=== PATIENT | female | born 1975 | race Caucasian/White ===

== ENCOUNTER → 2016-12-06 | Outpatient (CLI) | payer MEDICARE, MEDICAID ==
[2016-11-21 13:30] VITALS: BP 146/87
[~2016-12-06] MED LIST: ACID1TAB14 PO; AMLO10TA2 PO; AMLO5TAB2 PO; ASPI-482 PO; AZIT250T PO; BACL10TA PO; BACL20TA PO; BISA-42 PO; CYAN10002 IJ; CYAN10005 PO; DICL1PAT4 TD; DIPH25TA49 PO; DULO20CA PO; FENT1PAT17 TD; FLUD0.1T PO; FLUT1DIS3 IH; HYDR-2666 PO; HYDR-2672 PO; HYDR10TA PO; HYDR10TA14 PO; HYDR4TAB13 PO; LEVO500T38 PO; LINA145C PO; LUBI8CAP3 PO; METH-37 PO; METO5TAB55 PO; MULT-460 PO; NYST1000 PO; ONDA4TAB12 PO; OXYC10TA PO; OXYC15TA PO; OXYC5TAB98 PO; OXYM10TA28 PO; POLY17PO5 PO; POTA20TA4 PO; POTA99TA10 PO; PRED-220 PO; PROAIR HFA8.5 GM IH; SIME40DR7 PO; SIME80TA PO; SPIR1TAB PO; SPIR1TAB3 PO; SPIR25TA3 PO; TIZA4CAP PO; TRAZ100T12 PO; TRAZ50TA15 PO; VANC125C2 PO; [UNRECOGNIZED DRUG - CODE] PO; hydrocortisone
--- NOTE | 2016-12-07 06:21 | PAIN ---
DATE OF SERVICE: 12/06/2016 DIAGNOSES: 1. Lumbar radiculopathy with lumbar degenerative disk disease, lumbar spinal stenosis. 2. Epigastric abdominal pain. HISTORY OF PRESENT ILLNESS: The patient is a 41-year-old female who returns for followup status post medication management with Duragesic patches and hydromorphone. The patient has been in the hospital recently with pneumonia, was discharged a few weeks ago, but is doing better. She reports her pain in her low back, bilateral lower extremities has been fairly stable on regimen of her medications hydromorphone and Duragesic patches, ____ the doses a bit from time to time and discussed changing that again today from 8 mg of hydromorphone to 4 mg and she would like to do this as she just reports she is feeling better, we will change her Duragesic patches from 75 to 100 mcg as she seems to do well with this and without side effects. The patient reports otherwise she is doing fairly well, about 70-75% improvement with medications, but without significant side effects. The patient reports again still complains of pain in low back, bilateral lower extremities, some in the left wrist as well, rates it as 7 on a scale of 10 in the low back and legs. We discussed doing additional interventional techniques; however, the patient is adamantly against this at this time and reports that she is doing fairly well with the medications without significant side effects once again. The patient's K-TRACS reporting has been appropriate to date as has her urinalysis to date. PHYSICAL EXAMINATION: VITAL SIGNS: The patient's blood pressure 148/101, pulse 77, respirations 18, temperature is 98.9 degrees Fahrenheit. Height is 5 feet 1 inch, weight is 184 pounds. GENERAL: The patient is awake, alert, oriented, appropriate, very pleasant demeanor. The patient accompanied by her daughter. HEENT: Head shows normocephalic, atraumatic. Extraocular movements are intact, symmetrical. Oral cavity, mucous membranes moist and pink. Dentition is intact. NECK: Shows anterior throat supple without palpable lymphadenopathy noted. Swallow reflex is symmetrical. CHEST: Shows normal on inspection. Breath sounds clear to auscultation bilaterally. HEART: Shows S1 and S2 clear. No murmurs auscultated. ABDOMEN: Soft, obese, nontender, nondistended. The patient has multiple well-healed surgical scars noted with palpation and moderately tender in the upper right and left quadrants, but not in the lower hypogastric region and no masses were palpated. BACK: The patient's back shows spine grossly in midline. Lumbar paraspinous musculature shows some moderate tenderness to palpation, normal diffusely in the middle and low distribution without asymmetry. Muscle girth is normal on palpation. No radiation is demonstrated. EXTREMITIES: Lower extremities showed deep tendon reflexes 1+ in the patellar and tendo calcaneus tendons. Motor exam is strong with a 4/5, but is symmetrical with dorsiflexion, extension, quadriceps and hamstring flexion. Options were discussed with the patient. The patient's old chart was reviewed as her current medication regimen updated. Current review of systems updated today as well. We will refill the patient's hydromorphone at 4 mg dose, also ____ patches at 100 mcg dose q. 72 hours. The patient was given instruction as well as side effects to be aware with the medications and will continue increasing exercise as tolerated, encourage stretching and strengthening exercises with low back, also to consider possible interventional techniques in the future. The patient understands and agrees and will follow up in approximately 90 days or sooner if necessary, was given 3-month prescription with each medication. DWAINE MCGINNIS MD DR: BECKY/merlin JOB#: [id number] / [id number]
== END | disposition home or self-care (01) ==
LOC: PNCL 12:41
PROVIDERS: ATTEND Anesthesiology
DX: M51.16 Intervertebral disc disorders with radiculopathy, lumbar region (principal); M48.06 Spinal stenosis, lumbar region; R10.13 Epigastric pain
CPT/HCPCS: G0463

== ENCOUNTER 2017-01-12 11:58 | Emergency (ER) | payer MEDICARE, MEDICAID ==
[~2017-01-12] VITALS: Ht 157.5 cm; Wt 77.1 kg
[2017-01-12 12:28] VITALS: BP 125/79
--- NOTE | 2017-01-12 13:23 | PHYS DOC ---
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 Patient states she was seen by her primary care physician on Monday of this week for same complaints was given IM injection of antibiotics but no further prescription. There was no chest x-ray done in the office on Monday per the patient. Patient states her symptoms persist, no better no worse, so presents to the emergency department today for reevaluation. Patient states that her physician on Monday was concerned that her right lower lobe pneumonia and was returning. Patient denies a productive cough. No fevers, possible chills. Patient has past medical history of asthma and COPD. Patient smokes half pack cigarettes a day. Review of Systems Review of Systems Constitutional: Denies fever possible chills Eyes: Denies change in visual acuity, redness, or eye pain HENT: Denies nasal congestion or sore throat, several oral ulcers on left side Respiratory: Positive cough or shortness of breath Cardiovascular: No chest pain or palpitations GI: Denies abdominal pain, nausea, vomiting, bloody stools or diarrhea : Denies dysuria or hematuria Musculoskeletal: Denies new back pain or joint pain Endocrine: Denies polyuria or polydipsia Current Medications Current Medications Current Medications Medications (Trade) Dose Ordered Sig/Judith Start Time Stop Time Status Last Admin Dose Admin Albuterol/ Ipratropium (Duoneb) 3 ml 1X ONCE 01/12/17 13:30 01/12/17 13:31 DC 01/12/17 13:56 3 ML Allergies Allergies Allergies Coded Allergies Type Severity Reaction Last Updated Verified Sulfa (Sulfonamide Antibiotics) Allergy Intermediate 12/29/15 Yes citric acid Allergy Intermediate HAS TOLERATED BARIUM 12/29/15 Yes shellfish derived Allergy Intermediate Patient does fine with iodine contrast 12/29/15 Yes Physical Exam Physical Exam Constitutional: Well developed, well nourished, no acute distress, non-toxic appearance. HENT: Normocephalic, atraumatic, oropharynx moist, no oral exudates, positive oral sores left side of mouth, nose normal. Eyes: PERRLA, EOMI, conjunctiva normal, no discharge. Neck: Normal range of motion, no tenderness, supple, no stridor. Cardiovascular:Heart rate regular rhythm, no murmur Lungs & Thorax: Bilateral breath sounds clear to auscultation . Slight expiratory wheeze Abdomen: Bowel sounds normal, soft, no tenderness, no masses, no pulsatile masses. Skin: Warm, dry, no erythema, no rash. Back: No tenderness, no CVA tenderness. Neurologic: Alert and oriented X 3. Current Patient Data Vital Signs Vital Signs Date Time Temp Pulse Resp B/P Pulse Ox O2 Delivery O2 Flow Rate FiO2 01/12/17 13:58 97 Room Air 01/12/17 12:28 99 82 20 125/79 99.0 EKG EKG [] Radiology/Procedures Radiology/Procedures [] Course & Med Decision Making Course & Med Decision Making Pertinent Labs and Imaging studies reviewed. (See chart for details) Reevaluation of the chest x-ray breathing treatment. Patient feeling significantly better. Chest x-ray showing no acute abnormalities. Patient request short course of steroids to assist her respiratory symptoms. Dragon Disclaimer Dragon Disclaimer This electronic medical record was generated, in whole or in part, using a voice recognition dictation system. Departure Departure Impression: Primary Impression: Asthma Disposition: HOME, SELF-CARE Condition: IMPROVED Referrals: JERRY BRIGHT MD (PCP) Scripts Methylprednisolone (Medrol)4 Mg Tab.ds.pk1 Pkg PO UD #1 PKG Prov:NOE CONNELLY MD 01/12/17 Problem Qualifiers Primary Impression: Asthma Asthma severity: mild intermittent Asthma complication type: with acute exacerbation Qualified Code: J45.21 - Mild intermittent asthma with (acute) exacerbation NOE CONNELLY MD Jan 12, 2017 13:23
[2017-01-12] MEDS ORDERED: IPRATRPIUM/ALBUTEROL 0.5/2.5MG 3 ML NEBU. NEB ONE (13:30)
--- NOTE | 2017-01-12 13:48 | RAD ---
Chest, 2 views, 01/12/2017: History: Cough, shortness of breath Comparison is made to a study from 07/11/2016. A right Port-A-Cath extends into the superior vena cava. The heart size and pulmonary vascularity are normal. No pulmonary infiltrates are seen. There is no evidence of pleural fluid. There is mild spurring in the spine. IMPRESSION: No acute cardiopulmonary abnormality is detected.
[2017-01-12] MEDS ORDERED: METH4TAB2 PO (14:45)
== END 2017-01-12 15:06 | disposition home or self-care (01) ==
LOC: ER 11:58
DX: J45.21 Mild intermittent asthma with (acute) exacerbation (principal); J44.9 Chronic obstructive pulmonary disease, unspecified; F17.210 Nicotine dependence, cigarettes, uncomplicated; I10 Essential (primary) hypertension; K31.84 Gastroparesis; Z91.02 Food additives allergy status; Z91.013 Allergy to seafood; Z88.2 Allergy status to sulfonamides
CPT/HCPCS: 71020; 94250; 94640; 94760; 99284; J7620

== ENCOUNTER → 2017-02-28 | Outpatient (CLI) | payer MEDICARE, MEDICAID ==
[2017-01-27 15:00] VITALS: BP 101/53
[~2017-02-28] MED LIST changes: -DICL1PAT4 TD; +FLECTOR1 EACH TD; +HYDR-3074 PO; -HYDR10TA14 PO; +HYDR25TA9 PO; +HYOS0.124 PO; +MELA3TAB PO; +METH4TAB2 PO; -NYST1000 PO; +NYST100054 PO; +POLY17PO29 PO; -POLY17PO5 PO
--- NOTE | 2017-02-28 14:38 | PAIN ---
DATE OF SERVICE: 02/28/2017 PROGRESS NOTE FOR PAIN CLINIC DIAGNOSES: 1. Abdominal pain, epigastric. 2. Lumbar radiculopathy with lumbar degenerative disk disease, lumbar spinal stenosis. HISTORY OF PRESENT ILLNESS: The patient is a 41-year-old female, who returns for followup status post medication management with both hydromorphone and Duragesic patches. The patient reports she is doing very well with this first, very stable regimen. Still some pain in low back and left lower extremity and rated at 7-8 on a scale of 10 at its worst, is a 3-4 on scale of 10 and currently. The patient reports still no new motor or sensory deficits, no new bowel or bladder incontinence, but much better with lying down ____ worse with standing and walking. It does not awaken her from sleep at night. She stopped doing fairly well with that. Again, the medications that decrease the pain by about 70%-80% without any side effects except for some occasional constipation. We discussed this in further detail and we will try some samples of Movantik today for the patient ____ may help with the constipation what she has. The patient reports she is staying hydrated, no new motor or sensory changes or other complaints. PHYSICAL EXAMINATION: VITAL SIGNS: Today, the patient's blood pressure is 119/74, pulse 63, respirations are 18, temperature 98.6 degrees Fahrenheit, height is 5 feet 1 inch. Weight 184 pounds. GENERAL: The patient is awake, alert, oriented, appropriate, very pleasant demeanor. HEENT: Shows normocephalic, atraumatic. Extraocular movements are intact and symmetrical. Oral cavity shows mucous membranes moist and pink. Dentition is intact. NECK: Shows anterior throat supple without palpable lymphadenopathy noted. Swallow reflex is symmetrical. CHEST: Shows normal on inspection. Breath sounds are clear to auscultation bilaterally. HEART: Shows S1 and S2 clear. ABDOMEN: Soft, nontender, nondistended. No palpable organomegaly is noted. The well-healed surgical scar is noted again from previous hernia repairs with some moderate epigastric tenderness only with palpation in this region, but no rebound or guarding. BACK: The patient's back shows spine grossly midline. Normal appearing thoracic kyphosis, lumbar lordotic curvature is mildly flattened. The patient's lumbar paraspinous musculature shows some moderate tenderness with palpation, but only diffusely in the upper, middle and lower distribution bilaterally without radiation. No tenderness over the sacrum and sacroiliac regions. The patient's lower extremities showed deep tendon reflexes 1+ in the patellar and tendo calcaneus tendons are equal. Motor exam is strong with dorsiflexion, extension, quadriceps and hamstring flexion rated at 4/5 and equal and symmetrical. Peripheral pulses are 1+ posterior tibial and dorsalis pedis pulses. No peripheral edema is noted bilaterally. Options were discussed with the patient and the patient's old chart was reviewed as her current medication regimen updated. Current review of systems updated today as well. We will refill the patient's Duragesic patches as well as hydromorphone instructions and side effects to be aware of. Also, try Movantik for constipation is just as well. We can call in a prescription for the patient was given instruction as well as side effects to be aware of all the medications and will follow up in approximately 2 months as scheduled or sooner if necessary. DWAINE MCGINNIS MD DR: BECKY/merlin JOB#: [id number] / [id number]
== END | disposition home or self-care (01) ==
LOC: PNCL 13:04
PROVIDERS: ATTEND Anesthesiology
DX: M51.16 Intervertebral disc disorders with radiculopathy, lumbar region (principal); R10.13 Epigastric pain; M48.06 Spinal stenosis, lumbar region
CPT/HCPCS: G0463

== ENCOUNTER 2017-03-20 15:58 | Emergency (ER) | payer MEDICARE, MEDICAID ==
[~2017-03-20] VITALS: Ht 157.5 cm; Wt 76.2 kg
[~2017-03-20 15:58] MED LIST changes: -HYDR-2666 PO; -HYDR-2672 PO; +HYDR-2758 PO; +HYDR-2766 PO; -HYDR4TAB13 PO; +HYDR4TAB45 PO; -LEVO500T38 PO; +LEVO500T59 PO; -LUBI8CAP3 PO; +LUBI8CAP4 PO; -MELA3TAB PO; +MELA3TAB2 PO; +SIME40DR3 PO; -SIME40DR7 PO
[2017-03-20 16:14] VITALS: BP 159/74
[2017-03-20] MEDS ORDERED: HYDROcodone/APAP 5/325MG 1 TAB TABLET PO ONE (16:45)
--- NOTE | 2017-03-20 16:47 | RAD ---
Indication pain. AP oblique and lateral views of the left foot were obtained. There is a traumatic, oblique, nondisplaced fracture through the midshaft of the fifth metatarsal.. No additional bony abnormality is seen. IMPRESSION: Fractured fifth metatarsal
--- NOTE | 2017-03-20 16:50 | PHYS DOC ---
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 PCP Dr. Zepeda. Review of Systems Review of Systems Constitutional: Denies fever or chills [] Eyes: Denies change in visual acuity, redness, or eye pain [] Musculoskeletal: Left lateral foot pain Integument: Denies rash or skin lesions [] Neurologic: Denies headache, focal weakness or sensory changes [] Endocrine: Denies polyuria or polydipsia [] Current Medications Current Medications Current Medications Medications (Trade) Dose Ordered Sig/Judith Start Time Stop Time Status Last Admin Dose Admin Acetaminophen/ Hydrocodone Bitart (Lortab 5/325) 2 tab 1X ONCE 03/20/17 16:45 03/20/17 16:48 DC 03/20/17 16:45 2 TAB Allergies Allergies Allergies Coded Allergies Type Severity Reaction Last Updated Verified Sulfa (Sulfonamide Antibiotics) Allergy Intermediate 03/20/17 Yes citric acid Allergy Intermediate HAS TOLERATED BARIUM 03/20/17 Yes shellfish derived Allergy Intermediate Patient does fine with iodine contrast 03/20/17 Yes Physical Exam Physical Exam Constitutional: Well developed, well nourished, no acute distress, non-toxic appearance. [] HENT: Normocephalic, atraumatic, bilateral external ears normal, oropharynx moist, no oral exudates, nose normal. [] Skin: Warm, dry, no erythema, no rash. [] Back: No tenderness, no CVA tenderness. [] Extremities: Left foot with mild amount of soft tissue swelling this patient on top of the foot. There is ecchymosis noted on the lateral aspect of the foot with tenderness on palpation the base of the fifth and along the metatarsal of the left foot, limited range of motion to the left foot due to pain. Patient able to wiggle her toes. +2 left pedal pulse. Cap refill less than 2 seconds to left foot and toes. Neurologic: Alert and oriented X 3, normal motor function, normal sensory function, no focal deficits noted. [] Psychologic: Affect normal, judgement normal, mood normal. [] Current Patient Data Vital Signs Vital Signs Date Time Temp Pulse Resp B/P (MAP) Pulse Ox O2 Delivery O2 Flow Rate FiO2 03/20/17 16:45 20 03/20/17 16:14 98.3 58 98 Room Air 98.3 EKG EKG [] Radiology/Procedures Radiology/Procedures []PROCEDURE: FOOT LEFT 3V Indication pain. AP oblique and lateral views of the left foot were obtained. There is a traumatic, oblique, nondisplaced fracture through the midshaft of the fifth metatarsal.. No additional bony abnormality is seen. IMPRESSION: Fractured fifth metatarsal DICTATED and SIGNED BY: EDUARDO MENDOZA MD DATE: 03/20/17 1643 CC: JERRY ZEPEDA MD; JORGE LUIS TAYLOR APRN; NON,STAFF ~ Course & Med Decision Making Course & Med Decision Making Pertinent Labs and Imaging studies reviewed. (See chart for details) This is a 41-year-old female patient who presents today with pain on the left lateral foot after her foot got caught in a door stop and twisted. Left foot x- rays interpreted by radiologist were noted for fractured fifth metatarsal. Patient was placed in a left posterior leg splint by the formulation technician, neurovascular exam done by me post splint application is normal, cap refill less than 2 seconds. Ice elevation encouraged. Follow-up with orthopedic doctor tomorrow. Discharged with hydrocodone for pain. Dragon Disclaimer Dragon Disclaimer This electronic medical record was generated, in whole or in part, using a voice recognition dictation system. Departure Departure Impression: Primary Impression: Fracture of fifth metatarsal bone of left foot Disposition: 01 HOME, SELF-CARE Condition: STABLE Referrals: JERRY ZEPEDA MD (PCP) SATINDER URENA MD Call and follow-up tomorrow Patient Instructions: Metatarsal Fracture with [facility] Additional Instructions: You were seen for left fifth metatarsal fracture. Please call the provided orthopedic doctor tomorrow and follow-up as soon as possible. Ice and elevate the extremity. Do not put weight on the affected foot. Scripts Hydrocodone/Apap 5-325 (NORCO 5-325 TABLET) 1 Each Tablet 1-2 TAB PO Q4-6HRS, #25 TAB Prov: JORGE LUIS TAYLOR APRN 03/20/17 Problem Qualifiers Primary Impression: Fracture of fifth metatarsal bone of left foot Encounter type: initial encounter Fracture type: closed Fracture alignment : nondisplaced Qualified Codes: S92.355A - Nondisplaced fracture of fifth metatarsal bone, left foot, initial encounter for closed fracture JORGE LUIS TAYLOR APRN Mar 20, 2017 16:50
[2017-03-20] MEDS ORDERED: HYDR-971 PO (17:22)
== END 2017-03-20 17:39 | disposition home or self-care (01) ==
LOC: ER 15:58
DX: S92.352A Displaced fracture of fifth metatarsal bone, left foot, initial encounter for closed fracture (principal); J44.9 Chronic obstructive pulmonary disease, unspecified; I10 Essential (primary) hypertension; E27.1 Primary adrenocortical insufficiency; K31.84 Gastroparesis; M48.00 Spinal stenosis, site unspecified; Z90.49 Acquired absence of other specified parts of digestive tract; Z90.710 Acquired absence of both cervix and uterus; Z90.89 Acquired absence of other organs; Z98.84 Bariatric surgery status; Z86.14 Personal history of Methicillin resistant Staphylococcus aureus infection; Z88.2 Allergy status to sulfonamides; Z91.013 Allergy to seafood; Z88.8 Allergy status to other drugs, medicaments and biological substances; X58.XXXA Exposure to other specified factors, initial encounter; Y93.89 Activity, other specified; Y92.89 Other specified places as the place of occurrence of the external cause; Y99.8 Other external cause status
CPT/HCPCS: 29515; 73630; 99284-25

== ENCOUNTER 2017-04-14 05:41 | Observation (INO) | payer MEDICARE, MEDICAID ==
[~2017-04-14] VITALS: Ht 157.5 cm; Wt 75.4 kg
[~2017-04-14 05:41] MED LIST changes: +HYDR-971 PO
--- NOTE | 2017-04-14 06:03 | PHYS DOC ---
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 I spoke with her on the telephone who was at work currently states that last night around 4 PM dose that she was having troubles communicating and could not repeat questions back to her and then was acting like she was taken the dog for a walk and try to grab it the leash even though wasn't there. He also states she was having some jerking movements when she tried to walk which is the same symptoms she had back in August when she was diagnosed with a stroke at [facility] and spent a month admin [facility] rehabilitation facility. She denies dizziness lightheadedness chest pain troubles breathing headache currently. Patient states that she has had a stroke before and has had decreased sensation left arm and left-sided facial droop from that. Review of Systems Review of Systems Constitutional: Denies fever or chills [] Eyes: Denies change in visual acuity, redness, or eye pain [] HENT: Denies nasal congestion or sore throat [] Respiratory: Denies cough or shortness of breath [] Cardiovascular: No additional information not addressed in HPI [] GI: Denies abdominal pain, nausea, vomiting, bloody stools or diarrhea [] : Denies dysuria or hematuria [] Musculoskeletal: Denies back pain or joint pain [] Integument: Denies rash or skin lesions [] Neurologic: Denies headache, focal weakness or sensory changes [] Endocrine: Denies polyuria or polydipsia [] Allergies Allergies Allergies Coded Allergies Type Severity Reaction Last Updated Verified Sulfa (Sulfonamide Antibiotics) Allergy Intermediate 03/20/17 Yes citric acid Allergy Intermediate HAS TOLERATED BARIUM 03/20/17 Yes shellfish derived Allergy Intermediate Patient does fine with iodine contrast 03/20/17 Yes Physical Exam Physical Exam Constitutional: Well developed, well nourished, no acute distress, non-toxic appearance. [] HENT: Normocephalic, atraumatic, bilateral external ears normal, oropharynx moist, no oral exudates, nose normal. [] Eyes: PERRLA, EOMI, conjunctiva normal, no discharge. [] Neck: Normal range of motion, no tenderness, supple, no stridor. [] Cardiovascular:Heart rate regular rhythm, no murmur [] Lungs & Thorax: Bilateral breath sounds clear to auscultation [] Abdomen: Bowel sounds normal, soft, no tenderness, no masses, no pulsatile masses. [] Skin: Warm, dry, no erythema, no rash. [] Back: No tenderness, no CVA tenderness. [] Extremities: No tenderness, no cyanosis, no clubbing, ROM intact, no edema. [] Neurologic: Alert and oriented X 3, sensation of the left arm, slight drift of left leg, left sided facial droop. Psychologic: Affect normal, judgement normal, mood normal. [] Current Patient Data Vital Signs Vital Signs Date Time Temp Pulse Resp B/P (MAP) Pulse Ox O2 Delivery O2 Flow Rate FiO2 04/14/17 07:04 89 171/95 (120) 96 Room Air 04/14/17 05:50 98.3 20 98.3 Lab Values Laboratory Tests Test 04/14/17 06:00 04/14/17 06:50 White Blood Count 10.9 x10^3/uL (4.0-11.0) Red Blood Count 4.20 x10^6/uL (3.50-5.40) Hemoglobin 11.8 g/dL (12.0-15.5) L Hematocrit 36.4 % (36.0-47.0) Mean Corpuscular Volume 87 fL (79-100) Mean Corpuscular Hemoglobin 28 pg (25-35) Mean Corpuscular Hemoglobin Concent 33 g/dL (31-37) Red Cell Distribution Width 18.5 % (11.5-14.5) H Platelet Count 164 x10^3/uL (140-400) Neutrophils (%) (Auto) 71 % (31-73) Lymphocytes (%) (Auto) 23 % (24-48) L Monocytes (%) (Auto) 5 % (0-9) Eosinophils (%) (Auto) 1 % (0-3) Basophils (%) (Auto) 1 % (0-3) Neutrophils # (Auto) 7.8 x10^3uL (1.8-7.7) H Lymphocytes # (Auto) 2.5 x10^3/uL (1.0-4.8) Monocytes # (Auto) 0.5 x10^3/uL (0.0-1.1) Eosinophils # (Auto) 0.1 x10^3/uL (0.0-0.7) Basophils # (Auto) 0.1 x10^3/uL (0.0-0.2) Prothrombin Time 12.2 SEC (11.7-14.0) Prothrombin Time INR 1.0 (0.8-1.1) PTT 37 SEC (24-38) Sodium Level 147 mmol/L (136-145) H Potassium Level 2.5 mmol/L (3.5-5.1) *L Chloride Level 106 mmol/L (98-107) Carbon Dioxide Level 34 mmol/L (21-32) H Anion Gap 7 (6-14) Blood Urea Nitrogen 7 mg/dL (7-20) Creatinine 0.7 mg/dL (0.6-1.0) Estimated GFR (Cockcroft-Gault) 91.8 Glucose Level 83 mg/dL (70-99) Calcium Level 8.2 mg/dL (8.5-10.1) L Magnesium Level 2.2 mg/dL (1.8-2.4) Total Bilirubin 0.3 mg/dL (0.2-1.0) Direct Bilirubin 0.1 mg/dL (0.0-0.2) Aspartate Amino Transferase (AST) 17 U/L (15-37) Alanine Aminotransferase (ALT) 21 U/L (14-59) Alkaline Phosphatase 83 U/L (46-116) Ammonia 12 mcmol/L (11-34) Creatine Kinase 53 U/L (26-192) Creatine Kinase MB (Mass) 0.5 ng/mL (0.0-3.6) Creatine Kinase MB Relative Index % (0-4) Troponin I Quantitative < 0.017 ng/mL (0.000-0.055) LY-Dkn-I-Type Natriuretic Peptide 680 pg/mL (0-124) H Total Protein 5.3 g/dL (6.4-8.2) L Albumin 2.8 g/dL (3.4-5.0) L Urine Collection Type Void Urine Color Yellow Urine Clarity Clear Urine pH 6.5 Urine Specific [place] 1.015 Urine Protein Negative mg/dL (NEG-TRACE) Urine Glucose (UA) Negative mg/dL (NEG) Urine Ketones (Stick) Negative mg/dL (NEG) Urine Blood Negative (NEG) Urine Nitrite Negative (NEG) Urine Bilirubin Negative (NEG) Urine Urobilinogen Dipstick 0.2 mg/dL (0.2 mg/dL) Urine Leukocyte Esterase Negative (NEG) Urine RBC Occ /HPF (0-2) Urine WBC 1-4 /HPF (0-4) Urine Squamous Epithelial Cells Many /LPF Urine Bacteria Many /HPF (0-FEW) Urine Mucus Marked /LPF Urine Opiates Screen Pos (NEG) Urine Methadone Screen Neg (NEG) Urine Barbiturates Neg (NEG) Urine Phencyclidine Screen Neg (NEG) Urine Amphetamine/Methamphetamine Neg (NEG) Urine Benzodiazepines Screen Neg (NEG) Urine Cocaine Screen Neg (NEG) Urine Cannabinoids Screen Neg (NEG) Urine Ethyl Alcohol Neg (NEG) Laboratory Tests 04/14/17 06:00 Laboratory Tests 04/14/17 06:00 EKG EKG EKG shows sinus rhythm with rate of [address] elevations appreciated , left axis deviation noted, QTC 461 ms, as interpreted by me. Radiology/Procedures Radiology/Procedures [facility] [address] [place] [address] IMAGING REPORT Signed PATIENT: DARIUS REED ACCOUNT: [id number] : 01/20/1956 LOCATION: ER AGE: 61 SEX: F EXAM STATUS: REG ER ORD. PHYSICIAN: ALEX TAI MD REASON: fall PROCEDURE: WRIST 3V RIGHT Three-view study of the right wrist History: Patient fell this a.m. around 0500 hours. Pain and deformity of the right wrist. Findings: There is a comminuted impacted transverse fracture of the distal right radial metaphysis and epiphysis. There is intra-articular extension through the medial aspect of the articular surface of the radius. There is medial displacement of a fracture fragment. There is posterior displacement of the main fracture fragment of 5 mm. There is anterior angulation of the apex of the fracture. Radial carpal articulation is maintained. In the lateral view, there is another small fracture seen posteriorly which represents a posterior displaced fracture of the ulnar styloid process. There is positive ulnar variance of 9 mm. No osteolytic process is seen. IMPRESSION: Posttraumatic fractures of the distal right radius and ulna. DICTATED and SIGNED BY: ANDREW EVANGELISTA MD DATE: 04/14/17 07 CC: ALEX TAI MD; MINERVA BELL MD ~ [facility] [address] [place] [address] IMAGING REPORT Signed PATIENT: AMANDA MENDIETA ACCOUNT: [id number] : 1975 LOCATION: ER AGE: 42 SEX: F EXAM STATUS: REG ER ORD. PHYSICIAN: ALEX TAI MD REASON: AMS PROCEDURE: CT HEAD WO CONTRAST Clinical indications: Altered mental status. Technique: Noncontrast axial cross sectional scanning of the head was performed. PQRS Compliance Statement: One or more of the following individualized dose reduction techniques were utilized for this examination: 1. Automated exposure control 2. Adjustment of the mA and/or kV according to patient size 3. Use of iterative reconstruction technique Comparison: January 26, 2017. Findings: No acute intracranial hemorrhage or midline shift or mass-effect or hydrocephalus or extra-axial fluid collection is seen. No focal hypodense area or sulci effacement is seen to indicate an acute infarct or edema radiographically. No skull fracture or pneumocephalus is seen. No opacification of the mastoid sinuses or the middle ear cavities is seen. There is a nodule of the right maxillary sinus with mucosal thickening. This may represent a mucous retention cyst. The maxillary sinuses are not completely seen in this study however. Impression: No acute intracranial abnormality is seen. Mucous retention cyst and mucosal thickening of the right maxillary sinus. DICTATED and SIGNED BY: ANDREW EVANGELISTA MD DATE: 04/14/17716 CC: ALEX TAI MD; JERRY ZEPEDA MD ~ Impressions: Hypokalemia Altered mental status [place]'s disease Chronic pain Course & Med Decision Making Course & Med Decision Making Pertinent Labs and Imaging studies reviewed. (See chart for details) She presents outside of the window for TPA as her symptoms started last night around [address] head did not show acute abnormality's. Her potassium is 2.5. She was started on an 10 MEq potassium chloride orally for the next [address] Foster regarding admission for her mild mental sluggishness at this time. I do not appreciate any new neurological findings based on the patient's history. She was able to ambulate with her cane however it was limited secondary to her left foot fracture and left foot drop. I suspect this is likely narcotic induced however she has had a stroke partially 6 months ago and needed time in rehabilitation. Patient's in stable condition this time interim orders have been written. Dragon Disclaimer Dragon Disclaimer This electronic medical record was generated, in whole or in part, using a voice recognition dictation system. Departure Departure Impression: Primary Impression: Hypokalemia Disposition: ADMITTED INPATIENT Admitting Physician: Jessie Zepeda Condition: STABLE Referrals: JERRY ZEPEDA MD (PCP) ALEX TAI MD Apr 14, 2017 06:03
[2017-04-14 06:40] LABS: BASO # 0.1 x10^3/uL (0.0-0.2); BASO % 1 % (0-3); EOS % 1 % (0-3); HEMATOCRIT 36.4 % (36.0-47.0); HEMOGLOBIN 11.8 g/dL (12.0-15.5); LYMPH # 2.5 x10^3/uL (1.0-4.8); LYMPH % 23 % (24-48); MEAN CORPUSCULAR HEMOGLOBIN 28 pg (25-35); MEAN CORPUSCULAR HGB CONC 33 g/dL (31-37); MEAN CORPUSCULAR VOLUME 87 fL (79-100); MONO % 5 % (0-9); NEUT % 71 % (31-73); PLATELET COUNT 164 x10^3/uL (140-400); RED CELL DISTRIBUTION WIDTH 18.5 % (11.5-14.5); WHITE BLOOD COUNT 10.9 x10^3/uL (4.0-11.0)
[2017-04-14 06:51] LABS: PROTHROMBIN TIME PATIENT 12.2 SEC (11.7-14.0)
[2017-04-14 07:01] LABS: ALBUMIN 2.8 g/dL (3.4-5.0); CALCIUM 8.2 mg/dL (8.5-10.1); CREATININE 0.7 mg/dL (0.6-1.0); DIRECT BILIRUBIN 0.1 mg/dL (0.0-0.2); GFR 91.8; MAGNESIUM 2.2 mg/dL (1.8-2.4); TOTAL BILIRUBIN 0.3 mg/dL (0.2-1.0); TOTAL PROTEIN 5.3 g/dL (6.4-8.2)
[2017-04-14 07:03] LABS: POTASSIUM 2.5 mmol/L (3.5-5.1)
[2017-04-14 07:04] LABS: BILIRUBIN,URINE NEGATIVE (NEG); GLUCOSE,URINE NEGATIVE (NEG); NITRITE,URINE NEGATIVE (NEG); PH,URINE 6.5; PROTEIN,URINE NEGATIVE (NEG-TRACE); UROBILINOGEN,URINE 0.2 mg/dL (0.2 mg/dL)
[2017-04-14 07:08] LABS: CKMB MASS 0.5 ng/mL (0.0-3.6); CREATINE KINASE 53 U/L (26-192)
--- NOTE | 2017-04-14 07:08 | RAD ---
Portable AP upright view CXR: Clinical indications: Altered mental status. Comparison: January 12, 2017. Findings: No acute lung infiltrate or pleural effusion or pulmonary edema or lung mass or pneumothorax is seen. The heart size, pulmonary vasculature, mediastinum and both itzel are unremarkable. Right IJ Port-A-Cath is unchanged in position. Impression: No acute radiographic abnormality is seen.
[2017-04-14 07:11] LABS: BARBITURATES NEG (NEG); BENZODIAZEPINES NEG (NEG); CANNABINOIDS NEG (NEG); COCAINE NEG (NEG); METHADONE NEG (NEG); OPIATES POS (NEG); PHENCYCLIDINE NEG (NEG)
[2017-04-14 07:17] LABS: BACTERIA,URINE MANY /HPF (0-FEW); RBC,URINE OCC /HPF (0-2); SQUAMOUS EPITHELIAL CELL,UR MANY /LPF
--- NOTE | 2017-04-14 07:23 | RAD ---
Clinical indications: Altered mental status. Technique: Noncontrast axial cross sectional scanning of the head was performed. PQRS Compliance Statement: One or more of the following individualized dose reduction techniques were utilized for this examination: 1. Automated exposure control 2. Adjustment of the mA and/or kV according to patient size 3. Use of iterative reconstruction technique Comparison: January 26, 2017. Findings: No acute intracranial hemorrhage or midline shift or mass-effect or hydrocephalus or extra-axial fluid collection is seen. No focal hypodense area or sulci effacement is seen to indicate an acute infarct or edema radiographically. No skull fracture or pneumocephalus is seen. No opacification of the mastoid sinuses or the middle ear cavities is seen. There is a nodule of the right maxillary sinus with mucosal thickening. This may represent a mucous retention cyst. The maxillary sinuses are not completely seen in this study however. Impression: No acute intracranial abnormality is seen. Mucous retention cyst and mucosal thickening of the right maxillary sinus.
[2017-04-14] MEDS ORDERED: ONDANSETRON PF 4 MG/2 ML VIAL. IV PRN (07:45)
[2017-04-14] MEDS: POTASSIUM CHLORIDE 10MEQ 100 ML IV SCH ×4 (08:05→17:35)
[2017-04-14 08:15] VITALS: BP 157/93
--- NOTE | 2017-04-14 08:43 | ACF ---
Admission Forms Criteria HYPONATREMIA; HYPERNATREMIA; HYPOKALEMIA; HYPERKALEMIA; HYPOCALCEMIA; HYPERCALCEMIA Clinical Indications for Inpatient Care (Place 'X' for any and all applicable criteria): Ongoing inpatient care may be indicated for ANY ONE of the following [G](1)(2)(3 )(5): [ ]I. Hyponatremia with ANY ONE of the following: [ ]a) Sodium less than 130 mEq/L (mmol/L) (new) (6)(22) [ ]b) Sodium less than 135 mEq/L (mmol/L) with ANY ONE of the following: [ ]i) Severe medical etiology requiring inpatient management (eg, heart failure, hypovolemia) [ ]ii) Altered mental status [ ]iii) Seizures [ ]II. Hypernatremia with ANY ONE of the following: [ ]a) Sodium greater than 155 mEq/L (mmol/L) [ ]b) Sodium greater than 150 mEq/L (mmol/L) with ANY ONE of the following: [ ] i) Altered mental status [ ]ii) Seizures [ ]iii) Severe medical etiology (eg, hypovolemia, diabetes insipidus) [ ]iv) Severe weakness [ ]v) Severe medical etiology (eg, hemolysis, infection, drug overdose) [X]III. Hypokalemia with ANY ONE of the following: [ ]a) Potassium less than 2.5 mEq/L (mmol/L) despite outpatient and emergency treatment [X]b) Potassium less than 3.0 mEq/L (mmol/L) with ANY ONE of the following: [ ]i) Weakness [ ]ii) Cardiac abnormality (eg, arrhythmia, conduction disturbance) [ ]iii) Cardiac ischemia [ ]iv) Ileus [ ]v) Ongoing medical cause requiring inpatient management. ( e.g., acute renal wasting, SIADH) [X]vi) Other severe symptoms [ ] IV. Hyperkalemia with ANY ONE of the following: [ ]a) Potassium greater than 6.5 mEq/L (mmol/L) [ ]b) Potassium greater than 5 mEq/L (mmol/L) with ANY ONE of the following: [ ]i) Severe ECG findings [H] [ ]ii) Acute worsening of renal failure (creatinine greater than 2.5 mg/dL (221 micromoles/L) or significant elevation for age and size) [ ] V. Hypocalcemia with ANY ONE of the following: [ ]a) Calcium less than 7 mg/dL (1.75 mmol/L) despite outpatient and emergency treatment(19) [ ]b) Calcium less than 8 mg/dL (2 mmol/L) with significant symptoms or findings; examples include: [ ]i) Cardiac abnormality (eg, arrhythmia or conduction disturbance) [ ]ii) Altered mental status [ ]iii) Seizures [ ]iv) Breathing difficulty [ ]v) Muscle spasms [ ]. Hypercalcemia with ANY ONE of the following: [ ]a) Calcium greater than 14 mg/dL (3.5 mmol/L) [ ]b) Calcium greater than 12 mg/dL (3 mmol/L) with ANY ONE of the following: [ ]i) Significant dehydration or hypovolemia as indicated by ANY ONE of the following(2): [ ]1. Clinically significant dehydration as indicated by ANY ONE of the following: [ ]A. Acute loss of weight from baseline (5% of body weight in adults, 9% in pediatric patients) [ ]B. Hemodynamic instability [ ]C. Acute renal failure [ ]D. Serum sodium greater than 150 mEq/L (mmol/L) [ ]2) Dehydration that is persistent indicated by ALL of the following: [ ]A. Oral rehydration therapy not tolerated or insufficient to adequately correct dehydration [ ]B. Appropriate intravenous treatment (eg, fluids ) does not readily correct dehydration ie, after 12 to 24 hours of treatment) [ ]ii) Significant symptoms or findings; examples include: [ ]1) Altered mental status [ ]2) Cardiac abnormality (eg, arrhythmia, conduction disturbance) [ ]3) Cardiac abnormality (eg, arrhythmia, conduction disturbance) The original [employer] content created by [employer] has been revised. The portions of the content which have been revised are identified through the use of italic text or in bold, and [facility] has neither reviewed nor approved the modified material. All other unmodified content is copyright [facility] [employer] Please see references footnoted in the original [facility] [employer] edition 2016 Admission Criteria Met?: Yes EVARISTO JARQUIN Apr 14, 2017 08:43
[2017-04-14] MEDS ORDERED: ASPI81TA50 PO (08:45)
[2017-04-14] MEDS ORDERED: BUDE10.22 IH (08:45)
[2017-04-14] MEDS ORDERED: HYOS0.1264 PO (08:45)
[2017-04-14 09:00] VITALS: BP 157/93
[2017-04-14] MEDS ORDERED: HYDR10TA PO (09:16)
[2017-04-14] MEDS ORDERED: FLUD0.1T PO (09:16)
[2017-04-14] MEDS ORDERED: HYDR-3074 PO (09:16)
[2017-04-14] MEDS ORDERED: HYDR25TA9 PO (09:16)
[2017-04-14] MEDS ORDERED: POLYETHYLENE GLYCOL 3350 17 GM PACKET. PO PRN (09:30)
[2017-04-14] MEDS ORDERED: ONDANSETRON ODT 4 MG TAB.RAPDIS. PO PRN (09:30)
--- NOTE | 2017-04-14 09:41 | PDOC1 ---
History and Physical Date of Admission Date of Admission DATE: 04/14/17 TIME: 09:27 Identification/Chief Complaint Chief Complaint Altered mental status. Problems: History of Present Illness History of Present Illness Patient was brought to the ER by her with the above complaint. He reports she had seemed somewhat sleepy to him yesterday evening. This persisted and this morning she continued to seem sleepy and somewhat confused. He brought her to the ER where initial evaluation showed no acute findings on CT head but a potassium of 2.5, and she was admitted for further treatment. Past Medical History Cardiovascular: HTN Pulmonary: COPD CENTRAL NERVOUS SYSTEM: CVA (2016), Periperal neuropathy, TIA, Other GI: Constipation Psych: Anxiety, Depression Musculoskeletal: Osteoarthritis, Other (recent fracture of left 5th metatarsal) Rheumatologic: Fibromyalgia Infectious disease: Other Endocrine: Other (Addisons disease) Past Surgical History Past Surgical History: Cholecystectomy, , Hernia Repair, Hysterectomy , Other Family History Family History: Diabetes, Heart Disease, Hypertension Social History Smoke: <1 pack per day ALCOHOL: rare Drugs: None Current Problem List Problem List Problems Medical Problems: (1) Hypokalemia Status: Acute Problems: Current Medications Current Medications Current Medications Potassium Chloride 100 ml @ 100 mls/hr Q1H IV Last administered on 04/14/17t 08:05; Start 04/14/17 at 08:00; Stop 04/14/17 at 11:59 Ondansetron HCl (Zofran) 4 mg PRN Q8HRS PRN IV NAUSEA/VOMITING; Start 04/14/17 at 07:45; Stop 04/15/17 at 07:44 Aspirin (Ecotrin) 81 mg BID PO ; Start 04/14/17 at 21:00; Status UNV Baclofen (Lioresal) 20 mg TID PO ; Start 04/14/17 at 14:00; Status UNV Bisacodyl (Dulcolax Tab) 25 mg BID PO ; Start 04/14/17 at 21:00; Status UNV Duloxetine HCl (Cymbalta) 20 mg BID PO ; Start 04/14/17 at 21:00; Status UNV Fentanyl (Duragesic 50mcg/ Hr Patch) 1 patch Q3DAYS TD ; Start 04/17/17 at 09:00 ; Status UNV Fludrocortisone Acetate (Florinef) 0.3 mg Q12HR PO ; Start 04/14/17 at 21:00; Status UNV Acetaminophen/ Hydrocodone Bitart (Lortab 5/325) 1 tab PRN Q6HRS PRN PO PAIN; Start 04/14/17 at 09:30; Status UNV Hydrocortisone (Cortef) 20 mg DAILY PO ; Start 04/15/17 at 09:00; Status UNV Hydrocortisone (Cortef) 10 mg AFTRNOON PO ; Start 04/14/17 at 13:00; Status UNV Lubiprostone (Amitiza) 8 mcg BIDWMEALS PO ; Start 04/14/17 at 17:00; Status UNV Metoclopramide HCl (Reglan) 5 mg QIDACHS PO ; Start 04/14/17 at 11:30; Status UNV Ondansetron HCl (Zofran Odt) 4 mg PRN QID PRN PO NAUSEA/VOMITING (1ST CHOICE); Start 04/14/17 at 09:30; Status UNV Polyethylene Glycol (miraLAX PACKET) 17 gm PRN DAILY PRN PO CONSTIPATION; Start 04/14/17 at 09:30; Status UNV Potassium Chloride (Klor-Con) 20 meq BID94 PO ; Start 04/14/17 at 16:00; Status UNV Simethicone (Gas-X) 80 mg PRN AFTMEALHC PRN PO GAS / BLOATING; Start 04/14/17 at 09:30; Status UNV Spironolactone (Aldactone) 25 mg BID PO ; Start 04/14/17 at 21:00; Status UNV Trazodone HCl (Desyrel) 100 mg HS PO ; Start 04/14/17 at 21:00; Status UNV Non-Formulary Medication 2 puff BID IH ; Start 04/14/17 at 21:00; Status UNV Non-Formulary Medication 1 patch BID TD ; Start 04/14/17 at 21:00; Status UNV Active Scripts Active [place] 5-325 Tablet (Acetaminophen/Hydrocodone Bitart) 1 Each Tablet 1-2 Tab PO Q4-6HRS Medrol (Methylprednisolone) 4 Mg Tab.ds.pk 1 Pkg PO UD Hydrocodone-Apap 5-325 (Hydrocodone Bit/Acetaminophen) 1 Each Tablet 1 Tab PO PRN Q6HRS PRN Be careful as this medication may cause you to be drowsy or tired. Do not drive on this medication. Flector (Diclofenac Epolamine) 1 Each Patch.td12 1 Patch TD BID Gas-X (Simethicone) 80 Mg Tab.chew 80 Mg PO PRN AFTMEALHC PRN Amitiza (Lubiprostone) 8 Mcg Capsule 8 Mcg PO BIDWMEALS Miralax (Polyethylene Glycol 3350) 17 Gm Powd.pack 17 Gm PO PRN DAILY PRN Reglan (Metoclopramide Hcl) 5 Mg Tablet 5 Mg PO QIDACHS Ondansetron Odt (Ondansetron) 4 Mg Tab.rapdis 4 Mg PO PRN QID PRN Reported Fludrocortisone Acetate 0.1 Mg Tablet 0.3 Mg PO Q12HR Hydrocortisone 10 Mg Tablet 20 Mg PO DAILY Cortef (Hydrocortisone) 10 Mg Tablet 10 Mg PO AFTRNOON Symbicort 80-4.5 Mcg Inhaler (Budesonide/Formoterol Fumarate) 10.2 Gm Hfa.aer.ad 2 Puff IH BID Levsin (Hyoscyamine Sulfate) 0.125 Mg Tablet 0.125 Mg PO Aspir-Low (Aspirin) 81 Mg Tablet. 81 Mg PO BID Melatonin 3 Mg Tablet 1 Tab PO QHS Spironolactone 25 Mg Tablet 1 Tab PO BID Dulcolax (Bisacodyl) 5 Mg Tablet. 5 Tab PO BID Baclofen 10 Mg Tablet 20 Mg PO TID Trazodone Hcl 100 Mg Tablet 100 Mg PO HS Last dose taken: Next dose due: Cyanocobalamin Injection (Cyanocobalamin (Vitamin B-12)) 1,000 Mcg/1 Ml Vial 1, 000 Mcg IJ Q2WKS Last dose given: 11/01/15 Next dose due: take as directed Multiple Vitamin (Multivitamin With Minerals) 1 Each Tablet 1 Each PO BID Last dose given: Next dose due: Klor-Con M20 (Potassium Chloride) 20 Meq Tab.er.prt 20 Meq PO BID94 Last dose given: Next dose due: FENTANYL 50mcg/hr (Fentanyl) 1 Each Patch.td72 100 Mcg TD Last dose given: Next dose due: take as directed Cymbalta (Duloxetine Hcl) 20 Mg Capsule. 20 Mg PO BID Last dose given: Next dose due: Allergies Allergies: Coded Allergies: Sulfa (Sulfonamide Antibiotics) (Verified Allergy, Intermediate, 03/20/17) citric acid (Verified Allergy, Intermediate, HAS TOLERATED BARIUM, 03/20/17) shellfish derived (Verified Allergy, Intermediate, Patient does fine with iodine contrast, 03/20/17) ROS General: YES: Other (denies fevers) PSYCHOLOGICAL ROS: YES: Other (mood OK with her usual meds) ENDOCRINE: YES: Other (sees Endocrine for her Addisons disease, meds unchanged per patient report) Respiratory: No: Cough, Shortness of breath Cardiovascular: No Chest Pain Gastrointestinal: Yes Other (chronic constipation. Takes Dulcolax almost daily , not taking Miralax very often) Genitourinary: YES Other (denies dysuria) Musculoskeletal: Yes Other (recent pain in left foot following fracture several weeks ago, seeing Orthopedics for this) Physical Exam General: Alert, Oriented X3, No acute distress (appears very mildly sleepy, answers questions appropriately but a little slowly) HEENT: PERRLA, EOMI Lungs: Clear to auscultation Heart: S1S2, no murmurs Abdomen: Normal bowel sounds, Soft, No tenderness Extremities: No edema, Other (post-op shoe on left foot) Neuro: Normal speech, Other (no facial droop) Vitals Vitals Vital Signs Date Time Temp Pulse Resp B/P (MAP) Pulse Ox O2 Delivery O2 Flow Rate FiO2 04/14/17 07:42 93 172/86 (114) 96 Room Air 04/14/17 05:50 98.3 20 98.3 Labs Labs Laboratory Tests Test 04/14/17 06:00 04/14/17 06:50 White Blood Count 10.9 x10^3/uL (4.0-11.0) Red Blood Count 4.20 x10^6/uL (3.50-5.40) Hemoglobin 11.8 g/dL (12.0-15.5) Hematocrit 36.4 % (36.0-47.0) Mean Corpuscular Volume 87 fL (79-100) Mean Corpuscular Hemoglobin 28 pg (25-35) Mean Corpuscular Hemoglobin Concent 33 g/dL (31-37) Red Cell Distribution Width 18.5 % (11.5-14.5) Platelet Count 164 x10^3/uL (140-400) Neutrophils (%) (Auto) 71 % (31-73) Lymphocytes (%) (Auto) 23 % (24-48) Monocytes (%) (Auto) 5 % (0-9) Eosinophils (%) (Auto) 1 % (0-3) Basophils (%) (Auto) 1 % (0-3) Neutrophils # (Auto) 7.8 x10^3uL (1.8-7.7) Lymphocytes # (Auto) 2.5 x10^3/uL (1.0-4.8) Monocytes # (Auto) 0.5 x10^3/uL (0.0-1.1) Eosinophils # (Auto) 0.1 x10^3/uL (0.0-0.7) Basophils # (Auto) 0.1 x10^3/uL (0.0-0.2) Prothrombin Time 12.2 SEC (11.7-14.0) Prothromb Time International Ratio 1.0 (0.8-1.1) Activated Partial Thromboplast Time 37 SEC (24-38) Sodium Level 147 mmol/L (136-145) Potassium Level 2.5 mmol/L (3.5-5.1) Chloride Level 106 mmol/L (98-107) Carbon Dioxide Level 34 mmol/L (21-32) Anion Gap 7 (6-14) Blood Urea Nitrogen 7 mg/dL (7-20) Creatinine 0.7 mg/dL (0.6-1.0) Estimated GFR (Cockcroft-Gault) 91.8 Glucose Level 83 mg/dL (70-99) Calcium Level 8.2 mg/dL (8.5-10.1) Magnesium Level 2.2 mg/dL (1.8-2.4) Total Bilirubin 0.3 mg/dL (0.2-1.0) Direct Bilirubin 0.1 mg/dL (0.0-0.2) Aspartate Amino Transf (AST/SGOT) 17 U/L (15-37) Alanine Aminotransferase (ALT/SGPT) 21 U/L (14-59) Alkaline Phosphatase 83 U/L (46-116) Ammonia 12 mcmol/L (11-34) Creatine Kinase 53 U/L (26-192) Creatine Kinase MB (Mass) 0.5 ng/mL (0.0-3.6) Creatine Kinase MB Relative Index % (0-4) Troponin I Quantitative < 0.017 ng/mL (0.000-0.055) BR-Vrw-M-Type Natriuretic Peptide 680 pg/mL (0-124) Total Protein 5.3 g/dL (6.4-8.2) Albumin 2.8 g/dL (3.4-5.0) Urine Collection Type Void Urine Color Yellow Urine Clarity Clear Urine pH 6.5 Urine Specific [place] 1.015 Urine Protein Negative mg/dL (NEG-TRACE) Urine Glucose (UA) Negative mg/dL (NEG) Urine Ketones (Stick) Negative mg/dL (NEG) Urine Blood Negative (NEG) Urine Nitrite Negative (NEG) Urine Bilirubin Negative (NEG) Urine Urobilinogen Dipstick 0.2 mg/dL (0.2 mg/dL) Urine Leukocyte Esterase Negative (NEG) Urine RBC Occ /HPF (0-2) Urine WBC 1-4 /HPF (0-4) Urine Squamous Epithelial Cells Many /LPF Urine Bacteria Many /HPF (0-FEW) Urine Mucus Marked /LPF Urine Opiates Screen Pos (NEG) Urine Methadone Screen Neg (NEG) Urine Barbiturates Neg (NEG) Urine Phencyclidine Screen Neg (NEG) Urine Amphetamine/Methamphetamine Neg (NEG) Urine Benzodiazepines Screen Neg (NEG) Urine Cocaine Screen Neg (NEG) Urine Cannabinoids Screen Neg (NEG) Urine Ethyl Alcohol Neg (NEG) Laboratory Tests Test 04/14/17 06:00 04/14/17 06:50 White Blood Count 10.9 x10^3/uL (4.0-11.0) Red Blood Count 4.20 x10^6/uL (3.50-5.40) Hemoglobin 11.8 g/dL (12.0-15.5) Hematocrit 36.4 % (36.0-47.0) Mean Corpuscular Volume 87 fL (79-100) Mean Corpuscular Hemoglobin 28 pg (25-35) Mean Corpuscular Hemoglobin Concent 33 g/dL (31-37) Red Cell Distribution Width 18.5 % (11.5-14.5) Platelet Count 164 x10^3/uL (140-400) Neutrophils (%) (Auto) 71 % (31-73) Lymphocytes (%) (Auto) 23 % (24-48) Monocytes (%) (Auto) 5 % (0-9) Eosinophils (%) (Auto) 1 % (0-3) Basophils (%) (Auto) 1 % (0-3) Neutrophils # (Auto) 7.8 x10^3uL (1.8-7.7) Lymphocytes # (Auto) 2.5 x10^3/uL (1.0-4.8) Monocytes # (Auto) 0.5 x10^3/uL (0.0-1.1) Eosinophils # (Auto) 0.1 x10^3/uL (0.0-0.7) Basophils # (Auto) 0.1 x10^3/uL (0.0-0.2) Prothrombin Time 12.2 SEC (11.7-14.0) Prothromb Time International Ratio 1.0 (0.8-1.1) Activated Partial Thromboplast Time 37 SEC (24-38) Sodium Level 147 mmol/L (136-145) Potassium Level 2.5 mmol/L (3.5-5.1) Chloride Level 106 mmol/L (98-107) Carbon Dioxide Level 34 mmol/L (21-32) Anion Gap 7 (6-14) Blood Urea Nitrogen 7 mg/dL (7-20) Creatinine 0.7 mg/dL (0.6-1.0) Estimated GFR (Cockcroft-Gault) 91.8 Glucose Level 83 mg/dL (70-99) Calcium Level 8.2 mg/dL (8.5-10.1) Magnesium Level 2.2 mg/dL (1.8-2.4) Total Bilirubin 0.3 mg/dL (0.2-1.0) Direct Bilirubin 0.1 mg/dL (0.0-0.2) Aspartate Amino Transf (AST/SGOT) 17 U/L (15-37) Alanine Aminotransferase (ALT/SGPT) 21 U/L (14-59) Alkaline Phosphatase 83 U/L (46-116) Ammonia 12 mcmol/L (11-34) Creatine Kinase 53 U/L (26-192) Creatine Kinase MB (Mass) 0.5 ng/mL (0.0-3.6) Creatine Kinase MB Relative Index % (0-4) Troponin I Quantitative < 0.017 ng/mL (0.000-0.055) LX-Olj-C-Type Natriuretic Peptide 680 pg/mL (0-124) Total Protein 5.3 g/dL (6.4-8.2) Albumin 2.8 g/dL (3.4-5.0) Urine Collection Type Void Urine Color Yellow Urine Clarity Clear Urine pH 6.5 Urine Specific [place] 1.015 Urine Protein Negative mg/dL (NEG-TRACE) Urine Glucose (UA) Negative mg/dL (NEG) Urine Ketones (Stick) Negative mg/dL (NEG) Urine Blood Negative (NEG) Urine Nitrite Negative (NEG) Urine Bilirubin Negative (NEG) Urine Urobilinogen Dipstick 0.2 mg/dL (0.2 mg/dL) Urine Leukocyte Esterase Negative (NEG) Urine RBC Occ /HPF (0-2) Urine WBC 1-4 /HPF (0-4) Urine Squamous Epithelial Cells Many /LPF Urine Bacteria Many /HPF (0-FEW) Urine Mucus Marked /LPF Urine Opiates Screen Pos (NEG) Urine Methadone Screen Neg (NEG) Urine Barbiturates Neg (NEG) Urine Phencyclidine Screen Neg (NEG) Urine Amphetamine/Methamphetamine Neg (NEG) Urine Benzodiazepines Screen Neg (NEG) Urine Cocaine Screen Neg (NEG) Urine Cannabinoids Screen Neg (NEG) Urine Ethyl Alcohol Neg (NEG) VTE Prophylaxis Ordered VTE Prophylaxis Devices: No VTE Pharmacological Prophylaxi: Yes Assessment/Plan Assessment/Plan 1. Altered mental status - this seems to have improved since her presentation to the ER and she appears close to her baseline presently. Will continue to observe. No evidence of acute illness causing her symptoms at this time. 2. hypokalemia - patient reports she had not been taking her usual po K+ recently due to problems obtaining it. Will replace po and recheck lab in AM. 3. chronic pain - appears stable, continue Duragesic patch and prn [place]. Patient does have a history of oversedation from pain meds at home. 4. [place]'s disease - stable, continue her home meds. 5. depression with anxiety - well controlled, continue home meds. 6. COPD - continue inhaler, patient not interested in smoking cessation, declines nicotine patch at this time. 7. chronic constipation - advised Miralax daily and Dulcolax prn. PARDEEP GONSALES MD Apr 14, 2017 09:41
[2017-04-14] MEDS ORDERED: fentaNYL 50MCG/HR PATCH 1 PATCH PATCH.TD72 TD SCH (10:00)
[2017-04-14 11:00] VITALS: BP 143/80
[2017-04-14] MEDS: HYDROCORTISONE 10 MG TABLET PO SCH ×2 (11:21→13:33)
[2017-04-14] MEDS: ASPIRIN ENTERIC COATED 81 MG TABLET.DR. PO SCH ×2 (11:22→21:43)
[2017-04-14] MEDS: METOCLOPRAMIDE 5 MG TABLET. PO SCH ×3 (11:22→21:42)
[2017-04-14] MEDS: BISACODYL 5 MG TABLET.DR. PO SCH ×2 (11:22→21:42)
[2017-04-14] MEDS: HYDROcodone/APAP 5/325MG 1 TAB TABLET PO PRN ×2 (11:22→23:17)
[2017-04-14] MEDS: FLUDROCORTISONE 0.1 MG TABLET PO SCH ×2 (11:22→21:42)
[2017-04-14] MEDS: DULoxetine HCL 20 MG CAPSULE.DR PO SCH ×2 (11:23→21:42)
[2017-04-14] MEDS: POTASSIUM CHLORIDE 20 MEQ TABLET.ER. PO SCH ×2 (11:23→16:14)
[2017-04-14] MEDS: SPIRONOLACTONE 25 MG TABLET PO SCH ×2 (11:26→21:43)
--- NOTE | 2017-04-14 12:43 | EKG ---
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
[2017-04-14] MEDS: DICLOFENAC SODIUM 1% TOPICAL GEL 100GM TUBE. TP SCH ×4 (13:00→21:43)
[2017-04-14] MEDS: BACLOFEN 10 MG TABLET. PO SCH ×2 (13:33→21:43)
[2017-04-14 15:00] VITALS: BP 137/76
[2017-04-14] MEDS ORDERED: POTASSIUM CHLORIDE 20 MEQ TABLET.ER. PO SCH (16:00)
[2017-04-14] MEDS: LUBIPROSTONE 8 MCG CAPSULE PO SCH (16:14)
[2017-04-14 19:00] VITALS: BP 137/73
[2017-04-14] MEDS: ALBUTEROL SULFATE 2.5 MG/3 ML NEBU. NEB SCH (19:23)
[2017-04-14] MEDS: BUDESONIDE 0.5 MG/2 ML NEBU. NEB SCH (19:23)
[2017-04-14] MEDS: traZODone 100 MG TABLET. PO SCH (21:43)
[2017-04-14 23:00] VITALS: BP 134/86
[2017-04-15] MEDS: HYDROcodone/APAP 5/325MG 1 TAB TABLET PO PRN ×4 (04:34→21:36)
[2017-04-15] MEDS: SIMETHICONE 80 MG TAB.CHEW PO PRN ×2 (04:36→21:39)
[2017-04-15 07:00] VITALS: BP 134/67
[2017-04-15] MEDS: BUDESONIDE 0.5 MG/2 ML NEBU. NEB SCH ×2 (07:42→17:07)
[2017-04-15] MEDS: ALBUTEROL SULFATE 2.5 MG/3 ML NEBU. NEB SCH ×2 (07:42→17:06)
[2017-04-15] MEDS: FLUDROCORTISONE 0.1 MG TABLET PO SCH ×2 (08:23→21:35)
[2017-04-15] MEDS: ASPIRIN ENTERIC COATED 81 MG TABLET.DR. PO SCH ×2 (08:24→21:35)
[2017-04-15] MEDS: DULoxetine HCL 20 MG CAPSULE.DR PO SCH ×2 (08:25→21:39)
[2017-04-15] MEDS: HYDROCORTISONE 10 MG TABLET PO SCH ×2 (08:25→12:54)
[2017-04-15] MEDS: BACLOFEN 10 MG TABLET. PO SCH ×3 (08:25→21:35)
[2017-04-15] MEDS: LUBIPROSTONE 8 MCG CAPSULE PO SCH ×2 (08:25→16:11)
[2017-04-15] MEDS: BISACODYL 5 MG TABLET.DR. PO SCH ×2 (08:25→21:35)
[2017-04-15] MEDS: POTASSIUM CHLORIDE 20 MEQ TABLET.ER. PO SCH ×3 (08:26→16:12)
[2017-04-15] MEDS: METOCLOPRAMIDE 5 MG TABLET. PO SCH ×4 (08:26→21:35)
[2017-04-15] MEDS: SPIRONOLACTONE 25 MG TABLET PO SCH ×2 (08:26→21:35)
[2017-04-15] MEDS: DICLOFENAC SODIUM 1% TOPICAL GEL 100GM TUBE. TP SCH ×4 (08:28→21:00)
[2017-04-15 10:20] LABS: BASO % 0 % (0-3); EOS % 0 % (0-3); HEMATOCRIT 33.6 % (36.0-47.0); HEMOGLOBIN 11.2 g/dL (12.0-15.5); LYMPH # 1.7 x10^3/uL (1.0-4.8); LYMPH % 19 % (24-48); MEAN CORPUSCULAR HEMOGLOBIN 29 pg (25-35); MEAN CORPUSCULAR HGB CONC 33 g/dL (31-37); MEAN CORPUSCULAR VOLUME 86 fL (79-100); MONO % 7 % (0-9); NEUT % 74 % (31-73); PLATELET COUNT 149 x10^3/uL (140-400); RED CELL DISTRIBUTION WIDTH 18.7 % (11.5-14.5); WHITE BLOOD COUNT 9.2 x10^3/uL (4.0-11.0)
[2017-04-15 10:33] LABS: CREATININE 0.6 mg/dL (0.6-1.0); GFR 109.6
[2017-04-15 10:40] LABS: POTASSIUM 2.4 mmol/L (3.5-5.1)
[2017-04-15 11:00] VITALS: BP 141/76
--- NOTE | 2017-04-15 11:07 | PDOC ---
SUBJECTIVE Subjective Pt states that she still feels weak. Pt's spironolactone was discontinued a couple of weeks ago, which is around the time that these symptoms started. Sometimes feels fluttering in her chest. OBJECTIVE Vital Signs Vital Signs Date Time Temp Pulse Resp B/P (MAP) Pulse Ox O2 Delivery O2 Flow Rate FiO2 04/15/17 10:46 97 Room Air 04/15/17 07:42 97 Room Air 04/15/17 07:00 97.7 91 16 134/67 (89) 98 Room Air 97.7 04/15/17 05:35 20 Room Air 04/15/17 04:34 20 Room Air 04/14/17 23:17 20 Room Air 04/14/17 23:00 98.2 81 18 134/86 (102) 94 Room Air 98.2 04/14/17 21:40 Room Air 04/14/17 19:26 95 Room Air 04/14/17 19:25 95 Room Air 04/14/17 19:00 100.0 102 17 137/73 (94) 92 Room Air 100.0 04/14/17 17:35 Room Air 04/14/17 15:00 98.1 98 18 137/76 (96) 95 Room Air 98.1 04/14/17 12:22 98 04/14/17 12:04 98 Room Air 04/14/17 11:23 Room Air 04/14/17 11:22 Room Air I & O Intake and Output 04/15/17 06:59 Intake Total 720 ml Balance 720 ml Intake Oral 720 ml # Voids 4 PHYSICAL EXAM Physical Exam General: Alert, Oriented X3, No acute distress HEENT: PERRLA, EOMI Lungs: Clear to auscultation, regular breathing rate and effort Heart: S1S2, no murmurs/rubs/gallops Abdomen: Normal bowel sounds, Soft, No tenderness Extremities: No edema, Other (post-op shoe on left foot) Neuro: Normal speech, CN2-12 GI ASSESSMENT/PLAN Assessment/Plan Pt is a 42yo CF admitted for weakness and severe hypokalemia 1. Altered mental status - this seems to have improved since her presentation to the ER and she appears close to her baseline presently. Will continue to observe. No evidence of acute illness causing her symptoms at this time. 2. hypokalemia - patient reports she had not been taking her usual po K+ recently due to problems obtaining it. Pt was given IV and po K-Cl yesterday, and K decreased today. Mg level WNL yesterday, will recheck today. Pt on spironolactone which should be assisting in bring K levels back up. 3. chronic pain - appears stable, continue Duragesic patch and prn [place]. Patient does have a history of oversedation from pain meds at home. 4. [place]'s disease - stable, continue her home meds. 5. depression with anxiety - well controlled, continue home meds. 6. COPD - continue inhaler, patient not interested in smoking cessation, declines nicotine patch at this time. 7. chronic constipation - advised Miralax daily and Dulcolax prn. 8. PEM- moderate Problems: COMMENT Lab Laboratory Tests Test 04/15/17 10:00 White Blood Count 9.2 x10^3/uL (4.0-11.0) Red Blood Count 3.90 x10^6/uL (3.50-5.40) Hemoglobin 11.2 g/dL (12.0-15.5) Hematocrit 33.6 % (36.0-47.0) Mean Corpuscular Volume 86 fL (79-100) Mean Corpuscular Hemoglobin 29 pg (25-35) Mean Corpuscular Hemoglobin Concent 33 g/dL (31-37) Red Cell Distribution Width 18.7 % (11.5-14.5) Platelet Count 149 x10^3/uL (140-400) Neutrophils (%) (Auto) 74 % (31-73) Lymphocytes (%) (Auto) 19 % (24-48) Monocytes (%) (Auto) 7 % (0-9) Eosinophils (%) (Auto) 0 % (0-3) Basophils (%) (Auto) 0 % (0-3) Neutrophils # (Auto) 6.8 x10^3uL (1.8-7.7) Lymphocytes # (Auto) 1.7 x10^3/uL (1.0-4.8) Monocytes # (Auto) 0.6 x10^3/uL (0.0-1.1) Eosinophils # (Auto) 0.0 x10^3/uL (0.0-0.7) Basophils # (Auto) 0.0 x10^3/uL (0.0-0.2) Sodium Level 146 mmol/L (136-145) Potassium Level 2.4 mmol/L (3.5-5.1) Chloride Level 107 mmol/L (98-107) Carbon Dioxide Level 31 mmol/L (21-32) Anion Gap 8 (6-14) Blood Urea Nitrogen 7 mg/dL (7-20) Creatinine 0.6 mg/dL (0.6-1.0) Estimated GFR (Cockcroft-Gault) 109.6 Glucose Level 84 mg/dL (70-99) Calcium Level 8.0 mg/dL (8.5-10.1) RADHA JOHNSON MD Apr 15, 2017 11:07
[2017-04-15] MEDS: POTASSIUM CHLORIDE 20MEQ 50 ML IV SCH ×4 (11:53→14:00)
[2017-04-15 14:58] VITALS: BP 147/84
[2017-04-15 18:04] LABS: CALCIUM 8.4 mg/dL (8.5-10.1); CREATININE 0.7 mg/dL (0.6-1.0); GFR 91.8
[2017-04-15 19:59] VITALS: BP 138/82
[2017-04-15] MEDS: traZODone 100 MG TABLET. PO SCH (21:35)
[2017-04-15 23:59] VITALS: BP 136/88
[2017-04-16 07:00] VITALS: BP 164/117
[2017-04-16] MEDS: HYDROcodone/APAP 5/325MG 1 TAB TABLET PO PRN (07:18)
[2017-04-16] MEDS: ALBUTEROL SULFATE 2.5 MG/3 ML NEBU. NEB SCH (07:34)
[2017-04-16] MEDS: BUDESONIDE 0.5 MG/2 ML NEBU. NEB SCH (07:34)
--- NOTE | 2017-04-16 09:23 | PDOC3 ---
Discharge Summary* Date of Admission: Apr 14, 2017 Date of Discharge: Apr 16, 2017 Admitting Diagnosis Problems Medical Problems: (1) Hypokalemia Status: Acute Problems: Final Diagnosis Altered mental status, severe hypokalemia, Chronic pain, Harris's disease, Depression and anxiety, COPD, Chronic constipation, PEM-moderate, Urinary retention with hernandez catheter placement CONSULTS Urology- pt not wanting to wait to meet urologist prior to discharge Procedures CXR- WNL CT Head- mucous retention cyst and mucosal thickening of right maxillary sinus Bladder scan- 700-900 cc's of retained urine Brief Hospital Course *Pt had urinary retention starting yesterday. Pt was straight cath'd with hopes that she would be able to start urinating on her own. Was able to pee once, still with 700cc of urine this morning. Pt says that this has happened one time before where she had to straight cath herself for a period of time. She is wanting to leave the hospital now and not wait for urology consult as it is her granddaughter's 3rd birthday. DISCHARGE PHYSICAL EXAM General: Alert, Oriented X3, No acute distress HEENT: PERRLA, EOMI Lungs: Clear to auscultation, regular breathing rate and effort Heart: S1S2, no murmurs/rubs/gallops Abdomen: Normal bowel sounds, Soft, No tenderness Extremities: No edema, Other (post-op shoe on left foot) Neuro: Normal speech, CN2-12 GI Pt is a 42yo CF admitted for weakness and severe hypokalemia 1. Altered mental status - this seems to have improved since her presentation to the ER and she appears close to her baseline presently. No evidence of acute illness causing her symptoms at this time. 2. hypokalemia - patient reports she had not been taking her usual po K+ recently due to problems obtaining it. Mg levels were normal throughout hospitalization, but it took multiple IV and po doses of K to get back to WNL. Pt also on Spironolactone. 3. chronic pain - appears stable, continue Duragesic patch and prn [place]. Patient does have a history of oversedation from pain meds at home. 4. 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 5. depression with anxiety - well controlled, continue home meds. 6. COPD - continue inhaler, patient not interested in smoking cessation, declines nicotine patch at this time. 7. chronic constipation - advised Miralax daily and Dulcolax prn. 8. PEM- moderate 9. Urinary retention- initially just straight cath'd, but pt continues to have problems with retention. Hernandez catheter placed, will need f/u with urology outpatient Disposition/Orders: D/C to Home CONDITION AT DISCHARGE: Improved, Stable Diet: Regular Scheduled Aspirin (Aspir-Low), 81 MG PO BID, (Reported) Baclofen (Baclofen), 20 MG PO TID, (Reported) Bisacodyl (Dulcolax), 5 TAB PO BID, (Reported) Budesonide/Formoterol Fumarate (Symbicort 80-4.5 Mcg Inhaler), 2 PUFF IH BID, ( Reported) Cyanocobalamin (Vitamin B-12) (Cyanocobalamin Injection), 1,000 MCG IJ Q2WKS, ( Reported) Diclofenac Epolamine (Flector), 1 PATCH TD BID Duloxetine Hcl (Cymbalta), 20 MG PO BID, (Reported) Fludrocortisone Acetate (Fludrocortisone Acetate), 0.3 MG PO Q12HR, (Reported) Hydrocodone/Apap 5-325 ([place] 5-325 Tablet), 1-2 TAB PO Q4-6HRS Hydrocortisone (Cortef), 10 MG PO AFTRNOON, (Reported) Hydrocortisone (Hydrocortisone), 20 MG PO DAILY, (Reported) Lubiprostone (Amitiza), 8 MCG PO BIDWMEALS Melatonin (Melatonin), 1 TAB PO QHS, (Reported) Methylprednisolone (Medrol), 1 PKG PO UD Metoclopramide Hcl (Reglan), 5 MG PO QIDACHS Multivitamin With Minerals (Multiple Vitamin), 1 EACH PO BID, (Reported) Potassium Chloride (Klor-Con M20), 20 MEQ PO BID94, (Reported) Spironolactone (Spironolactone), 1 TAB PO BID, (Reported) Trazodone Hcl (Trazodone Hcl), 100 MG PO HS, (Reported) Scheduled PRN Hydrocodone Bit/Acetaminophen (Hydrocodone-Apap 5-325 ), 1 TAB PO PRN Q6HRS PRN for PAIN Ondansetron (Ondansetron Odt), 4 MG PO PRN QID PRN for NAUSEA/VOMITING (1ST CHOICE) Polyethylene Glycol 3350 (Miralax), 17 GM PO PRN DAILY PRN for CONSTIPATION Simethicone (Gas-X), 80 MG PO PRN AFTMEALHC PRN for GAS / BLOATING Miscellaneous Medications Fentanyl (FENTANYL 50mcg/hr), 100 MCG TD, (Reported) Hyoscyamine Sulfate (Levsin), 0.125 MG PO, (Reported) Discontinued Medications Aspirin (Aspir 81), 1 TAB PO DAILY, (Reported) Hydrochlorothiazide (Hydrochlorothiazide Tablet ), 1 TAB PO DAILY Hydromorphone Hcl (Dilaudid), 4 MG PO PRN Q4HRS PRN for PAIN Hyoscyamine Sulfate (Hyoscyamine Sulfate), 0.125 MG PO PRN PRN for PAIN, ( Reported) Methocarbamol (Robaxin), 1 TAB PO TID, (Reported) PCP Follow up with Dr. Zepeda in the next 3-5 days Time Spent Total time spent with patient [] minutes for coordination of care, counseling, and education. RADHA JOHNSON MD Apr 16, 2017 09:23
[2017-04-16] MEDS: BISACODYL 5 MG TABLET.DR. PO SCH (10:12)
[2017-04-16] MEDS: BACLOFEN 10 MG TABLET. PO SCH (10:12)
[2017-04-16] MEDS: FLUDROCORTISONE 0.1 MG TABLET PO SCH (10:12)
[2017-04-16] MEDS: LUBIPROSTONE 8 MCG CAPSULE PO SCH (10:12)
[2017-04-16] MEDS: ASPIRIN ENTERIC COATED 81 MG TABLET.DR. PO SCH (10:13)
[2017-04-16] MEDS: POTASSIUM CHLORIDE 20 MEQ TABLET.ER. PO SCH (10:13)
[2017-04-16] MEDS: SPIRONOLACTONE 25 MG TABLET PO SCH (10:13)
[2017-04-16] MEDS: HYDROCORTISONE 10 MG TABLET PO SCH (10:13)
[2017-04-16] MEDS: METOCLOPRAMIDE 5 MG TABLET. PO SCH ×2 (10:13→11:29)
[2017-04-16] MEDS: DULoxetine HCL 20 MG CAPSULE.DR PO SCH (10:13)
[2017-04-16] MEDS: DICLOFENAC SODIUM 1% TOPICAL GEL 100GM TUBE. TP SCH (10:14)
[2017-04-16 11:00] VITALS: BP 130/85
[2017-04-16] MEDS ORDERED: HEPARIN PF 500 UNIT/5 ML DISP.SYRIN. IV ONE (11:15)
== END 2017-04-16 12:58 | disposition home or self-care (01) ==
LOC: ER 05:41 → 5 NORTH 07:15
PROVIDERS: ADMIT Family Medicine; ATTEND Family Medicine
DX: R41.82 Altered mental status, unspecified (principal); E87.6 Hypokalemia; G89.29 Other chronic pain; E27.1 Primary adrenocortical insufficiency; F41.8 Other specified anxiety disorders; J44.9 Chronic obstructive pulmonary disease, unspecified; K59.09 Other constipation; M19.90 Unspecified osteoarthritis, unspecified site; I10 Essential (primary) hypertension; F17.210 Nicotine dependence, cigarettes, uncomplicated; Z86.73 Personal history of transient ischemic attack (TIA), and cerebral infarction without residual deficits
CPT/HCPCS: 36415; 70450; 71010; 80048; 80076; 81001; 82140; 82553; 83735; 83880; 84484; 85027; 85610; 85730; 87086; 87186; 87641; 93005; 94250; 94640; 94760; 96365; 96366; 99285; G0378; G0481; J3480; J8597; 96375; G0379

== ENCOUNTER → 2017-04-25 | Outpatient (CLI) | payer MEDICARE ==
[2017-04-16 11:00] VITALS: BP 130/85
[~2017-04-25] MED LIST changes: +ASPI81TA50 PO; +BUDE10.22 IH; +HYOS0.1264 PO
--- NOTE | 2017-04-26 07:21 | RAD ---
Right lower extremity venous ultrasound, 04/25/2017 : History: Right leg pain and swelling Duplex evaluation including grayscale, color flow and spectral Doppler analysis was performed. The femoral and popliteal veins show no filling defects to suggest DVT. The visualized deep veins in the right calf are unremarkable. IMPRESSION: There is no sonographic evidence of deep vein thrombosis in the right lower extremity
== END | disposition home or self-care (01) ==
LOC: US 14:14
PROVIDERS: ATTEND Orthopaedic Surgery
DX: M79.671 Pain in right foot (principal); M79.89 Other specified soft tissue disorders
CPT/HCPCS: 93971

== ENCOUNTER → 2017-05-01 | Outpatient (CLI) | payer MEDICAID, MEDICARE ==
[2017-04-30 11:00] VITALS: BP 135/74
[~2017-05-01] MED LIST changes: +CIPR500T PO; +POTA20TA82 PO
== END | disposition home or self-care (01) ==
LOC: PNCL 13:05
PROVIDERS: ATTEND Anesthesiology
DX: K44.9 Diaphragmatic hernia without obstruction or gangrene (principal); R31.9 Hematuria, unspecified
CPT/HCPCS: G0463

== ENCOUNTER → 2017-05-03 | Outpatient (CLI) | payer MEDICARE ==
[2017-04-30 11:00] VITALS: BP 135/74
--- NOTE | 2017-05-03 12:58 | RAD ---
INDICATION: Hematuria COMPARISON: 07/01/2016 TECHNIQUE: Axial CT images were obtained through the abdomen and pelvis without intravenous contrast. Coronal reformations were processed. FINDINGS: Central venous catheter with tip at right atrium. Small hiatal hernia. Calcific atherosclerosis. No intrahepatic bile duct dilation. Postcholecystectomy changes. No definite peripancreatic edema. Spleen unremarkable. No hydronephrosis bilaterally. There are numerous calcifications in the bilateral hemipelvis but given the lack of more proximal hydronephrosis suspect that these are from phleboliths. Catheter within the decompressed bladder. There is some distention of portions of the colon with air and stool. The appendix measures up to 7 mm but no definite adjacent inflammation at this time. There are some portions of the sigmoid colon with a mildly prominent wall. Degenerative changes spine. IMPRESSION: 1. No hydronephrosis bilaterally. There are numerous calcifications in the bilateral pelvis but given the lack of more proximal hydronephrosis suspect that these are secondary to phleboliths. 2. There is some air-filled distention of regions of the colon. There is some relative lack of distention of a couple of regions within the sigmoid colon with prominence of the wall. Could be secondary to a contraction within the area but if the patient is not had a recent colonoscopy may be helpful to obtain a follow-up CT or colonoscopy to ensure that this region does not persist to exclude a stricture or mass within the region. 3. Small hiatal hernia. 4. The appendix is mildly dilated at approximately 7 mm but there is no definite adjacent inflammation at this time. PQRS Compliance Statement: One or more of the following individualized dose reduction techniques were utilized for this examination: 1. Automated exposure control 2. Adjustment of the mA and/or kV according to patient size 3. Use of iterative reconstruction technique
== END | disposition home or self-care (01) ==
LOC: CT 11:47
PROVIDERS: ATTEND Family Medicine
DX: K44.9 Diaphragmatic hernia without obstruction or gangrene (principal); N20.0 Calculus of kidney; R31.0 Gross hematuria; Z87.442 Personal history of urinary calculi
CPT/HCPCS: 74176

== ENCOUNTER 2017-06-23 09:29 | Inpatient (IN) | payer MEDICARE ==
[~2017-06-23] VITALS: Ht 157.5 cm; Wt 81.4 kg
[~2017-06-23 09:29] MED LIST changes: +CHOL2000 PO; +GUAI-108 PO; +HYDR4TAB PO; -HYOS0.124 PO; +HYOS0.1279 PO; +NITR50CA PO; +SPIR25TA PO; +TOPI25TA52 PO
[2017-06-23 11:21] VITALS: BP 144/54
[2017-06-23] MEDS: ENOXAPARIN 40 MG/0.4 ML SYRINGE. SQ SCH (13:00)
[2017-06-23] MEDS: hydroCHLOROthiazide 25 MG TABLET PO SCH (13:00)
[2017-06-23] MEDS: HYDROCORTISONE 10 MG TABLET PO SCH (14:00)
--- NOTE | 2017-06-23 14:12 | HP ---
ADMIT DATE: 06/23/2017 DIAGNOSIS: Mental status change with urinary tract infection. HISTORY OF PRESENT ILLNESS: This is a 42-year-old white female who was supposed to go see her urologist today to have her Salmeron removed that is placed for urinary retention and to discuss suprapubic catheter. She was found at home this morning by her who found her to be aphasic and thought she was having a stroke. He called EMS. They arrived and found her to be sitting on the floor with her with an ataxic gait and aphasic. She was transported to [facility] ER where she was seen and evaluated. There was no evidence of an acute stroke, but they did find her mental status to be abnormal and it appeared that she had a urinary tract infection. She received IV dose of vancomycin and Rocephin and is transferred here. Upon arrival here, she would awaken with just a sternal rub. She is now sleeping soundly and snoring. Attempts to awaken her just to get her to stop snoring. She seemed to be in her normal state of mind and chronic illness last evening prior to bed. PAST MEDICAL HISTORY: Significant for prior CVA for which she was hospitalized at [facility] approximately 9 months ago. She has been having some "spells where she will tend to lose consciousness or have a change in her mental status. She was hospitalized at this facility a few weeks ago with a neurologic consult. No neurologic etiology was found for her "spells." She was to have an event recorder placed due to a run of SVT. She was to follow up with Dr. Watt concerning that. She has history of asthma, COPD, and nocturnal hypoxia. She has been instructed to use oxygen at night. She has chronic GI issues including severe gastroparesis that led to gastrectomy. She is able to eat on her own. She has not been having aspiration type symptoms. She has had some electrolyte abnormalities and was recently in the office, but potassium was noted to be normal. She has had prior kidney stones, spinal stenosis of her back resulting in bilateral foot drop. She had some worsening of that after her stroke. She tends to require a walker or cane to get around. She has fibromyalgia. She has adrenal insufficiency, anxiety, depression, tobacco use, history of anemia. PAST SURGICAL HISTORY: Include lumbar laminectomy, hysterectomy due to abnormal uterine bleeding, ventral hernia repair, pilonidal cyst excision x 3, ventral hernia repair x 4, G-tube placement and then removal, cholecystectomy, cystectomy, tonsillectomy, adenoidectomy. ALLERGIES: SULFA, CITRIC ACID AND SHELLFISH. HOME MEDICATIONS: Include aspirin 81 mg b.i.d., baclofen 20 mg t.i.d., Dulcolax 5 mg b.i.d., vitamin D 2000 units daily, Cymbalta 20 mg b.i.d., fentanyl 100 mcg patch every 72 hours, fludrocortisone 0.1 mg q.12h., Mucinex DM b.i.d. p.r.n., hydrochlorothiazide 25 mg daily, hydrocortisone 10 mg b.i.d., hydromorphone 1-1/2 tabs 4 mg q.6 hours, melatonin 5 mg at bedtime, metoclopramide 5 mg before meals and at bedtime, multivitamin b.i.d., potassium chloride 20 mEq b.i.d., trazodone 100 mg at bedtime. FAMILY HISTORY: Diabetes, hypertension. SOCIAL HISTORY: She is . Her found her. She has long history of smoking. REVIEW OF SYSTEMS: She is in her normal chronic illness state until this morning. Has not found no evidence that she overdosed on any medication. She wants to see her urologist today to have her Salmeron changed and to discuss suprapubic catheter placement. PHYSICAL EXAMINATION: VITAL SIGNS: Stable. She is currently responsive only to vigorous stimuli. She is breathing spontaneously and in no distress. HEART: Regular rate and rhythm. LUNGS: Clear to auscultation. ABDOMEN: Soft, nondistended. EXTREMITIES: Without edema, unable to test her strength and reflexes. LABORATORY DATA: Lab studies at [facility] show white count 11.9, hemoglobin 12.8, hematocrit of 39, platelets of 162, estimated GFR of 35, glucose 86, potassium of 3.5. Normal liver enzymes, unremarkable cardiac enzymes. Albumin was low at 3.2. Urine was deana and cloudy with large amount of blood, positive nitrites, small amount of bilirubin, large leukocyte esterase, but moderate squamous epithelial cells. Opiate screen was positive as expected. The rest of her drug screen was negative. Chest x-ray showed no acute cardiopulmonary abnormality. CT imaging showed no acute intracranial hemorrhage of her brain. ASSESSMENT: 1. Acute encephalopathy. 2. Probable urinary tract infection with history of urinary retention and chronic indwelling urinary catheter. 3. Multiple chronic medical problems, too lengthy to list here. PLAN: We will withhold her narcotics and sedative type medications for now. Continue IV hydration, potassium replacement. She may need Narcan if her mental status does not clear. She will be placed on the commercial loan processor. her level of consciousness will improve shortly. Her recent hospitalization here revealed no neurologic reason for her episodes. There is no evidence of an acute stroke. We will monitor closely. Previously when she received Narcan, she went through some pretty serious narcotic withdrawal symptoms, so we will try to withhold that for now. Her urinary tract infection, which is presumed has been treated with 1 gram of Rocephin and vancomycin. We will await culture and continue therapy pending results. W Lakia BRIGHT MD DR: LAURIE/merlin JOB#: [id number] / [id number]
--- NOTE | 2017-06-23 14:14 | EKG ---
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
[2017-06-23 14:33] LABS: MAGNESIUM 1.9 mg/dL (1.8-2.4); PHOSPHORUS 4.6 mg/dL (2.6-4.7)
[2017-06-23 15:00] VITALS: BP 98/50
--- NOTE | 2017-06-23 15:49 | RAD ---
Chest radiograph 06/23/2017 2:54 PM Indication: Altered mental status Comparison: Chest radiograph 06/06/2017 Technique: Single portable upright frontal view of the chest is provided. Findings: Low lung volumes. Cardiomediastinal silhouette is within normal limits. No pleural effusions, pulmonary vascular congestion or pneumothorax. Opacity at the left lung base may represent infiltrate. Osseous structures are normal. Impression: Left lower lobe airspace disease may represent infiltrate in the appropriate clinical setting. Recommend follow-up in 3-4 weeks to ensure resolution.
[2017-06-23] MEDS: POTASSIUM CHLORIDE 20 MEQ TABLET.ER. PO SCH (17:00)
[2017-06-23 19:04] VITALS: BP 112/63
[2017-06-23 20:21] LABS: BILIRUBIN,URINE NEGATIVE (NEG); GLUCOSE,URINE NEGATIVE (NEG); NITRITE,URINE POSITIVE (NEG); PROTEIN,URINE NEGATIVE (NEG-TRACE); UROBILINOGEN,URINE 0.2 mg/dL (0.2 mg/dL)
[2017-06-23 20:34] LABS: BACTERIA,URINE MANY /HPF (0-FEW); SQUAMOUS EPITHELIAL CELL,UR FEW /LPF; YEAST,URINE PRESENT /HPF
[2017-06-23] MEDS: BISACODYL 5 MG TABLET.DR. PO SCH (22:53)
[2017-06-23] MEDS: ASPIRIN ENTERIC COATED 81 MG TABLET.DR. PO SCH (22:54)
[2017-06-23] MEDS: traZODone 100 MG TABLET. PO SCH (22:54)
[2017-06-23] MEDS: DULoxetine HCL 30 MG CAPSULE.DR PO SCH (22:54)
[2017-06-23] MEDS: FLUDROCORTISONE 0.1 MG TABLET PO SCH (22:54)
[2017-06-23 23:00] VITALS: BP 109/69
[2017-06-24 03:00] VITALS: BP 119/76
--- NOTE | 2017-06-24 04:42 | ACF ---
Admission Forms Criteria MENTAL STATUS CHANGE Clinical Indications for Inpatient Care (Place 'X' for any and all applicable criteria): Ongoing inpatient care may be needed for 1 or more of the following(1)(2)(3)(5)( 6): [X]I. Suspected serious etiology (eg, medical disorder, CAN SORTER event) of altered mental status [ ]II. Danger to self or others not manageable at lower level of care [ ]III. Grave disability (eg, inability to perform self care necessary at lower level of care) [ ]IV. Agitation or inappropriate behavior interfering with care for primary condition (eg, attempting to discontinue lines or drains prematurely, unable to cooperate with respiratory care) [ ]V. Delirium [A] [D][E] as described by 1 or more of the following(26): [ ]a) Delirium due to alcohol or sedative [F] withdrawal [ ]b) Delirium of uncertain etiology that has not responded to appropriate empiric treatment [ ]c) Delirium that prevents performance of a life-sustaining function (eg, feeding or hydrating oneself) [ ]. General contraindications and/or Inappropriate clinical situations for Observational Care in patients with Mental Status Change, when ANY ONE of the following is required: [ ]a) Prediction of prolongation of LOS based on ANY ONE of the following may be considered as a contraindication for observational care 2, 3, 4, 5, 6, 7, 8, 9, 10, 11 [ ]i) Age > 65 yrs. [ ]ii) Patient arriving by ambulance [ ]iii) Patient with high acuity [ ]iv) Patient requiring vital sign monitoring [ ]v) Patient on IV medication [ ]b) Systolic blood pressures greater than or equal to 180mmHg 3, 12 [ ]c) Patient with altered mental status including delirium and other alteration of consciousness, (3) [ ]d) Patient whose discharge disposition will be to a [facility] home or rehabilitation home should not be managed in Emergency Department Observation Unit. CMS rule requires 3 days hospital stay before such placement.3,13 [ ]e) Patient with failure to thrive due to broad array of etiologies 3,16,17 [ ]f) Inability to ambulate 3,14 Extended stay beyond goal length of stay for the primary condition may be needed until ALL of the following are present(3)(5): [ ]a) Underlying medical etiology of mental status change is absent, or has been established and adequately treated [ ]b) Danger to self or others is absent or manageable at lower level of care. [ ]c) Behavior crisis management, including physical or chemical restraints, is not required or available at lower level of car [ ]d) Substance or alcohol withdrawal is absent or manageable at lower level of care. [ ]e) Behavioral symptoms (eg, agitation, somnolence, inappropriate behavior) are absent, or are manageable at lower level of care. The original [facility] content created by [facility] has been revised. The portions of the content which have been revised are identified through the use of italic text or in bold, and [facility] has neither reviewed nor approved the modified material. All other unmodified content is copyright [facility]. Please see references footnoted in the original [facility] edition 2016 Admission Criteria Met?: Yes NIDHI PHELPS Jun 24, 2017 04:42
[2017-06-24 06:38] LABS: BASO # 0.1 x10^3/uL (0.0-0.2); BASO % 1 % (0-3); EOS % 1 % (0-3); HEMATOCRIT 30.5 % (36.0-47.0); HEMOGLOBIN 10.1 g/dL (12.0-15.5); LYMPH % 21 % (24-48); MEAN CORPUSCULAR HEMOGLOBIN 30 pg (25-35); MEAN CORPUSCULAR HGB CONC 33 g/dL (31-37); MEAN CORPUSCULAR VOLUME 90 fL (79-100); MONO % 6 % (0-9); NEUT % 71 % (31-73); PLATELET COUNT 136 x10^3/uL (140-400); RED CELL DISTRIBUTION WIDTH 16.1 % (11.5-14.5); WHITE BLOOD COUNT 9.3 x10^3/uL (4.0-11.0)
[2017-06-24 06:49] LABS: CREATININE 1.1 mg/dL (0.6-1.0); GFR 54.5; POTASSIUM 3.7 mmol/L (3.5-5.1)
[2017-06-24 07:18] VITALS: BP 130/73
[2017-06-24] MEDS: CHOLECALCIFEROL (VITAMIN D3) 1,000 UNIT TABLET PO SCH (08:23)
[2017-06-24] MEDS: DULoxetine HCL 30 MG CAPSULE.DR PO SCH ×2 (08:23→20:37)
[2017-06-24] MEDS: hydroCHLOROthiazide 25 MG TABLET PO SCH (08:24)
[2017-06-24] MEDS: FLUDROCORTISONE 0.1 MG TABLET PO SCH ×2 (08:24→20:43)
[2017-06-24] MEDS: MULTIVITAMIN with MINERAL TABLET. PO SCH (08:24)
[2017-06-24] MEDS: POTASSIUM CHLORIDE 20 MEQ TABLET.ER. PO SCH ×3 (08:25→20:37)
[2017-06-24] MEDS: BISACODYL 5 MG TABLET.DR. PO SCH ×2 (08:25→20:36)
[2017-06-24] MEDS: HYDROCORTISONE 10 MG TABLET PO SCH ×2 (08:25→13:48)
[2017-06-24] MEDS: ASPIRIN ENTERIC COATED 81 MG TABLET.DR. PO SCH ×2 (08:25→20:35)
[2017-06-24 10:51] VITALS: BP 146/77
[2017-06-24] MEDS: ENOXAPARIN 40 MG/0.4 ML SYRINGE. SQ SCH (13:47)
--- NOTE | 2017-06-24 14:27 | PDOC ---
PROGRESS NOTES Subjective She is now awake and alert and passed he swallow study. She was not suicidal and did not overdose. She remembers nearly fainting with vasovagal symptoms as she bent over to put her daughter Kassy with Down's Syndrome to bed but she does not recall waking up during the night. She does have some vague recollection of her trying to wake her up yesterday morning but the rest of the day is forgotten until last evening. She has had a wet cough and has been having heartburn again. She was not taking her topiramate titration correctly though. She is requesting her pain meds be resumed for her back and LE pain Objective Tmax: 99.7 BP: 144/77 General: awake and alert NAD, complaining of pain in back and LE Heart: sinus tach, no murmur, port rigth upper chest wall Lungs: CTA anteriorly with basilar crackles Abd: soft and non tender Ext: weakness without edema WBC: 9.3 Hgb: 10.1 K+: 3.7 Creat: 1.1 Vital Signs Vital Signs Date Time Temp Pulse Resp B/P (MAP) Pulse Ox O2 Delivery O2 Flow Rate FiO2 06/24/17 10:51 98.8 100 19 146/77 (100) 95 Nasal Cannula 2.0 98.8 I & O Intake and Output 06/25/17 07:00 Intake Total 0 ml Balance 0 ml Intake Oral 0 ml Assessment and Plan 1. acute toxic encephalopathy - now resolved 2. probable UTI/sepsis - urine cx from [facility] ER yesterday no growth, blood cx 2 of 6 positive for gram positive cocci in clusters, she received Rocephin and Vanc in ER at [facility] yesterday so will continue for now. Her Salmeron was changed yesterday 3. lung infiltrate - possible pneumonia, likely aspiration but she has had a "wet cough". 4. SVT - start metoprolol, stop HCTZ. She was to get an event recorder but that needs to be placed on hold for a couple of weeks 5. urinary retention - she was to discuss alternatives to Salmeron with Dr. Benjamin yesterday but had to cancel appt 6. lumbar spinal stenosis - with chronic back pain, neurogenic bladder, foot drop 7. adrenal insufficiency - on replacement 8. severe gastroparesis - s/p gastrectomy Problems: Jett BRIGHT MD Jun 24, 2017 14:27
[2017-06-24] MEDS ORDERED: fentaNYL 50MCG/HR PATCH 1 PATCH PATCH.TD72 TD SCH (14:30)
[2017-06-24] MEDS ORDERED: VANCOMYCIN 2 GM in IV NORMAL SALINE 500ML BAG 500 ML IV ONE (14:30)
[2017-06-24 14:59] VITALS: BP 153/91
[2017-06-24] MEDS ORDERED: fentaNYL 100MCG/HR PATCH 1 PATCH PATCH TD SCH (15:00)
[2017-06-24] MEDS: BACLOFEN 10 MG TABLET. PO SCH ×2 (15:12→20:36)
[2017-06-24] MEDS: PANTOPRAZOLE 40 MG TABLET.DR. PO SCH (15:14)
[2017-06-24] MEDS: ALBUTEROL SULFATE 2.5 MG/3 ML NEBU. NEB SCH ×2 (15:57→19:57)
[2017-06-24] MEDS: VANCOMYCIN PER PHARMACY MC PRN (16:09)
[2017-06-24] MEDS: HYDROmorphone 4 MG TABLET PO SCH (17:07)
[2017-06-24] MEDS: METOCLOPRAMIDE 5 MG TABLET. PO SCH ×2 (17:07→20:37)
[2017-06-24] MEDS ORDERED: HYDROmorphone 4 MG TABLET PO SCH (18:00)
[2017-06-24 19:39] VITALS: BP 126/76
[2017-06-24] MEDS: TOPIRAMATE 25 MG TABLET. PO SCH (20:36)
[2017-06-24] MEDS: SPIRONOLACTONE 25 MG TABLET PO SCH (20:37)
[2017-06-24] MEDS: traZODone 100 MG TABLET. PO SCH (20:37)
[2017-06-24] MEDS: guaiFENesin DM 600/30MG 1 TAB TAB.ER.12H PO SCH (20:37)
[2017-06-24] MEDS: METOPROLOL TART IMMED RELEASE 25 MG TABLET. PO SCH (20:38)
[2017-06-24] MEDS ORDERED: guaiFENesin DM 600/30MG 1 TAB TAB.ER.12H PO SCH (21:00)
[2017-06-24 23:08] VITALS: BP 103/60
[2017-06-25] MEDS: HYDROmorphone 4 MG TABLET PO SCH ×3 (00:04→12:38)
[2017-06-25 03:02] VITALS: BP 132/74
[2017-06-25] MEDS ORDERED: VANCOMYCIN 1.25 GM in IV NORMAL SALINE 250ML 250 ML IV SCH (05:00)
[2017-06-25] MEDS: METOCLOPRAMIDE 5 MG TABLET. PO SCH ×2 (05:56→12:37)
[2017-06-25] MEDS: PANTOPRAZOLE 40 MG TABLET.DR. PO SCH (05:56)
[2017-06-25 06:25] LABS: ALBUMIN 2.5 g/dL (3.4-5.0); ALBUMIN/GLOBULIN RATIO 0.9 (1.0-1.7); CALCIUM 8.3 mg/dL (8.5-10.1); CREATININE 1.1 mg/dL (0.6-1.0); GFR 54.5; POTASSIUM 3.3 mmol/L (3.5-5.1); TOTAL BILIRUBIN 0.4 mg/dL (0.2-1.0); TOTAL PROTEIN 5.3 g/dL (6.4-8.2)
[2017-06-25 06:31] LABS: BASO % 1 % (0-3); EOS % 1 % (0-3); HEMATOCRIT 30.7 % (36.0-47.0); HEMOGLOBIN 10.1 g/dL (12.0-15.5); LYMPH # 2.2 x10^3/uL (1.0-4.8); LYMPH % 24 % (24-48); MEAN CORPUSCULAR HEMOGLOBIN 30 pg (25-35); MEAN CORPUSCULAR HGB CONC 33 g/dL (31-37); MEAN CORPUSCULAR VOLUME 90 fL (79-100); MONO % 7 % (0-9); NEUT % 68 % (31-73); PLATELET COUNT 148 x10^3/uL (140-400); RED BLOOD COUNT 3.41 x10^6/uL (3.50-5.40); RED CELL DISTRIBUTION WIDTH 16.2 % (11.5-14.5); WHITE BLOOD COUNT 9.2 x10^3/uL (4.0-11.0)
[2017-06-25 06:54] VITALS: BP 128/77
[2017-06-25] MEDS: ALBUTEROL SULFATE 2.5 MG/3 ML NEBU. NEB SCH ×2 (07:15→11:06)
[2017-06-25] MEDS: FLUDROCORTISONE 0.1 MG TABLET PO SCH (09:00)
--- NOTE | 2017-06-25 09:04 | RAD ---
CT of the chest without contrast, 06/24/2017: History: Productive cough Noncontrast scans were obtained as requested. A right Port-A-Cath extends into the superior aspect of the right atrium. The heart is within normal limits in size. The thoracic aorta is unremarkable. Several small mediastinal lymph nodes are seen without evidence of pathologic enlargement. There is a tiny amount of right-sided pleural fluid with mild streaky atelectasis in the posterior gutter. There is a trace amount of pleural fluid in the posterior gutter on the left with minimal adjacent atelectasis. The lungs are otherwise clear. No pulmonary mass is seen. There are mild scattered degenerative changes in the spine. IMPRESSION: Minimal pleural fluid and atelectasis in the posterior lung bases, right greater than left. PQRS Compliance Statement: One or more of the following individualized dose reduction techniques were utilized for this examination: 1. Automated exposure control 2. Adjustment of the mA and/or kV according to patient size 3. Use of iterative reconstruction technique
[2017-06-25] MEDS: MULTIVITAMIN with MINERAL TABLET. PO SCH (09:09)
[2017-06-25] MEDS: ASPIRIN ENTERIC COATED 81 MG TABLET.DR. PO SCH (09:09)
[2017-06-25] MEDS: BISACODYL 5 MG TABLET.DR. PO SCH (09:09)
[2017-06-25] MEDS: METOPROLOL TART IMMED RELEASE 25 MG TABLET. PO SCH (09:10)
[2017-06-25] MEDS: TOPIRAMATE 25 MG TABLET. PO SCH (09:10)
[2017-06-25] MEDS: POTASSIUM CHLORIDE 20 MEQ TABLET.ER. PO SCH ×2 (09:10→14:56)
[2017-06-25] MEDS: CHOLECALCIFEROL (VITAMIN D3) 1,000 UNIT TABLET PO SCH (09:10)
[2017-06-25] MEDS: guaiFENesin DM 600/30MG 1 TAB TAB.ER.12H PO SCH (09:11)
[2017-06-25] MEDS: HYDROCORTISONE 10 MG TABLET PO SCH ×2 (09:11→14:56)
[2017-06-25] MEDS: BACLOFEN 10 MG TABLET. PO SCH ×2 (09:11→14:57)
[2017-06-25] MEDS: SPIRONOLACTONE 25 MG TABLET PO SCH (09:11)
[2017-06-25] MEDS: DULoxetine HCL 30 MG CAPSULE.DR PO SCH (09:11)
[2017-06-25 10:50] VITALS: BP 98/59
[2017-06-25] MEDS: VANCOMYCIN PER PHARMACY MC PRN (11:44)
[2017-06-25] MEDS: ENOXAPARIN 40 MG/0.4 ML SYRINGE. SQ SCH (12:38)
[2017-06-25] MEDS ORDERED: SPIR25TA PO (13:46)
[2017-06-25] MEDS ORDERED: TOPI25TA52 PO (13:46)
[2017-06-25] MEDS ORDERED: METO25TA4 PO (13:46)
[2017-06-25] MEDS ORDERED: CIPR250T30 PO (13:46)
[2017-06-25] MEDS ORDERED: POTA20TA4 PO (13:46)
[2017-06-25] MEDS ORDERED: PANT40TA5 PO (13:46)
--- NOTE | 2017-06-25 13:58 | PDOC ---
Provider Note Provider Note discharge dictated # [id number] Jett BRIGHT MD Jun 25, 2017 13:58
[2017-06-25] MEDS ORDERED: HEPARIN PF 500 UNIT/5 ML DISP.SYRIN. IV ONE (15:00)
[2017-06-25 15:02] VITALS: BP 127/70
--- NOTE | 2017-06-25 15:09 | DS ---
DATE OF DISCHARGE: 06/25/2017 DATE OF ADMISSION: 06/23/2017 DATE OF DISCHARGE: 06/25/2017 ADMISSION DIAGNOSIS: Encephalopathy. DISCHARGE DIAGNOSIS: Encephalopathy. HISTORY AND HOSPITAL COURSE: This is a 42-year-old white female who got a little lightheaded and dizzy and had some vasovagal type near syncope when putting her daughter Jovana, who has Down syndrome, to bed. She felt fine by the time she went to bed and went to sleep. Her had trouble waking her up the next morning and thought she was having a stroke. Ambulance was summoned and me she was taken to [facility] ER. Imaging of her brain there did not reveal any acute process. Her urinalysis appeared abnormal and she was alert somewhat then. She was transferred here for direct admission for presumed sepsis, but her urine culture from [facility] has not grown anything. She had 1 of 3 blood cultures there that grew Coag-negative staph which is a contaminant. Blood cultures here have been negative. She was initially started on Rocephin and vancomycin there and that was continued here, but is being discontinued. Once she got here, she was sleeping soundly and very difficult to arouse. Sternal rub got very minimal reaction from her. She was placed on IV fluids. She was kept n.p.o. and as the course of the afternoon went by, her encephalopathy cleared. By evening, she was awake and alert, passed swallowing study and was able to eat. Her home meds were resumed once she was swallowing. Cultures have remained negative here. There was question of an infiltrate on her lung on her x-ray. CT imaging was done that did not show the infiltrate. It just showed some atelectasis and a little bit of pleural fluid. She has chronic protein malnutrition. She has had a gastrectomy due to gastroparesis. Her diet is poor, typically will drink 3 Pepsi's a day. Her dentition is poor and she needs a teeth extracted. She is recovering from the left fifth metatarsal fractures, still has some tenderness. She has urinary retention related to spinal stenosis, has difficulty ambulating and now uses a cane typically. She has had orthotics in the past, but does not wear them currently. She sees Dr. Benjamin, was supposed to see him on Monday, discus alternatives to chronic indwelling Salmeron. She sees Dr. Murphy, Ortho and was to see her last week regarding her foot fracture. She also had a recent bout of SVT, was started on metoprolol her last admission, which was continued here. She had a short run of in SVT prior to it being restarted. That was asymptomatic. She is to have an event recorder placed, but due to the concern about infection that will be delayed for a couple of weeks and she will follow up with Dr. Watt in a couple of weeks regarding that. DISCHARGE MEDICATIONS: She will be discharged on Cipro 250 mg b.i.d. x 6 more doses, metoprolol 25 mg b.i.d. here, but I believe she has the XL 50 at home, which she will use in its place. Pantoprazole 40 mg 1 daily is resumed as she had some gastritis symptoms, potassium 20 mEq t.i.d., spironolactone 30 mg b.i.d., and the Topamax was increased to 50 mg b.i.d. as she was on an increasing taper from Dr. Castillo, who worked her up during her last hospitalization and found a negative EEG and presumed she was having atypical type of migraine. Her aspirin will be continued 81 mg b.i.d. as she has had a previous stroke within the last year, continue bisacodyl 5 mg b.i.d. for opioid-induced constipation, vitamin D3 2000 units daily for vitamin D deficiency, duloxetine 60 mg b.i.d. for depression and fibromyalgia, fentanyl 100 mcg every 72 hours, which was given to her by Dr. Campos in the pain clinic as is her hydromorphone 4 mg 1-1/2 tabs q. 6 hours, which I have encouraged her to not take routinely as it likely had some cause for her encephalopathy this visit. She will continue fludrocortisone 0.1 mg, which she takes 0.3 mg every 12 hours, Mucinex DM 600-30 mg tablet b.i.d. p.r.n. cough, Cortef 10 mg, which is half a tablet b.i.d., metoclopramide 5 mg before meals and at bedtime, multivitamin daily, trazodone 100 mg at bedtime. I have stopped her melatonin, hydrochlorothiazide and baclofen. DIET: As tolerated, encouraged her to give up drinking Pepsi. She typically drinks 3 20 ounce bottles daily. I have made her aware that it is not good for teeth nor good for nutrition. FOLLOWUP: She will follow up with Dr. Benjamin within the next two weeks regarding her chronic indwelling Salmeron catheter. She will follow up with Dr. Murphy within the next two weeks regarding her left foot. She was given a new fracture shoe to wear while ambulating. She will follow up with Dr. Watt in the next 2 weeks regarding an event recorder placement. I will see her in followup within a week, next week in the office. W Lakia BRIGHT MD DR: LAURIE/merlin JOB#: [id number] / [id number]
== END 2017-06-25 15:25 | disposition home or self-care (01) | DRG 91 ==
LOC: 6 SOUTH 10:30
PROVIDERS: ADMIT Family Medicine; ATTEND Family Medicine
DX: G92 Toxic encephalopathy (principal); J69.0 Pneumonitis due to inhalation of food and vomit; E46 Unspecified protein-calorie malnutrition; K31.84 Gastroparesis; E27.40 Unspecified adrenocortical insufficiency; I47.1 Supraventricular tachycardia; J98.11 Atelectasis; N39.0 Urinary tract infection, site not specified; K29.70 Gastritis, unspecified, without bleeding; N31.9 Neuromuscular dysfunction of bladder, unspecified; G89.29 Other chronic pain; S92.352A Displaced fracture of fifth metatarsal bone, left foot, initial encounter for closed fracture; E55.9 Vitamin D deficiency, unspecified; R26.2 Difficulty in walking, not elsewhere classified; F32.9 Major depressive disorder, single episode, unspecified; K59.00 Constipation, unspecified; T40.2X5A Adverse effect of other opioids, initial encounter; J44.9 Chronic obstructive pulmonary disease, unspecified; M21.379 Foot drop, unspecified foot; M48.06 Spinal stenosis, lumbar region; M79.7 Fibromyalgia; Z90.3 Acquired absence of stomach [part of]; Z82.49 Family history of ischemic heart disease and other diseases of the circulatory system; Z83.3 Family history of diabetes mellitus; Z86.73 Personal history of transient ischemic attack (TIA), and cerebral infarction without residual deficits; Z87.891 Personal history of nicotine dependence; Z87.442 Personal history of urinary calculi; Q90.9 Down syndrome, unspecified; Z68.32 Body mass index [BMI] 32.0-32.9, adult; Y92.89 Other specified places as the place of occurrence of the external cause
CPT/HCPCS: 36415; 71010; 71250; 80048; 80053; 81001; 83735; 84100; 85025; 87040; 87086; 93005; 94250; 94640; 94760; J0696; J1650; J3370; J7040; J7050; J7613; J8597; J7030

== ENCOUNTER 2017-07-02 11:19 | Inpatient (IN) | payer MEDICARE ==
[~2017-07-02] VITALS: Ht 157.5 cm; Wt 84.8 kg
[~2017-07-02 11:19] MED LIST changes: +CIPR250T30 PO; +METO25TA4 PO; +PANT40TA5 PO
[2017-07-02] MEDS ORDERED: NALOXONE 0.4 MG/ML VIAL. ONE (11:30)
[2017-07-02] MEDS ORDERED: NALOXONE 0.4 MG/ML VIAL. IV ONE ×2 (11:45)
[2017-07-02 11:49] LABS: BILIRUBIN,URINE NEGATIVE (NEG); GLUCOSE,URINE NEGATIVE (NEG); NITRITE,URINE POSITIVE (NEG); PH,URINE 5.5; PROTEIN,URINE NEGATIVE (NEG-TRACE); UROBILINOGEN,URINE 0.2 mg/dL (0.2 mg/dL)
[2017-07-02 11:55] LABS: BARBITURATES NEG (NEG); BENZODIAZEPINES NEG (NEG); CANNABINOIDS NEG (NEG); COCAINE NEG (NEG); METHADONE NEG (NEG); OPIATES POS (NEG); PHENCYCLIDINE NEG (NEG)
--- NOTE | 2017-07-02 11:57 | RAD ---
Chest radiograph 07/02/2017 1:38 PM Indication: Altered mental status Comparison: Chest 06/29/2017 Technique: Single portable upright frontal view of the chest is provided. Findings: Right chest wall infusion port catheter is identified with the distal tip terminating in the region of the right atrium. Cardiomediastinal silhouette is within normal limits. No pleural effusions, pulmonary vascular congestion or pneumothorax. The lungs are clear. Osseous structures are normal. Impression: No acute cardiopulmonary process.
[2017-07-02 11:58] LABS: CALCIUM 8.8 mg/dL (8.5-10.1); CREATININE 1.4 mg/dL (0.6-1.0); GFR 41.2; POTASSIUM 3.7 mmol/L (3.5-5.1)
[2017-07-02 12:04] LABS: ALBUMIN 2.9 g/dL (3.4-5.0); ALBUMIN/GLOBULIN RATIO 0.9 (1.0-1.7); BASO % 1 % (0-3); EOS % 1 % (0-3); HEMATOCRIT 33.3 % (36.0-47.0); HEMOGLOBIN 10.9 g/dL (12.0-15.5); LYMPH # 2.1 x10^3/uL (1.0-4.8); LYMPH % 30 % (24-48); MEAN CORPUSCULAR HEMOGLOBIN 30 pg (25-35); MEAN CORPUSCULAR HGB CONC 33 g/dL (31-37); MEAN CORPUSCULAR VOLUME 92 fL (79-100); MONO % 8 % (0-9); NEUT % 60 % (31-73); PLATELET COUNT 165 x10^3/uL (140-400); RED BLOOD COUNT 3.64 x10^6/uL (3.50-5.40); TOTAL BILIRUBIN 0.3 mg/dL (0.2-1.0); TOTAL PROTEIN 6.1 g/dL (6.4-8.2); WHITE BLOOD COUNT 6.9 x10^3/uL (4.0-11.0)
[2017-07-02 12:22] LABS: BACTERIA,URINE 0 /HPF (0-FEW); RBC,URINE 0 /HPF (0-2); SQUAMOUS EPITHELIAL CELL,UR FEW /LPF; YEAST,URINE PRESENT /HPF
--- NOTE | 2017-07-02 13:13 | EKG ---
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
--- NOTE | 2017-07-02 14:23 | RAD ---
CT head without contrast 07/02/2017 Indication: Altered mental status Comparison: The T head 06/29/2017 Technique: Multiple axial noncontrast CT images of the head were obtained from the skull base through the vertex. Findings: The ventricles, sulci and basal cisterns are within normal limits. Bills-white matter differentiation is normal. There is no acute intracranial hemorrhage. There is no mass, mass effect or midline shift. Posterior fossa is within normal limits. Sellar and suprasellar cistern appear normal. Increased attenuation in the region of the optic nerves may represent optic nerve drusen. Paranasal sinuses are well aerated. Mastoid air cells are well aerated. Scalp and calvaria are normal. Impression: There is no acute intracranial hemorrhage. PQRS Compliance Statement: One or more of the following individualized dose reduction techniques were utilized for this examination: 1. Automated exposure control 2. Adjustment of the mA and/or kV according to patient size 3. Use of iterative reconstruction technique
[2017-07-02] MEDS ORDERED: VANCOMYCIN 2 GM in IV NORMAL SALINE 500ML BAG 500 ML IV ONE (16:00)
[2017-07-02] MEDS: ACYCLOVIR SODIUM 500 MG in IV DEXTROSE 5% 100 ML IV SCH ×2 (16:34→23:11)
[2017-07-02] MEDS ORDERED: PIP/TAZO PER PHARMACY MC PRN (16:45)
[2017-07-02] MEDS ORDERED: VANCOMYCIN 1.25 GM in IV NORMAL SALINE 250ML 250 ML IV SCH (17:00)
[2017-07-02] MEDS ORDERED: PIPERACILLIN/TAZOBACTAM 4.5 GM in IV NORMAL SALINE 100ML 100 ML IV ONE (17:00)
[2017-07-02] MEDS ORDERED: HYDROCORTISONE SOD SUCC/PF 100 MG/2 ML VIAL. IV ONE (17:30)
[2017-07-02] MEDS: IV NORMAL SALINE 1000ML BAG 1,000 ML IV SCH ×2 (17:32→19:34)
--- NOTE | 2017-07-02 17:32 | ED.ADGEN ---
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 Per patient's , patient last took medications at 10 PM last night , and sleeping since that time, he was noted that she was difficult to arouse, and brought patient's the emergency department for additional evaluation. Patient was discharged off on Monday after admission for altered mental status, and urinary tract infection, with urosepsis. Discharged home on Monday with a prescription for Levaquin. Patient size and states she is compliant with medications that time. Denies any fevers or chills, nausea or vomiting, any other complaints. Patient received 0.4 mg of Narcan up around to the emergency department, with some improvement in mentation. Patient will shake head yes and no to some questions, and follows some commands. Patient is not responding verbally. Patient without any respiratory depression, blood pressures are 1 teens over 80s. Heart rate is in the 80s. Oxygen saturation is 98% on 2 L nasal cannula. Respiratory rate is in the mid teens to low 20s. Review of Systems Review of Systems Constitutional: Denies fever or chills. [] Eyes: Denies change in visual acuity. [] HENT: Denies nasal congestion or sore throat. [] Respiratory: Denies cough or shortness of breath. [] Cardiovascular: Denies chest pain or edema. [] GI: Denies abdominal pain, nausea, vomiting, bloody stools or diarrhea. [] : Denies dysuria. [] Musculoskeletal: Denies back pain or joint pain. [] Integument: Denies rash. [] Neurologic: Denies headache, focal weakness or sensory changes. [] Endocrine: Denies polyuria or polydipsia. [] Lymphatic: Denies swollen glands. [] Psychiatric: Denies depression or anxiety. [] Patient not responding verbally to questions, will shake head yes or no to some questions. Current Medications Current Medications Current Medications Medications (Trade) Dose Ordered Sig/Judith Start Time Stop Time Status Last Admin Dose Admin Acyclovir Sodium 500 mg/Dextrose 110 ml @ 110 mls/hr Q8HRS 07/02/17 16:30 07/02/17 16:34 110 MLS/HR Ceftriaxone Sodium 2 gm/ Sodium Chloride 100 ml @ 200 mls/hr 1X ONCE 07/02/17 16:15 07/02/17 16:44 DC 07/02/17 16:34 200 MLS/HR Naloxone HCl (Narcan) 0.4 mg 1X ONCE 07/02/17 11:45 07/02/17 11:46 DC Vancomycin HCl 2 gm/Sodium Chloride 500 ml @ 250 mls/hr 1X ONCE 07/02/17 16:00 07/02/17 17:59 Allergies Allergies Allergies Coded Allergies Type Severity Reaction Last Updated Verified Sulfa (Sulfonamide Antibiotics) Allergy Intermediate 03/20/17 Yes citric acid Allergy Intermediate HAS TOLERATED BARIUM 03/20/17 Yes shellfish derived Allergy Intermediate Patient does fine with iodine contrast 03/20/17 Yes Physical Exam Physical Exam Constitutional: Well developed, well nourished, no acute distress, non-toxic appearance. [] HENT: Normocephalic, atraumatic, bilateral external ears normal, oropharynx moist, no oral exudates, nose normal. [] Eyes: PERRLA, EOMI, conjunctiva normal, no discharge. [] Neck: Normal range of motion, no tenderness, supple, no stridor. [] Cardiovascular:Heart rate regular rhythm, no murmur , S1, S2, rubs or gallops. Patient with port in place.] Lungs & Thorax: Patient with mildly diminished breath of the bases bilaterally, no wheezing, rhonchi or rales identified. Right-sided port in place, site is clean dry and intact.[] Abdomen: Bowel sounds normal, soft, no rebound, rigidity, no guarding, no tenderness, no masses, no pulsatile masses. [] Salmeron catheter in place. Dark yellow urine noted draining from catheter. Skin: Warm, dry, no erythema, no rash. [] Back: No tenderness, no CVA tenderness. [] Extremities: No tenderness, no cyanosis, no clubbing, ROM intact, patient with 1 + pitting bilaterally, patient with Farzad wrap in place of her left foot. Neurologic: Patient is drowsy, will denies to both verbal and tactile stimuli, is moving all extremities, and will follow some commands, however appears drowsy and confused. GCS of 13, as patient is not responding verbally, although she will not head yes or no to some questions. Psychologic: Flat affect. Current Patient Data Vital Signs Vital Signs Date Time Temp Pulse Resp B/P (MAP) Pulse Ox O2 Delivery O2 Flow Rate FiO2 07/02/17 16:22 76 11 91/54 (66) 95 Nasal Cannula 2.0 07/02/17 14:00 99.1 99.1 Lab Values Laboratory Tests Test 07/02/17 11:30 07/02/17 11:35 07/02/17 11:50 Urine Collection Type Unknown Urine Color [place] Urine Clarity Clear Urine pH 5.5 Urine Specific [place] 1.010 Urine Protein Negative mg/dL (NEG-TRACE) Urine Glucose (UA) Negative mg/dL (NEG) Urine Ketones (Stick) Negative mg/dL (NEG) Urine Blood Negative (NEG) Urine Nitrite Positive (NEG) Urine Bilirubin Negative (NEG) Urine Urobilinogen Dipstick 0.2 mg/dL (0.2 mg/dL) Urine Leukocyte Esterase Trace (NEG) Urine RBC 0 /HPF (0-2) Urine WBC 11-20 /HPF (0-4) Urine Squamous Epithelial Cells Few /LPF Urine Bacteria 0 /HPF (0-FEW) Urine Hyaline Casts Few /HPF Urine Mucus Slight /LPF Urine Yeast Present /HPF Urine Opiates Screen Pos (NEG) Urine Methadone Screen Neg (NEG) Urine Barbiturates Neg (NEG) Urine Phencyclidine Screen Neg (NEG) Urine Amphetamine/Methamphetamine Neg (NEG) Urine Benzodiazepines Screen Neg (NEG) Urine Cocaine Screen Neg (NEG) Urine Cannabinoids Screen Neg (NEG) Urine Ethyl Alcohol Neg (NEG) White Blood Count 6.9 x10^3/uL (4.0-11.0) Red Blood Count 3.64 x10^6/uL (3.50-5.40) Hemoglobin 10.9 g/dL (12.0-15.5) L Hematocrit 33.3 % (36.0-47.0) L Mean Corpuscular Volume 92 fL (79-100) Mean Corpuscular Hemoglobin 30 pg (25-35) Mean Corpuscular Hemoglobin Concent 33 g/dL (31-37) Red Cell Distribution Width 16.0 % (11.5-14.5) H Platelet Count 165 x10^3/uL (140-400) Neutrophils (%) (Auto) 60 % (31-73) Lymphocytes (%) (Auto) 30 % (24-48) Monocytes (%) (Auto) 8 % (0-9) Eosinophils (%) (Auto) 1 % (0-3) Basophils (%) (Auto) 1 % (0-3) Neutrophils # (Auto) 4.2 x10^3uL (1.8-7.7) Lymphocytes # (Auto) 2.1 x10^3/uL (1.0-4.8) Monocytes # (Auto) 0.5 x10^3/uL (0.0-1.1) Eosinophils # (Auto) 0.1 x10^3/uL (0.0-0.7) Basophils # (Auto) 0.0 x10^3/uL (0.0-0.2) Sodium Level 146 mmol/L (136-145) H Potassium Level 3.7 mmol/L (3.5-5.1) Chloride Level 111 mmol/L (98-107) H Carbon Dioxide Level 27 mmol/L (21-32) Anion Gap 8 (6-14) Blood Urea Nitrogen 13 mg/dL (7-20) Creatinine 1.4 mg/dL (0.6-1.0) H Estimated GFR (Cockcroft-Gault) 41.2 BUN/Creatinine Ratio 9 (6-20) Glucose Level 98 mg/dL (70-99) Calcium Level 8.8 mg/dL (8.5-10.1) Total Bilirubin 0.3 mg/dL (0.2-1.0) Aspartate Amino Transferase (AST) 13 U/L (15-37) L Alanine Aminotransferase (ALT) 20 U/L (14-59) Alkaline Phosphatase 68 U/L (46-116) Troponin I Quantitative < 0.017 ng/mL (0.000-0.055) Total Protein 6.1 g/dL (6.4-8.2) L Albumin 2.9 g/dL (3.4-5.0) L Albumin/Globulin Ratio 0.9 (1.0-1.7) L Lactic Acid Level 1.3 mmol/L (0.4-2.0) Laboratory Tests 07/02/17 11:35 Laboratory Tests 07/02/17 11:35 EKG EKG EC: Sinus rhythm, heart rate 80 beats are minute, upright axis, QTC of 423, IL 134, QRS of 84, patient with no ST elevations or depressions, no evidence of acute ST abnormalities. As interpreted by me.[] Radiology/Procedures Radiology/Procedures [][facility] [address] [place] [address] IMAGING REPORT Signed PATIENT: AMANDA MENDIETA ACCOUNT: [id number] : 1975 LOCATION: ER AGE: 42 SEX: F EXAM STATUS: REG ER ORD. PHYSICIAN: SHIRLEY NATH DO REASON: AMS PROCEDURE: CT HEAD WO CONTRAST CT head without contrast 07/02/2017 Indication: Altered mental status Comparison: The T head 06/29/2017 Technique: Multiple axial noncontrast CT images of the head were obtained from the skull base through the vertex. Findings: The ventricles, sulci and basal cisterns are within normal limits. Bills-white matter differentiation is normal. There is no acute intracranial hemorrhage. There is no mass, mass effect or midline shift. Posterior fossa is within normal limits. Sellar and suprasellar cistern appear normal. Increased attenuation in the region of the optic nerves may represent optic nerve drusen. Paranasal sinuses are well aerated. Mastoid air cells are well aerated. Scalp and calvaria are normal. Impression: There is no acute intracranial hemorrhage. PQRS Compliance Statement: One or more of the following individualized dose reduction techniques were utilized for this examination: 1. Automated exposure control 2. Adjustment of the mA and/or kV according to patient size 3. Use of iterative reconstruction technique DICTATED and SIGNED BY: KATI RAO MD DATE: 07/02/17 0961 CC: SHIRLEY NATH DO; Jett ZEPEDA MD ~ Impressions: [facility] [address] [place] [address] IMAGING REPORT Signed PATIENT: AMANDA MENDIETA ACCOUNT: [id number] : 1975 LOCATION: ER AGE: 42 SEX: F EXAM STATUS: PRE ER ORD. PHYSICIAN: SHIRLEY NATH DO REASON: AMS PROCEDURE: PORTABLE CHEST 1V Chest radiograph 07/02/2017 1:38 PM Indication: Altered mental status Comparison: Chest 06/29/2017 Technique: Single portable upright frontal view of the chest is provided. Findings: Right chest wall infusion port catheter is identified with the distal tip terminating in the region of the right atrium. Cardiomediastinal silhouette is within normal limits. No pleural effusions, pulmonary vascular congestion or pneumothorax. The lungs are clear. Osseous structures are normal. Impression: No acute cardiopulmonary process. DICTATED and SIGNED BY: KATI RAO MD DATE: 07/02/17 1154 CC: SHIRLEY NATH DO; Jett ZEPEDA MD ~ Course & Med Decision Making Course & Med Decision Making Pertinent Labs and Imaging studies reviewed. (See chart for details) Patient with altered mental status, confusion, drowsy, received Narcan en route , with some improvement, although patient's presentation is not consistent with a respiratory depressant or other changes from opiate overdose. Concern for possible septic process, versus intracerebral process. CT of the head obtained which did not reveal any acutely concerning findings. Laboratory studies obtained, which did not reveal evidence of leukocytosis, patient was urine was nitrate positive, no bacteria was noted, and nature eights may be due to medication administration, as opposed to organic cause. Patient without any nuchal rigidity, or fever, however patient is immunocompromised as stated, noted to have rash on the left upper shoulder, vesicular nature, concern for possible zoster. I did discuss findings as above with Dr. Reid 's disease, that time patient has been craig cultured with urine and blood cultures pending, will attempt to obtain a lumbar puncture, as this has not yet been obtained on patient after previous evaluation. I did speak with patient's , and reviewed risk versus benefits. Patient does have significant spinal stenosis, I did reveal her imaging, and attempted to obtain a lumbar puncture which was unsuccessful in the emergency department, I did discuss this with patient's . As stated patient remains drowsy, but is aroused to verbal and tactile stimuli, will nod yes or no, and respond to some questions and will follow some commands but still does not respond verbally. As stated no infectious source is identified at this point. Due to unclear etiology, and a new, I stated, patient did receive acyclovir, ceftriaxone, vancomycin for potential [employer] infectious source, and consultation was placed for infectious disease and neurology. Dr. Douglas of neurology was paged, was unable to contact him during the patient' s ED visit. Consult was placed. I did discuss findings as above with Dr. Foster , on-call for the patient's primary care provider, Dr. Zepeda. Patient accepted to his service as a full admission her behalf, as stated patient has no clear infectious etiology, additionally received hydrocortisone due to history of Bethel's disease, with consultations, order for brain MRI with and without contrast, and IR consult for lumbar puncture placed on bridge orders per discussion. Patient remained stable on the monitor in sinus rhythm, with out significant change in mentation awaiting transport to the medical telemetry floor. Dragon Disclaimer Dragon Disclaimer This electronic medical record was generated, in whole or in part, using a voice recognition dictation system. Departure Impression: Primary Impression: Altered mental status Additional Impression: Encephalopathy Disposition: 09 ADMITTED INPATIENT Admitting Physician: Jessie Zepeda Condition: STABLE Problem Qualifiers SHIRLEY NATH DO Jul 02, 2017 17:32
[2017-07-02] MEDS ORDERED: ACETAMINOPHEN 325 MG TABLET. PO PRN (17:45)
[2017-07-02] MEDS ORDERED: ONDANSETRON PF 4 MG/2 ML VIAL. IV PRN (17:45)
[2017-07-02 18:48] VITALS: BP 96/59
[2017-07-02 19:00] VITALS: BP 104/82
[2017-07-02] MEDS ORDERED: VANCOMYCIN PER PHARMACY MC PRN (20:00)
[2017-07-02 22:52] VITALS: BP 130/80
[2017-07-03] MEDS: PIPERACILLIN/TAZOBACTAM 4.5 GM in IV NORMAL SALINE 100ML 100 ML IV SCH ×2 (00:09→05:22)
[2017-07-03 03:09] VITALS: BP 140/83
[2017-07-03 04:46] LABS: BASO % 0 % (0-3); EOS % 0 % (0-3); HEMOGLOBIN 10.3 g/dL (12.0-15.5); LYMPH # 1.3 x10^3/uL (1.0-4.8); LYMPH % 18 % (24-48); MEAN CORPUSCULAR HEMOGLOBIN 30 pg (25-35); MEAN CORPUSCULAR HGB CONC 32 g/dL (31-37); MEAN CORPUSCULAR VOLUME 93 fL (79-100); MONO % 5 % (0-9); NEUT % 77 % (31-73); PLATELET COUNT 166 x10^3/uL (140-400); RED BLOOD COUNT 3.44 x10^6/uL (3.50-5.40); RED CELL DISTRIBUTION WIDTH 15.6 % (11.5-14.5); WHITE BLOOD COUNT 7.5 x10^3/uL (4.0-11.0)
[2017-07-03 05:12] LABS: CALCIUM 8.1 mg/dL (8.5-10.1); CREATININE 1.2 mg/dL (0.6-1.0); GFR 49.3; POTASSIUM 3.5 mmol/L (3.5-5.1)
[2017-07-03] MEDS: ACYCLOVIR SODIUM 500 MG in IV DEXTROSE 5% 100 ML IV SCH (06:16)
[2017-07-03 07:00] VITALS: BP 129/87
[2017-07-03] MEDS ORDERED: VANCOMYCIN 1.25 GM in IV NORMAL SALINE 250ML 250 ML IV SCH (08:00)
--- NOTE | 2017-07-03 09:31 | PDOC ---
Infectious Disease Note ROS ROS GEN: Denies fevers, chills, sweats HEENT: Denies blurred vision, sore throat CV: Denies chest pain RESP: Denies shortness of air, cough GI: Denies n/v/d NEURO: Denies confusion, dizziness MSK: Denies weakness, joint pain/swelling Vital Sign Vital Signs Vital Signs Date Time Temp Pulse Resp B/P (MAP) Pulse Ox O2 Delivery O2 Flow Rate FiO2 07/03/17 07:00 99.0 75 18 129/87 (101) 96 Room Air 99.0 07/03/17 03:09 1.0 Physical Exam PHYSICAL EXAM GENERAL: NAD, Alert HEENT: PERRL, OC/OP NECK: Supple, no JVD, no LN LUNGS: Clear HEART: S1S2, no gallop, no murmur ABD: Soft, NT, no organomegaly, no rebound EXT: No edema, no cyanosis [employer]: Alert, oriented x 3, no focal neurologic deficit SKIN: No rash IV: ok Labs Lab Laboratory Tests Test 07/02/17 11:30 07/02/17 11:35 07/02/17 11:50 07/02/17 17:25 Urine Collection Type Unknown Urine Color [place] Urine Clarity Clear Urine pH 5.5 Urine Specific [place] 1.010 Urine Protein Negative mg/dL (NEG-TRACE) Urine Glucose (UA) Negative mg/dL (NEG) Urine Ketones (Stick) Negative mg/dL (NEG) Urine Blood Negative (NEG) Urine Nitrite Positive (NEG) Urine Bilirubin Negative (NEG) Urine Urobilinogen Dipstick 0.2 mg/dL (0.2 mg/dL) Urine Leukocyte Esterase Trace (NEG) Urine RBC 0 /HPF (0-2) Urine WBC 11-20 /HPF (0-4) Urine Squamous Epithelial Cells Few /LPF Urine Bacteria 0 /HPF (0-FEW) Urine Hyaline Casts Few /HPF Urine Mucus Slight /LPF Urine Yeast Present /HPF Urine Opiates Screen Pos (NEG) Urine Methadone Screen Neg (NEG) Urine Barbiturates Neg (NEG) Urine Phencyclidine Screen Neg (NEG) Urine Amphetamine/Methamphetamine Neg (NEG) Urine Benzodiazepines Screen Neg (NEG) Urine Cocaine Screen Neg (NEG) Urine Cannabinoids Screen Neg (NEG) Urine Ethyl Alcohol Neg (NEG) White Blood Count 6.9 x10^3/uL (4.0-11.0) Red Blood Count 3.64 x10^6/uL (3.50-5.40) Hemoglobin 10.9 g/dL (12.0-15.5) Hematocrit 33.3 % (36.0-47.0) Mean Corpuscular Volume 92 fL (79-100) Mean Corpuscular Hemoglobin 30 pg (25-35) Mean Corpuscular Hemoglobin Concent 33 g/dL (31-37) Red Cell Distribution Width 16.0 % (11.5-14.5) Platelet Count 165 x10^3/uL (140-400) Neutrophils (%) (Auto) 60 % (31-73) Lymphocytes (%) (Auto) 30 % (24-48) Monocytes (%) (Auto) 8 % (0-9) Eosinophils (%) (Auto) 1 % (0-3) Basophils (%) (Auto) 1 % (0-3) Neutrophils # (Auto) 4.2 x10^3uL (1.8-7.7) Lymphocytes # (Auto) 2.1 x10^3/uL (1.0-4.8) Monocytes # (Auto) 0.5 x10^3/uL (0.0-1.1) Eosinophils # (Auto) 0.1 x10^3/uL (0.0-0.7) Basophils # (Auto) 0.0 x10^3/uL (0.0-0.2) Sodium Level 146 mmol/L (136-145) Potassium Level 3.7 mmol/L (3.5-5.1) Chloride Level 111 mmol/L (98-107) Carbon Dioxide Level 27 mmol/L (21-32) Anion Gap 8 (6-14) Blood Urea Nitrogen 13 mg/dL (7-20) Creatinine 1.4 mg/dL (0.6-1.0) Estimated GFR (Cockcroft-Gault) 41.2 BUN/Creatinine Ratio 9 (6-20) Glucose Level 98 mg/dL (70-99) Calcium Level 8.8 mg/dL (8.5-10.1) Total Bilirubin 0.3 mg/dL (0.2-1.0) Aspartate Amino Transf (AST/SGOT) 13 U/L (15-37) Alanine Aminotransferase (ALT/SGPT) 20 U/L (14-59) Alkaline Phosphatase 68 U/L (46-116) Troponin I Quantitative < 0.017 ng/mL (0.000-0.055) Total Protein 6.1 g/dL (6.4-8.2) Albumin 2.9 g/dL (3.4-5.0) Albumin/Globulin Ratio 0.9 (1.0-1.7) Lactic Acid Level 1.3 mmol/L (0.4-2.0) 0.6 mmol/L (0.4-2.0) Test 07/03/17 04:15 White Blood Count 7.5 x10^3/uL (4.0-11.0) Red Blood Count 3.44 x10^6/uL (3.50-5.40) Hemoglobin 10.3 g/dL (12.0-15.5) Hematocrit 32.0 % (36.0-47.0) Mean Corpuscular Volume 93 fL (79-100) Mean Corpuscular Hemoglobin 30 pg (25-35) Mean Corpuscular Hemoglobin Concent 32 g/dL (31-37) Red Cell Distribution Width 15.6 % (11.5-14.5) Platelet Count 166 x10^3/uL (140-400) Neutrophils (%) (Auto) 77 % (31-73) Lymphocytes (%) (Auto) 18 % (24-48) Monocytes (%) (Auto) 5 % (0-9) Eosinophils (%) (Auto) 0 % (0-3) Basophils (%) (Auto) 0 % (0-3) Neutrophils # (Auto) 5.8 x10^3uL (1.8-7.7) Lymphocytes # (Auto) 1.3 x10^3/uL (1.0-4.8) Monocytes # (Auto) 0.4 x10^3/uL (0.0-1.1) Eosinophils # (Auto) 0.0 x10^3/uL (0.0-0.7) Basophils # (Auto) 0.0 x10^3/uL (0.0-0.2) Sodium Level 143 mmol/L (136-145) Potassium Level 3.5 mmol/L (3.5-5.1) Chloride Level 109 mmol/L (98-107) Carbon Dioxide Level 26 mmol/L (21-32) Anion Gap 8 (6-14) Blood Urea Nitrogen 10 mg/dL (7-20) Creatinine 1.2 mg/dL (0.6-1.0) Estimated GFR (Cockcroft-Gault) 49.3 Glucose Level 112 mg/dL (70-99) Calcium Level 8.1 mg/dL (8.5-10.1) Objective Assessment Encephalopathy sec to multiple sedating and altering meds, do not believe pt has any infection Spinal stenosis Gastroparesis [place] disease COPD CVA Plan Plan of Care no need for LP no need for antibiotics need to adjust pain meds and sedating meds and muscle relaxants etc BENJAMÍN GORE MD Jul 03, 2017 09:31
[2017-07-03 11:00] VITALS: BP 121/78
--- NOTE | 2017-07-03 11:15 | PDOC2 ---
NEUROLOGY CONSULT Date of Admission Date of Admission DATE: 07/03/17 TIME: 11:01 Reason for Consult Reason for Consult: Altered mental status Referring Physician Referring Physician: Dr. Zepeda Source Source: Chart review, Patient History of Present Illness History of Present Illness The patient is a 42-year-old right-handed female just discharged 3 days for altered mental status who's readmitted for same. She is often found to have urinary tract infections during the several admissions for altered mental status. I saw her in 2013 for same, and did end up diagnosing her with obstructive sleep apnea. I saw her for a right foot drop with EMG showing no organic pathology, in 2014, and then later that year she was supposed to return for an EMG of the left arm regarding left wrist drop, but never showed back up. She was here just last week for altered mental status and saw Dr. Laws who obtained negative imaging studies and EEG. She sees pain management for chronic back and neck pain with imaging studies as I recall showing no significant surgical disease. She did have a stroke treated at [facility] 11 months ago. There is no history of seizure or head injury. Past Medical History Pulmonary: Asthma, COPD CENTRAL NERVOUS SYSTEM: CVA, Other ( metabolic encephalopathy) Musculoskeletal: low back pain ( and neck pain) Renal/: UTI, Other ( urinary retention has fully and in the past had a suprapubic catheter) Endocrine: Other (Dutch's disease) Past Surgical History Past Surgical History: Cholecystectomy, , Hernia Repair (ventral), Tonsillectomy, Hysterectomy, Other ( pilonidal cyst, gastrectomy, J tube placement and removal) Family History Family History: CAD, Hypertension Social History Social History , smokes a half a pack of cigarettes per day, disabled, no alcohol Current Medications Current Medications Current Medications Naloxone HCl (Narcan) 0.4 mg STK-MED ONCE .ROUTE ; Start 07/02/17 at 11:30; Stop 07/02/17 at 11:31; Status DC Naloxone HCl (Narcan) 0.4 mg 1X ONCE IV Last administered on 07/02/17t 11:35; Start 07/02/17 at 11:45; Stop 07/02/17 at 11:46; Status DC Naloxone HCl (Narcan) 0.4 mg 1X ONCE IV ; Start 07/02/17 at 11:45; Stop at 11:46; Status DC Acyclovir Sodium 500 mg/Dextrose 110 ml @ 110 mls/hr Q8HRS IV Last administered on 07/03/17 06:16; Start 07/02/17 at 16:30; Stop 07/03/17 at 09:32 ; Status DC Vancomycin HCl 2 gm/Sodium Chloride 500 ml @ 250 mls/hr 1X ONCE IV Last administered on 07/02/17 19:33; Start 07/02/17 at 16:00; Stop 07/02/17 at 17:59 ; Status DC Vancomycin HCl 1.25 gm/Sodium Chloride 250 ml @ 250 mls/hr QID IV ; Start 07/02 at 17:00; Stop 07/02/17 at 19:52; Status DC Ceftriaxone Sodium 2 gm/ Sodium Chloride 100 ml @ 200 mls/hr BID@0500,1700 IV Last administered on 07/03/17 04:29; Start 07/03/17 at 05:00; Stop 07/03/17 at 09:32; Status DC Ceftriaxone Sodium 2 gm/ Sodium Chloride 100 ml @ 200 mls/hr 1X ONCE IV Last administered on 07/02/17 16:34; Start 07/02/17 at 16:15; Stop 07/02/17 at 16:44 ; Status DC Piperacillin Sod/ Tazobactam Sod (Zosyn Per Pharmacy) 1 each PRN DAILY PRN MC SEE COMMENTS; Start 07/02/17 at 16:45; Stop 07/03/17 at 09:32; Status DC Piperacillin Sod/ Tazobactam Sod 4.5 gm/Sodium Chloride 100 ml @ 200 mls/hr 1X ONCE IV Last administered on 07/02/17 17:00; Start 07/02/17 at 17:00; Stop 07/02/17 at 17:29; Status DC Piperacillin Sod/ Tazobactam Sod 4.5 gm/Sodium Chloride 100 ml @ 200 mls/hr Q6HRS IV Last administered on 07/03/17 05:22; Start 07/03/17 at 00:00; Stop at 09:32; Status DC Hydrocortisone Sodium Succinate (Solu-CORTEF) 100 mg 1X ONCE IV Last administered on 07/02/17 19:33; Start 07/02/17 at 17:30; Stop 07/02/17 at 17:31 ; Status DC Ondansetron HCl (Zofran) 4 mg PRN Q8HRS PRN IV NAUSEA/VOMITING; Start 07/02/17 at 17:45; Stop 07/03/17 at 17:44 Sodium Chloride 1,000 ml @ 100 mls/hr Q10H IV Last administered on 07/02/17 19:34; Start 07/02/17 at 17:32; Stop 07/03/17 at 17:31 Acetaminophen (Tylenol) 650 mg PRN Q4HRS PRN PO FEVER Last administered on 07/03 09:23; Start 07/02/17 at 17:45; Stop 07/03/17 at 17:44 Vancomycin HCl (Vanco Per Pharmacy) 1 each PRN DAILY PRN MC SEE COMMENTS Last administered on 07/02/17 19:56; Start 07/02/17 at 20:00; Stop 07/03/17 at 09:32 ; Status DC Vancomycin HCl 1.25 gm/Sodium Chloride 250 ml @ 167 mls/hr Q12H IV Last administered on 07/03/17 09:24; Start 07/03/17 at 08:00; Stop 07/03/17 at 09:32 ; Status DC Vancomycin HCl 1 each 1X ONCE MC ; Start 07/04/17 at 07:30; Stop 07/04/17 at 07 :30; Status DC Active Scripts Active Levaquin (Levofloxacin) 500 Mg Tablet 1 Tab PO DAILY Aldactone (Spironolactone) 25 Mg Tablet 25 Mg PO BID 30 Days Klor-Con M20 (Potassium Chloride) 20 Meq Tab.er.prt 20 Meq PO TID 30 Days Pantoprazole Sodium 40 Mg Tablet.dr 40 Mg PO DAILYAC 30 Days Metoprolol Tartrate 25 Mg Tablet 25 Mg PO BID 30 Days Topamax (Topiramate) 25 Mg Tablet 50 Mg PO BID 30 Days Mucinex Dm Er 600-30 Mg Tablet (Guaifenesin/Dextromethorphan) 1 Each Tab.er.12h 1 Tab PO BID 7 Days Reglan (Metoclopramide Hcl) 5 Mg Tablet 5 Mg PO QIDACHS Reported Hydromorphone Hcl 4 Mg Tablet 1.5 Tab PO Q6HRS Vitamin D (Cholecalciferol (Vitamin D3)) 2,000 Unit Capsule 1 Cap PO DAILY Fludrocortisone Acetate 0.1 Mg Tablet 0.3 Mg PO Q12HR Cortef (Hydrocortisone) 10 Mg Tablet 5 Mg PO BID92 Aspir-Low (Aspirin) 81 Mg Tablet.dr 81 Mg PO BID Dulcolax (Bisacodyl) 5 Mg Tablet.dr 5 Mg PO BID Trazodone Hcl 100 Mg Tablet 100 Mg PO HS Last dose taken: Next dose due: Multiple Vitamin (Multivitamin With Minerals) 1 Each Tablet 1 Each PO BID Last dose given: Next dose due: FENTANYL 50mcg/hr (Fentanyl) 1 Each Patch.td72 100 Mcg TD Last dose given: Next dose due: take as directed Cymbalta (Duloxetine Hcl) 20 Mg Capsule.dr 60 Mg PO BID Last dose given: Next dose due: Allergies Allergies: Coded Allergies: Sulfa (Sulfonamide Antibiotics) (Verified Allergy, Intermediate, 03/20/17) citric acid (Verified Allergy, Intermediate, HAS TOLERATED BARIUM, 03/20/17) shellfish derived (Verified Allergy, Intermediate, Patient does fine with iodine contrast, 03/20/17) ROS Review of System Negative for fevers, chills, weight loss, shortness of breath, chest pain, indigestion, hematochezia, melena. Positive for dysuria. Full 14-point review systems is negative. Physical Exam Physical Examination PHYSICAL EXAMINATION: Vital signs: see above. General appearance is normal and in no acute distress. HEENT: Normocephalic and nontraumatic. Eyes, nose, ears, and throat are unremarkable. Neck is supple. No lymphadenopathy. No bruits are heard over the carotid artery. No crepitus. NEUROLOGICAL EXAMINATION: Mental Status Examination: Alert. Oriented to time, place, and person. Answers questions and follows commends. Pupils are equal round and reactive to light and accommodation. Funduscopic exam: No papilledema. Extraocular movements are intact. Visual field exam shows no defect on the direct confrontation. No motor or sensory deficits on the facial exam. Uvula in the midline and the soft palate elevated symmetrically. No deviation of the tongue to any direction. Gross hearing is normal. Shoulder shrug normal. Muscle tone is normal. Muscle strength is 5. Deep tendon reflexes are 2+ all around. Plantar reflex is with flexion response bilaterally. [id number] test performance is accurate. Tandem walk test is accurate. Alternative movements are accurate. Romberg test is negative. Gait not tested. Sensory exam shows no deficits. No cerebellar signs are elicited. Vitals VITALS Vital Signs Date Time Temp Pulse Resp B/P (MAP) Pulse Ox O2 Delivery O2 Flow Rate FiO2 07/03/17 08:10 Room Air 07/03/17 07:00 99.0 75 18 129/87 (101) 96 99.0 07/03/17 03:09 1.0 Labs Labs Laboratory Tests Test 07/02/17 11:30 07/02/17 11:35 07/02/17 11:50 07/02/17 17:25 Urine Collection Type Unknown Urine Color Barron Urine Clarity Clear Urine pH 5.5 Urine Specific [place] 1.010 Urine Protein Negative mg/dL (NEG-TRACE) Urine Glucose (UA) Negative mg/dL (NEG) Urine Ketones (Stick) Negative mg/dL (NEG) Urine Blood Negative (NEG) Urine Nitrite Positive (NEG) Urine Bilirubin Negative (NEG) Urine Urobilinogen Dipstick 0.2 mg/dL (0.2 mg/dL) Urine Leukocyte Esterase Trace (NEG) Urine RBC 0 /HPF (0-2) Urine WBC 11-20 /HPF (0-4) Urine Squamous Epithelial Cells Few /LPF Urine Bacteria 0 /HPF (0-FEW) Urine Hyaline Casts Few /HPF Urine Mucus Slight /LPF Urine Yeast Present /HPF Urine Opiates Screen Pos (NEG) Urine Methadone Screen Neg (NEG) Urine Barbiturates Neg (NEG) Urine Phencyclidine Screen Neg (NEG) Urine Amphetamine/Methamphetamine Neg (NEG) Urine Benzodiazepines Screen Neg (NEG) Urine Cocaine Screen Neg (NEG) Urine Cannabinoids Screen Neg (NEG) Urine Ethyl Alcohol Neg (NEG) White Blood Count 6.9 x10^3/uL (4.0-11.0) Red Blood Count 3.64 x10^6/uL (3.50-5.40) Hemoglobin 10.9 g/dL (12.0-15.5) Hematocrit 33.3 % (36.0-47.0) Mean Corpuscular Volume 92 fL (79-100) Mean Corpuscular Hemoglobin 30 pg (25-35) Mean Corpuscular Hemoglobin Concent 33 g/dL (31-37) Red Cell Distribution Width 16.0 % (11.5-14.5) Platelet Count 165 x10^3/uL (140-400) Neutrophils (%) (Auto) 60 % (31-73) Lymphocytes (%) (Auto) 30 % (24-48) Monocytes (%) (Auto) 8 % (0-9) Eosinophils (%) (Auto) 1 % (0-3) Basophils (%) (Auto) 1 % (0-3) Neutrophils # (Auto) 4.2 x10^3uL (1.8-7.7) Lymphocytes # (Auto) 2.1 x10^3/uL (1.0-4.8) Monocytes # (Auto) 0.5 x10^3/uL (0.0-1.1) Eosinophils # (Auto) 0.1 x10^3/uL (0.0-0.7) Basophils # (Auto) 0.0 x10^3/uL (0.0-0.2) Sodium Level 146 mmol/L (136-145) Potassium Level 3.7 mmol/L (3.5-5.1) Chloride Level 111 mmol/L (98-107) Carbon Dioxide Level 27 mmol/L (21-32) Anion Gap 8 (6-14) Blood Urea Nitrogen 13 mg/dL (7-20) Creatinine 1.4 mg/dL (0.6-1.0) Estimated GFR (Cockcroft-Gault) 41.2 BUN/Creatinine Ratio 9 (6-20) Glucose Level 98 mg/dL (70-99) Calcium Level 8.8 mg/dL (8.5-10.1) Total Bilirubin 0.3 mg/dL (0.2-1.0) Aspartate Amino Transf (AST/SGOT) 13 U/L (15-37) Alanine Aminotransferase (ALT/SGPT) 20 U/L (14-59) Alkaline Phosphatase 68 U/L (46-116) Troponin I Quantitative < 0.017 ng/mL (0.000-0.055) Total Protein 6.1 g/dL (6.4-8.2) Albumin 2.9 g/dL (3.4-5.0) Albumin/Globulin Ratio 0.9 (1.0-1.7) Lactic Acid Level 1.3 mmol/L (0.4-2.0) 0.6 mmol/L (0.4-2.0) Test 07/03/17 04:15 White Blood Count 7.5 x10^3/uL (4.0-11.0) Red Blood Count 3.44 x10^6/uL (3.50-5.40) Hemoglobin 10.3 g/dL (12.0-15.5) Hematocrit 32.0 % (36.0-47.0) Mean Corpuscular Volume 93 fL (79-100) Mean Corpuscular Hemoglobin 30 pg (25-35) Mean Corpuscular Hemoglobin Concent 32 g/dL (31-37) Red Cell Distribution Width 15.6 % (11.5-14.5) Platelet Count 166 x10^3/uL (140-400) Neutrophils (%) (Auto) 77 % (31-73) Lymphocytes (%) (Auto) 18 % (24-48) Monocytes (%) (Auto) 5 % (0-9) Eosinophils (%) (Auto) 0 % (0-3) Basophils (%) (Auto) 0 % (0-3) Neutrophils # (Auto) 5.8 x10^3uL (1.8-7.7) Lymphocytes # (Auto) 1.3 x10^3/uL (1.0-4.8) Monocytes # (Auto) 0.4 x10^3/uL (0.0-1.1) Eosinophils # (Auto) 0.0 x10^3/uL (0.0-0.7) Basophils # (Auto) 0.0 x10^3/uL (0.0-0.2) Sodium Level 143 mmol/L (136-145) Potassium Level 3.5 mmol/L (3.5-5.1) Chloride Level 109 mmol/L (98-107) Carbon Dioxide Level 26 mmol/L (21-32) Anion Gap 8 (6-14) Blood Urea Nitrogen 10 mg/dL (7-20) Creatinine 1.2 mg/dL (0.6-1.0) Estimated GFR (Cockcroft-Gault) 49.3 Glucose Level 112 mg/dL (70-99) Calcium Level 8.1 mg/dL (8.5-10.1) Laboratory Tests Test 07/02/17 11:30 07/02/17 11:35 07/02/17 11:50 07/02/17 17:25 Urine Collection Type Unknown Urine Color Barron Urine Clarity Clear Urine pH 5.5 Urine Specific [place] 1.010 Urine Protein Negative mg/dL (NEG-TRACE) Urine Glucose (UA) Negative mg/dL (NEG) Urine Ketones (Stick) Negative mg/dL (NEG) Urine Blood Negative (NEG) Urine Nitrite Positive (NEG) Urine Bilirubin Negative (NEG) Urine Urobilinogen Dipstick 0.2 mg/dL (0.2 mg/dL) Urine Leukocyte Esterase Trace (NEG) Urine RBC 0 /HPF (0-2) Urine WBC 11-20 /HPF (0-4) Urine Squamous Epithelial Cells Few /LPF Urine Bacteria 0 /HPF (0-FEW) Urine Hyaline Casts Few /HPF Urine Mucus Slight /LPF Urine Yeast Present /HPF Urine Opiates Screen Pos (NEG) Urine Methadone Screen Neg (NEG) Urine Barbiturates Neg (NEG) Urine Phencyclidine Screen Neg (NEG) Urine Amphetamine/Methamphetamine Neg (NEG) Urine Benzodiazepines Screen Neg (NEG) Urine Cocaine Screen Neg (NEG) Urine Cannabinoids Screen Neg (NEG) Urine Ethyl Alcohol Neg (NEG) White Blood Count 6.9 x10^3/uL (4.0-11.0) Red Blood Count 3.64 x10^6/uL (3.50-5.40) Hemoglobin 10.9 g/dL (12.0-15.5) Hematocrit 33.3 % (36.0-47.0) Mean Corpuscular Volume 92 fL (79-100) Mean Corpuscular Hemoglobin 30 pg (25-35) Mean Corpuscular Hemoglobin Concent 33 g/dL (31-37) Red Cell Distribution Width 16.0 % (11.5-14.5) Platelet Count 165 x10^3/uL (140-400) Neutrophils (%) (Auto) 60 % (31-73) Lymphocytes (%) (Auto) 30 % (24-48) Monocytes (%) (Auto) 8 % (0-9) Eosinophils (%) (Auto) 1 % (0-3) Basophils (%) (Auto) 1 % (0-3) Neutrophils # (Auto) 4.2 x10^3uL (1.8-7.7) Lymphocytes # (Auto) 2.1 x10^3/uL (1.0-4.8) Monocytes # (Auto) 0.5 x10^3/uL (0.0-1.1) Eosinophils # (Auto) 0.1 x10^3/uL (0.0-0.7) Basophils # (Auto) 0.0 x10^3/uL (0.0-0.2) Sodium Level 146 mmol/L (136-145) Potassium Level 3.7 mmol/L (3.5-5.1) Chloride Level 111 mmol/L (98-107) Carbon Dioxide Level 27 mmol/L (21-32) Anion Gap 8 (6-14) Blood Urea Nitrogen 13 mg/dL (7-20) Creatinine 1.4 mg/dL (0.6-1.0) Estimated GFR (Cockcroft-Gault) 41.2 BUN/Creatinine Ratio 9 (6-20) Glucose Level 98 mg/dL (70-99) Calcium Level 8.8 mg/dL (8.5-10.1) Total Bilirubin 0.3 mg/dL (0.2-1.0) Aspartate Amino Transf (AST/SGOT) 13 U/L (15-37) Alanine Aminotransferase (ALT/SGPT) 20 U/L (14-59) Alkaline Phosphatase 68 U/L (46-116) Troponin I Quantitative < 0.017 ng/mL (0.000-0.055) Total Protein 6.1 g/dL (6.4-8.2) Albumin 2.9 g/dL (3.4-5.0) Albumin/Globulin Ratio 0.9 (1.0-1.7) Lactic Acid Level 1.3 mmol/L (0.4-2.0) 0.6 mmol/L (0.4-2.0) Test 07/03/17 04:15 White Blood Count 7.5 x10^3/uL (4.0-11.0) Red Blood Count 3.44 x10^6/uL (3.50-5.40) Hemoglobin 10.3 g/dL (12.0-15.5) Hematocrit 32.0 % (36.0-47.0) Mean Corpuscular Volume 93 fL (79-100) Mean Corpuscular Hemoglobin 30 pg (25-35) Mean Corpuscular Hemoglobin Concent 32 g/dL (31-37) Red Cell Distribution Width 15.6 % (11.5-14.5) Platelet Count 166 x10^3/uL (140-400) Neutrophils (%) (Auto) 77 % (31-73) Lymphocytes (%) (Auto) 18 % (24-48) Monocytes (%) (Auto) 5 % (0-9) Eosinophils (%) (Auto) 0 % (0-3) Basophils (%) (Auto) 0 % (0-3) Neutrophils # (Auto) 5.8 x10^3uL (1.8-7.7) Lymphocytes # (Auto) 1.3 x10^3/uL (1.0-4.8) Monocytes # (Auto) 0.4 x10^3/uL (0.0-1.1) Eosinophils # (Auto) 0.0 x10^3/uL (0.0-0.7) Basophils # (Auto) 0.0 x10^3/uL (0.0-0.2) Sodium Level 143 mmol/L (136-145) Potassium Level 3.5 mmol/L (3.5-5.1) Chloride Level 109 mmol/L (98-107) Carbon Dioxide Level 26 mmol/L (21-32) Anion Gap 8 (6-14) Blood Urea Nitrogen 10 mg/dL (7-20) Creatinine 1.2 mg/dL (0.6-1.0) Estimated GFR (Cockcroft-Gault) 49.3 Glucose Level 112 mg/dL (70-99) Calcium Level 8.1 mg/dL (8.5-10.1) Images Images EEG, 06/30: diffuse slowing consistent with encephalopathy CT head, 07/02: The ventricles, sulci and basal cisterns are within normal limits. Bills-white matter differentiation is normal. There is no acute intracranial hemorrhage. There is no mass, mass effect or midline shift. Posterior fossa is within normal limits. Sellar and suprasellar cistern appear normal. Increased attenuation in the region of the optic nerves may represent optic nerve drusen. Paranasal sinuses are well aerated. Mastoid air cells are well aerated. Scalp and calvaria are normal. Impression: There is no acute intracranial hemorrhage. MRI cervical, 09/03/14: FINDINGS: Detail is mildly degraded as the anterior cervical spine coil was not utilized at the patient's request. At Vertebral body height and alignment is maintained throughout the cervical spine. Normal cervical lordosis is preserved. The lateral masses of C1 are aligned on C2. No abnormal bone marrow signal is seen. The cord is of normal caliber without abnormal signal. Level by level analysis demonstrates no significant central or neural foraminal stenosis. Paraspinous soft tissues are within normal limits. limited evaluation of the posterior fossa on T2 weighted images reveals no abnormality. IMPRESSION: Detail is mildly degraded as the anterior cervical spine coil was not utilized at the patient's request. Unremarkable MR examination of cervical spine without contrast. No abnormal cord signal is identified. MRI lumbar 09/03/14: FINDINGS: There is grade 1 anterolisthesis of L5 on S1. Alignment and curvature is otherwise within normal limits. No compression deformity is identified. Bone marrow signal is normal. There is degenerative disc dehydration at L4-5 and L5-S1. The conus terminates normally at the level of L1. Visualized intra-abdominal contents are within normal limits. At L5-S1 there is moderate facet arthropathy and grade 1 anterolisthesis. This results in disc height loss and a broad-based disc protrusion that causes mild to moderate bilateral neural foraminal stenosis somewhat worse on the left. There is no central spinal stenosis. At L4-5 there is mild facet arthropathy and a small central disc protrusion. This does not result in significant central spinal or neural foraminal stenosis. The remaining intervertebral disc levels are well maintained. Impression: Degenerative grade 1 anterolisthesis of L5 on S1 with mild to moderate bilateral neural foraminal stenosis bilaterally at this level. Mild degenerative disc disease at L4-5 with no significant central spinal or neural foraminal stenosis. Assessment/Plan Assessment/Plan IMPRESSION: Metabolic encephalopathy, probably due to overuse of narcotics, must relaxers, sedatives. UTI, recurrent HTN COPD Dutch's disease. Asthma. Back pain. Cognitive impairment, bright and alert now. RECOMMENDATIONS/PLAN: No need for further neurological studies. In particular I see no need for lumbar puncture, repeat EEG, or brain MRI. Hold narcotics. Thank you for letting me help with the patient's care. WENDY CULVER MD Jul 03, 2017 11:15
--- NOTE | 2017-07-03 12:57 | PDOC ---
SUBJECTIVE Subjective back and abdominal pain OBJECTIVE Objective 42 yo C/O low back and abdominal pain-chronic, with excessive sedation X 2 in last week requiring naloxone Vital Signs Vital Signs Date Time Temp Pulse Resp B/P (MAP) Pulse Ox O2 Delivery O2 Flow Rate FiO2 07/03/17 11:00 98.9 83 18 121/78 (92) 92 Room Air 98.9 07/03/17 08:10 Room Air 07/03/17 07:00 99.0 75 18 129/87 (101) 96 Room Air 99.0 07/03/17 03:09 98.8 69 18 140/83 (102) 97 Nasal Cannula 1.0 98.8 07/02/17 22:52 98.2 67 18 130/80 (97) 98 Nasal Cannula 98.2 07/02/17 20:30 Nasal Cannula 07/02/17 19:00 98.6 60 18 104/82 (89) 98 98.6 07/02/17 18:48 97.4 67 22 96/59 (71) 96 Room Air 97.4 07/02/17 16:22 76 11 91/54 (66) 95 Nasal Cannula 2.0 07/02/17 15:52 74 26 97/56 (70) 96 Nasal Cannula 2.0 07/02/17 15:22 70 21 93/50 (64) 97 Nasal Cannula 2.0 07/02/17 14:55 70 21 101/51 (68) 98 Nasal Cannula 07/02/17 14:22 68 20 87/54 (65) 98 Nasal Cannula 2.0 07/02/17 14:00 99.1 99.1 07/02/17 13:30 80 13 95/61 (72) 97 Nasal Cannula 2.0 07/02/17 13:00 76 15 100/56 (71) 96 Nasal Cannula 2.0 I & O Intake and Output 07/04/17 07:00 Intake Total 300 ml Balance 300 ml Intake Oral 300 ml PHYSICAL EXAM Physical Exam A&O, alert, c/o mild low back pain with rom and palp lumbar paraspinous muscles Abd- soft, tender diffusely all 4 quads ASSESSMENT/PLAN Assessment/Plan Plan- decrease duragesic patch to 75mcg's D/C hydromorphone p.o. Problems: COMMENT Lab Laboratory Tests Test 07/02/17 17:25 07/03/17 04:15 Lactic Acid Level 0.6 mmol/L (0.4-2.0) White Blood Count 7.5 x10^3/uL (4.0-11.0) Red Blood Count 3.44 x10^6/uL (3.50-5.40) Hemoglobin 10.3 g/dL (12.0-15.5) Hematocrit 32.0 % (36.0-47.0) Mean Corpuscular Volume 93 fL (79-100) Mean Corpuscular Hemoglobin 30 pg (25-35) Mean Corpuscular Hemoglobin Concent 32 g/dL (31-37) Red Cell Distribution Width 15.6 % (11.5-14.5) Platelet Count 166 x10^3/uL (140-400) Neutrophils (%) (Auto) 77 % (31-73) Lymphocytes (%) (Auto) 18 % (24-48) Monocytes (%) (Auto) 5 % (0-9) Eosinophils (%) (Auto) 0 % (0-3) Basophils (%) (Auto) 0 % (0-3) Neutrophils # (Auto) 5.8 x10^3uL (1.8-7.7) Lymphocytes # (Auto) 1.3 x10^3/uL (1.0-4.8) Monocytes # (Auto) 0.4 x10^3/uL (0.0-1.1) Eosinophils # (Auto) 0.0 x10^3/uL (0.0-0.7) Basophils # (Auto) 0.0 x10^3/uL (0.0-0.2) Sodium Level 143 mmol/L (136-145) Potassium Level 3.5 mmol/L (3.5-5.1) Chloride Level 109 mmol/L (98-107) Carbon Dioxide Level 26 mmol/L (21-32) Anion Gap 8 (6-14) Blood Urea Nitrogen 10 mg/dL (7-20) Creatinine 1.2 mg/dL (0.6-1.0) Estimated GFR (Cockcroft-Gault) 49.3 Glucose Level 112 mg/dL (70-99) Calcium Level 8.1 mg/dL (8.5-10.1) DWAINE MCGINNIS MD Jul 03, 2017 12:57
[2017-07-03] MEDS ORDERED: fentaNYL 75MCG/HR PATCH 1 PATCH PATCH.TD72 TD SCH (13:00)
[2017-07-03] MEDS ORDERED: GADOBUTROL 7.5 MMOL/7.5 ML VIAL IV ONE (14:30)
[2017-07-03 15:00] VITALS: BP 118/80
[2017-07-03] MEDS: HYDROCORTISONE 10 MG TABLET PO SCH (16:02)
[2017-07-03] MEDS: POTASSIUM CHLORIDE 20 MEQ TABLET.ER. PO SCH ×2 (16:03→19:11)
[2017-07-03] MEDS: CHOLECALCIFEROL (VITAMIN D3) 1,000 UNIT TABLET PO SCH (16:04)
[2017-07-03] MEDS: PANTOPRAZOLE 40 MG TABLET.DR. PO SCH (16:04)
[2017-07-03] MEDS: MULTIVITAMIN with MINERAL TABLET. PO SCH (16:04)
--- NOTE | 2017-07-03 16:18 | RAD ---
MRI of the Brain without and with Contrast 07/03/2017 Clinical History: Unsteady gait and altered mental status. Technique: Unenhanced T1-weighted sagittal and axial and FLAIR, T2-weighted, gradient echo and diffusion-weighted axial images of the brain were obtained. After the intravenous administration of 7.5 cc of Gadavist, enhanced T1-weighted axial and coronal images of the brain were obtained. Findings: Comparison study is dated 09/03/2014. There is mild generalized parenchymal atrophy. Patchy and several small scattered areas of increased signal intensity are seen within the periventricular and subcortical white matter of both cerebral hemispheres on the FLAIR and T2-weighted images. These have a nonspecific appearance but are felt to most likely reflect areas of very mild small vessel ischemic disease. No acute parenchymal abnormality is seen. No abnormal area of contrast enhancement is seen. No extra-axial fluid collection is noted. There is no MRI evidence of acute ischemia/infarction. Mild mucosal thickening in seen scattered throughout the paranasal sinuses. A 1.7 cm mucous retention cyst is seen involving the right maxillary sinus. Normal flow voids are seen within the major vascular structures surrounding the brain parenchyma. Impression: No acute parenchymal normality is seen. Electronically signed by: David Tompkins MD (07/03/2017 4:15 PM) [id number]
--- NOTE | 2017-07-03 17:16 | PDOC ---
Provider Note Provider Note H&P dictated # [id number] Jett BRIGHT MD Jul 03, 2017 17:16
--- NOTE | 2017-07-03 18:30 | HP ---
ADMIT DATE: 07/02/2017 ADMISSION DIAGNOSIS: Acute mental status change. HISTORY OF PRESENT ILLNESS: This is a 42-year-old white female, went to bed last evening feeling fine. She took her evening meds including her pain pill, muscle relaxer and Topamax and then this morning was found very drowsy and poorly responsive by her . This is the third time this has happened in the last several weeks. She was just discharged from this hospital a couple of days ago after a similar episode. She was brought to the Emergency Room after watched her most of the day and did not see her improving. She received 0.4 mg of Narcan in the Emergency Room with some improvement in her mentation. She would then shake her head yes or no to questions and follow commands, but not really respond verbally. Since admission last night, though, she is fully awakened today. She has been seen in consultation by ID, Neurology and Pain Management at this point. ID did not find any significant source of infection, did not feel an LP or MRI needed to be done; same with Neurology. Pain Management has stopped her Dilaudid and decreased her fentanyl from 100 to 75 mcg. She is complaining currently of some muscle cramps and would like to take her baclofen, but the consultants have recommended she stay off that. She then asked if she can take half a dose when I have informed her this. I have also informed her that I plan on stopping her metoclopramide, which she is on for her gastroparesis related bowel issues without any tardive dyskinesia or other teratogenic side effects. She also takes trazodone 100 mg at night to help her sleep. She is going to stay the night overnight tonight, so we will try half a dose and see how she does with that. We will try half a dose of her baclofen this evening also. PAST MEDICAL HISTORY: Extensive, includes asthma, COPD hospitalizations about 11 months ago at [facility] for a mild stroke, hypertension, MRSA, adrenal insufficiency, gastroparesis, lumbar spinal stenosis, C. diff, pulmonary embolism, hemorrhoids, hiatal hernia, body image disorder, kidney stones, footdrop, anxiety, depression, tobacco use. PAST SURGICAL HISTORY: Includes tonsillectomy, adenoidectomy, cholecystectomy, gastrectomy, multiple abdominal surgeries with history of J-tube placement, ventral hernia repair, pilonidal cyst excision, hysterectomy. ALLERGIES: SHE HAS ALLERGIES TO SULFA, CITRIC ACID AND SHELLFISH. HOME MEDICATIONS: Include aspirin 81 mg daily, Dulcolax 5 mg b.i.d., vitamin D3 2000 units daily, duloxetine 60 mg b.i.d., fentanyl 100 mcg topically every 3 days has been reduced now to 75, Florinef 0.1 mg q.12 hours, Mucinex DM p.r.n., hydrocortisone 10 mg tablets 5 mg b.i.d., hydromorphone 4 mg 1-1/2 tablets q.6 hours which has been discontinued, Levaquin 500 mg for urinary tract infection but her urine culture grew yeast, metoclopramide 5 mg a.c. and at bedtime which is being held, metoprolol 25 mg b.i.d., multivitamin b.i.d., pantoprazole 40 mg daily, potassium chloride 20 mEq t.i.d., spironolactone 25 mg b.i.d., Topamax 50 mg b.i.d., trazodone 100 mg at bedtime. She also states she is taking baclofen; I do not have that on her list. FAMILY HISTORY: Diabetes, hypertension and obesity. SOCIAL HISTORY: She is . Her son and 2 grandchildren are currently in the room with her. No history of physical or emotional abuse at home. REVIEW OF SYSTEMS: PULMONARY: Negative for cough or shortness of breath. CARDIAC: Negative for chest pain. She has had some arrhythmias and is to have an event recorder placed soon by Dr. Watt. GASTROINTESTINAL: She is able to tolerate her diet, but has a history of a GI feeding tube. BLADDER: She has noticed a little bit of discomfort with her indwelling Salmeron. She had some leakage from it the last hospitalization, but none since. It was changed last week. She is following with Dr. Benjamin to discuss the suprapubic catheter or other more permanent option for her urinary retention issues. MENTALLY: Anxiety and depression have been controlled with medications. She denies any attempts at an overdose. MUSCULOSKELETAL: Her chronic pain is from her spinal stenosis and she has some bilateral footdrop, musculoskeletally, that causes her to use a cane normally when walking. She has had braces in the past, but does not wear the AFOs anymore. PHYSICAL EXAMINATION: VITAL SIGNS: She has been afebrile since admission. Blood pressure has been essentially normal. Pulse oximetry has been normal. She was on 1 liter of oxygen initially, but on room air now. GENERAL: She is in no acute distress. She does not recall much of previous night and yesterday morning. She does recall waking up last evening and then today has been alert. She states that she thinks it is the timing of her medications, particularly Topamax late in the evening. HEENT: Unremarkable. Mucous membranes are moist. Oral: Dentitions poor with multiple broken teeth and caries. NECK: Supple. HEART: Regular rate and rhythm without murmur. LUNGS: Clear to auscultation. CHEST: There is a Port-A-Cath in her right upper chest. ABDOMEN: Soft, nondistended, nontender. EXTREMITIES: Without clubbing, cyanosis or edema. NEUROLOGIC: Strength, neurologic testing per neuro consult. No focal weakness was identified on brief bedside exam. SKIN: Showing normal turgor; however, bruising on the left arm from ____ of prior IV site. LABORATORY STUDIES: Hemoglobin is 10.9 and subsequently 10.3, white count is normal. Differentials unremarkable. Chemistries: Initial sodium of 146, is now 143; chloride 111, is now 109; creatinine has dropped from 1.4 to 1.2; glucose up from 98 to 112; calcium is low at 8.1, but her albumin correspondingly low at 2.9. Urinalysis is clear, but orange, it is positive for nitrite, trace leukocyte esterase, 11-20 white cells, yeast are present. Tox screen positive for opiates, but otherwise negative. IMAGING STUDIES: Her chest x-ray unremarkable. CT of her head unremarkable. MRI of her brain shows some mucosal thickening in the paranasal sinuses, a 1.7 cm mucous retention cyst is seen involving the right maxillary sinus, but also appears normal. There are some nonspecific patchy areas of increased signal intensity within the periventricular and subcortical white matter suggestive of very mild early small vessel ischemic disease. ASSESSMENT: 1. Acute encephalopathy. This appears to be due to medications. 2. Yeast urinary tract infection. 3. Adrenal insufficiency. 4. Chronic pain with narcotic use and likely overdose. 5. Atypical migraines, recently started on topiramate. Three of her hospitalizations have occurred since starting this medication and appears may be interacting with other meds, timing of the dosage has been changed to 6:00 a.m. and 1800. PLAN: She has been admitted. She has been seen in ID, Neurology and Pain Medicine consults. Dr. Campos has stopped her Dilaudid and her fentanyl patch has been decreased from 100 to 75 mcg. Her metoclopramide is on hold. Her trazodone will be decreased to 50 mg. She is requesting baclofen for muscle cramps, we will try to hold that. She is ____ tolerating her diet so far. She has some mild protein malnutrition, mild anemia, normal potassium at this time. Her other home meds will be continued. W Lakia BRIGHT MD DR: LAURIE/merlin JOB#: [id number] / [id number]
[2017-07-03 19:00] VITALS: BP 152/96
[2017-07-03] MEDS: TOPIRAMATE 25 MG TABLET. PO SCH (19:11)
[2017-07-03] MEDS ORDERED: traZODone 50 MG TABLET. PO SCH (21:00)
[2017-07-03] MEDS: BISACODYL 5 MG TABLET.DR. PO SCH (21:00)
[2017-07-03] MEDS ORDERED: traZODone 100 MG TABLET. PO SCH (21:00)
[2017-07-03] MEDS ORDERED: TOPIRAMATE 25 MG TABLET. PO SCH (21:00)
[2017-07-03] MEDS: METOPROLOL TART IMMED RELEASE 25 MG TABLET. PO SCH (22:16)
[2017-07-03] MEDS: FLUDROCORTISONE 0.1 MG TABLET PO SCH (22:17)
[2017-07-03] MEDS: SPIRONOLACTONE 25 MG TABLET PO SCH (22:17)
[2017-07-03] MEDS: ASPIRIN ENTERIC COATED 81 MG TABLET.DR. PO SCH (22:17)
[2017-07-03] MEDS: DULoxetine HCL 30 MG CAPSULE.DR PO SCH (22:18)
[2017-07-03 23:00] VITALS: BP 133/84
[2017-07-03] MEDS: ACETAMINOPHEN 325 MG TABLET. PO PRN (23:37)
[2017-07-04 03:00] VITALS: BP 141/87
[2017-07-04] MEDS: TOPIRAMATE 25 MG TABLET. PO SCH ×2 (06:15→17:20)
[2017-07-04] MEDS: ACETAMINOPHEN 325 MG TABLET. PO PRN ×2 (06:19→16:10)
[2017-07-04 07:00] VITALS: BP 144/91
--- NOTE | 2017-07-04 09:36 | PDOC ---
Infectious Disease Note Subjective Subjective feeling good, no complaints ROS ROS GEN: Denies fevers, chills, sweats HEENT: Denies blurred vision, sore throat CV: Denies chest pain RESP: Denies shortness of air, cough GI: Denies n/v/d NEURO: Denies confusion, dizziness MSK: Denies weakness, joint pain/swelling Vital Sign Vital Signs Vital Signs Date Time Temp Pulse Resp B/P (MAP) Pulse Ox O2 Delivery O2 Flow Rate FiO2 07/04/17 07:00 98.2 89 20 144/91 (108) 97 Room Air 98.2 Physical Exam PHYSICAL EXAM GENERAL: NAD, Alert HEENT: PERRL, OC/OP NECK: Supple, no JVD, no LN LUNGS: Clear HEART: S1S2, no gallop, no murmur ABD: Soft, NT, no organomegaly, no rebound EXT: No edema, no cyanosis CATEGORY DEVELOPMENT ANALYST: Alert, oriented x 3, no focal neurologic deficit SKIN: No rash IV: ok Labs Micro BC neg Objective Assessment Encephalopathy sec to multiple sedating and altering meds, do not believe pt has any infection Spinal stenosis Gastroparesis Dutch disease COPD CVA Plan Plan of Care no need for antibioticsno need to adjust pain meds and sedating meds and muscle relaxants per dr King jarvis to d/c home BENJAMÍN GORE MD Jul 04, 2017 09:36
[2017-07-04] MEDS: PANTOPRAZOLE 40 MG TABLET.DR. PO SCH (10:50)
[2017-07-04] MEDS: HYDROCORTISONE 10 MG TABLET PO SCH ×2 (10:51→16:11)
[2017-07-04] MEDS: FLUDROCORTISONE 0.1 MG TABLET PO SCH (10:52)
[2017-07-04] MEDS: BISACODYL 5 MG TABLET.DR. PO SCH (10:53)
[2017-07-04] MEDS: DULoxetine HCL 30 MG CAPSULE.DR PO SCH (10:53)
[2017-07-04] MEDS: POTASSIUM CHLORIDE 20 MEQ TABLET.ER. PO SCH ×3 (10:54→17:32)
[2017-07-04] MEDS: MULTIVITAMIN with MINERAL TABLET. PO SCH (10:55)
[2017-07-04] MEDS: SPIRONOLACTONE 25 MG TABLET PO SCH (10:55)
[2017-07-04] MEDS: ASPIRIN ENTERIC COATED 81 MG TABLET.DR. PO SCH (10:55)
[2017-07-04] MEDS: METOPROLOL TART IMMED RELEASE 25 MG TABLET. PO SCH (10:56)
[2017-07-04] MEDS: CHOLECALCIFEROL (VITAMIN D3) 1,000 UNIT TABLET PO SCH (10:57)
[2017-07-04 11:00] VITALS: BP 140/82
--- NOTE | 2017-07-04 12:20 | PDOC ---
PROGRESS NOTES Assessment Metabolic encephalopathy, probably due to overuse of narcotics, must relaxers, sedatives. UTI, recurrent HTN COPD [place]'s disease. Asthma. Back pain. Cognitive impairment, bright and alert now. Plan No need for further neurological studies. In particular I see no need for lumbar puncture, repeat EEG, or brain MRI. Narcotic management per her pain management physician, Dr. Campos. Okay for discharge Follow-up with neurology as needed Subjective no complaints, wants to go home Objective Vital Signs Date Time Temp Pulse Resp B/P (MAP) Pulse Ox O2 Delivery O2 Flow Rate FiO2 07/04/17 11:00 98.2 86 20 140/82 (101) 96 Room Air 98.2 Intake and Output 07/05/17 07:00 Intake Total 360 ml Balance 360 ml Intake Oral 360 ml PHYSICAL EXAM Alert. Oriented to time, place and person. PERRL. EOMI. CN: no focal findings. Muscle tone: normal. Muscle strength: 5/5 DTR: 2+ Plantar reflex: flexor Gait: not examined in bed. Sensory exam: no abnormal findings. No cerebellar signs elicited. Review of Relevant I have reviewed the following items guille (where applicable) has been applied. Labs Laboratory Tests Test 07/02/17 17:25 07/03/17 04:15 Lactic Acid Level 0.6 mmol/L (0.4-2.0) White Blood Count 7.5 x10^3/uL (4.0-11.0) Red Blood Count 3.44 x10^6/uL (3.50-5.40) Hemoglobin 10.3 g/dL (12.0-15.5) Hematocrit 32.0 % (36.0-47.0) Mean Corpuscular Volume 93 fL (79-100) Mean Corpuscular Hemoglobin 30 pg (25-35) Mean Corpuscular Hemoglobin Concent 32 g/dL (31-37) Red Cell Distribution Width 15.6 % (11.5-14.5) Platelet Count 166 x10^3/uL (140-400) Neutrophils (%) (Auto) 77 % (31-73) Lymphocytes (%) (Auto) 18 % (24-48) Monocytes (%) (Auto) 5 % (0-9) Eosinophils (%) (Auto) 0 % (0-3) Basophils (%) (Auto) 0 % (0-3) Neutrophils # (Auto) 5.8 x10^3uL (1.8-7.7) Lymphocytes # (Auto) 1.3 x10^3/uL (1.0-4.8) Monocytes # (Auto) 0.4 x10^3/uL (0.0-1.1) Eosinophils # (Auto) 0.0 x10^3/uL (0.0-0.7) Basophils # (Auto) 0.0 x10^3/uL (0.0-0.2) Sodium Level 143 mmol/L (136-145) Potassium Level 3.5 mmol/L (3.5-5.1) Chloride Level 109 mmol/L (98-107) Carbon Dioxide Level 26 mmol/L (21-32) Anion Gap 8 (6-14) Blood Urea Nitrogen 10 mg/dL (7-20) Creatinine 1.2 mg/dL (0.6-1.0) Estimated GFR (Cockcroft-Gault) 49.3 Glucose Level 112 mg/dL (70-99) Calcium Level 8.1 mg/dL (8.5-10.1) Microbiology 07/02/17 Blood Culture - Preliminary, Resulted NO GROWTH AFTER 1 DAY 07/02/17 Urine Culture - Preliminary, Resulted 07/02/17 Urine Culture Result 1 (JOHN) - Preliminary, Resulted Medications Current Medications Naloxone HCl (Narcan) 0.4 mg STK-MED ONCE .ROUTE ; Start 07/02/17 at 11:30; Stop 07/02/17 at 11:31; Status DC Naloxone HCl (Narcan) 0.4 mg 1X ONCE IV Last administered on 07/02/17t 11:35; Start 07/02/17 at 11:45; Stop 07/02/17 at 11:46; Status DC Naloxone HCl (Narcan) 0.4 mg 1X ONCE IV ; Start 07/02/17 at 11:45; Stop at 11:46; Status DC Acyclovir Sodium 500 mg/Dextrose 110 ml @ 110 mls/hr Q8HRS IV Last administered on 07/03/17t 06:16; Start 07/02/17 at 16:30; Stop 07/03/17 at 09:32 ; Status DC Vancomycin HCl 2 gm/Sodium Chloride 500 ml @ 250 mls/hr 1X ONCE IV Last administered on 07/02/17 19:33; Start 07/02/17 at 16:00; Stop 07/02/17 at 17:59 ; Status DC Vancomycin HCl 1.25 gm/Sodium Chloride 250 ml @ 250 mls/hr QID IV ; Start 07/02 at 17:00; Stop 07/02/17 at 19:52; Status DC Ceftriaxone Sodium 2 gm/ Sodium Chloride 100 ml @ 200 mls/hr BID@0500,1700 IV Last administered on 07/03/17 04:29; Start 07/03/17 at 05:00; Stop 07/03/17 at 09:32; Status DC Ceftriaxone Sodium 2 gm/ Sodium Chloride 100 ml @ 200 mls/hr 1X ONCE IV Last administered on 07/02/17 16:34; Start 07/02/17 at 16:15; Stop 07/02/17 at 16:44 ; Status DC Piperacillin Sod/ Tazobactam Sod (Zosyn Per Pharmacy) 1 each PRN DAILY PRN MC SEE COMMENTS; Start 07/02/17 at 16:45; Stop 07/03/17 at 09:32; Status DC Piperacillin Sod/ Tazobactam Sod 4.5 gm/Sodium Chloride 100 ml @ 200 mls/hr 1X ONCE IV Last administered on 07/02/17 17:00; Start 07/02/17 at 17:00; Stop 07/02/17 at 17:29; Status DC Piperacillin Sod/ Tazobactam Sod 4.5 gm/Sodium Chloride 100 ml @ 200 mls/hr Q6HRS IV Last administered on 07/03/17 05:22; Start 07/03/17 at 00:00; Stop at 09:32; Status DC Hydrocortisone Sodium Succinate (Solu-CORTEF) 100 mg 1X ONCE IV Last administered on 07/02/17 19:33; Start 07/02/17 at 17:30; Stop 07/02/17 at 17:31 ; Status DC Ondansetron HCl (Zofran) 4 mg PRN Q8HRS PRN IV NAUSEA/VOMITING; Start 07/02/17 at 17:45; Stop 07/03/17 at 17:44; Status DC Sodium Chloride 1,000 ml @ 100 mls/hr Q10H IV Last administered on 07/02/17 19:34; Start 07/02/17 at 17:32; Stop 07/03/17 at 17:31; Status DC Acetaminophen (Tylenol) 650 mg PRN Q4HRS PRN PO FEVER Last administered on 07/03 09:23; Start 07/02/17 at 17:45; Stop 07/03/17 at 17:44; Status DC Vancomycin HCl (Vanco Per Pharmacy) 1 each PRN DAILY PRN MC SEE COMMENTS Last administered on 07/02/17 19:56; Start 07/02/17 at 20:00; Stop 07/03/17 at 09:32 ; Status DC Vancomycin HCl 1.25 gm/Sodium Chloride 250 ml @ 167 mls/hr Q12H IV Last administered on 07/03/17 09:24; Start 07/03/17 at 08:00; Stop 07/03/17 at 09:32 ; Status DC Vancomycin HCl 1 each 1X ONCE MC ; Start 07/04/17 at 07:30; Stop 07/04/17 at 07 :30; Status DC Fentanyl (Duragesic 75mcg/ Hr Patch) 1 patch Q3DAYS TD Last administered on 16:05; Start 07/03/17 at 13:00 Aspirin (Ecotrin) 81 mg BID PO Last administered on 07/04/17 10:55; Start at 21:00 Bisacodyl (Dulcolax Tab) 5 mg BID PO Last administered on 07/04/17 10:53; Start 07/03/17 at 21:00 Duloxetine HCl (Cymbalta) 60 mg BID PO Last administered on 07/04/17 10:53; Start 07/03/17 at 21:00 Fludrocortisone Acetate (Florinef) 0.3 mg Q12HR PO Last administered on 10:52; Start 07/03/17 at 21:00 Hydrocortisone (Cortef) 5 mg BID92 PO Last administered on 07/04/17 10:51; Start 07/03/17 at 14:00 Metoprolol Tartrate (Lopressor) 25 mg BID PO Last administered on 07/04/17 10: 56; Start 07/03/17 at 21:00 Pantoprazole Sodium (Protonix) 40 mg DAILYAC PO Last administered on 07/04/17 10:50; Start 07/03/17 at 16:30 Potassium Chloride (Klor-Con) 20 meq TIDWMEALS PO Last administered on 10:54; Start 07/03/17 at 14:00 Spironolactone (Aldactone) 25 mg BID PO Last administered on 07/04/17 10:55; Start 07/03/17 at 21:00 Topiramate (Topamax) 50 mg BID PO ; Start 07/03/17 at 21:00; Stop 07/03/17 at 21 :00; Status DC Trazodone HCl (Desyrel) 100 mg HS PO ; Start 07/03/17 at 21:00; Stop 07/03/17 at 21:00; Status DC Vitamin D (Vitamin D3) 2,000 unit DAILY PO Last administered on 07/04/17 10:57 ; Start 07/03/17 at 15:00 Multivitamins (Thera M Plus) 1 tab DAILY PO Last administered on 07/04/17 10: 55; Start 07/03/17 at 15:00 Gadobutrol (Gadavist) 7.5 mmol 1X ONCE IV Last administered on 07/03/17 14:32 ; Start 07/03/17 at 14:30; Stop 07/03/17 at 14:31; Status DC Topiramate (Topamax) 50 mg Q12H PO Last administered on 07/04/17 06:15; Start 07/03/17 at 18:00 Trazodone HCl (Desyrel) 50 mg HS PO Last administered on 07/03/17 22:18; Start 07/03/17 at 21:00 Acetaminophen (Tylenol) 650 mg PRN Q4HRS PRN PO MILD PAIN / TEMP Last administered on 07/04/17 06:19; Start 07/03/17 at 23:00 Active Scripts Active Levaquin (Levofloxacin) 500 Mg Tablet 1 Tab PO DAILY Aldactone (Spironolactone) 25 Mg Tablet 25 Mg PO BID 30 Days Klor-Con M20 (Potassium Chloride) 20 Meq Tab.er.prt 20 Meq PO TID 30 Days Pantoprazole Sodium 40 Mg Tablet.dr 40 Mg PO DAILYAC 30 Days Metoprolol Tartrate 25 Mg Tablet 25 Mg PO BID 30 Days Topamax (Topiramate) 25 Mg Tablet 50 Mg PO BID 30 Days Mucinex Dm Er 600-30 Mg Tablet (Guaifenesin/Dextromethorphan) 1 Each Tab.er.12h 1 Tab PO BID 7 Days Reglan (Metoclopramide Hcl) 5 Mg Tablet 5 Mg PO QIDACHS Reported Hydromorphone Hcl 4 Mg Tablet 1.5 Tab PO Q6HRS Vitamin D (Cholecalciferol (Vitamin D3)) 2,000 Unit Capsule 1 Cap PO DAILY Fludrocortisone Acetate 0.1 Mg Tablet 0.3 Mg PO Q12HR Cortef (Hydrocortisone) 10 Mg Tablet 5 Mg PO BID92 Aspir-Low (Aspirin) 81 Mg Tablet.dr 81 Mg PO BID Dulcolax (Bisacodyl) 5 Mg Tablet.dr 5 Mg PO BID Trazodone Hcl 100 Mg Tablet 100 Mg PO HS Last dose taken: Next dose due: Multiple Vitamin (Multivitamin With Minerals) 1 Each Tablet 1 Each PO BID Last dose given: Next dose due: FENTANYL 50mcg/hr (Fentanyl) 1 Each Patch.td72 100 Mcg TD Last dose given: Next dose due: take as directed Cymbalta (Duloxetine Hcl) 20 Mg Capsule.dr 60 Mg PO BID Last dose given: Next dose due: Vitals/I & O Vital Sign - Last 24 Hours 07/03/17 07/03/17 07/03/17 07/03/17 15:00 16:05 19:00 20:00 Temp 98.9 99.1 98.9 99.1 Pulse 78 87 Resp 18 20 18 B/P (MAP) 118/80 (93) 152/96 (114) Pulse Ox 92 93 95 O2 Delivery Room Air Room Air Room Air 07/03/17 07/03/17 07/03/17 07/04/17 20:05 22:16 23:00 03:00 Temp 98.7 98.5 98.7 98.5 Pulse 73 64 63 Resp 16 16 B/P (MAP) 136/96 133/84 (100) 141/87 (105) Pulse Ox 92 96 O2 Delivery Room Air 07/04/17 07/04/17 07/04/17 07/04/17 07:00 08:00 10:56 11:00 Temp 98.2 98.2 98.2 98.2 Pulse 89 89 86 Resp 20 20 B/P (MAP) 144/91 (108) 144/91 140/82 (101) Pulse Ox 97 96 O2 Delivery Room Air Room Air Room Air Intake and Output 07/04/17 07/04/17 07/05/17 15:00 23:00 07:00 Intake Total 360 ml Balance 360 ml WENDY CULVER MD Jul 04, 2017 12:20
[2017-07-04 15:00] VITALS: BP 140/80
[2017-07-04] MEDS ORDERED: GABA-585 PO (18:06)
[2017-07-04] MEDS ORDERED: FENT1PAT19 TD (18:06)
[2017-07-04] MEDS ORDERED: TRAZ50TA15 PO (18:06)
--- NOTE | 2017-07-04 19:08 | DS ---
DATE OF DISCHARGE: 07/04/2017 ADMISSION DIAGNOSIS: Encephalopathy with acute mental status change. DISCHARGE DIAGNOSIS: Encephalopathy with acute mental status change. ASSOCIATED DIAGNOSES: 1. Shingles of the left T6 chest dermatome, urinary retention. 2. Chronic pain syndrome. 3. History of supraventricular tachycardia. 4. Chronic gastroparesis. 5. Adrenal insufficiency. HISTORY AND HOSPITAL COURSE: This is a 42-year-old white female who was not arousable Monday. Her has seen her go through episodes of this before and she has been admitted and improved, so we watched her during the day and she remained obtunded. He brought her to the Emergency Room where she was seen and evaluated and subsequently admitted. Initial drug screen was negative other than opiates, which she takes chronically. Imaging of her brain did not show any new injuries or insults. The following morning, she started to awaken and is improved to her baseline since. Dr. Jayden Campos was consulted, pain management and her fentanyl was decreased from 100 to 75 mcg. Her Dilaudid was stopped. Dr. Castillo saw her, neurologic consultation, he continued her topiramate. Dr. Reid saw her in ID consultation and did not feel she had any infection and stopped her antibiotics. Culture of her urine from prior hospitalization for which she was started on Levaquin did not grow bacteria, but grew yeast. She has little bit of sediment in her Salmeron bag but the color is clear. Cardiac monitoring revealed some bradycardia. She had been started on metoprolol recently due to episodes of SVT. She was to have had an event recorder placed by Dr. Watt but that was held as she was finishing antibiotic treatment. She has been monitored while here and no other arrhythmias have recurred. Her metoclopramide was held. Her muscle relaxers were held. She did not have any cardiac issues while here. No pulmonary issues while here. She did develop a burning rash under her left breast and on her left shoulder and she has both areas erupting with shingles, vesicles. She continues to have urinary retention drain with a Salmeron from a neurogenic bladder. PT and OT saw her and recommended a walker. She was to be seeing Dr. Nolvia Murphy followup of her fifth metatarsal fracture on the left. She has a fracture shoe which she has been ambulating in. They recommended that plus the walker. She is to be seeing Dr. Benjamin, followup of urinary retention, discuss possible suprapubic catheter, which she has required in the past. Her lab studies revealed a mild anemia. Chemistry showed a mildly decreased albumin of 2.9. Her troponin was negative. Blood sugar was controlled. Creatinine improved from 1.4 to 1.2, which is about her baseline. Toxicology screen was negative other than opiates which have been prescribed. Blood culture was no growth after 2 days. Urine culture revealed greater than 100,000 CFU of yeast with further ID not requested. She will be discharged home with fentanyl 75 mcg, gabapentin 100 mg t.i.d. for her shingles. Trazodone is decreased from 100 mg to 50 mg. She will continue aspirin 81 mg, bisacodyl 5 mg b.i.d., vitamin D3 2000 units daily, Duloxetine 60 mg b.i.d., Florinef 0.3 mg q.12 hours, hydrochlorothiazide 10 mg half a tablet b.i.d., metoprolol tartrate will be decreased from 25 mg b.i.d. to half a tablet b.i.d. She will continue multivitamin, continue pantoprazole 40 mg daily, continue potassium chloride 20 mEq t.i.d., continue Aldactone 25 mg b.i.d., continue topiramate 50 mg b.i.d. but she will take at 6:00 a.m., 6 p.m. dose. Her 100 mcg fentanyl is stopped, guaifenesin is stopped, hydromorphone is stopped, Levaquin is stopped, metoclopramide is stopped and her trazodone was decreased as mentioned above. She will follow up with me in the office in a week to 10 days. She still needs to see Dr. Benjamin and Dr. Murphy in followup. W Lakia BRIGHT MD DR: LAURIE/merlin JOB#: [id number] / [id number]
[2017-07-04] MEDS ORDERED: METOPROLOL TART IMMED RELEASE 25 MG TABLET. PO SCH (21:00)
== END 2017-07-04 19:29 | disposition home or self-care (01) | DRG 865 ==
LOC: ER 11:19 → 5 SOUTH 16:33
PROVIDERS: ADMIT Family Medicine; ATTEND Family Medicine
DX: B02.8 Zoster with other complications (principal); G93.41 Metabolic encephalopathy; E27.1 Primary adrenocortical insufficiency; I47.1 Supraventricular tachycardia; E44.1 Mild protein-calorie malnutrition; K31.84 Gastroparesis; B37.49 Other urogenital candidiasis; I10 Essential (primary) hypertension; D64.9 Anemia, unspecified; F17.210 Nicotine dependence, cigarettes, uncomplicated; G47.33 Obstructive sleep apnea (adult) (pediatric); J44.9 Chronic obstructive pulmonary disease, unspecified; M21.371 Foot drop, right foot; N31.9 Neuromuscular dysfunction of bladder, unspecified; M48.00 Spinal stenosis, site unspecified; F32.9 Major depressive disorder, single episode, unspecified; F41.9 Anxiety disorder, unspecified; G43.009 Migraine without aura, not intractable, without status migrainosus; R33.9 Retention of urine, unspecified; R00.1 Bradycardia, unspecified; G89.4 Chronic pain syndrome; M51.36 Other intervertebral disc degeneration, lumbar region; J45.909 Unspecified asthma, uncomplicated; M54.9 Dorsalgia, unspecified; M48.06 Spinal stenosis, lumbar region; Z79.82 Long term (current) use of aspirin; Z79.891 Long term (current) use of opiate analgesic; Z79.899 Other long term (current) drug therapy; Z98.84 Bariatric surgery status; Z87.442 Personal history of urinary calculi; Z86.711 Personal history of pulmonary embolism; Z86.73 Personal history of transient ischemic attack (TIA), and cerebral infarction without residual deficits; Z90.49 Acquired absence of other specified parts of digestive tract; Z90.710 Acquired absence of both cervix and uterus; Z91.013 Allergy to seafood; Z88.2 Allergy status to sulfonamides; Z91.048 Other nonmedicinal substance allergy status; Z83.3 Family history of diabetes mellitus; Z82.49 Family history of ischemic heart disease and other diseases of the circulatory system; Z84.89 Family history of other specified conditions; Z68.34 Body mass index [BMI] 34.0-34.9, adult; T40.4X5A Adverse effect of other synthetic narcotics, initial encounter
CPT/HCPCS: 36415; 51702; 70450; 70553; 71010; 80048; 80053; 80307; 81001; 83605; 84484; 85025; 87040; 87086; 93005; 96374; 96375; A9585; J0133; J0696; J1720; J2310; J2543; J3370; J7030; J7040; J7050; 99285-25; G0479

== ENCOUNTER → 2017-08-23 | Outpatient (CLI) | payer MEDICARE ==
[~2017-08-23] MED LIST changes: +FENT1PAT19 TD; +GABA-585 PO; +NITR50CA11 PO; +RANI300T3 PO
--- NOTE | 2017-08-24 01:37 | PAIN ---
DATE OF SERVICE: 08/23/2017 PROGRESS NOTE FOR PAIN CLINIC DIAGNOSES: 1. Abdominal pain, epigastric. 2. Lumbar radiculopathy with lumbar degenerative disk disease and lumbar spinal stenosis. HISTORY OF PRESENT ILLNESS: The patient is a 42-year-old female who returns for followup status post medication management with Duragesic patches and hydromorphone orally with fairly good control of her pain. The patient reports she has had another hospitalization and has a suprapubic catheter now placed for her bladder. The patient reports that this causes some increased irritability in the lower abdomen and difficulty with the bladder irritation, but for the most part is doing fairly well with it. The patient reports her pain is reduced by about 75% overall with the medications and without any specific side effects. The patient does have occasional constipation, but controls this with hydration and some laxative use that she has done for years, which works well for her. The patient reports no new motor or sensory deficits or other complaints. The patient reports her pain is a 9 on a scale of 10 at its worse, is a 3 at its least, a 5 on average and it is 5 today. The patient reports pain in the low back, left lower extremity, posterior gluteus, posterior thigh, posterior calf on the left side, sharp, shooting, stabbing, constant, radiating, on and off intensity though better with lying down, worse with standing, walking and change in position, but it does awaken her from sleep about every 4 hours, so she has to reposition, get out of bed or take pain medication to get back to sleep, but she is usually able to do so. The patient reports also some irritation in the lower abdominal region with the suprapubic catheter. PHYSICAL EXAMINATION: VITAL SIGNS: The patient's blood pressure 133/82, pulse 59, respirations are 18, temperature is 98.2 degrees Fahrenheit, height is 5 feet 2 inches and weight is 179 pounds. GENERAL: The patient is awake, alert, oriented, appropriate, very pleasant demeanor. HEENT: Head shows normocephalic and atraumatic. Extraocular movements are intact, symmetrical. Oral cavity: Mucous membranes moist and pink. The patient has some piercing over the right eyebrow. NECK: Shows anterior throat is supple without palpable lymphadenopathy noted. Swallow reflex is symmetrical. Neck shows full rotation and motion of the cervical spine without difficulty or tenderness including extension and flexion. Neck shows anterior throat is supple. CHEST: Shows breath sounds are clear to auscultation bilaterally. HEART: Shows S1 and S2 clear. ABDOMEN: Shows well-healed surgical scars from previous hernia repairs as well as suprapubic catheter in place in the inferior abdominal wall, which is bandaged and clean and dry. The patient shows no organomegaly, has some mild guarding with palpation, but no rebound demonstrated. MUSCULOSKELETAL: The patient's back shows spine grossly in the midline, slight exaggeration of the thoracic kyphosis, mild flattening of the lumbar lordotic curvature. Lumbar paraspinous musculature shows symmetrical on inspection with palpation, shows some mild to moderate tenderness diffusely in the lumbar distribution bilaterally, but without radiation. The patient shows good rotation with motion, but slightly guarded right and left lateral as well as extension and forward flexion, but without significant pain reported with any of these maneuvers. The patient's lower extremity showed deep tendon reflexes at 1+ in the patellar and tendo calcaneus tendon. Motor exam is 4 on a scale of 5, but equal and symmetrical bilaterally with dorsiflexion and extension. Peripheral pulses are 1+ posterior tibial. No peripheral edema is noted. Options were discussed with the patient and the patient's old chart was reviewed as her current medication regimen updated. Current review of systems updated today as well. We will refill the patient's Duragesic patch at 100 mcg q. 72 hours. and also hydromorphone at 4 mg q. 6 hours. on a p.r.n. basis with instructions and side effects to be aware of discussed with both of the medications. The patient will follow up in approximately 2 months and given 2-month prescription with instructions and side effects to be aware of discussed as well. The patient will follow up with her urologist regarding some discomfort with the suprapubic catheter later this week and also as scheduled. DWAINE MCGINNIS MD DR: BECKY/merlin JOB#: [id number] / [id number]
== END | disposition home or self-care (01) ==
LOC: PNCL 09:01
PROVIDERS: ATTEND Anesthesiology
DX: M51.16 Intervertebral disc disorders with radiculopathy, lumbar region (principal); M79.605 Pain in left leg; K59.00 Constipation, unspecified
CPT/HCPCS: G0463

== ENCOUNTER → 2017-10-18 | Outpatient (CLI) | payer MEDICARE | END | disposition home or self-care (01) | LOC: PNCL 10:36 | DX: M51.16 Intervertebral disc disorders with radiculopathy, lumbar region (principal); M48.061 Spinal stenosis, lumbar region without neurogenic claudication; R10.13 Epigastric pain | CPT/HCPCS: G0463 ==

== ENCOUNTER → 2018-01-04 | Outpatient (CLI) | payer MEDICARE | END | disposition home or self-care (01) | LOC: PNCL 11:27 | DX: M51.16 Intervertebral disc disorders with radiculopathy, lumbar region (principal); M48.061 Spinal stenosis, lumbar region without neurogenic claudication; R10.13 Epigastric pain | CPT/HCPCS: G0463 ==

== ENCOUNTER → 2018-03-01 | Outpatient (CLI) | payer MEDICARE | END | disposition home or self-care (01) | LOC: PNCL 11:12 | DX: M51.16 Intervertebral disc disorders with radiculopathy, lumbar region (principal); R10.13 Epigastric pain; M48.061 Spinal stenosis, lumbar region without neurogenic claudication | CPT/HCPCS: G0463 ==

== ENCOUNTER → 2018-04-27 | Outpatient (CLI) | payer OTHER | END | disposition home or self-care (01) | LOC: KCIC MRI 10:31 | DX: M51.16 Intervertebral disc disorders with radiculopathy, lumbar region (principal); M48.07 Spinal stenosis, lumbosacral region; M43.17 Spondylolisthesis, lumbosacral region; M47.894 Other spondylosis, thoracic region | CPT/HCPCS: 72146; 72148 ==

== ENCOUNTER → 2019-03-25 | Outpatient (CLI) | payer OTHER ==
[~2019-03-25] MED LIST changes: +ALBU2.5V8 IH; -AMLO10TA2 PO; +AMLO10TA8 PO; +AMLO5TAB10 PO; -AMLO5TAB2 PO; +FENT1PAT93 TP; +HYDR-2145 PO; -HYDR-2758 PO; +HYDR-2761 PO; -HYDR-2766 PO; +HYDR-2769 PO; -HYDR-3074 PO; +HYDR-3164 PO; -HYDR-971 PO; +HYDR10TA66 PO; -HYDR25TA9 PO; +LEVO2TAB3 PO; -LINA145C PO; +LINZESS145 MCG PO; -PROAIR HFA8.5 GM IH; -SPIR25TA3 PO; +SPIR25TA5 PO; +TRAZ-118 PO; +TRAZ-86 PO; -TRAZ100T12 PO; -TRAZ50TA15 PO; -VANC125C2 PO; +VANC125C3 PO
--- NOTE | 2019-03-25 15:41 | KCIC ---
MR of left knee HISTORY: Left knee pain, since December 2018. Medial pain with swelling. TECHNIQUE: Routine multiplanar sequences are obtained. FINDINGS: No evidence of medial or lateral meniscal tear. Cruciate ligaments are intact. Medial collateral ligament intact. Fibular collateral ligament, biceps femoris tendon and popliteus tendon are intact. Extensor mechanism is intact. Trace joint fluid. No significant Guzmán's cyst. Mild subcutaneous edema around the knee. Mild chondromalacia at the medial patella. No acute fracture or aggressive bone destruction. IMPRESSION: 1. Mild chondromalacia of the patella. 2. No evidence of meniscal tear or internal derangement. Electronically signed by: Davy Larios MD (03/25/2019 3:38 PM) [id number]
== END | disposition home or self-care (01) ==
LOC: KCIC MRI 14:55
PROVIDERS: ATTEND Family Medicine
DX: M22.42 Chondromalacia patellae, left knee (principal); R60.0 Localized edema
CPT/HCPCS: 73721

== ENCOUNTER → 2019-06-27 | Outpatient (CLI) | payer OTHER, MEDICAID ==
[~2019-06-27] MED LIST changes: +ACET-704 PO; +ASCO500T3 PO; +ASPI325T8 PO; +CYAN-25 PO; -CYAN10005 PO; +GUAI400T77 PO; -MELA3TAB2 PO; +MELA3TAB56 PO; -PANT40TA5 PO; +PANT40TA77 PO; +PHEN-444 PO; +RANI300T PO
--- NOTE | 2019-06-27 11:27 | KCIC ---
EXAM: MRI LEFT KNEE DATE: 06/27/2019 9:30 AM CLINICAL INDICATION: 03/25/2019 6 COMPARISON: None. TECHNIQUE: Multiplanar, multisequence MRI of the left knee was performed without contrast. FINDINGS: No significant knee joint effusion. No significant Guzmán's cyst. The MCL, fibular collateral ligament, biceps femoris and IT band are intact. However there is moderate edema overlying the IT band which is nonspecific but may be seen with IT band friction syndrome. Alternatively given the prepatellar extension, may also be seen with soft tissue injury/contusion. Popliteus is normal in signal and morphology, intact. Medial meniscus: Intact Lateral meniscus: Intact Extensor mechanism is intact. Neutral patellar tracking. Mild T1 marrow changes likely from red marrow reconversion. No evidence for fracture or osteonecrosis. No full-thickness cartilage defect is identified although there may be mild fraying of the patellar apex and medial patella, stable. IMPRESSION: 1. Mild edema about the IT band may be seen with IT band friction syndrome versus soft tissue injury/contusion of the prepatellar/anterolateral soft tissues. 2. Changes of red marrow reconversion, nonspecific but may be seen with smoking, anemia and obesity. 3. Mild patellar chondromalacia. 4. No fracture or osteonecrosis. Electronically signed by: Eduardo Alegria MD (06/27/2019 11:24 AM) [id number]
== END | disposition home or self-care (01) ==
LOC: KCIC MRI 09:01
PROVIDERS: ATTEND Family Medicine
DX: Z09 Encounter for follow-up examination after completed treatment for conditions other than malignant neoplasm (principal); M22.42 Chondromalacia patellae, left knee; F40.240 Claustrophobia
CPT/HCPCS: 73721

== ENCOUNTER 2019-07-01 11:35 | Inpatient (IN) | payer OTHER, MEDICAID ==
[~2019-07-01] VITALS: Ht 152.4 cm; Wt 100.7 kg
[~2019-07-01 11:35] MED LIST changes: -ACET-704 PO; -ASCO500T3 PO; -ASPI325T8 PO; -GUAI400T77 PO; -PHEN-444 PO; -RANI300T PO
[2019-07-01 13:29] LABS: BASO # 0.1 x10^3/uL (0.0-0.2); BASO % 0 % (0-3); EOS # 0.1 x10^3/uL (0.0-0.7); EOS % 1 % (0-3); HEMATOCRIT 27.3 % (36.0-47.0); HEMOGLOBIN 8.9 g/dL (12.0-15.5); LYMPH # 1.4 x10^3/uL (1.0-4.8); LYMPH % 9 % (24-48); MEAN CORPUSCULAR HEMOGLOBIN 33 pg (25-35); MEAN CORPUSCULAR HGB CONC 33 g/dL (31-37); MEAN CORPUSCULAR VOLUME 101 fL (79-100); MONO # 0.7 x10^3/uL (0.0-1.1); MONO % 4 % (0-9); NEUT # 14.5 x10^3/uL (1.8-7.7); NEUT % 86 % (31-73); PLATELET COUNT 192 x10^3/uL (140-400); RED BLOOD COUNT 2.69 x10^6/uL (3.50-5.40); RED CELL DISTRIBUTION WIDTH 16.6 % (11.5-14.5); WHITE BLOOD COUNT 16.8 x10^3/uL (4.0-11.0)
[2019-07-01] MEDS ORDERED: ASPIRIN CHEWABLE 81 MG TABLET. PO ONE (13:30)
[2019-07-01 13:35] LABS: PROTHROMBIN TIME PATIENT 12.7 SEC (11.7-14.0)
--- NOTE | 2019-07-01 13:41 | EKG ---
[facility] [address] [place] [address] Test Date: 2019-07-01 Test Time: 12:08:59 Pat Name: AMANDA MENDIETA Department: Room: Gender: F [employer]: : [id number] Requested By: MELCHOR SWANSON Order Number: [id number] Reading MD: Measurements Intervals [place] Rate: 98 P: 35 OR: 120 QRS: -19 QRSD: 92 T: 54 QT: 368 QTc: 472 Interpretive Statements SINUS RHYTHM LEFTWARD AXIS NO SPECIFIC ECG ABNORMALITIES RI6.01 Unconfirmed report No previous ECG available for comparison
[2019-07-01 13:46] LABS: BILIRUBIN,URINE NEGATIVE (NEG); CLARITY,URINE CLOUDY; COLOR,URINE ORANGE; NITRITE,URINE POSITIVE (NEG); PROTEIN,URINE NEGATIVE (NEG-TRACE); UROBILINOGEN,URINE 0.2 mg/dL (0.2 mg/dL)
[2019-07-01 13:47] LABS: ALBUMIN 3.6 g/dL (3.4-5.0); ALBUMIN/GLOBULIN RATIO 1.5 (1.0-1.7); CALCIUM 8.6 mg/dL (8.5-10.1); CREATININE 1.5 mg/dL (0.6-1.0); GFR 37.7; MAGNESIUM 2.1 mg/dL (1.8-2.4); TOTAL BILIRUBIN 0.7 mg/dL (0.2-1.0)
--- NOTE | 2019-07-01 13:50 | RAD ---
CT ABDOMEN PELVIS WO CONTRAST Indication: Right-sided and lower abdominal pain. Exposure: One or more of the following individualized dose reduction techniques were utilized for this examination: 1. Automated exposure control 2. Adjustment of the mA and/or kV according to patient size 3. Use of iterative reconstruction technique. Comparison: Images from study of 05/03/2017, report not available from that exam. Technique: No intravenous contrast given. No oral contrast per request. Findings: Evaluation of solid viscera, bowel and vasculature is compromised by the noncontrast technique. Partially visualized opacities in the lung bases including multiple components of airspace consolidation. There is some artifact in the upper abdomen due to the patient's arms which results in image degradation. Liver size and morphology is similar. Right lobe measures 21 cm cephalocaudal, unchanged since prior study. No definite hepatic lesion. Spleen mildly enlarged at 14.2 cm, increased from 10.6 cm on similar prior slice. Pancreas appears unremarkable. No evidence of adrenal mass. Gallbladder surgically absent. Aorta is nonaneurysmal. No significant lymph node enlargement. No significant small bowel distention. Moderate to severe retained stool in the colon and rectum. No evidence of acute colitis. The appendix appears normal. No significant ascites or pneumoperitoneum. Anterior abdominal wall defect is identified, also seen previously. Small loop of colon protrudes through the defect, which is just to the right of midline at the inferior abdomen. Degenerative spondylosis. Appearance and alignment similar to previous exam. No aggressive bone destruction. Partially visualized port identified in the right chest wall. IMPRESSION: 1. Moderate to severe retained stool in the colon and rectum compatible with constipation. 2. Abnormal opacities within both lung bases. This most likely is due to inflammatory or infectious etiology, recommend follow-up to resolution. 3. Hepatomegaly, similar prior study. 4. Mild splenomegaly has developed since prior exam. 5. Right anterior inferior abdominal wall defect containing a slightly protruding loop of colon. Electronically signed by: Davy Larios MD (07/01/2019 1:47 PM) [facility]
[2019-07-01 13:52] LABS: POTASSIUM 2.2 mmol/L (3.5-5.1)
[2019-07-01 13:55] LABS: HYALINE CASTS, URINE MODERATE /HPF
[2019-07-01 13:56] LABS: BACTERIA,URINE MANY /HPF (0-FEW); BARBITURATES NEG (NEG); BENZODIAZEPINES NEG (NEG); CANNABINOIDS NEG (NEG); COCAINE NEG (NEG); METHADONE NEG (NEG); OPIATES POS (NEG); PHENCYCLIDINE NEG (NEG); RBC,URINE 0 /HPF (0-2); WBC,URINE 20-40 /HPF (0-4)
[2019-07-01 13:57] LABS: AMPHETAMINE/METHAMPHETAMINE NEG (NEG)
[2019-07-01] MEDS ORDERED: cefTRIAXone IV Push 1 GM VIAL. IVP ONE (14:15)
[2019-07-01] MEDS ORDERED: IV NORMAL SALINE 1000ML BAG 1,000 ML IV ONE (14:15)
[2019-07-01] MEDS: POTASSIUM CHLORIDE 10MEQ 100 ML IV SCH ×2 (14:31→15:30)
--- NOTE | 2019-07-01 14:38 | RAD ---
Single view of the chest. 07/01/2019 1:26 PM Indication: Abdominal pain Comparison: chest radiograph October 01, 2017 Findings: Right internal jugular power port noted. There is left mid and lower lung infiltrate and/or atelectasis. No pneumothorax is seen. A definitive effusion is identified. Heart size appears to be normal. Bony thorax is grossly intact. IMPRESSION: Acute left mid and lower lung infiltrate versus atelectasis. Recommend imaging follow-up to ensure resolution. Electronically signed by: Ranjeet Alvarez MD (07/01/2019 2:35 PM) [id number]
[2019-07-01] MEDS ORDERED: AZITHRMYCN 500MG IVPB FOR OMNI 250 ML IV ONE (15:00)
[2019-07-01 15:02] LABS: % BASOS 1 % (0-3); % EOS 1 % (0-5); % LYMPHS 6 % (24-48); % MONOS 2 % (0-10); % SEGS 90 % (35-66); PLT ESTIMATE ADEQUATE (ADEQUATE)
--- NOTE | 2019-07-01 15:09 | PHYS DOC ---
Past Medical History Past Medical History: Asthma, COPD, CVA, Hypertension, MRSA, Other Additional Past Medical Histor: ADDISONS DISEASE,gastrporesis,spinal stenosis,gastric byass,C-DIFF Past Surgical History: Cholecystectomy, , Hysterectomy, Tonsillectomy, Other Additional Past Surgical Histo: HERNIA,18 ABD SURGERIES,tumor in RT LEG,PAC R CHEST, "STOMACH REMOVED" Alcohol Use: Rarely Drug Use: None Adult General Chief Complaint Chief Complaint: LOWER EXTREMITY SWELLING [facility] HPI Patient is a 44 year old female who presents with complaining of fever and lower extremity swelling and abdominal enlargement. Patient sleeping and most of the history taking from her Patient's states she has had bilateral lower extremity edema for several months that getting worse since last night without any erythema or of color. Patient complaining of distention of abdomen since yesterday with cramping abdominal pain. Patient at fever of 101 yesterday. She takes hydrocodone for chronic pain and stiffness the time but is arousable and able to answer some of the questions. Patient complaining of chest pain. Patient complaining of chest pain that started on her way to come to the hospital as a constant and sharp pain with radiation to her back and associated with shortness of breath. Patient complaining of chronic cough. Review of Systems Review of Systems Constitutional: Reports fever Eyes: Denies change in visual acuity, redness, or eye pain [] HENT: Denies nasal congestion or sore throat [] Respiratory: Cough and shortness of breath Cardiovascular: No additional information not addressed in HPI [] GI: Reports abdominal pain and constipation, nausea, denies bloody stools or diarrhea [] : Denies dysuria or hematuria [] Musculoskeletal: Denies back pain or joint pain [] Integument: Denies rash or skin lesions [] Neurologic: Denies headache, focal weakness or sensory changes [] Endocrine: Denies polyuria or polydipsia [] All other systems were reviewed and found to be within normal limits, except as documented in this note. Current Medications Current Medications Current Medications Medications (Trade) Dose Ordered Sig/Judith Start Time Stop Time Status Last Admin Dose Admin Aspirin (Children'S Aspirin) 324 mg 1X ONCE 07/01/19 13:30 07/01/19 13:31 DC 07/01/19 13:37 324 MG Allergies Allergies Allergies Coded Allergies Type Severity Reaction Last Updated Verified Sulfa (Sulfonamide Antibiotics) Allergy Intermediate 6/5/17 Yes citric acid Allergy Intermediate HAS TOLERATED BARIUM 03/20/17 Yes shellfish derived Allergy Intermediate Patient does fine with iodine contrast 03/20/17 Yes Physical Exam Physical Exam Constitutional: Well nourished, mild distress, non-toxic appearance, somnolent. [] HENT: Normocephalic, atraumatic. Eyes: PERRLA, EOMI, conjunctiva normal, no discharge, mild pallor. [] Neck: Normal range of motion, no tenderness, supple, no stridor. [] Cardiovascular:Heart rate regular rhythm, no murmur [] Lungs & Thorax: No respiratory distress, left rhonchi, right Port-A-Cath in place Abdomen: Bowel sounds normal, soft, moderately distended with guarding without tenderness, no masses, no pulsatile masses. [] Skin: Warm, dry, no erythema, no rash. [] Back: No tenderness, no CVA tenderness. [] Extremities: No tenderness, no cyanosis, no clubbing, ROM intact, lateral lower extremity plus edema and chronic change of color of neck without sign of infection. Neurologic: Alert and oriented but somnolent, no focal deficits noted. [] Psychologic: Most the time, unable to evaluate Current Patient Data Vital Signs Vital Signs Date Time Temp Pulse Resp B/P (MAP) Pulse Ox O2 Delivery O2 Flow Rate FiO2 07/01/19 13:08 99.3 92 16 112/56 (74) 95 Nasal Cannula 4.0 99.3 Lab Values Laboratory Tests Test 07/01/19 13:05 07/01/19 13:40 White Blood Count 16.8 x10^3/uL (4.0-11.0) H Red Blood Count 2.69 x10^6/uL (3.50-5.40) L Hemoglobin 8.9 g/dL (12.0-15.5) L Hematocrit 27.3 % (36.0-47.0) L Mean Corpuscular Volume 101 fL (79-100) H Mean Corpuscular Hemoglobin 33 pg (25-35) Mean Corpuscular Hemoglobin Concent 33 g/dL (31-37) Red Cell Distribution Width 16.6 % (11.5-14.5) H Platelet Count 192 x10^3/uL (140-400) Neutrophils (%) (Auto) 86 % (31-73) H Lymphocytes (%) (Auto) 9 % (24-48) L Monocytes (%) (Auto) 4 % (0-9) Eosinophils (%) (Auto) 1 % (0-3) Basophils (%) (Auto) 0 % (0-3) Neutrophils # (Auto) 14.5 x10^3/uL (1.8-7.7) H Lymphocytes # (Auto) 1.4 x10^3/uL (1.0-4.8) Monocytes # (Auto) 0.7 x10^3/uL (0.0-1.1) Eosinophils # (Auto) 0.1 x10^3/uL (0.0-0.7) Basophils # (Auto) 0.1 x10^3/uL (0.0-0.2) Segmented Neutrophils % 90 % (35-66) H Lymphocytes % 6 % (24-48) L Monocytes % 2 % (0-10) Eosinophils % 1 % (0-5) Basophils % 1 % (0-3) Platelet Estimate Adequate (ADEQUATE) Prothrombin Time 12.7 SEC (11.7-14.0) Prothrombin Time INR 1.0 (0.8-1.1) Sodium Level 143 mmol/L (136-145) Potassium Level 2.2 mmol/L (3.5-5.1) *L Chloride Level 101 mmol/L (98-107) Carbon Dioxide Level 29 mmol/L (21-32) Anion Gap 13 (6-14) Blood Urea Nitrogen 36 mg/dL (7-20) H Creatinine 1.5 mg/dL (0.6-1.0) H Estimated GFR (Cockcroft-Gault) 37.7 BUN/Creatinine Ratio 24 (6-20) H Glucose Level 132 mg/dL (70-99) H Lactic Acid Level 1.5 mmol/L (0.4-2.0) Calcium Level 8.6 mg/dL (8.5-10.1) Magnesium Level 2.1 mg/dL (1.8-2.4) Total Bilirubin 0.7 mg/dL (0.2-1.0) Aspartate Amino Transferase (AST) 17 U/L (15-37) Alanine Aminotransferase (ALT) 19 U/L (14-59) Alkaline Phosphatase 83 U/L (46-116) Ammonia < 10 mcmol/L (11-34) L Creatine Kinase 48 U/L (26-192) Troponin I Quantitative < 0.017 ng/mL (0.000-0.055) AE-Ibc-A-Type Natriuretic Peptide 106 pg/mL (0-124) Total Protein 6.0 g/dL (6.4-8.2) L Albumin 3.6 g/dL (3.4-5.0) Albumin/Globulin Ratio 1.5 (1.0-1.7) Lipase 251 U/L (73-393) Urine Collection Type Unknown Urine Color [place] Urine Clarity Cloudy Urine pH 5.0 Urine Specific [place] 1.010 Urine Protein Negative mg/dL (NEG-TRACE) Urine Glucose (UA) Negative mg/dL (NEG) Urine Ketones (Stick) Negative mg/dL (NEG) Urine Blood Negative (NEG) Urine Nitrite Positive (NEG) Urine Bilirubin Negative (NEG) Urine Urobilinogen Dipstick 0.2 mg/dL (0.2 mg/dL) Urine Leukocyte Esterase Moderate (NEG) Urine RBC 0 /HPF (0-2) Urine WBC 20-40 /HPF (0-4) Urine Bacteria Many /HPF (0-FEW) Urine Hyaline Casts Moderate /HPF Urine Mucus Mod /LPF Urine Opiates Screen Pos (NEG) Urine Methadone Screen Neg (NEG) Urine Barbiturates Neg (NEG) Urine Phencyclidine Screen Neg (NEG) Urine Amphetamine/Methamphetamine Neg (NEG) Urine Benzodiazepines Screen Neg (NEG) Urine Cocaine Screen Neg (NEG) Urine Cannabinoids Screen Neg (NEG) Urine Ethyl Alcohol Neg (NEG) Laboratory Tests 07/01/19 13:05 Laboratory Tests 07/01/19 13:05 EKG EKG EKG interpreted by me. EKG at 1208 showed normal sinus rhythm at rate of 98, left figueroa axis, no specific ST and T-wave abnormalities. Radiology/Procedures Radiology/Procedures [][facility] [address] [place] [address] IMAGING REPORT Signed PATIENT: AMANDA MENDIETA ACCOUNT: [id number] : 1975 LOCATION: ER AGE: 44 SEX: F EXAM STATUS: REG ER ORD. PHYSICIAN: MELCHOR SWANSON MD REASON: abdominal pain PROCEDURE: PORTABLE CHEST 1V Single view of the chest. 07/01/2019 1:26 PM Indication: Abdominal pain Comparison: chest radiograph October 01, 2017 Findings: Right internal jugular power port noted. There is left mid and lower lung infiltrate and/or atelectasis. No pneumothorax is seen. A definitive effusion is identified. Heart size appears to be normal. Bony thorax is grossly intact. IMPRESSION: Acute left mid and lower lung infiltrate versus atelectasis. Recommend imaging follow-up to ensure resolution. Electronically signed by: Ranjeet Seals MD (07/01/2019 2:35 PM) [facility] DICTATED and SIGNED BY: RANJEET SEALS MD DATE: 07/01/19 1435 [facility] [address] [place] [address] IMAGING REPORT Signed PATIENT: AMANDA MENDIETA ACCOUNT: [id number] : 1975 LOCATION: ER AGE: 44 SEX: F EXAM STATUS: REG ER ORD. PHYSICIAN: MELCHOR SWANSON MD REASON: rt sided and lower abdominal pain PROCEDURE: CT ABDOMEN PELVIS WO CONTRAST CT ABDOMEN PELVIS WO CONTRAST Indication: Right-sided and lower abdominal pain. Exposure: One or more of the following individualized dose reduction techniques were utilized for this examination: 1. Automated exposure control 2. Adjustment of the mA and/or kV according to patient size 3. Use of iterative reconstruction technique. Comparison: Images from study of 05/03/2017, report not available from that exam. Technique: No intravenous contrast given. No oral contrast per request. Findings: Evaluation of solid viscera, bowel and vasculature is compromised by the noncontrast technique. Partially visualized opacities in the lung bases including multiple components of airspace consolidation. There is some artifact in the upper abdomen due to the patient's arms which results in image degradation. Liver size and morphology is similar. Right lobe measures 21 cm cephalocaudal, unchanged since prior study. No definite hepatic lesion. Spleen mildly enlarged at 14.2 cm, increased from 10.6 cm on similar prior slice. Pancreas appears unremarkable. No evidence of adrenal mass. Gallbladder surgically absent. Aorta is nonaneurysmal. No significant lymph node enlargement. No significant small bowel distention. Moderate to severe retained stool in the colon and rectum. No evidence of acute colitis. The appendix appears normal. No significant ascites or pneumoperitoneum. Anterior abdominal wall defect is identified, also seen previously. Small loop of colon protrudes through the defect, which is just to the right of midline at the inferior abdomen. Degenerative spondylosis. Appearance and alignment similar to previous exam. No aggressive bone destruction. Partially visualized port identified in the right chest wall. IMPRESSION: 1. Moderate to severe retained stool in the colon and rectum compatible with constipation. 2. Abnormal opacities within both lung bases. This most likely is due to inflammatory or infectious etiology, recommend follow-up to resolution. 3. Hepatomegaly, similar prior study. 4. Mild splenomegaly has developed since prior exam. 5. Right anterior inferior abdominal wall defect containing a slightly protruding loop of colon. Electronically signed by: Davy Larios MD (07/01/2019 1:47 PM) [facility] DICTATED and SIGNED BY: DAVY LARIOS MD DATE: 07/01/19 8009 Course & Med Decision Making Course & Med Decision Making Pertinent Labs and Imaging studies reviewed. (See chart for details) Evaluation of patient in ER showed 44-year-old female patient with multiple medical problems presented with several complaints including fever, abdominal and lower extremity edema, chest pain on her way to come to the hospital and cough and shortness of breath. Patient had temperature of 99.1 in ER and was oversedated with narcotic home pain medication. Patient had potassium of 2.2 and IV potassium because it started. Patient had history of Wilkin's disease and Solu-Medrol and Solu-Cortef was given. Patient also had infiltration in chest x- ray and UTI because of indwelling suprapubic catheter and Rocephin and Zithromax was started. Patient treated with IV fluids. Patient did not have tachycardia or elevation of lactic acid. Blood culture results is pending. Patient requiring admission for further evaluation and treatment. Discussed with Dr. Zepeda who is in agreement with admission. Discussed findings and plan with patient and family, who acknowledge understanding and agreement. Dragon Disclaimer Dragon Disclaimer This electronic medical record was generated, in whole or in part, using a voice recognition dictation system. Departure Departure Impression: Primary Impression: Hypokalemia Additional Impressions: CAP (community acquired pneumonia) Anemia Lower extremity edema Acute on chronic renal failure Opiate overdose Addisonian crisis Constipation Pedal edema UTI (urinary tract infection) due to urinary indwelling catheter Disposition: ADMITTED INPATIENT (at 1431) Admitting Physician: Kiya Zepeda (accepted admission at 1430) Condition: GUARDED Referrals: Jett ZEPEDA MD (PCP) Critical Care Time Critical care time was [] minutes exclusive of procedures. The HEART Score for CP Pts HEART Score for Chest Pain: HEART Score for Chest Pain Response (Comments) Value History Moderately Suspicious 1 ECG Nonspecific Repolarizatio 1 Age < 45 0 Risk Factors 1 or 2 Risk Factors 1 Troponin < Normal Limit 0 Total 3 Risk Factors: Risk Factors: DM, Current or recent (<one month) smoker, HTN, HLP, family history of CAD, obesity. Risk Scores: Score 0 - 3: 2.5% MACE over next 6 weeks - Discharge Home Score 4 - 6: 20.3% MACE over next 6 weeks - Admit for Clinical Observation Score 7 - 10: 72.7% MACE over next 6 weeks - Early Invasive Strategies Problem Qualifiers Additional Impressions: CAP (community acquired pneumonia) Laterality: left Lung location: unspecified part of lung Qualified Codes: J18.9 - Pneumonia, unspecified organism Anemia Anemia type: unspecified type Qualified Codes: D64.9 - Anemia, unspecified Acute on chronic renal failure Acute renal failure type: unspecified Chronic kidney disease stage: unspecified stage Qualified Codes: N17.9 - Acute kidney failure, unspecified; N18.9 - Chronic kidney disease, unspecified Opiate overdose Encounter type: sequela Injury intent: accidental or unintentional Qualified Codes: T40.601S - Poisoning by unspecified narcotics, accidental (unintentional), sequela Constipation Constipation type: unspecified constipation type Qualified Codes: K59.00 - Constipation, unspecified UTI (urinary tract infection) due to urinary indwelling catheter Indwelling urinary catheter type: cystostomy catheter Encounter type: sequela Qualified Codes: T83.510S - Infection and inflammatory reaction due to cystostomy catheter, sequela; N39.0 - Urinary tract infection, site not specified MELCHOR SWANSON MD Jul 01, 2019 15:09
[2019-07-01] MEDS ORDERED: methylPREDNISolone SOD SUCC PF 125 MG/2 ML VIAL. IV ONE (15:30)
[2019-07-01] MEDS ORDERED: HYDROCORTISONE SOD SUCC/PF 100 MG/2 ML VIAL. IV ONE (15:45)
[2019-07-01] MEDS: IV NORMAL SALINE 1000ML BAG 1,000 ML IV SCH ×2 (15:47→21:51)
[2019-07-01 16:16] VITALS: BP 87/47
[2019-07-01] MEDS ORDERED: PHEN-444 PO (17:10)
[2019-07-01] MEDS ORDERED: ACET-704 PO (17:10)
[2019-07-01] MEDS ORDERED: ASPI325T8 PO (17:10)
[2019-07-01] MEDS ORDERED: TRAZ-86 PO (17:10)
[2019-07-01] MEDS ORDERED: MELA3TAB56 PO (17:10)
[2019-07-01] MEDS ORDERED: GUAI400T77 PO (17:10)
[2019-07-01] MEDS ORDERED: NITR50CA PO (17:10)
[2019-07-01] MEDS ORDERED: ASCO500T3 PO (17:10)
[2019-07-01] MEDS ORDERED: RANI300T PO (17:10)
[2019-07-01] MEDS ORDERED: POTA20TA82 PO (17:10)
[2019-07-01] MEDS ORDERED: METHYLNALTREXONE 12 MG/0.6 ML VIAL. SQ ONE (18:30)
[2019-07-01] MEDS: ACETAMINOPHEN/CODEINE 300/30MG TABLET. PO PRN (18:36)
[2019-07-01] MEDS: POTASSIUM CHL 20MEQ PREMIX 50 ML IV SCH ×2 (18:41→19:45)
[2019-07-01] MEDS ORDERED: FLU VAX QS 2019-20 (36MOS+)/PF 0.5 ML SYRINGE. VAX IM ONE (19:00)
[2019-07-01 19:12] VITALS: BP 88/48
[2019-07-01] MEDS: IPRATRPIUM/ALBUTEROL 0.5/2.5MG 3 ML NEBU. NEB SCH (19:47)
[2019-07-01] MEDS: TOPIRAMATE 25 MG TABLET. PO SCH (20:48)
[2019-07-01] MEDS: CYCLOBENZAPRINE 10 MG TABLET. PO SCH (20:48)
[2019-07-01] MEDS: FLUDROCORTISONE 0.1 MG TABLET PO SCH (20:48)
[2019-07-01] MEDS: DULoxetine HCL 30 MG CAPSULE.DR PO SCH (20:49)
[2019-07-01] MEDS: BISACODYL 5 MG TABLET.DR. PO SCH (20:49)
[2019-07-01] MEDS: POTASSIUM CHLORIDE 20 MEQ TABLET.ER. PO SCH (20:49)
[2019-07-01] MEDS: MULTIVITAMIN with MINERAL TABLET. PO SCH (20:49)
[2019-07-01] MEDS: traZODone 100 MG TABLET. PO SCH (20:49)
[2019-07-01] MEDS: GABAPENTIN 100 MG CAPSULE. PO SCH (20:49)
[2019-07-01] MEDS: FAMOTIDINE 20 MG TABLET. PO SCH (20:50)
[2019-07-01] MEDS: ASPIRIN 325 MG TABLET PO SCH (21:16)
[2019-07-01] MEDS: ASCORBIC ACID 500 MG TABLET PO SCH (21:17)
[2019-07-01 23:20] VITALS: BP 83/37
[2019-07-02] VITALS (28 sets, daily range): BP systolic 60–109; BP diastolic 30–71
[2019-07-02] MEDS: IV NORMAL SALINE 1000ML BAG 1,000 ML IV SCH ×2 (02:38→05:34)
--- NOTE | 2019-07-02 03:47 | EKG ---
[facility] [address] [place] [address] Test Date: 2019-07-02 Test Time: 04:38:38 Pat Name: AMANDA MENDIETA Department: Room: 3 1 Gender: F Paper Pattern Folder: JUANY : 1975 Requested By: JEFFERSON FROST Order Number: [id number] Reading MD: Measurements Intervals [place] Rate: 94 P: 50 MN: 140 QRS: -7 QRSD: 90 T: 58 QT: 386 QTc: 483 Interpretive Statements SINUS RHYTHM LEFTWARD AXIS PROLONGED QT NO SPECIFIC ECG ABNORMALITIES RI6.02 Compared to ECG 07/02/2017 12:03:52 Left-axis deviation now present Prolonged QT interval now present
[2019-07-02] MEDS ORDERED: IV NORMAL SALINE 500ML BAG 500 ML IV ONE ×2 (04:00→05:00)
--- NOTE | 2019-07-02 07:06 | PDOC ---
Infectious Disease Note Vital Sign Vital Signs Vital Signs Date Time Temp Pulse Resp B/P (MAP) Pulse Ox O2 Delivery O2 Flow Rate FiO2 07/02/19 06:33 Nasal Cannula 2.0 07/02/19 06:30 73 12 91/54 (66) 94 07/02/19 06:00 97.8 97.8 Labs Lab Laboratory Tests Test 07/01/19 13:05 07/01/19 13:40 07/01/19 16:30 White Blood Count 16.8 x10^3/uL (4.0-11.0) Red Blood Count 2.69 x10^6/uL (3.50-5.40) Hemoglobin 8.9 g/dL (12.0-15.5) Hematocrit 27.3 % (36.0-47.0) Mean Corpuscular Volume 101 fL (79-100) Mean Corpuscular Hemoglobin 33 pg (25-35) Mean Corpuscular Hemoglobin Concent 33 g/dL (31-37) Red Cell Distribution Width 16.6 % (11.5-14.5) Platelet Count 192 x10^3/uL (140-400) Neutrophils (%) (Auto) 86 % (31-73) Lymphocytes (%) (Auto) 9 % (24-48) Monocytes (%) (Auto) 4 % (0-9) Eosinophils (%) (Auto) 1 % (0-3) Basophils (%) (Auto) 0 % (0-3) Neutrophils # (Auto) 14.5 x10^3/uL (1.8-7.7) Lymphocytes # (Auto) 1.4 x10^3/uL (1.0-4.8) Monocytes # (Auto) 0.7 x10^3/uL (0.0-1.1) Eosinophils # (Auto) 0.1 x10^3/uL (0.0-0.7) Basophils # (Auto) 0.1 x10^3/uL (0.0-0.2) Segmented Neutrophils % 90 % (35-66) Lymphocytes % 6 % (24-48) Monocytes % 2 % (0-10) Eosinophils % 1 % (0-5) Basophils % 1 % (0-3) Platelet Estimate Adequate (ADEQUATE) Prothrombin Time 12.7 SEC (11.7-14.0) Prothromb Time International Ratio 1.0 (0.8-1.1) Sodium Level 143 mmol/L (136-145) Potassium Level 2.2 mmol/L (3.5-5.1) Chloride Level 101 mmol/L (98-107) Carbon Dioxide Level 29 mmol/L (21-32) Anion Gap 13 (6-14) Blood Urea Nitrogen 36 mg/dL (7-20) Creatinine 1.5 mg/dL (0.6-1.0) Estimated GFR (Cockcroft-Gault) 37.7 BUN/Creatinine Ratio 24 (6-20) Glucose Level 132 mg/dL (70-99) Lactic Acid Level 1.5 mmol/L (0.4-2.0) Calcium Level 8.6 mg/dL (8.5-10.1) Magnesium Level 2.1 mg/dL (1.8-2.4) Total Bilirubin 0.7 mg/dL (0.2-1.0) Aspartate Amino Transf (AST/SGOT) 17 U/L (15-37) Alanine Aminotransferase (ALT/SGPT) 19 U/L (14-59) Alkaline Phosphatase 83 U/L (46-116) Ammonia < 10 mcmol/L (11-34) Creatine Kinase 48 U/L (26-192) Troponin I Quantitative < 0.017 ng/mL (0.000-0.055) ZI-Dpk-I-Type Natriuretic Peptide 106 pg/mL (0-124) Total Protein 6.0 g/dL (6.4-8.2) Albumin 3.6 g/dL (3.4-5.0) Albumin/Globulin Ratio 1.5 (1.0-1.7) Lipase 251 U/L (73-393) Urine Collection Type Unknown Urine Color [place] Urine Clarity Cloudy Urine pH 5.0 Urine Specific [place] 1.010 Urine Protein Negative mg/dL (NEG-TRACE) Urine Glucose (UA) Negative mg/dL (NEG) Urine Ketones (Stick) Negative mg/dL (NEG) Urine Blood Negative (NEG) Urine Nitrite Positive (NEG) Urine Bilirubin Negative (NEG) Urine Urobilinogen Dipstick 0.2 mg/dL (0.2 mg/dL) Urine Leukocyte Esterase Moderate (NEG) Urine RBC 0 /HPF (0-2) Urine WBC 20-40 /HPF (0-4) Urine Bacteria Many /HPF (0-FEW) Urine Hyaline Casts Moderate /HPF Urine Mucus Mod /LPF Urine Opiates Screen Pos (NEG) Urine Methadone Screen Neg (NEG) Urine Barbiturates Neg (NEG) Urine Phencyclidine Screen Neg (NEG) Urine Amphetamine/Methamphetamine Neg (NEG) Urine Benzodiazepines Screen Neg (NEG) Urine Cocaine Screen Neg (NEG) Urine Cannabinoids Screen Neg (NEG) Urine Ethyl Alcohol Neg (NEG) Glucose (Fingerstick) 128 mg/dL (70-99) Objective Assessment Leukocytosis - now S/p Solumedrol and hydrocortisone UTI - POA VENESSA Sulfa allergy Hypotension Constipation Left lung infiltrates/atelecasis Port a cath H/o C-diff/MRSA Plan Plan of Care Dose Dapto/Meropenem/Doxy/Micafungin Labs now including CBC/CMP/Procal/Lactic Labs in am F/u cults Constipation/Electolytes per primary May need SPC changed Thank you # [phone] NICK VALENTE MD Jul 02, 2019 07:06
[2019-07-02 07:10] LABS: BASO % 0 % (0-3); EOS % 0 % (0-3); HEMOGLOBIN 7.8 g/dL (12.0-15.5); LYMPH # 0.6 x10^3/uL (1.0-4.8); LYMPH % 5 % (24-48); MEAN CORPUSCULAR HEMOGLOBIN 33 pg (25-35); MEAN CORPUSCULAR HGB CONC 32 g/dL (31-37); MEAN CORPUSCULAR VOLUME 103 fL (79-100); MONO # 0.3 x10^3/uL (0.0-1.1); MONO % 3 % (0-9); NEUT # 9.9 x10^3/uL (1.8-7.7); NEUT % 92 % (31-73); PLATELET COUNT 205 x10^3/uL (140-400); RED BLOOD COUNT 2.34 x10^6/uL (3.50-5.40); RED CELL DISTRIBUTION WIDTH 16.9 % (11.5-14.5); WHITE BLOOD COUNT 10.8 x10^3/uL (4.0-11.0)
--- NOTE | 2019-07-02 07:34 | CONS ---
DATE OF CONSULTATION: INFECTIOUS DISEASE/ROUTINE CONSULT REQUESTING PHYSICIAN: Dr. Zepeda. REASON FOR CONSULTATION: Fever, questionable pneumonia, questionable UTI. HISTORY OF PRESENT ILLNESS: The patient is a 44-year-old female with multiple medical problems including a lumbar spinal stenosis, which causes chronic hip and leg pain. She also has a suprapubic catheter, which she states was changed about a week ago. She also states in early May, she was admitted to [facility] for a urinary tract infection and had received IV antibiotics for this. On Monday, she developed a temperature in the upper 99s. Her home health nurse visited at that time who took her temperature. On Monday, she states the temperature went up to 100.8. She takes aspirin routinely, it did go down, but she vomited, but essentially slept all day. On Monday, the temperature improved in the 99s and they had planned to go fishing, but then on Monday she had a temperature over 100.1, felt weak and actually had fallen and she presented to [facility]. When she fell, she aggravated her shoulder and her left knee. On arrival, she had a white count 16.8 with 90% segs, lactic acid was 1.5, creatinine was 1.5, glucose was 132 with normal liver function study tests. She underwent a chest x-ray, which showed acute left mid and lower lung field infiltrate versus atelectasis and a CT scan of the abdomen and pelvis was performed, which showed moderate to severe retained stool in the colon and rectum compatible with constipation, abnormal opacities within both lungs most likely due to inflammatory infectious etiology, some hepatomegaly, mild splenomegaly and a right anterior inferior wall defect containing a slightly protruding loop of colon. She was given some azithromycin and Rocephin. Overnight, she dropped her blood pressure and was 73/30s, felt slightly dizzy, nauseated. Cardiology was consulted. Boluses were started. She was transferred to the Intensive Care Unit. Currently, she is lying in bed. Denies any active fevers or chills or sweats at this time. Had no sinus issues. She did have a dry cough. She is constipated. She states she takes up to 10 laxatives a day. Her last bowel movement was several days ago. Denies any rashes or itches. Her blood pressure is improved to 91/54 this morning. PAST MEDICAL HISTORY: Positive for previous urinary tract infections with Enterococcus E. coli, history of yeast, history of MRSA, history of C. diff, asthma, COPD, previous CVA, hypertension, adrenal insufficiency, gastroparesis, lumbar spinal stenosis, PE, hemorrhoids, hiatal hernia, kidney stones, foot drop, anxiety, depression, and tobacco use. PAST SURGICAL HISTORY: Positive for tonsillectomy, adenoidectomy, cholecystectomy, gastrectomy, J-tube placement, ventral abdominal wall hernia repair, pilonidal cyst excision and hysterectomy. ALLERGIES: INCLUDE SULFA WHICH CAUSES HIVES AND SWELLING IN THE THROAT, CITRIC ACID AND SHELLFISH ARE LISTED. SOCIAL HISTORY: She is . She has two dogs and a cat. FAMILY HISTORY: Positive for diabetes, hypertension and obesity. CURRENT MEDICATIONS: Again, she has received a dose of azithromycin and received a dose of Rocephin, potassium, aspirin, Dulcolax, Flexeril, Cymbalta, Pepcid, Florinef, Neurontin, Cortef, DuoNeb, Relistor, Solu-Medrol x 1, Protonix, Aldactone, Topamax, Desyrel. PHYSICAL EXAMINATION: VITAL SIGNS: Temperature on arrival 99.3 and currently 97.8, pulse 73, respirations 12, blood pressure 91/54, satting 94% on 2 liters. CONSTITUTIONAL: She is alert. She is cooperative. She is in no acute distress. She is lying in the bed. She is wearing glasses. HEENT: Pupils are equal and reactive. She has normal conjunctivae. Oral cavity and oropharynx, she has a stud. NECK: Supple, no JVD. LUNGS: Decreased in the bases. HEART: S1, S2, without murmur. She has a right chest Port-A-Cath without signs of any complications. ABDOMEN: Mildly protuberant, soft. Decreased, but positive bowel sounds. GENITOURINARY: She has a suprapubic catheter without signs of any complications. EXTREMITIES: Without clubbing or cyanosis. She has some trace edema. There is no gross erythema. She has a brace to her left knee. Removing the brace, she has got a small area of scratch, superficial. No signs of gross erythema. SKIN: Warm to touch without signs of rash. NEUROLOGIC: She is alert, responds to questions. PSYCHIATRIC: Affect is appropriate. LABORATORY DATA: On arrival, white count was 16.8, hemoglobin 8.9, platelets of 192,000 with 90 segs and 6 lymphs. Creatinine was 1.5. Glucose was 135. She had normal liver function study tests. Urine was concerning for a urinary tract infection. Drug screen was positive for opiates. RADIOLOGY: Reviewed in history of present illness. IMPRESSION: 1. Leukocytosis, now status post Solu-Medrol and hydrocortisone. 2. Urinary tract infection, present on admission. 3. Acute kidney injury. 4. SULFA ALLERGY. 5. Hypotension. 6. Constipation. 7. Left lung infiltrates versus atelectasis. 8. Port-A-Cath. 9. History of Clostridium difficile and methicillin-resistant Staphylococcus aureus. RECOMMENDATIONS: We will discontinue any additional Rocephin and azithromycin. Begin daptomycin, meropenem, doxycycline, and micafungin. Obtain stat labs this morning including a CBC with diff, CMP, procalcitonin and lactic acid. We will obtain laboratory values in the morning as well. We will follow up labs and cultures. She may need her suprapubic catheter changed. Cardiology was consulted. We will follow up on labs. Constipation per primary as well as electrolytes. Thank you for the patient's care. If you have any questions, please do not hesitate to contact me. NICK VALENTE MD DR: WILLIAM/merlin JOB#: [id number] / [id number]
[2019-07-02 07:37] LABS: ALBUMIN 2.5 g/dL (3.4-5.0); CALCIUM 7.9 mg/dL (8.5-10.1); CREATININE 1.1 mg/dL (0.6-1.0); TOTAL BILIRUBIN 0.3 mg/dL (0.2-1.0); TOTAL PROTEIN 5.1 g/dL (6.4-8.2)
[2019-07-02 07:41] LABS: POTASSIUM 2.7 mmol/L (3.5-5.1)
[2019-07-02] MEDS: IPRATRPIUM/ALBUTEROL 0.5/2.5MG 3 ML NEBU. NEB SCH ×4 (07:57→19:07)
[2019-07-02] MEDS ORDERED: DAPTOmycin (GENERIC) IVPB 550 MG in IV NORMAL SALINE 50ML 50 ML IV ONE (08:00)
[2019-07-02] MEDS ORDERED: INFLUENZA VAX SCREEN BY RX. MC ONE (08:00)
[2019-07-02] MEDS: POTASSIUM CHLORIDE 20 MEQ TABLET.ER. PO SCH ×5 (08:15→21:13)
[2019-07-02] MEDS: MICAFUNGIN 100 MG in IV DEXTROSE 5% 100ML 100 ML IV SCH (08:16)
[2019-07-02] MEDS: MEROPENEM 500 MG in IV NORMAL SALINE 50ML 50 ML IV SCH ×4 (08:17→23:51)
[2019-07-02] MEDS: PANTOPRAZOLE 40 MG TABLET.DR. PO SCH (08:18)
--- NOTE | 2019-07-02 09:38 | PDOC2 ---
CARDIAC CONSULT DATE OF CONSULT Date of Consult DATE: 07/02/19 TIME: 09:20 REASON FOR CONSULT Reason for Consult: Hypotension REFERRING PHYSICIAN Referring Physician: Kristin SOURCE Source: Chart review, Patient HISTORY OF PRESENT ILLNESS HISTORY OF PRESENT ILLNESS This is a pleasant 44 yo female admitted for complains of fever and leg swelling. Upon admission she was noted with UTI with suspicion of pneumonia. Consult is for hypotension. Reports no passing out or frequent dizziness but positive for diminished intake and likely insensible losses of fluids in addition to her adrenal insufficiency. She has been having coughing spells. No hx of CHF, CAD and no significant arrhythmias. Presently her BP is much better after IVF and antibiotic therapy and verbalized that her leg swelling is chronic but better. PAST MEDICAL HISTORY Pulmonary: Asthma, COPD CENTRAL NERVOUS SYSTEM: CVA, Other (RLS) GI: Other (gastroparesis) Hepatobiliary: No pertinent hx Psych: Anxiety, Depression Musculoskeletal: low back pain (lumbar stenosis), Osteoarthritis Infectious disease: Other (MRSA; C-Diff) ENT: No pertinent hx Renal/: UTI, Other (urinary retention;nephrolithiasis) Endocrine: Other (adrenal insufficiency) Dermatology: No pertinent hx PAST SURGICAL HISTORY Past Surgical History Cholecystectomy, , Hernia Repair (ventral), Tonsillectomy, Hysterectomy, Other ( pilonidal cyst, gastrectomy, J tube placement and removal) FAMILY HISTORY Family History: Heart Disease, Hypertension SOCIAL HISTORY Smoke: <1 pack per day ALCOHOL: none Drugs: None Lives: with Family CURRENT MEDICATIONS CURRENT MEDICATIONS Current Medications Medications (Trade) Dose Ordered Sig/Judith Route PRN Reason Start Time Stop Time Status Last Admin Dose Admin Aspirin (Children'S Aspirin) 324 mg 1X ONCE PO 07/01/19 13:30 07/01/19 13:31 DC 07/01/19 13:37 Potassium Chloride/Water 100 ml @ 100 mls/hr Q1H IV 07/01/19 14:30 07/01/19 16:29 DC 07/01/19 15:30 Ceftriaxone Sodium (Rocephin) 1 gm 1X ONCE IVP 07/01/19 14:15 07/01/19 14:16 DC 07/01/19 14:31 Sodium Chloride 1,000 ml @ 1,000 mls/hr 1X ONCE IV 07/01/19 14:15 07/01/19 15:14 DC 07/01/19 14:31 Azithromycin 250 ml @ 250 mls/hr 1X ONCE IV 07/01/19 15:00 07/01/19 15:59 DC 07/01/19 16:27 Methylprednisolone Sodium Succinate (SOLU-Medrol 125MG VIAL) 125 mg 1X ONCE IV 07/01/19 15:30 07/01/19 15:31 DC 07/01/19 15:47 Hydrocortisone Sodium Succinate (Solu-CORTEF) 100 mg 1X ONCE IV 07/01/19 15:45 07/01/19 15:46 DC 07/01/19 15:47 Sodium Chloride 1,000 ml @ 150 mls/hr Q6H40M IV 07/01/19 15:11 07/02/19 15:10 07/02/19 05:34 Acetaminophen/ Codeine Phosphate (Tylenol #3) 2 tab PRN Q6HRS PRN PO PAIN 07/01/19 17:45 07/01/19 18:41 Ascorbic Acid (Vitamin C) 500 mg TID PO 07/01/19 21:00 07/01/19 21:17 Aspirin (Robinson Aspirin) 325 mg BID PO 07/01/19 21:00 07/01/19 21:17 Bisacodyl (Dulcolax Tab) 5 mg BID PO 07/01/19 21:00 07/01/19 20:58 Duloxetine HCl (Cymbalta) 60 mg BID PO 07/01/19 21:00 07/01/19 20:58 Fludrocortisone Acetate (Florinef) 0.3 mg Q12HR PO 07/01/19 21:00 07/01/19 20:58 Gabapentin (Neurontin) 100 mg TID PO 07/01/19 21:00 07/01/19 20:58 Pantoprazole Sodium (Protonix) 40 mg DAILYAC PO 07/02/19 07:30 07/02/19 08:20 Topiramate (Topamax) 50 mg BID PO 07/01/19 21:00 07/01/19 20:58 Trazodone HCl (Desyrel) 100 mg HS PO 07/01/19 21:00 07/01/19 20:58 Cyclobenzaprine HCl (Flexeril) 10 mg TID PO 07/01/19 21:00 07/01/19 20:58 Multivitamins (Thera M Plus) 1 tab BID PO 07/01/19 21:00 07/01/19 20:58 Famotidine (Pepcid) 20 mg QHS PO 07/01/19 21:00 07/01/19 20:58 Potassium Chloride (Klor-Con) 20 meq 5XDAY PO 07/01/19 22:00 07/02/19 08:20 Methylnaltrexone Randolph (Relistor) 12 mg 1X ONCE SQ 07/01/19 18:30 07/01/19 18:31 DC 07/01/19 18:41 Potassium Chloride/Water 50 ml @ 50 mls/hr Q1H IV 07/01/19 19:00 07/01/19 20:59 DC 07/01/19 19:45 Albuterol/ Ipratropium (Duoneb) 3 ml RTQID NEB 07/01/19 20:00 07/02/19 07:57 Sodium Chloride 500 ml @ 500 mls/hr 1X ONCE IV 07/02/19 04:00 07/02/19 05:22 DC 07/02/19 04:33 Sodium Chloride 500 ml @ 500 mls/hr 1X ONCE IV 07/02/19 05:00 07/02/19 05:59 DC 07/02/19 04:44 Meropenem 500 mg/ Sodium Chloride 50 ml @ 100 mls/hr Q6HRS IV 07/02/19 07:00 07/02/19 08:20 Daptomycin 550 mg/ Sodium Chloride 50 ml @ 100 mls/hr ONCE ONCE IV 07/02/19 08:00 07/02/19 08:29 DC 07/02/19 08:20 Micafungin Sodium 100 mg/Dextrose 100 ml @ 100 mls/hr Q24H IV 07/02/19 08:00 07/02/19 08:20 ALLERGIES ALLERGIES: Coded Allergies: Sulfa (Sulfonamide Antibiotics) (Verified Allergy, Intermediate, 03/20/17) citric acid (Verified Allergy, Intermediate, HAS TOLERATED BARIUM, 03/20/17) shellfish derived (Verified Allergy, Intermediate, Patient does fine with iodine contrast, 03/20/17) ROS Review of System 14 point ROS evaluated with pertinent positives noted per HPI PHYSICAL EXAM General: Alert, Oriented X3, Cooperative, No acute distress HEENT: Atraumatic, Mucous membr. moist/pink Lungs: Other (diminished bases) Heart: Regular rate (SR), Normal S1, Normal S2, Other (2/6 systolic murmur to LLS border) Extremities: No cyanosis, Other (2-3+ bilateral LE pitting edema) Skin: No breakdown, No significant lesion Neuro: Normal speech, Sensation intact Psych/Mental Status: Mental status NL, Mood NL MUSCULOSKELETAL: Osteoarthritic changes both hands VITALS/I&O VITALS/I&O: Vital Signs Date Time Temp Pulse Resp B/P (MAP) Pulse Ox O2 Delivery O2 Flow Rate FiO2 07/02/19 08:00 93 Nasal Cannula 2.0 07/02/19 06:30 73 12 91/54 (66) 07/02/19 06:00 97.8 97.8 I & O 07/01/19 07/01/19 07/02/19 14:59 22:59 06:59 Intake Total 150 ml 2456 ml Output Total 650 ml 450 ml Balance -500 ml 2006 ml LABS Lab: Laboratory Tests Test 07/01/19 13:05 07/01/19 13:40 07/01/19 16:30 07/02/19 06:50 White Blood Count 16.8 x10^3/uL (4.0-11.0) H 10.8 x10^3/uL (4.0-11.0) Red Blood Count 2.69 x10^6/uL (3.50-5.40) L 2.34 x10^6/uL (3.50-5.40) L Hemoglobin 8.9 g/dL (12.0-15.5) L 7.8 g/dL (12.0-15.5) L Hematocrit 27.3 % (36.0-47.0) L 24.0 % (36.0-47.0) L Mean Corpuscular Volume 101 fL (79-100) H 103 fL (79-100) H Mean Corpuscular Hemoglobin 33 pg (25-35) 33 pg (25-35) Mean Corpuscular Hemoglobin Concent 33 g/dL (31-37) 32 g/dL (31-37) Red Cell Distribution Width 16.6 % (11.5-14.5) H 16.9 % (11.5-14.5) H Platelet Count 192 x10^3/uL (140-400) 205 x10^3/uL (140-400) Neutrophils (%) (Auto) 86 % (31-73) H 92 % (31-73) H Lymphocytes (%) (Auto) 9 % (24-48) L 5 % (24-48) L Monocytes (%) (Auto) 4 % (0-9) 3 % (0-9) Eosinophils (%) (Auto) 1 % (0-3) 0 % (0-3) Basophils (%) (Auto) 0 % (0-3) 0 % (0-3) Neutrophils # (Auto) 14.5 x10^3/uL (1.8-7.7) H 9.9 x10^3/uL (1.8-7.7) H Lymphocytes # (Auto) 1.4 x10^3/uL (1.0-4.8) 0.6 x10^3/uL (1.0-4.8) L Monocytes # (Auto) 0.7 x10^3/uL (0.0-1.1) 0.3 x10^3/uL (0.0-1.1) Eosinophils # (Auto) 0.1 x10^3/uL (0.0-0.7) 0.0 x10^3/uL (0.0-0.7) Basophils # (Auto) 0.1 x10^3/uL (0.0-0.2) 0.0 x10^3/uL (0.0-0.2) Segmented Neutrophils % 90 % (35-66) H Lymphocytes % 6 % (24-48) L Monocytes % 2 % (0-10) Eosinophils % 1 % (0-5) Basophils % 1 % (0-3) Platelet Estimate Adequate (ADEQUATE) Prothrombin Time 12.7 SEC (11.7-14.0) Prothrombin Time INR 1.0 (0.8-1.1) Sodium Level 143 mmol/L (136-145) 146 mmol/L (136-145) H Potassium Level 2.2 mmol/L (3.5-5.1) *L 2.7 mmol/L (3.5-5.1) *L Chloride Level 101 mmol/L (98-107) 110 mmol/L (98-107) H Carbon Dioxide Level 29 mmol/L (21-32) 28 mmol/L (21-32) Anion Gap 13 (6-14) 8 (6-14) Blood Urea Nitrogen 36 mg/dL (7-20) H 24 mg/dL (7-20) H Creatinine 1.5 mg/dL (0.6-1.0) H 1.1 mg/dL (0.6-1.0) H Estimated GFR (Cockcroft-Gault) 37.7 54.0 BUN/Creatinine Ratio 24 (6-20) H 22 (6-20) H Glucose Level 132 mg/dL (70-99) H 144 mg/dL (70-99) H Lactic Acid Level 1.5 mmol/L (0.4-2.0) 1.8 mmol/L (0.4-2.0) Calcium Level 8.6 mg/dL (8.5-10.1) 7.9 mg/dL (8.5-10.1) L Magnesium Level 2.1 mg/dL (1.8-2.4) Total Bilirubin 0.7 mg/dL (0.2-1.0) 0.3 mg/dL (0.2-1.0) Aspartate Amino Transferase (AST) 17 U/L (15-37) 12 U/L (15-37) L Alanine Aminotransferase (ALT) 19 U/L (14-59) 13 U/L (14-59) L Alkaline Phosphatase 83 U/L (46-116) 63 U/L (46-116) Ammonia < 10 mcmol/L (11-34) L Creatine Kinase 48 U/L (26-192) Troponin I Quantitative < 0.017 ng/mL (0.000-0.055) KH-Urp-W-Type Natriuretic Peptide 106 pg/mL (0-124) Total Protein 6.0 g/dL (6.4-8.2) L 5.1 g/dL (6.4-8.2) L Albumin 3.6 g/dL (3.4-5.0) 2.5 g/dL (3.4-5.0) L Albumin/Globulin Ratio 1.5 (1.0-1.7) 1.0 (1.0-1.7) Lipase 251 U/L (73-393) Urine Collection Type Unknown Urine Color Pool Urine Clarity Cloudy Urine pH 5.0 Urine Specific [place] 1.010 Urine Protein Negative mg/dL (NEG-TRACE) Urine Glucose (UA) Negative mg/dL (NEG) Urine Ketones (Stick) Negative mg/dL (NEG) Urine Blood Negative (NEG) Urine Nitrite Positive (NEG) Urine Bilirubin Negative (NEG) Urine Urobilinogen Dipstick 0.2 mg/dL (0.2 mg/dL) Urine Leukocyte Esterase Moderate (NEG) Urine RBC 0 /HPF (0-2) Urine WBC 20-40 /HPF (0-4) Urine Bacteria Many /HPF (0-FEW) Urine Hyaline Casts Moderate /HPF Urine Mucus Mod /LPF Urine Opiates Screen Pos (NEG) Urine Methadone Screen Neg (NEG) Urine Barbiturates Neg (NEG) Urine Phencyclidine Screen Neg (NEG) Urine Amphetamine/Methamphetamine Neg (NEG) Urine Benzodiazepines Screen Neg (NEG) Urine Cocaine Screen Neg (NEG) Urine Cannabinoids Screen Neg (NEG) Urine Ethyl Alcohol Neg (NEG) Glucose (Fingerstick) 128 mg/dL (70-99) H Procalcitonin < 0.10 ng/mL (0.00-0.10) Laboratory Tests 07/01/19 13:05 07/02/19 06:50 Laboratory Tests 07/01/19 13:05 07/02/19 06:50 ECHOCARDIOGRAM ECHOCARDIOGRAM <Conclusion> The left ventricular systolic function is normal and the ejection fraction is within normal range. The Ejection Fraction is 58%. There is mild left ventricular diastolic dysfunction present The right ventricle is normal size. The left atrium size is normal. The right atrium size is normal. The aortic valve is normal in structure and function. The mitral valve is normal in structure and function. Doppler and Color Flow revealed trace tricuspid regurgitation. The PA pressure was estimated at 19 mmHg. The pulmonary valve is normal in structure and function. There is no evidence of significant pericardial effusion. DATE: 11/17/15 112 ASSESSMENT/PLAN ASSESSMENT/PLAN 1. Hypotension: multifactorial with poor hydration, adrenal insufficiency and infectious process. 2. UTI with possible pneumonia 3. VENESSA: low volume, better after IV hydration 4. Hypokalemia 5. Hx of CVA 6. Addisons disease: per PCP 7. Macrocytic anemia with hepatosplenomegaly: defer to PCP 8. Chronic steroid use 9. Hx of MRSA/C-diff Recommendations 1. Continue IVF. Antibiotic per ID 2. Continue with florinef/solucortefand K supplementation. 3. TTE. today. Will check TSH 4. Supportive care. ELIZABETH WICK APRN Jul 02, 2019 09:38
[2019-07-02] MEDS: DOXYCYCLINE HYCLATE 100 MG TABLET PO SCH ×2 (10:44→21:13)
[2019-07-02] MEDS: ASCORBIC ACID 500 MG TABLET PO SCH ×3 (10:44→21:14)
[2019-07-02] MEDS: DULoxetine HCL 30 MG CAPSULE.DR PO SCH ×2 (10:44→21:14)
[2019-07-02] MEDS: CYCLOBENZAPRINE 10 MG TABLET. PO SCH ×3 (10:45→21:14)
[2019-07-02] MEDS: ASPIRIN 325 MG TABLET PO SCH ×2 (10:45→21:14)
[2019-07-02] MEDS: GABAPENTIN 100 MG CAPSULE. PO SCH ×3 (10:45→21:14)
[2019-07-02] MEDS: SPIRONOLACTONE 25 MG TABLET PO SCH ×2 (10:45→14:00)
[2019-07-02] MEDS: ACETAMINOPHEN/CODEINE 300/30MG TABLET. PO PRN ×3 (10:57→23:51)
[2019-07-02] MEDS: MULTIVITAMIN with MINERAL TABLET. PO SCH ×2 (10:59→21:14)
[2019-07-02] MEDS: BISACODYL 5 MG TABLET.DR. PO SCH ×2 (11:00→21:14)
--- NOTE | 2019-07-02 11:42 | CARD ---
MR#: [id number] Date of Study: 07/02/2019 Ordering Physician: ELIZABETH WICK, Referring Physician: ELIZABETH WICK, Tech: Anushka Garcia [facility] APPROVED REPORT EXAM: Two-dimensional and M-mode echocardiogram with Doppler and color Doppler. Other Information Quality : AverageHR: 93bpm Rhythm : NSR INDICATION Hypotension 2D DIMENSIONS RVDd2.9 (2.9-3.5cm)Left Atrium(2D)3.3 (1.6-4.0cm) IVSd1.0 (0.7-1.1cm)LVDd4.7 (3.9-5.9cm) LVOT Diameter2.0 (1.8-2.4cm)PWd0.9 (0.7-1.1cm) LVDs3.0 (2.5-4.0cm)FS (%) 36.6 % SV67.3 mlLVEF(%)66.4 (>50%) M-Mode DIMENSIONS Left Atrium(MM)3.73 (2.5-4.0cm)Aortic Root3.08 (2.2-3.7cm) Aortic Valve AoV Peak Werner.153.0cm/sAoV VTI26.4cm AO Peak GR.9.4mmHgLVOT VTI 18.86cm AO Mean GR.5mmHgAVA (VTI)2.20cm2 Mitral Valve MV E Ompnkmge619.0cm/sMV DECEL [id number] MV A Cluhkobn40.2cm/sE/A Ratio1.2 MV A [id number] TDI Lateral E' P. V9.98cm/sMedial E' P. V11.84cm/s E/Lateral E'10.3E/Medial E'8.7 Tricuspid Valve TR P. [id number]/sRAP [id number] TR Peak Gr.[id number] LEFT VENTRICLE The left ventricle is normal size. There is normal left ventricular wall thickness. The left ventricu lar systolic function is normal and the ejection fraction is within normal range. The Ejection Fracti on is 60-65%. There is normal LV segmental wall motion. The left ventricular diastolic function and f illing is normal for age. RIGHT VENTRICLE The right ventricle is normal size. There is normal right ventricular wall thickness. The right ventr icular systolic function is normal. ATRIA The left atrium size is normal. The right atrium size is normal. The interatrial septum is intact wit h no evidence for an atrial septal defect or patent foramen ovale as noted on 2-D or Doppler imaging. AORTIC VALVE The aortic valve is normal in structure and function. The aortic valve is trileaflet. Doppler and Col or Flow revealed no significant aortic regurgitation. There is no significant aortic valvular stenosi s. There is no aortic valvular vegetation. MITRAL VALVE The mitral valve is normal in structure and function. There is no evidence of mitral valve prolapse. There is no mitral valve stenosis. Doppler and Color Flow revealed trace mitral valve regurgitation. TRICUSPID VALVE The tricuspid valve is normal in structure and function. Doppler and Color Flow revealed mild tricusp id regurgitation. The PA pressure was estimated at 37 mmHg. There is no tricuspid valve prolapse or v egetation. There is no tricuspid valve stenosis. PULMONIC VALVE The pulmonic valve is not well visualized. GREAT VESSELS The aortic root is normal in size. The ascending aorta is normal in size. The IVC is normal in size a nd collapses >50% with inspiration. PERICARDIAL EFFUSION There is no evidence of significant pericardial effusion. Critical Notification Critical Value: No <Conclusion> The left ventricle is normal size. The left ventricular systolic function is normal and the ejection fraction is within normal range. The Ejection Fraction is 60-65%. There is no significant aortic valvular stenosis. Doppler and Color Flow revealed no significant aortic regurgitation. Doppler and Color Flow revealed trace mitral valve regurgitation. Doppler and Color Flow revealed mild tricuspid regurgitation. The PA pressure was estimated at 37 mmHg. There is no evidence of significant pericardial effusion. Signed by : Pako Madrid MD Electronically Approved : 07/02/2019 11:41:58
--- NOTE | 2019-07-02 12:39 | PDOC1 ---
History and Physical Date of Admission Date of Admission 07/01/19 Identification/Chief Complaint Chief Complaint fever Source Source: Caregiver (), Chart review, Patient History of Present Illness History of Present Illness She was noted at home to have a fever, she presented to ER and appeared on lab and imaging to have possibly pneumonia or a UTI as source but was afebrile at the time, her WBC was elevated and she had a left shift, she has had a cough, she has had issues with lymphedema and has adrenal insufficiency and is on mineralocorticoid steroids and noted to be profoundely hypokalemic, she was also dehydrated. She was started on pulm toilette, IV antibiotics IV hydrocortisone and fluids in ER. Overnight she became hypotensive and a rapid response was called and she was given additional fluid boluses and transferred to ICU. She is being seen by cardiology and ID and is now alert and comfortable. She was also constipated noted on ER imaging and given Relistor so it is possible she had a vasovagal response to it overnight which caused her to possibly be hypotensive, she has had nearly 20 abdominal surgeries in the past, she has lumbar spinal stenosis and uses a walker and has had neurogenic bowel and bladder symptoms Past Medical History Cardiovascular: HTN Pulmonary: Asthma, COPD CENTRAL NERVOUS SYSTEM: CVA, Other (RLS) GI: Other (gastroparesis) Hepatobiliary: No pertinent hx Psych: Anxiety, Depression Rheumatologic: Fibromyalgia Infectious disease: Other (MRSA; C-Diff) ENT: No pertinent hx Renal/: UTI, Other (urinary retention;nephrolithiasis) Endocrine: Other (adrenal insufficiency) Dermatology: No pertinent hx Past Surgical History Past Surgical History: Cholecystectomy, , Hernia Repair, Tonsillectomy, Hysterectomy, Other Family History Family History: Heart Disease, Hypertension Social History Smoke: <1 pack per day ALCOHOL: none Drugs: None Current Problem List Problem List Problems Medical Problems: (1) Acute on chronic renal failure Status: Acute (2) Addisonian crisis Status: Acute (3) Anemia Status: Acute (4) CAP (community acquired pneumonia) Status: Acute (5) Constipation Status: Acute (6) Lower extremity edema Status: Acute (7) Opiate overdose Status: Acute (8) Pedal edema Status: Acute (9) UTI (urinary tract infection) due to urinary indwelling catheter Status: Acute Current Medications Current Medications Current Medications Medications (Trade) Dose Ordered Sig/Judith Start Time Stop Time Status Last Admin Dose Admin Acetaminophen/ Codeine Phosphate (Tylenol #3) 2 tab PRN Q6HRS PRN 07/01/19 17:45 07/02/19 11:01 2 TAB Albuterol/ Ipratropium (Duoneb) 3 ml RTQID 07/01/19 20:00 07/02/19 11:39 3 ML Ascorbic Acid (Vitamin C) 500 mg TID 07/01/19 21:00 07/02/19 11:01 500 MG Aspirin (Robinson Aspirin) 325 mg BID 07/01/19 21:00 07/02/19 11:01 325 MG Aspirin (Children'S Aspirin) 324 mg 1X ONCE 07/01/19 13:30 07/01/19 13:31 DC 07/01/19 13:37 324 MG Azithromycin 250 ml @ 250 mls/hr 1X ONCE 07/01/19 15:00 07/01/19 15:59 DC 07/01/19 16:27 250 MLS/HR Bisacodyl (Dulcolax Tab) 5 mg BID 07/01/19 21:00 07/02/19 11:01 5 MG Ceftriaxone Sodium (Rocephin) 1 gm 1X ONCE 07/01/19 14:15 07/01/19 14:16 DC 07/01/19 14:31 1 GM Cyclobenzaprine HCl (Flexeril) 10 mg TID 07/01/19 21:00 07/02/19 11:01 10 MG Daptomycin 550 mg/ Sodium Chloride 50 ml @ 100 mls/hr ONCE ONCE 07/02/19 08:00 07/02/19 08:29 DC 07/02/19 08:20 100 MLS/HR Doxycycline Hyclate (Vibra-Tab) 100 mg BID 07/02/19 09:00 07/02/19 11:01 100 MG Duloxetine HCl (Cymbalta) 60 mg BID 07/01/19 21:00 07/02/19 11:01 60 MG Famotidine (Pepcid) 20 mg QHS 07/01/19 21:00 07/01/19 20:58 20 MG Fludrocortisone Acetate (Florinef) 0.3 mg Q12HR 07/01/19 21:00 07/01/19 20:58 0.3 MG Gabapentin (Neurontin) 100 mg TID 07/01/19 21:00 07/02/19 11:01 100 MG Hydrocortisone (Cortef) 20 mg [id number] 07/02/19 09:00 Hydrocortisone Sodium Succinate (Solu-CORTEF) 100 mg 1X ONCE 07/01/19 15:45 07/01/19 15:46 DC 07/01/19 15:47 100 MG Influenza Virus Vaccine Quadrival (Afluria Quad 2019-20 (3yr Up) Syringe) 0.5 ml ONCE ONCE 07/01/19 19:00 07/01/19 19:01 UNV Info (FLU VACCINE SCREEN per RX) 1 each 1X ONCE 07/02/19 08:00 07/02/19 08:01 UNV Meropenem 500 mg/ Sodium Chloride 50 ml @ 100 mls/hr Q6HRS 07/02/19 07:00 07/02/19 08:20 100 MLS/HR Methylnaltrexone [place] (Relistor) 12 mg 1X ONCE 07/01/19 18:30 07/01/19 18:31 DC 07/01/19 18:41 12 MG Methylprednisolone Sodium Succinate (SOLU-Medrol 125MG VIAL) 125 mg 1X ONCE 07/01/19 15:30 07/01/19 15:31 DC 07/01/19 15:47 125 MG Micafungin Sodium 100 mg/Dextrose 100 ml @ 100 mls/hr Q24H 07/02/19 08:00 07/02/19 08:20 100 MLS/HR Multivitamins (Thera M Plus) 1 tab BID 07/01/19 21:00 07/02/19 11:01 1 TAB Pantoprazole Sodium (Protonix) 40 mg DAILYAC 07/02/19 07:30 07/02/19 08:20 40 MG Potassium Chloride/Water 50 ml @ 50 mls/hr Q1H 07/01/19 19:00 07/01/19 20:59 DC 07/01/19 19:45 50 MLS/HR Potassium Chloride (Klor-Con) 20 meq 5XDAY 07/01/19 22:00 07/02/19 11:01 20 MEQ Sodium Chloride 500 ml @ 500 mls/hr 1X ONCE 07/02/19 05:00 07/02/19 05:59 DC 07/02/19 04:44 500 MLS/HR Spironolactone (Aldactone) 25 mg [id number] 07/02/19 09:00 07/02/19 11:01 25 MG Topiramate (Topamax) 50 mg BID 07/01/19 21:00 07/01/19 20:58 50 MG Trazodone HCl (Desyrel) 100 mg HS 07/01/19 21:00 07/01/19 20:58 100 MG Allergies Allergies Allergies Coded Allergies Type Severity Reaction Last Updated Verified Sulfa (Sulfonamide Antibiotics) Allergy Intermediate 03/20/17 Yes citric acid Allergy Intermediate HAS TOLERATED BARIUM 03/20/17 Yes shellfish derived Allergy Intermediate Patient does fine with iodine contrast 03/20/17 Yes ROS Review of System CONSTITUTIONAL: fever yesterday EYES: No recent changes SKIN: itching CARDIOVASCULAR: No chest pain, syncope, palpitations, or edema RESPIRATORY: cough GASTROINTESTINAL: constipation NEUROLOGICAL: weakness ENDOCRINE: adrenal issues, hyper and hypoglycemia GENITOURINARY: frequent UTIs, neurogenic type bladder issues MUSCULOSKELETAL: No back pain or joint pain LYMPHATICS: No enlarged lymph nodes PSYCHIATRIC: + anxiety, depression Physical Exam Physical Exam GEN.: No apparent distress. Alert and oriented. HEENT: Head is normocephalic, atraumatic NECK: Supple. LUNGS: Clear to auscultation. HEART: RRR, S1, S2 present. Peripheral pulses intact ABDOMEN: Soft, nontender. Positive bowel sounds. EXTREMITIES: Without any cyanosis, lymphedema of lower extremities. NEUROLOGIC: Normal speech, normal tone PSYCHIATRIC: Normal affect, normal mood. SKIN: No ulcerations Vitals Vitals Vital Signs Date Time Temp Pulse Resp B/P (MAP) Pulse Ox O2 Delivery O2 Flow Rate FiO2 07/02/19 11:40 96 Nasal Cannula 2.0 07/02/19 06:30 73 12 91/54 (66) 07/02/19 06:00 97.8 97.8 Labs Labs Laboratory Tests Test 07/01/19 13:05 07/01/19 13:40 07/01/19 16:30 07/02/19 06:50 White Blood Count 16.8 x10^3/uL (4.0-11.0) 10.8 x10^3/uL (4.0-11.0) Red Blood Count 2.69 x10^6/uL (3.50-5.40) 2.34 x10^6/uL (3.50-5.40) Hemoglobin 8.9 g/dL (12.0-15.5) 7.8 g/dL (12.0-15.5) Hematocrit 27.3 % (36.0-47.0) 24.0 % (36.0-47.0) Mean Corpuscular Volume 101 fL (79-100) 103 fL (79-100) Mean Corpuscular Hemoglobin 33 pg (25-35) 33 pg (25-35) Mean Corpuscular Hemoglobin Concent 33 g/dL (31-37) 32 g/dL (31-37) Red Cell Distribution Width 16.6 % (11.5-14.5) 16.9 % (11.5-14.5) Platelet Count 192 x10^3/uL (140-400) 205 x10^3/uL (140-400) Neutrophils (%) (Auto) 86 % (31-73) 92 % (31-73) Lymphocytes (%) (Auto) 9 % (24-48) 5 % (24-48) Monocytes (%) (Auto) 4 % (0-9) 3 % (0-9) Eosinophils (%) (Auto) 1 % (0-3) 0 % (0-3) Basophils (%) (Auto) 0 % (0-3) 0 % (0-3) Neutrophils # (Auto) 14.5 x10^3/uL (1.8-7.7) 9.9 x10^3/uL (1.8-7.7) Lymphocytes # (Auto) 1.4 x10^3/uL (1.0-4.8) 0.6 x10^3/uL (1.0-4.8) Monocytes # (Auto) 0.7 x10^3/uL (0.0-1.1) 0.3 x10^3/uL (0.0-1.1) Eosinophils # (Auto) 0.1 x10^3/uL (0.0-0.7) 0.0 x10^3/uL (0.0-0.7) Basophils # (Auto) 0.1 x10^3/uL (0.0-0.2) 0.0 x10^3/uL (0.0-0.2) Segmented Neutrophils % 90 % (35-66) Lymphocytes % 6 % (24-48) Monocytes % 2 % (0-10) Eosinophils % 1 % (0-5) Basophils % 1 % (0-3) Platelet Estimate Adequate (ADEQUATE) Prothrombin Time 12.7 SEC (11.7-14.0) Prothromb Time International Ratio 1.0 (0.8-1.1) Sodium Level 143 mmol/L (136-145) 146 mmol/L (136-145) Potassium Level 2.2 mmol/L (3.5-5.1) 2.7 mmol/L (3.5-5.1) Chloride Level 101 mmol/L (98-107) 110 mmol/L (98-107) Carbon Dioxide Level 29 mmol/L (21-32) 28 mmol/L (21-32) Anion Gap 13 (6-14) 8 (6-14) Blood Urea Nitrogen 36 mg/dL (7-20) 24 mg/dL (7-20) Creatinine 1.5 mg/dL (0.6-1.0) 1.1 mg/dL (0.6-1.0) Estimated GFR (Cockcroft-Gault) 37.7 54.0 BUN/Creatinine Ratio 24 (6-20) 22 (6-20) Glucose Level 132 mg/dL (70-99) 144 mg/dL (70-99) Lactic Acid Level 1.5 mmol/L (0.4-2.0) 1.8 mmol/L (0.4-2.0) Calcium Level 8.6 mg/dL (8.5-10.1) 7.9 mg/dL (8.5-10.1) Magnesium Level 2.1 mg/dL (1.8-2.4) Total Bilirubin 0.7 mg/dL (0.2-1.0) 0.3 mg/dL (0.2-1.0) Aspartate Amino Transf (AST/SGOT) 17 U/L (15-37) 12 U/L (15-37) Alanine Aminotransferase (ALT/SGPT) 19 U/L (14-59) 13 U/L (14-59) Alkaline Phosphatase 83 U/L (46-116) 63 U/L (46-116) Ammonia < 10 mcmol/L (11-34) Creatine Kinase 48 U/L (26-192) Troponin I Quantitative < 0.017 ng/mL (0.000-0.055) EI-Ttd-H-Type Natriuretic Peptide 106 pg/mL (0-124) Total Protein 6.0 g/dL (6.4-8.2) 5.1 g/dL (6.4-8.2) Albumin 3.6 g/dL (3.4-5.0) 2.5 g/dL (3.4-5.0) Albumin/Globulin Ratio 1.5 (1.0-1.7) 1.0 (1.0-1.7) Lipase 251 U/L (73-393) Urine Collection Type Unknown Urine Color [place] Urine Clarity Cloudy Urine pH 5.0 Urine Specific [place] 1.010 Urine Protein Negative mg/dL (NEG-TRACE) Urine Glucose (UA) Negative mg/dL (NEG) Urine Ketones (Stick) Negative mg/dL (NEG) Urine Blood Negative (NEG) Urine Nitrite Positive (NEG) Urine Bilirubin Negative (NEG) Urine Urobilinogen Dipstick 0.2 mg/dL (0.2 mg/dL) Urine Leukocyte Esterase Moderate (NEG) Urine RBC 0 /HPF (0-2) Urine WBC 20-40 /HPF (0-4) Urine Bacteria Many /HPF (0-FEW) Urine Hyaline Casts Moderate /HPF Urine Mucus Mod /LPF Urine Opiates Screen Pos (NEG) Urine Methadone Screen Neg (NEG) Urine Barbiturates Neg (NEG) Urine Phencyclidine Screen Neg (NEG) Urine Amphetamine/Methamphetamine Neg (NEG) Urine Benzodiazepines Screen Neg (NEG) Urine Cocaine Screen Neg (NEG) Urine Cannabinoids Screen Neg (NEG) Urine Ethyl Alcohol Neg (NEG) Glucose (Fingerstick) 128 mg/dL (70-99) Procalcitonin < 0.10 ng/mL (0.00-0.10) Thyroid Stimulating Hormone (TSH) 0.477 uIU/mL (0.358-3.74) Laboratory Tests Test 07/01/19 13:05 07/01/19 13:40 07/01/19 16:30 07/02/19 06:50 White Blood Count 16.8 x10^3/uL (4.0-11.0) 10.8 x10^3/uL (4.0-11.0) Red Blood Count 2.69 x10^6/uL (3.50-5.40) 2.34 x10^6/uL (3.50-5.40) Hemoglobin 8.9 g/dL (12.0-15.5) 7.8 g/dL (12.0-15.5) Hematocrit 27.3 % (36.0-47.0) 24.0 % (36.0-47.0) Mean Corpuscular Volume 101 fL (79-100) 103 fL (79-100) Mean Corpuscular Hemoglobin 33 pg (25-35) 33 pg (25-35) Mean Corpuscular Hemoglobin Concent 33 g/dL (31-37) 32 g/dL (31-37) Red Cell Distribution Width 16.6 % (11.5-14.5) 16.9 % (11.5-14.5) Platelet Count 192 x10^3/uL (140-400) 205 x10^3/uL (140-400) Neutrophils (%) (Auto) 86 % (31-73) 92 % (31-73) Lymphocytes (%) (Auto) 9 % (24-48) 5 % (24-48) Monocytes (%) (Auto) 4 % (0-9) 3 % (0-9) Eosinophils (%) (Auto) 1 % (0-3) 0 % (0-3) Basophils (%) (Auto) 0 % (0-3) 0 % (0-3) Neutrophils # (Auto) 14.5 x10^3/uL (1.8-7.7) 9.9 x10^3/uL (1.8-7.7) Lymphocytes # (Auto) 1.4 x10^3/uL (1.0-4.8) 0.6 x10^3/uL (1.0-4.8) Monocytes # (Auto) 0.7 x10^3/uL (0.0-1.1) 0.3 x10^3/uL (0.0-1.1) Eosinophils # (Auto) 0.1 x10^3/uL (0.0-0.7) 0.0 x10^3/uL (0.0-0.7) Basophils # (Auto) 0.1 x10^3/uL (0.0-0.2) 0.0 x10^3/uL (0.0-0.2) Segmented Neutrophils % 90 % (35-66) Lymphocytes % 6 % (24-48) Monocytes % 2 % (0-10) Eosinophils % 1 % (0-5) Basophils % 1 % (0-3) Platelet Estimate Adequate (ADEQUATE) Prothrombin Time 12.7 SEC (11.7-14.0) Prothromb Time International Ratio 1.0 (0.8-1.1) Sodium Level 143 mmol/L (136-145) 146 mmol/L (136-145) Potassium Level 2.2 mmol/L (3.5-5.1) 2.7 mmol/L (3.5-5.1) Chloride Level 101 mmol/L (98-107) 110 mmol/L (98-107) Carbon Dioxide Level 29 mmol/L (21-32) 28 mmol/L (21-32) Anion Gap 13 (6-14) 8 (6-14) Blood Urea Nitrogen 36 mg/dL (7-20) 24 mg/dL (7-20) Creatinine 1.5 mg/dL (0.6-1.0) 1.1 mg/dL (0.6-1.0) Estimated GFR (Cockcroft-Gault) 37.7 54.0 BUN/Creatinine Ratio 24 (6-20) 22 (6-20) Glucose Level 132 mg/dL (70-99) 144 mg/dL (70-99) Lactic Acid Level 1.5 mmol/L (0.4-2.0) 1.8 mmol/L (0.4-2.0) Calcium Level 8.6 mg/dL (8.5-10.1) 7.9 mg/dL (8.5-10.1) Magnesium Level 2.1 mg/dL (1.8-2.4) Total Bilirubin 0.7 mg/dL (0.2-1.0) 0.3 mg/dL (0.2-1.0) Aspartate Amino Transf (AST/SGOT) 17 U/L (15-37) 12 U/L (15-37) Alanine Aminotransferase (ALT/SGPT) 19 U/L (14-59) 13 U/L (14-59) Alkaline Phosphatase 83 U/L (46-116) 63 U/L (46-116) Ammonia < 10 mcmol/L (11-34) Creatine Kinase 48 U/L (26-192) Troponin I Quantitative < 0.017 ng/mL (0.000-0.055) YZ-Myj-N-Type Natriuretic Peptide 106 pg/mL (0-124) Total Protein 6.0 g/dL (6.4-8.2) 5.1 g/dL (6.4-8.2) Albumin 3.6 g/dL (3.4-5.0) 2.5 g/dL (3.4-5.0) Albumin/Globulin Ratio 1.5 (1.0-1.7) 1.0 (1.0-1.7) Lipase 251 U/L (73-393) Urine Collection Type Unknown Urine Color [place] Urine Clarity Cloudy Urine pH 5.0 Urine Specific [place] 1.010 Urine Protein Negative mg/dL (NEG-TRACE) Urine Glucose (UA) Negative mg/dL (NEG) Urine Ketones (Stick) Negative mg/dL (NEG) Urine Blood Negative (NEG) Urine Nitrite Positive (NEG) Urine Bilirubin Negative (NEG) Urine Urobilinogen Dipstick 0.2 mg/dL (0.2 mg/dL) Urine Leukocyte Esterase Moderate (NEG) Urine RBC 0 /HPF (0-2) Urine WBC 20-40 /HPF (0-4) Urine Bacteria Many /HPF (0-FEW) Urine Hyaline Casts Moderate /HPF Urine Mucus Mod /LPF Urine Opiates Screen Pos (NEG) Urine Methadone Screen Neg (NEG) Urine Barbiturates Neg (NEG) Urine Phencyclidine Screen Neg (NEG) Urine Amphetamine/Methamphetamine Neg (NEG) Urine Benzodiazepines Screen Neg (NEG) Urine Cocaine Screen Neg (NEG) Urine Cannabinoids Screen Neg (NEG) Urine Ethyl Alcohol Neg (NEG) Glucose (Fingerstick) 128 mg/dL (70-99) Procalcitonin < 0.10 ng/mL (0.00-0.10) Thyroid Stimulating Hormone (TSH) 0.477 uIU/mL (0.358-3.74) VTE Prophylaxis Ordered VTE Prophylaxis Devices: Yes VTE Pharmacological Prophylaxi: Yes Assessment/Plan Assessment/Plan fever, sepsis - antibiotics per ID hypotension - fluid bolus - cardiology following hypokalemia - replace, media monitor adrenal insufficiency - supplement dehydration with VENESSA - hydrated IV boluses lumbar spinal stenosis with neurogenic bowel and bladder symptoms UTI - recurrent with suprapubic catheter recently changed constipation - chronic Jett BRIGHT MD Jul 02, 2019 12:39
[2019-07-02] MEDS: FLUDROCORTISONE 0.1 MG TABLET PO SCH ×2 (13:03→21:13)
[2019-07-02] MEDS: ONDANSETRON PF 4 MG/2 ML VIAL. IV PRN (13:05)
[2019-07-02] MEDS: HYDROCORTISONE 10 MG TABLET PO SCH ×2 (14:00→17:00)
[2019-07-02] MEDS: TOPIRAMATE 25 MG TABLET. PO SCH ×2 (17:01→21:14)
[2019-07-02] MEDS: traZODone 100 MG TABLET. PO SCH (21:14)
[2019-07-02] MEDS: FAMOTIDINE 20 MG TABLET. PO SCH (21:14)
[2019-07-03] VITALS (19 sets, daily range): BP systolic 90–116; BP diastolic 45–75
[2019-07-03 03:56] LABS: BASO # 0.1 x10^3/uL (0.0-0.2); BASO % 0 % (0-3); EOS # 0.1 x10^3/uL (0.0-0.7); EOS % 1 % (0-3); HEMOGLOBIN 7.6 g/dL (12.0-15.5); LYMPH # 1.7 x10^3/uL (1.0-4.8); LYMPH % 14 % (24-48); MEAN CORPUSCULAR HEMOGLOBIN 33 pg (25-35); MEAN CORPUSCULAR HGB CONC 32 g/dL (31-37); MEAN CORPUSCULAR VOLUME 105 fL (79-100); MONO # 0.5 x10^3/uL (0.0-1.1); MONO % 4 % (0-9); NEUT # 10.4 x10^3/uL (1.8-7.7); NEUT % 82 % (31-73); PLATELET COUNT 202 x10^3/uL (140-400); RED BLOOD COUNT 2.29 x10^6/uL (3.50-5.40); RED CELL DISTRIBUTION WIDTH 17.4 % (11.5-14.5); WHITE BLOOD COUNT 12.7 x10^3/uL (4.0-11.0)
[2019-07-03 04:09] LABS: GFR 60.2; MAGNESIUM 2.3 mg/dL (1.8-2.4)
[2019-07-03] MEDS: ACETAMINOPHEN/CODEINE 300/30MG TABLET. PO PRN ×3 (05:48→17:54)
[2019-07-03] MEDS: POTASSIUM CHLORIDE 20 MEQ TABLET.ER. PO SCH ×5 (05:48→22:15)
[2019-07-03] MEDS: MEROPENEM 500 MG in IV NORMAL SALINE 50ML 50 ML IV SCH ×3 (05:48→17:47)
--- NOTE | 2019-07-03 06:02 | PDOC ---
Infectious Disease Note Subjective Subjective Feeling better. Fever better. No N/V/D/SOA/Rash Still some pain in LE Some cough with occ sputum but no blood ROS ROS o/w neg Vital Sign Vital Signs Vital Signs Date Time Temp Pulse Resp B/P (MAP) Pulse Ox O2 Delivery O2 Flow Rate FiO2 07/03/19 05:48 19 97 Nasal Cannula 3.0 07/03/19 05:00 85 104/66 (79) 07/03/19 04:00 98.5 98.5 Physical Exam PHYSICAL EXAM CONSTITUTIONAL: Sleeping but awakened easily. She is alert. She is cooperative. She is in no acute distress. She is lying in the bed. She is wearing headphones HEENT: Pupils are equal and reactive. She has normal conjunctivae. Oral cavity and oropharynx, she has a stud- clear NECK: Supple, no JVD. LUNGS: Decreased in the bases. HEART: S1, S2, without murmur. She has a right chest Port-A-Cath without signs of any complications. ABDOMEN: Mildly protuberant, soft. Decreased, but positive bowel sounds. GENITOURINARY: She has a suprapubic catheter without signs of any complications. EXTREMITIES: Without clubbing or cyanosis. She has some trace edema. There is no gross erythema. She has a brace to her left knee. SKIN: Warm to touch without signs of rash. NEUROLOGIC: She is alert, responds to questions. PSYCHIATRIC: Affect is appropriate. Labs Lab Laboratory Tests Test 07/02/19 06:50 07/03/19 03:25 White Blood Count 10.8 x10^3/uL (4.0-11.0) 12.7 x10^3/uL (4.0-11.0) Red Blood Count 2.34 x10^6/uL (3.50-5.40) 2.29 x10^6/uL (3.50-5.40) Hemoglobin 7.8 g/dL (12.0-15.5) 7.6 g/dL (12.0-15.5) Hematocrit 24.0 % (36.0-47.0) 24.0 % (36.0-47.0) Mean Corpuscular Volume 103 fL (79-100) 105 fL (79-100) Mean Corpuscular Hemoglobin 33 pg (25-35) 33 pg (25-35) Mean Corpuscular Hemoglobin Concent 32 g/dL (31-37) 32 g/dL (31-37) Red Cell Distribution Width 16.9 % (11.5-14.5) 17.4 % (11.5-14.5) Platelet Count 205 x10^3/uL (140-400) 202 x10^3/uL (140-400) Neutrophils (%) (Auto) 92 % (31-73) 82 % (31-73) Lymphocytes (%) (Auto) 5 % (24-48) 14 % (24-48) Monocytes (%) (Auto) 3 % (0-9) 4 % (0-9) Eosinophils (%) (Auto) 0 % (0-3) 1 % (0-3) Basophils (%) (Auto) 0 % (0-3) 0 % (0-3) Neutrophils # (Auto) 9.9 x10^3/uL (1.8-7.7) 10.4 x10^3/uL (1.8-7.7) Lymphocytes # (Auto) 0.6 x10^3/uL (1.0-4.8) 1.7 x10^3/uL (1.0-4.8) Monocytes # (Auto) 0.3 x10^3/uL (0.0-1.1) 0.5 x10^3/uL (0.0-1.1) Eosinophils # (Auto) 0.0 x10^3/uL (0.0-0.7) 0.1 x10^3/uL (0.0-0.7) Basophils # (Auto) 0.0 x10^3/uL (0.0-0.2) 0.1 x10^3/uL (0.0-0.2) Sodium Level 146 mmol/L (136-145) 147 mmol/L (136-145) Potassium Level 2.7 mmol/L (3.5-5.1) 3.0 mmol/L (3.5-5.1) Chloride Level 110 mmol/L (98-107) 114 mmol/L (98-107) Carbon Dioxide Level 28 mmol/L (21-32) 27 mmol/L (21-32) Anion Gap 8 (6-14) 6 (6-14) Blood Urea Nitrogen 24 mg/dL (7-20) 17 mg/dL (7-20) Creatinine 1.1 mg/dL (0.6-1.0) 1.0 mg/dL (0.6-1.0) Estimated GFR (Cockcroft-Gault) 54.0 60.2 BUN/Creatinine Ratio 22 (6-20) Glucose Level 144 mg/dL (70-99) 95 mg/dL (70-99) Lactic Acid Level 1.8 mmol/L (0.4-2.0) Calcium Level 7.9 mg/dL (8.5-10.1) 8.0 mg/dL (8.5-10.1) Total Bilirubin 0.3 mg/dL (0.2-1.0) Aspartate Amino Transf (AST/SGOT) 12 U/L (15-37) Alanine Aminotransferase (ALT/SGPT) 13 U/L (14-59) Alkaline Phosphatase 63 U/L (46-116) Total Protein 5.1 g/dL (6.4-8.2) Albumin 2.5 g/dL (3.4-5.0) Albumin/Globulin Ratio 1.0 (1.0-1.7) Vitamin B12 Level 389 pg/mL (247-911) Procalcitonin < 0.10 ng/mL (0.00-0.10) Thyroid Stimulating Hormone (TSH) 0.477 uIU/mL (0.358-3.74) Magnesium Level 2.3 mg/dL (1.8-2.4) Micro Microbiology 07/01/19 Blood Culture - Preliminary, Resulted NO GROWTH AFTER 1 DAY Objective Assessment Leukocytosis - now S/p Solumedrol and hydrocortisone. nml Procalcitonin UTI - POA VENESSA - better Sulfa allergy Hypotension - better Constipation - now BM yet Left lung infiltrates/atelecasis Port a cath H/o C-diff/MRSA Plan Plan of Care Re-Dose Dapto times one today Cont Meropenem/Doxy/Micafungin Labs in am F/u cults Constipation/Electolytes per primary May need SPC changed f/u Urine cult D/w nursing NICK VALENTE MD Jul 03, 2019 06:02
[2019-07-03] MEDS ORDERED: DAPTOmycin (GENERIC) IVPB 580 MG in IV NORMAL SALINE 50ML 50 ML IV ONE (07:00)
[2019-07-03] MEDS: PANTOPRAZOLE 40 MG TABLET.DR. PO SCH (07:48)
[2019-07-03] MEDS: IPRATRPIUM/ALBUTEROL 0.5/2.5MG 3 ML NEBU. NEB SCH ×4 (08:18→20:54)
[2019-07-03] MEDS: MICAFUNGIN 100 MG in IV DEXTROSE 5% 100ML 100 ML IV SCH (08:29)
[2019-07-03] MEDS: ONDANSETRON PF 4 MG/2 ML VIAL. IV PRN (08:31)
[2019-07-03] MEDS: ASCORBIC ACID 500 MG TABLET PO SCH ×3 (09:30→22:14)
[2019-07-03] MEDS: DOXYCYCLINE HYCLATE 100 MG TABLET PO SCH ×2 (09:30→22:16)
[2019-07-03] MEDS: GABAPENTIN 100 MG CAPSULE. PO SCH ×3 (09:30→22:15)
[2019-07-03] MEDS: ASPIRIN 325 MG TABLET PO SCH ×2 (09:30→22:16)
[2019-07-03] MEDS: BISACODYL 5 MG TABLET.DR. PO SCH ×2 (09:30→22:14)
[2019-07-03] MEDS: MULTIVITAMIN with MINERAL TABLET. PO SCH ×2 (09:30→22:14)
[2019-07-03] MEDS: HYDROCORTISONE 10 MG TABLET PO SCH ×2 (09:30→13:52)
[2019-07-03] MEDS: SPIRONOLACTONE 25 MG TABLET PO SCH ×2 (09:31→13:52)
[2019-07-03] MEDS: FLUDROCORTISONE 0.1 MG TABLET PO SCH ×2 (09:31→22:16)
[2019-07-03] MEDS: TOPIRAMATE 25 MG TABLET. PO SCH ×2 (09:31→22:14)
[2019-07-03] MEDS: CYCLOBENZAPRINE 10 MG TABLET. PO SCH ×3 (09:31→22:15)
[2019-07-03] MEDS: DULoxetine HCL 30 MG CAPSULE.DR PO SCH ×2 (09:31→22:14)
--- NOTE | 2019-07-03 09:34 | PDOC ---
CARDIO Progress Notes Date and Time Date of Service 07/03/2019 Time of Evaluation 0910 Subjective Subjective: No Chest Pain, No shortness of breath, No Palpitations Vitals Vitals Vital Signs Date Time Temp Pulse Resp B/P (MAP) Pulse Ox O2 Delivery O2 Flow Rate FiO2 07/03/19 09:00 97 16 99/65 (76) 97 Nasal Cannula 3.0 07/03/19 08:00 98.4 98.4 Weight Weight [ ] Input and Output Intake and Output Intake and Output 07/03/19 07:00 Intake Total 1175 ml Output Total 2050 ml Balance -875 ml Intake Oral 875 ml IV Total 300 ml Output Urine Total 2050 ml Laboratory Labs Laboratory Tests Test 07/03/19 03:25 White Blood Count 12.7 x10^3/uL (4.0-11.0) Red Blood Count 2.29 x10^6/uL (3.50-5.40) Hemoglobin 7.6 g/dL (12.0-15.5) Hematocrit 24.0 % (36.0-47.0) Mean Corpuscular Volume 105 fL (79-100) Mean Corpuscular Hemoglobin 33 pg (25-35) Mean Corpuscular Hemoglobin Concent 32 g/dL (31-37) Red Cell Distribution Width 17.4 % (11.5-14.5) Platelet Count 202 x10^3/uL (140-400) Neutrophils (%) (Auto) 82 % (31-73) Lymphocytes (%) (Auto) 14 % (24-48) Monocytes (%) (Auto) 4 % (0-9) Eosinophils (%) (Auto) 1 % (0-3) Basophils (%) (Auto) 0 % (0-3) Neutrophils # (Auto) 10.4 x10^3/uL (1.8-7.7) Lymphocytes # (Auto) 1.7 x10^3/uL (1.0-4.8) Monocytes # (Auto) 0.5 x10^3/uL (0.0-1.1) Eosinophils # (Auto) 0.1 x10^3/uL (0.0-0.7) Basophils # (Auto) 0.1 x10^3/uL (0.0-0.2) Sodium Level 147 mmol/L (136-145) Potassium Level 3.0 mmol/L (3.5-5.1) Chloride Level 114 mmol/L (98-107) Carbon Dioxide Level 27 mmol/L (21-32) Anion Gap 6 (6-14) Blood Urea Nitrogen 17 mg/dL (7-20) Creatinine 1.0 mg/dL (0.6-1.0) Estimated GFR (Cockcroft-Gault) 60.2 Glucose Level 95 mg/dL (70-99) Calcium Level 8.0 mg/dL (8.5-10.1) Magnesium Level 2.3 mg/dL (1.8-2.4) Microbiology Micro Microbiology 07/01/19 Blood Culture - Preliminary, Resulted NO GROWTH AFTER 1 DAY Physical Exam HEENT: Neck Supple W Full Motion Chest: Symmetric LUNGS: Other (diminished bases) Heart: S1S2, RRR (SR) Abdomen: Soft N/T Extremities: No Calf Tenderness, Other (2+ bilateral LE pitting edema) Neurology: alert, oriented, follow commands Assessment Assessment 1. Hypotension: multifactorial with poor hydration, adrenal insufficiency and infectious process. BP currently stable. EF and WM nml 2. UTI with possible pneumonia 3. VENESSA: low volume, better after IV hydration 4. Hypokalemia: improving, no rhythm ectopies 5. Hx of CVA 6. Addisons disease: per PCP 7. Macrocytic anemia with hepatosplenomegaly: defer to PCP 8. Chronic steroid use 9. Hx of MRSA/C-diff Recommendations 1. Continue IVF. Antibiotic per ID 2. Continue with florinef/solucortef and K supplementation. May need to hold aldactone if BP becomes erratically low again and increase hydrocortisone 3. Nothing further cardiac connelly. will follow along peripherally. 4. Increase activity ELIZABETH WICK APRN Jul 03, 2019 09:34
--- NOTE | 2019-07-03 13:57 | PDOC ---
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, still on IVF replacement, waiting on bed for transfer as hemodynamically stable, still tachycardic though Objective Vitals Vital Signs Date Time Temp Pulse Resp B/P (MAP) Pulse Ox O2 Delivery O2 Flow Rate FiO2 07/03/19 13:00 102 12 104/61 (75) 97 Nasal Cannula 3.0 07/03/19 12:00 98.7 98.7 Input & Output Intake and Output 07/03/19 07:00 Intake Total 1175 ml Output Total 2050 ml Balance -875 ml Intake Oral 875 ml IV Total 300 ml Output Urine Total 2050 ml Ventilator Settings O2 Flow Rate: 3.0 Oxygen Delivery Device: Nasal Cannula Temperature (97-99 F): N/A FiO2: 28 SpO2: 97 DVT Prophylaxis DVT Prophylaxis lovenox Stress Ulcer Prophylaxis Stress Ulcer Prophylaxis pantoprazole Medications Medications Current Medications Alteplase, Recombinant (Cathflo For Central Catheter Clearance) 1 mg 1X ONCE INT CAT ; Start 07/03/19 at 14:00; Stop 07/03/19 at 14:01 Daptomycin 580 mg/ Sodium Chloride 50 ml @ 100 mls/hr ONCE ONCE IV Last administered on 07/03/19at 07:49; Start 07/03/19 at 07:00; Stop 07/03/19 at 07:29; Status DC Physical Exam ROS: No Nausea, No Chest Pain, No Abdominal Pain General: Alert, Oriented X4, No acute distress Lungs: Clear Cardiovascular: S1, S2 Abdomen: Soft, Non-tender Extremities: Other (2-3+ edema) Skin: Warm, Dry Neuro Exam: Alert, Oriented, Normal Speech Impression . 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 fever, sepsis - antibiotics per ID, stable for transfer out of ICU hypotension - resolved with fluid bolus, DC IVF - cardiology following hypokalemia - replace, monitor adrenal insufficiency - supplement dehydration with VENESSA - hydrated IV boluses, resolved lumbar spinal stenosis with neurogenic bowel and bladder symptoms UTI - recurrent with suprapubic catheter recently changed constipation - chronic Jett BRIGHT MD Jul 03, 2019 13:57
[2019-07-03] MEDS ORDERED: ALTEPLASE 1MG SYRINGE. INT CAT ONE ×2 (14:00→15:30)
[2019-07-03] MEDS: traMADol 50 MG TABLET PO PRN ×2 (14:22→22:15)
[2019-07-03] MEDS: ENOXAPARIN 40 MG/0.4 ML SYRINGE. SQ SCH (14:23)
[2019-07-03] MEDS ORDERED: CONTRAST GIVEN. MC PRN (16:00)
--- NOTE | 2019-07-03 16:58 | RAD ---
Chest, PA and Lateral: Technique: PA and lateral views of the chest were obtained. History: Fall. Comparison: 07/01/2019. Findings: Low lung volumes accentuates heart size and pulmonary vascularity. Right-sided Port-A-Cath is unchanged. Faint scattered patchy airspace opacities identified in the bilateral lungs likely atelectasis or infiltrates. Mild degenerative changes thoracic spine. IMPRESSION: Faint patchy scattered airspace opacities identified in the bilateral lungs likely atelectasis or infiltrates. Follow-up to resolution. Electronically signed by: Shivam Connors MD (07/03/2019 4:55 PM) [place] [id number]
[2019-07-03] MEDS: LACTOBACILLUS RHAMNOSUS GG 1 CAPSULE. PO SCH (22:14)
[2019-07-03] MEDS: traZODone 100 MG TABLET. PO SCH (22:14)
[2019-07-03] MEDS: FAMOTIDINE 20 MG TABLET. PO SCH (22:16)
[2019-07-04] MEDS: MEROPENEM 500 MG in IV NORMAL SALINE 50ML 50 ML IV SCH ×4 (00:16→18:00)
[2019-07-04] MEDS: ACETAMINOPHEN/CODEINE 300/30MG TABLET. PO PRN ×2 (00:18→17:58)
[2019-07-04 03:24] VITALS: BP 109/73
[2019-07-04] MEDS: traMADol 50 MG TABLET PO PRN ×3 (06:43→22:42)
[2019-07-04] MEDS: POTASSIUM CHLORIDE 20 MEQ TABLET.ER. PO SCH ×5 (06:43→22:41)
[2019-07-04 07:15] VITALS: BP 117/82
[2019-07-04] MEDS: MICAFUNGIN 100 MG in IV DEXTROSE 5% 100ML 100 ML IV SCH (07:56)
[2019-07-04] MEDS: HYDROCORTISONE 10 MG TABLET PO SCH ×2 (08:00→12:45)
[2019-07-04] MEDS: FLUDROCORTISONE 0.1 MG TABLET PO SCH ×2 (08:01→22:42)
[2019-07-04] MEDS: CYCLOBENZAPRINE 10 MG TABLET. PO SCH ×3 (08:02→22:40)
[2019-07-04] MEDS: TOPIRAMATE 25 MG TABLET. PO SCH ×2 (08:02→22:42)
[2019-07-04] MEDS: BISACODYL 5 MG TABLET.DR. PO SCH ×2 (08:03→22:41)
[2019-07-04] MEDS: DULoxetine HCL 30 MG CAPSULE.DR PO SCH ×2 (08:03→22:42)
[2019-07-04] MEDS: DOXYCYCLINE HYCLATE 100 MG TABLET PO SCH ×2 (08:03→22:41)
[2019-07-04] MEDS: LACTOBACILLUS RHAMNOSUS GG 1 CAPSULE. PO SCH ×2 (08:03→22:41)
[2019-07-04] MEDS: GABAPENTIN 100 MG CAPSULE. PO SCH ×3 (08:04→22:41)
[2019-07-04] MEDS: ASCORBIC ACID 500 MG TABLET PO SCH ×3 (08:04→22:41)
[2019-07-04] MEDS: PANTOPRAZOLE 40 MG TABLET.DR. PO SCH (08:04)
[2019-07-04] MEDS: ENOXAPARIN 40 MG/0.4 ML SYRINGE. SQ SCH ×2 (08:06→22:42)
[2019-07-04] MEDS: ASPIRIN 325 MG TABLET PO SCH ×2 (08:08→22:41)
[2019-07-04] MEDS: MULTIVITAMIN with MINERAL TABLET. PO SCH ×2 (08:08→22:41)
[2019-07-04] MEDS: IPRATRPIUM/ALBUTEROL 0.5/2.5MG 3 ML NEBU. NEB SCH ×4 (08:14→20:35)
[2019-07-04 10:53] VITALS: BP 111/70
--- NOTE | 2019-07-04 11:17 | PDOC ---
Infectious Disease Note Subjective Subjective Feeling better. Fever better. No N/V/D/SOA/Rash Still some pain in LE Some cough with occ sputum but no blood ROS ROS o/w neg Vital Sign Vital Signs Vital Signs Date Time Temp Pulse Resp B/P (MAP) Pulse Ox O2 Delivery O2 Flow Rate FiO2 07/04/19 10:53 98.4 89 18 111/70 (84) 94 Nasal Cannula 3.0 98.4 Physical Exam PHYSICAL EXAM CONSTITUTIONAL: In chair and NAD< She is alert. She is cooperative. Looks better HEENT: Pupils are equal and reactive. She has normal conjunctivae. Oral cavity and oropharynx, she has a stud- clear NECK: Supple, no JVD. LUNGS: Decreased in the bases. HEART: S1, S2, without murmur. She has a right chest Port-A-Cath without signs of any complications. ABDOMEN: Mildly protuberant, soft. Decreased, but positive bowel sounds. GENITOURINARY: She has a suprapubic catheter without signs of any complications. EXTREMITIES: Without clubbing or cyanosis. She has some trace edema. There is no gross erythema. She has a brace to her left knee. SKIN: Warm to touch without signs of rash. NEUROLOGIC: She is alert, responds to questions. PSYCHIATRIC: Affect is appropriate. Labs Micro Microbiology 07/01/19 Blood Culture - Preliminary, Resulted NO GROWTH AFTER 1 DAY Objective Assessment Leukocytosis - now S/p Solumedrol and hydrocortisone. nml Procalcitonin UTI - POA - Ecoli - 07/01 VENESSA - better Sulfa allergy Hypotension - better Constipation - now BM yet Left lung infiltrates/atelecasis Port a cath H/o C-diff/MRSA Plan Plan of Care Re-Dose Dapto times 07/03 will not redose Cont Meropenem/Doxy/Micafungin Labs in am F/u urine cults then change SPC if on appropriate abx Constipation/Electolytes per primary D/w nursing NICK VALENTE MD Jul 04, 2019 11:17
[2019-07-04] MEDS: ONDANSETRON PF 4 MG/2 ML VIAL. IV PRN ×2 (12:45→18:41)
[2019-07-04 15:11] VITALS: BP 99/56
[2019-07-04 15:50] LABS: BASO # 0.1 x10^3/uL (0.0-0.2); BASO % 1 % (0-3); EOS # 0.1 x10^3/uL (0.0-0.7); EOS % 1 % (0-3); HEMATOCRIT 25.1 % (36.0-47.0); HEMOGLOBIN 8.2 g/dL (12.0-15.5); LYMPH # 0.8 x10^3/uL (1.0-4.8); LYMPH % 8 % (24-48); MEAN CORPUSCULAR HEMOGLOBIN 34 pg (25-35); MEAN CORPUSCULAR HGB CONC 33 g/dL (31-37); MEAN CORPUSCULAR VOLUME 104 fL (79-100); MONO # 0.4 x10^3/uL (0.0-1.1); MONO % 4 % (0-9); NEUT # 8.4 x10^3/uL (1.8-7.7); NEUT % 86 % (31-73); PLATELET COUNT 211 x10^3/uL (140-400); RED BLOOD COUNT 2.42 x10^6/uL (3.50-5.40); RED CELL DISTRIBUTION WIDTH 16.4 % (11.5-14.5); WHITE BLOOD COUNT 9.8 x10^3/uL (4.0-11.0)
[2019-07-04 16:01] LABS: CALCIUM 7.9 mg/dL (8.5-10.1); GFR 60.2; POTASSIUM 4.1 mmol/L (3.5-5.1)
[2019-07-04 16:09] LABS: % BANDS 2 % (0-9); % BASOS 1 % (0-3); % LYMPHS 9 % (24-48); % MONOS 1 % (0-10); % MYELOS 1 % (0-0); % SEGS 86 % (35-66); PLT ESTIMATE ADEQUATE (ADEQUATE)
--- NOTE | 2019-07-04 17:33 | PDOC ---
PROGRESS NOTES Subjective Still edematous, feeling better, urine noted, she has BM Objective General: A&O, comfortable Heart: RRR Lungs: no rhonchi Abd: soft, non tender Ext: edematous urine cx - E. coli Vital Signs Vital Signs Date Time Temp Pulse Resp B/P (MAP) Pulse Ox O2 Delivery O2 Flow Rate FiO2 07/04/19 15:42 Nasal Cannula 2.0 07/04/19 15:11 98.2 109 20 99/56 (70) 95 98.2 I & O Intake and Output 07/04/19 06:59 Intake Total 1570 ml Output Total 950 ml Balance 620 ml Intake Oral 1370 ml IV Total 200 ml Output Urine Total 950 ml # Bowel Movements 1 Assessment and Plan Problems Medical Problems: (1) Acute on chronic renal failure Status: Acute (2) Addisonian crisis - s/p IV hydrocortisone - back on oral dose Status: Acute (3) VENESSA (acute kidney injury) - resolved Status: Acute (4) Anemia - stable Status: Acute (5) CAP (community acquired pneumonia) Status: Acute (6) Constipated Status: Chronic (7) Constipation Status: Acute (8) Dehydration Status: Acute (9) Fever Status: Acute (10) Hypotension Status: Acute (11) Lower extremity edema Status: Acute (12) Opiate overdose Status: Acute (13) Pedal edema Status: Acute (14) Sepsis - hemodynamically stable now Status: Acute (15) UTI (urinary tract infection) due to urinary indwelling catheter e. coli - continue antibiotics per ID Status: Acute Jett BRIGHT MD Jul 04, 2019 17:33
[2019-07-04 19:15] VITALS: BP 106/66
[2019-07-04] MEDS ORDERED: SPIRONOLACTONE 25 MG TABLET PO SCH (21:00)
[2019-07-04] MEDS: traZODone 100 MG TABLET. PO SCH (22:42)
[2019-07-04] MEDS: FAMOTIDINE 20 MG TABLET. PO SCH (22:42)
[2019-07-04 23:15] VITALS: BP 99/57
[2019-07-05] MEDS: MEROPENEM 500 MG in IV NORMAL SALINE 50ML 50 ML IV SCH ×4 (01:11→17:23)
[2019-07-05] MEDS: ACETAMINOPHEN/CODEINE 300/30MG TABLET. PO PRN ×3 (01:14→17:30)
[2019-07-05 03:15] VITALS: BP 115/63
[2019-07-05] MEDS: traMADol 50 MG TABLET PO PRN ×3 (06:35→22:16)
[2019-07-05] MEDS: POTASSIUM CHLORIDE 20 MEQ TABLET.ER. PO SCH ×5 (06:36→22:15)
[2019-07-05 07:00] VITALS: BP 118/72
[2019-07-05] MEDS: IPRATRPIUM/ALBUTEROL 0.5/2.5MG 3 ML NEBU. NEB SCH ×4 (08:00→20:20)
--- NOTE | 2019-07-05 09:22 | PDOC ---
Infectious Disease Note Subjective Subjective Feeling better. Fever better. No N/V/D/SOA/Rash Pain LE better Some cough with occ sputum but no blood - better ROS ROS o/w neg Vital Sign Vital Signs Vital Signs Date Time Temp Pulse Resp B/P (MAP) Pulse Ox O2 Delivery O2 Flow Rate FiO2 07/05/19 09:02 18 Nasal Cannula 3.0 07/05/19 07:00 99.6 95 118/72 (87) 93 99.6 Physical Exam PHYSICAL EXAM CONSTITUTIONAL: In bed and NAD. She is alert. She is cooperative. Looks much better HEENT: Pupils are equal and reactive. She has normal conjunctivae. Oral cavity and oropharynx, she has a stud- clear NECK: Supple, no JVD. LUNGS: Decreased in the bases. HEART: S1, S2, without murmur. She has a right chest Port-A-Cath without signs of any complications. ABDOMEN: Mildly protuberant, soft. Decreased, but positive bowel sounds. GENITOURINARY: She has a suprapubic catheter without signs of any complications. EXTREMITIES: Without clubbing or cyanosis. She has some trace edema. There is no gross erythema. She has a brace to her left knee. SKIN: Warm to touch without signs of rash. NEUROLOGIC: She is alert, responds to questions. PSYCHIATRIC: Affect is appropriate. Labs Lab Laboratory Tests Test 07/04/19 15:40 White Blood Count 9.8 x10^3/uL (4.0-11.0) Red Blood Count 2.42 x10^6/uL (3.50-5.40) Hemoglobin 8.2 g/dL (12.0-15.5) Hematocrit 25.1 % (36.0-47.0) Mean Corpuscular Volume 104 fL (79-100) Mean Corpuscular Hemoglobin 34 pg (25-35) Mean Corpuscular Hemoglobin Concent 33 g/dL (31-37) Red Cell Distribution Width 16.4 % (11.5-14.5) Platelet Count 211 x10^3/uL (140-400) Neutrophils (%) (Auto) 86 % (31-73) Lymphocytes (%) (Auto) 8 % (24-48) Monocytes (%) (Auto) 4 % (0-9) Eosinophils (%) (Auto) 1 % (0-3) Basophils (%) (Auto) 1 % (0-3) Neutrophils # (Auto) 8.4 x10^3/uL (1.8-7.7) Lymphocytes # (Auto) 0.8 x10^3/uL (1.0-4.8) Monocytes # (Auto) 0.4 x10^3/uL (0.0-1.1) Eosinophils # (Auto) 0.1 x10^3/uL (0.0-0.7) Basophils # (Auto) 0.1 x10^3/uL (0.0-0.2) Segmented Neutrophils % 86 % (35-66) Band Neutrophils % 2 % (0-9) Lymphocytes % 9 % (24-48) Monocytes % 1 % (0-10) Basophils % 1 % (0-3) Myelocytes % 1 % (0-0) Platelet Estimate Adequate (ADEQUATE) Sodium Level 144 mmol/L (136-145) Potassium Level 4.1 mmol/L (3.5-5.1) Chloride Level 112 mmol/L (98-107) Carbon Dioxide Level 28 mmol/L (21-32) Anion Gap 4 (6-14) Blood Urea Nitrogen 12 mg/dL (7-20) Creatinine 1.0 mg/dL (0.6-1.0) Estimated GFR (Cockcroft-Gault) 60.2 Glucose Level 132 mg/dL (70-99) Calcium Level 7.9 mg/dL (8.5-10.1) Micro Microbiology 07/01/19 Blood Culture - Preliminary, Resulted NO GROWTH AFTER 1 DAY Objective Assessment Leukocytosis - now S/p Solumedrol and hydrocortisone. nml Procalcitonin UTI - POA - Ecoli - 07/01 VENESSA - better Sulfa allergy Hypotension - better Constipation - now BM yet Left lung infiltrates/atelecasis Port a cath H/o C-diff/MRSA Plan Plan of Care Re-Dosed Dapto times 07/03 will not redose Cont Meropenem/Doxy/ Micafungin wean reginaldo soon Labs in am Change SPC today as she is improving Constipation/Electolytes per primary F/u sensitivities D/w nursing NICK VALENTE MD Jul 05, 2019 09:22
[2019-07-05] MEDS: HYDROCORTISONE 10 MG TABLET PO SCH ×2 (09:25→14:05)
[2019-07-05] MEDS: DULoxetine HCL 30 MG CAPSULE.DR PO SCH ×2 (09:25→22:14)
[2019-07-05] MEDS: ASPIRIN 325 MG TABLET PO SCH ×2 (09:25→22:14)
[2019-07-05] MEDS: FLUDROCORTISONE 0.1 MG TABLET PO SCH ×2 (09:25→22:16)
[2019-07-05] MEDS: ASCORBIC ACID 500 MG TABLET PO SCH ×3 (09:27→22:14)
[2019-07-05] MEDS: DOXYCYCLINE HYCLATE 100 MG TABLET PO SCH ×2 (09:27→22:15)
[2019-07-05] MEDS: TOPIRAMATE 25 MG TABLET. PO SCH ×2 (09:27→22:13)
[2019-07-05] MEDS: MULTIVITAMIN with MINERAL TABLET. PO SCH ×2 (09:27→22:13)
[2019-07-05] MEDS: PANTOPRAZOLE 40 MG TABLET.DR. PO SCH (09:27)
[2019-07-05] MEDS: GABAPENTIN 100 MG CAPSULE. PO SCH ×3 (09:27→22:14)
[2019-07-05] MEDS: CYCLOBENZAPRINE 10 MG TABLET. PO SCH ×3 (09:28→22:14)
[2019-07-05] MEDS: LACTOBACILLUS RHAMNOSUS GG 1 CAPSULE. PO SCH ×2 (09:28→22:14)
[2019-07-05] MEDS: BISACODYL 5 MG TABLET.DR. PO SCH ×2 (09:28→22:14)
[2019-07-05] MEDS: MICAFUNGIN 100 MG in IV DEXTROSE 5% 100ML 100 ML IV SCH (09:29)
[2019-07-05] MEDS: ENOXAPARIN 40 MG/0.4 ML SYRINGE. SQ SCH ×2 (09:29→22:13)
[2019-07-05 11:00] VITALS: BP 128/83
[2019-07-05 15:00] VITALS: BP 122/70
--- NOTE | 2019-07-05 17:06 | PDOC ---
PROGRESS NOTES Subjective Urine C&S back, had suprapubic catheter changed, still on IV abx, looks more puffy today in hands, LE edema better with bedrest, having meniscal knee procedure today, she would like to be home for him Objective 99.6 Tmax General: comfortable Heart: RRR Lungs: CTA Abd: soft Ext: 1+ edema Vital Signs Vital Signs Date Time Temp Pulse Resp B/P (MAP) Pulse Ox O2 Delivery O2 Flow Rate FiO2 07/05/19 15:14 95 Nasal Cannula 2.0 07/05/19 15:00 99.2 91 20 122/70 (87) 99.2 I & O Intake and Output 07/05/19 07:00 Intake Total 1060 ml Output Total 2600 ml Balance -1540 ml Intake Oral 1060 ml Output Urine Total 2600 ml Assessment and Plan fever, sepsis - antibiotics per ID, improved and transferred out of ICU 07/03 hypotension - resolved with fluid bolus, DC IVF - cardiology followed hypokalemia - replaced, monitor adrenal insufficiency - supplemented dehydration with VENESSA - hydrated IV boluses, resolved lumbar spinal stenosis with neurogenic bowel and bladder symptoms UTI - E.coli with multi resistance, suprapubic catheter changed 07/05 constipation - chronic Jett BRIGHT MD Jul 05, 2019 17:06
[2019-07-05] MEDS ORDERED: FUROSEMIDE 40 MG/4 ML VIAL. IVP ONE (17:30)
[2019-07-05 19:06] VITALS: BP 104/68
[2019-07-05] MEDS: FAMOTIDINE 20 MG TABLET. PO SCH (22:15)
[2019-07-05] MEDS: traZODone 100 MG TABLET. PO SCH (22:15)
[2019-07-05 23:10] VITALS: BP 130/82
[2019-07-06] MEDS: MEROPENEM 500 MG in IV NORMAL SALINE 50ML 50 ML IV SCH ×4 (00:30→17:19)
[2019-07-06] MEDS: ACETAMINOPHEN/CODEINE 300/30MG TABLET. PO PRN ×3 (00:32→17:18)
[2019-07-06 03:37] VITALS: BP 123/69
[2019-07-06] MEDS: traMADol 50 MG TABLET PO PRN ×2 (05:03→21:24)
[2019-07-06] MEDS: PANTOPRAZOLE 40 MG TABLET.DR. PO SCH (05:03)
[2019-07-06] MEDS: POTASSIUM CHLORIDE 20 MEQ TABLET.ER. PO SCH ×5 (05:04→21:23)
[2019-07-06 07:40] VITALS: BP 137/97
[2019-07-06] MEDS: IPRATRPIUM/ALBUTEROL 0.5/2.5MG 3 ML NEBU. NEB SCH ×4 (09:01→18:18)
[2019-07-06] MEDS: ASPIRIN 325 MG TABLET PO SCH ×2 (09:12→21:22)
[2019-07-06] MEDS: DULoxetine HCL 30 MG CAPSULE.DR PO SCH ×2 (09:12→21:22)
[2019-07-06] MEDS: ASCORBIC ACID 500 MG TABLET PO SCH ×3 (09:12→21:23)
[2019-07-06] MEDS: GABAPENTIN 100 MG CAPSULE. PO SCH ×3 (09:12→21:21)
[2019-07-06] MEDS: MULTIVITAMIN with MINERAL TABLET. PO SCH ×2 (09:12→21:21)
[2019-07-06] MEDS: HYDROCORTISONE 10 MG TABLET PO SCH ×2 (09:12→14:56)
[2019-07-06] MEDS: LACTOBACILLUS RHAMNOSUS GG 1 CAPSULE. PO SCH ×2 (09:12→21:22)
[2019-07-06] MEDS: BISACODYL 5 MG TABLET.DR. PO SCH ×2 (09:13→21:21)
[2019-07-06] MEDS: TOPIRAMATE 25 MG TABLET. PO SCH ×2 (09:13→21:22)
[2019-07-06] MEDS: DOXYCYCLINE HYCLATE 100 MG TABLET PO SCH ×2 (09:13→21:21)
[2019-07-06] MEDS: CYCLOBENZAPRINE 10 MG TABLET. PO SCH ×3 (09:13→21:22)
[2019-07-06] MEDS: MICAFUNGIN 100 MG in IV DEXTROSE 5% 100ML 100 ML IV SCH (09:14)
[2019-07-06] MEDS: ENOXAPARIN 40 MG/0.4 ML SYRINGE. SQ SCH ×2 (09:14→21:21)
[2019-07-06 11:00] VITALS: BP 126/84
--- NOTE | 2019-07-06 11:12 | PDOC ---
Infectious Disease Note Subjective Subjective SPC changed earlier Feeling somewhat yucky No fevers Vital Sign Vital Signs Vital Signs Date Time Temp Pulse Resp B/P (MAP) Pulse Ox O2 Delivery O2 Flow Rate FiO2 07/06/19 09:36 19 98 Nasal Cannula 2.0 07/06/19 07:40 98.8 87 137/97 (110) 98.8 Physical Exam PHYSICAL EXAM GENERAL: Lying down, alert w/headphones on HEENT: Oral cavity pink, moist. tongue & eyebrow piercings NECK: Supple, no JVD. LUNGS: Decreased in the bases. HEART: S1, S2, without murmur. ABDOMEN: Mildly protuberant, soft. Decreased, but positive bowel sounds. GENITOURINARY: SPC (07/06) - clean EXTREMITIES: Without clubbing or cyanosis. She has some trace edema. T SKIN: Warm to touch without signs of rash. NEUROLOGIC: Alert, responds to questions. Port-a-cath clean Labs Micro 07/01/19 Blood Culture - Preliminary, Resulted NO GROWTH AFTER 4 DAYS URINE CULTURE RES 1 Final Escherichia coli Greater than 100,000 colony forming units per mL Greater than 100,000 colony forming units per mL Susceptibility profile is consistent with a probable ESBL. Antibiotic RSLT#1 Amoxicillin/Clavulanic Acid R>=32 Ampicillin R>=32 Cefazolin R>=64 Cefepime S =0.5 Ceftriaxone R>=64 Cefuroxime R>=64 Ciprofloxacin S<=0.25 Gentamicin S<=1 Imipenem S<=0.25 Levofloxacin S<=0.12 Meropenem S<=0.25 Nitrofurantoin R =128 Piperacillin/Tazobactam R>=128 Tetracycline S =2 Tobramycin S<=1 Trimethoprim/Sulfa S<=20 Objective Assessment Leukocytosis - better UTI - POA - E coli - 07/01, probable ESBL VENESSA - better Sulfa allergy Hypotension - better Constipation Left lung infiltrates/atelectasis Port a cath H/o C-diff/MRSA Plan Plan of Care Cont Meropenem, Doxy, Micafungin wean reginaldo soon Probiotics Contact isolation Attending Co-Sign The patient was seen and interviewed as well as examined at the bedside. The chart was reviewed. The case was discussed. Agree with the plan of care. TAYO RUIZ APRN Jul 06, 2019 11:12 BENJAMÍN GORE MD Jul 06, 2019 12:23
[2019-07-06] MEDS: FLUDROCORTISONE 0.1 MG TABLET PO SCH ×2 (12:03→21:22)
[2019-07-06] MEDS: ONDANSETRON ODT 4 MG TAB.RAPDIS. PO PRN (12:08)
--- NOTE | 2019-07-06 13:11 | PDOC ---
PROGRESS NOTES Subjective Still on IV abs for ESBL E. coli UTI, c/o worsening right shoulder pain, she had a fall prior to admission. She has some nausea yesterday but eating, good BM yesterday, suprapubic catheter changed yesterday Objective General: getting neb tx, A&O Heart: RRR Lungs: CTA Abd: soft, non tender Ext: less edema MS: very limited and painful ROM of right shoulder, wearing knee brace Vital Signs Vital Signs Date Time Temp Pulse Resp B/P (MAP) Pulse Ox O2 Delivery O2 Flow Rate FiO2 07/06/19 12:50 Nasal Cannula 2.0 07/06/19 09:36 19 98 07/06/19 07:40 98.8 87 137/97 (110) 98.8 I & O Intake and Output 07/06/19 07:00 Intake Total 1150 ml Output Total 4900 ml Balance -3750 ml Intake Oral 1150 ml Output Urine Total 4900 ml # Voids 1 # Bowel Movements 1 Assessment and Plan Problems Medical Problems: (1) Acute on chronic renal failure Status: Acute (2) Addisonian crisis Status: Acute (3) VENESSA (acute kidney injury) Status: Acute (4) Anemia Status: Acute (5) CAP (community acquired pneumonia) Status: Acute (6) Constipated Status: Chronic (7) Constipation Status: Acute (8) Dehydration Status: Acute (9) Fever Status: Acute (10) Hypotension Status: Acute (11) Lower extremity edema Status: Acute (12) Opiate overdose Status: Acute (13) Pedal edema Status: Acute (14) Sepsis Status: Acute (15) UTI (urinary tract infection) due to urinary indwelling catheter Status: Acute fever, sepsis - antibiotics per ID, ESBL E.coli UTI, improved and transferred out of ICU 07/03 hypotension - resolved with fluid bolus, DC IVF - cardiology followed hypokalemia - replaced, monitor adrenal insufficiency - supplemented dehydration with VENESSA - hydrated IV boluses, resolved lumbar spinal stenosis with neurogenic bowel and bladder symptoms UTI - E.coli with multi resistance, suprapubic catheter changed 07/05 constipation - chronic right shoulder pain - Xray, therapy, MRI as OP Jett BRIGHT MD Jul 06, 2019 13:11
--- NOTE | 2019-07-06 13:40 | RAD ---
Indication: Pain after fall TECHNIQUE: Multiple views of the right shoulder COMPARISON: None Findings/ impression: No acute fracture or dislocation. Electronically signed by: Adalid Pennington DO (07/06/2019 1:37 PM) [facility]
[2019-07-06 15:16] VITALS: BP 136/83
[2019-07-06 19:05] VITALS: BP 103/59
[2019-07-06] MEDS: FAMOTIDINE 20 MG TABLET. PO SCH (21:22)
[2019-07-06] MEDS: traZODone 100 MG TABLET. PO SCH (21:23)
[2019-07-06 23:00] VITALS: BP 113/63
[2019-07-07] VITALS (7 sets, daily range): BP systolic 113–142; BP diastolic 57–81
[2019-07-07] MEDS: MEROPENEM 500 MG in IV NORMAL SALINE 50ML 50 ML IV SCH ×4 (00:29→17:57)
[2019-07-07] MEDS: ACETAMINOPHEN/CODEINE 300/30MG TABLET. PO PRN ×2 (00:29→12:38)
[2019-07-07] MEDS: traMADol 50 MG TABLET PO PRN ×3 (03:33→17:56)
[2019-07-07] MEDS: POTASSIUM CHLORIDE 20 MEQ TABLET.ER. PO SCH ×5 (05:35→21:07)
[2019-07-07 06:28] LABS: BASO # 0.1 x10^3/uL (0.0-0.2); BASO % 1 % (0-3); EOS # 0.3 x10^3/uL (0.0-0.7); EOS % 4 % (0-3); HEMATOCRIT 25.9 % (36.0-47.0); HEMOGLOBIN 8.2 g/dL (12.0-15.5); LYMPH % 29 % (24-48); MEAN CORPUSCULAR HEMOGLOBIN 33 pg (25-35); MEAN CORPUSCULAR HGB CONC 32 g/dL (31-37); MEAN CORPUSCULAR VOLUME 104 fL (79-100); MONO # 0.3 x10^3/uL (0.0-1.1); MONO % 5 % (0-9); NEUT # 4.3 x10^3/uL (1.8-7.7); NEUT % 62 % (31-73); PLATELET COUNT 183 x10^3/uL (140-400); RED CELL DISTRIBUTION WIDTH 15.5 % (11.5-14.5)
[2019-07-07 06:46] LABS: CALCIUM 8.4 mg/dL (8.5-10.1); CREATININE 0.7 mg/dL (0.6-1.0); GFR 90.9; MAGNESIUM 2.3 mg/dL (1.8-2.4); POTASSIUM 3.6 mmol/L (3.5-5.1)
[2019-07-07] MEDS: IPRATRPIUM/ALBUTEROL 0.5/2.5MG 3 ML NEBU. NEB SCH ×4 (09:01→19:59)
[2019-07-07] MEDS: MULTIVITAMIN with MINERAL TABLET. PO SCH ×2 (09:03→21:07)
[2019-07-07] MEDS: ENOXAPARIN 40 MG/0.4 ML SYRINGE. SQ SCH ×2 (09:03→21:08)
[2019-07-07] MEDS: ASPIRIN 325 MG TABLET PO SCH ×2 (09:03→21:07)
[2019-07-07] MEDS: CYCLOBENZAPRINE 10 MG TABLET. PO SCH ×3 (09:03→21:07)
[2019-07-07] MEDS: LACTOBACILLUS RHAMNOSUS GG 1 CAPSULE. PO SCH ×2 (09:04→21:07)
[2019-07-07] MEDS: BISACODYL 5 MG TABLET.DR. PO SCH ×2 (09:04→21:07)
[2019-07-07] MEDS: TOPIRAMATE 25 MG TABLET. PO SCH ×2 (09:04→21:08)
[2019-07-07] MEDS: DULoxetine HCL 30 MG CAPSULE.DR PO SCH ×2 (09:04→21:07)
[2019-07-07] MEDS: DOXYCYCLINE HYCLATE 100 MG TABLET PO SCH ×2 (09:05→21:07)
[2019-07-07] MEDS: ASCORBIC ACID 500 MG TABLET PO SCH ×3 (09:06→21:07)
[2019-07-07] MEDS: MICAFUNGIN 100 MG in IV DEXTROSE 5% 100ML 100 ML IV SCH (09:06)
[2019-07-07] MEDS: PANTOPRAZOLE 40 MG TABLET.DR. PO SCH (09:06)
[2019-07-07] MEDS: GABAPENTIN 100 MG CAPSULE. PO SCH ×3 (09:08→21:07)
[2019-07-07] MEDS: HYDROCORTISONE 10 MG TABLET PO SCH ×2 (09:29→14:23)
[2019-07-07] MEDS: FLUDROCORTISONE 0.1 MG TABLET PO SCH ×2 (09:30→21:08)
--- NOTE | 2019-07-07 10:24 | PDOC ---
PROGRESS NOTES Subjective She wants a cigarette and gets anxious when she can't smoke, she is still having right shoulder pain, therapy recommending an MRI, no BM yesterday, no SPC issues since it was changed, tolerating IV antibiotics Objective Afebrile General: NAD Heart: RRR Lungs: CTA Abd: soft, non distended Ext: minimal edema K+: 3.6 Creat: 0.7 Vital Signs Vital Signs Date Time Temp Pulse Resp B/P (MAP) Pulse Ox O2 Delivery O2 Flow Rate FiO2 07/07/19 09:02 Nasal Cannula 2.0 07/07/19 07:27 98.1 88 18 124/69 (87) 92 98.1 I & O Intake and Output 07/07/19 07:00 Intake Total 540 ml Output Total 1950 ml Balance -1410 ml Intake Oral 440 ml IV Total 100 ml Output Urine Total 1950 ml Assessment and Plan fever, sepsis - antibiotics per ID, ESBL E.coli UTI, improved and transferred out of ICU 07/03 hypotension - resolved with fluid bolus, DC IVF - cardiology followed hypokalemia - replaced, monitor adrenal insufficiency - supplemented dehydration with VENESSA - hydrated IV boluses, resolved lumbar spinal stenosis with neurogenic bowel and bladder symptoms - continue therapy, SNU UTI - E.coli with multi resistance, suprapubic catheter changed 07/05 constipation - chronic right shoulder pain - Xray, therapy, MRI as OP Jett BRIGHT MD Jul 07, 2019 10:24
--- NOTE | 2019-07-07 11:18 | PDOC ---
Infectious Disease Note Subjective Subjective Says unable to draw blood from port. No redness/pain + shoulder pain No fevers/chills/N/V/D/SOA/cough ROS ROS per HPI Vital Sign Vital Signs Vital Signs Date Time Temp Pulse Resp B/P (MAP) Pulse Ox O2 Delivery O2 Flow Rate FiO2 07/07/19 09:02 Nasal Cannula 2.0 07/07/19 07:27 98.1 88 18 124/69 (87) 92 98.1 Physical Exam PHYSICAL EXAM GENERAL: Lying down, alert, appears comfortable HEENT: Oral cavity pink, moist. tongue & eyebrow piercings NECK: Supple LUNGS: Decreased in the bases. HEART: S1, S2, without murmur. ABDOMEN: Mildly protuberant, soft, positive bowel sounds. GENITOURINARY: SPC (07/06) - clean EXTREMITIES: Without clubbing or cyanosis. Trace edema. SKIN: Warm to touch without signs of rash. NEUROLOGIC: Alert, responds to questions. Port-a-cath clean Labs Lab Laboratory Tests Test 07/07/19 05:20 White Blood Count 7.0 x10^3/uL (4.0-11.0) Red Blood Count 2.50 x10^6/uL (3.50-5.40) Hemoglobin 8.2 g/dL (12.0-15.5) Hematocrit 25.9 % (36.0-47.0) Mean Corpuscular Volume 104 fL (79-100) Mean Corpuscular Hemoglobin 33 pg (25-35) Mean Corpuscular Hemoglobin Concent 32 g/dL (31-37) Red Cell Distribution Width 15.5 % (11.5-14.5) Platelet Count 183 x10^3/uL (140-400) Neutrophils (%) (Auto) 62 % (31-73) Lymphocytes (%) (Auto) 29 % (24-48) Monocytes (%) (Auto) 5 % (0-9) Eosinophils (%) (Auto) 4 % (0-3) Basophils (%) (Auto) 1 % (0-3) Neutrophils # (Auto) 4.3 x10^3/uL (1.8-7.7) Lymphocytes # (Auto) 2.0 x10^3/uL (1.0-4.8) Monocytes # (Auto) 0.3 x10^3/uL (0.0-1.1) Eosinophils # (Auto) 0.3 x10^3/uL (0.0-0.7) Basophils # (Auto) 0.1 x10^3/uL (0.0-0.2) Sodium Level 143 mmol/L (136-145) Potassium Level 3.6 mmol/L (3.5-5.1) Chloride Level 110 mmol/L (98-107) Carbon Dioxide Level 26 mmol/L (21-32) Anion Gap 7 (6-14) Blood Urea Nitrogen 10 mg/dL (7-20) Creatinine 0.7 mg/dL (0.6-1.0) Estimated GFR (Cockcroft-Gault) 90.9 Glucose Level 82 mg/dL (70-99) Calcium Level 8.4 mg/dL (8.5-10.1) Magnesium Level 2.3 mg/dL (1.8-2.4) Micro 07/01/19 Blood Culture - Preliminary, Resulted NO GROWTH AFTER 4 DAYS URINE CULTURE RES 1 Final Escherichia coli Greater than 100,000 colony forming units per mL Greater than 100,000 colony forming units per mL Susceptibility profile is consistent with a probable ESBL. Antibiotic RSLT#1 Amoxicillin/Clavulanic Acid R>=32 Ampicillin R>=32 Cefazolin R>=64 Cefepime S =0.5 Ceftriaxone R>=64 Cefuroxime R>=64 Ciprofloxacin S<=0.25 Gentamicin S<=1 Imipenem S<=0.25 Levofloxacin S<=0.12 Meropenem S<=0.25 Nitrofurantoin R =128 Piperacillin/Tazobactam R>=128 Tetracycline S =2 Tobramycin S<=1 Trimethoprim/Sulfa S<=20 Objective Assessment Leukocytosis - better CAUTI - POA - E coli - 07/01, probable ESBL VENESSA - better Sulfa allergy Hypotension - better Constipation Left lung infiltrates/atelectasis Port a cath H/o C-diff/MRSA Plan Plan of Care Cont Meropenem (07/02) and Doxy (07/02) D/c Micafungin Probiotics Contact isolation D/w Dr. Zepeda Attending Co-Sign The patient was seen and interviewed as well as examined at the bedside. The chart was reviewed. The case was discussed. Agree with the plan of care. TAYO RUIZ APRN Jul 07, 2019 11:18 BENJAMÍN GORE MD Jul 07, 2019 11:23
[2019-07-07] MEDS: ALPRAZolam 0.25 MG TABLET PO PRN (12:44)
[2019-07-07] MEDS: FAMOTIDINE 20 MG TABLET. PO SCH (21:07)
[2019-07-07] MEDS: traZODone 100 MG TABLET. PO SCH (21:07)
[2019-07-08] MEDS: MEROPENEM 500 MG in IV NORMAL SALINE 50ML 50 ML IV SCH ×2 (00:56→05:47)
[2019-07-08 03:12] VITALS: BP 133/67
[2019-07-08] MEDS: POTASSIUM CHLORIDE 20 MEQ TABLET.ER. PO SCH ×5 (05:47→20:39)
[2019-07-08] MEDS: ACETAMINOPHEN/CODEINE 300/30MG TABLET. PO PRN ×3 (05:48→20:53)
[2019-07-08] MEDS: ALPRAZolam 0.25 MG TABLET PO PRN (05:48)
[2019-07-08 07:00] VITALS: BP 160/103
[2019-07-08 07:12] LABS: CALCIUM 8.7 mg/dL (8.5-10.1); CREATININE 0.7 mg/dL (0.6-1.0); GFR 90.9; POTASSIUM 3.8 mmol/L (3.5-5.1)
[2019-07-08] MEDS: IPRATRPIUM/ALBUTEROL 0.5/2.5MG 3 ML NEBU. NEB SCH ×4 (07:30→19:52)
[2019-07-08] MEDS: CYCLOBENZAPRINE 10 MG TABLET. PO SCH ×3 (09:21→20:39)
[2019-07-08] MEDS: DOXYCYCLINE HYCLATE 100 MG TABLET PO SCH (09:21)
[2019-07-08] MEDS: GABAPENTIN 100 MG CAPSULE. PO SCH ×3 (09:22→20:38)
[2019-07-08] MEDS: BISACODYL 5 MG TABLET.DR. PO SCH ×2 (09:22→20:38)
[2019-07-08] MEDS: DULoxetine HCL 30 MG CAPSULE.DR PO SCH ×2 (09:22→20:39)
[2019-07-08] MEDS: HYDROCORTISONE 10 MG TABLET PO SCH ×2 (09:22→13:46)
[2019-07-08] MEDS: ASPIRIN 325 MG TABLET PO SCH ×2 (09:22→20:38)
[2019-07-08] MEDS: LACTOBACILLUS RHAMNOSUS GG 1 CAPSULE. PO SCH ×2 (09:22→20:40)
[2019-07-08] MEDS: TOPIRAMATE 25 MG TABLET. PO SCH ×2 (09:22→20:38)
[2019-07-08] MEDS: MULTIVITAMIN with MINERAL TABLET. PO SCH ×2 (09:22→20:40)
[2019-07-08] MEDS: ASCORBIC ACID 500 MG TABLET PO SCH ×3 (09:23→20:40)
[2019-07-08] MEDS: PANTOPRAZOLE 40 MG TABLET.DR. PO SCH (09:23)
[2019-07-08] MEDS: ENOXAPARIN 40 MG/0.4 ML SYRINGE. SQ SCH ×2 (09:23→20:40)
[2019-07-08] MEDS: FLUDROCORTISONE 0.1 MG TABLET PO SCH ×2 (09:23→20:39)
--- NOTE | 2019-07-08 10:31 | PDOC ---
Infectious Disease Note Subjective Subjective Says unable to draw blood from port. No redness/pain + shoulder pain No fevers/chills/N/V/D/SOA/cough ROS ROS no n/v/d/sob Vital Sign Vital Signs Vital Signs Date Time Temp Pulse Resp B/P (MAP) Pulse Ox O2 Delivery O2 Flow Rate FiO2 07/08/19 08:16 Room Air 07/08/19 07:29 95 07/08/19 07:00 97.4 93 18 160/103 (122) 97.4 07/07/19 23:09 2.0 Physical Exam PHYSICAL EXAM GENERAL: Lying down, alert, appears comfortable HEENT: Oral cavity pink, moist. tongue & eyebrow piercings NECK: Supple LUNGS: Decreased in the bases. HEART: S1, S2, without murmur. ABDOMEN: Mildly protuberant, soft, positive bowel sounds. GENITOURINARY: SPC (07/06) - clean EXTREMITIES: Without clubbing or cyanosis. Trace edema. SKIN: Warm to touch without signs of rash. NEUROLOGIC: Alert, responds to questions. Port-a-cath clean Labs Lab Laboratory Tests Test 07/08/19 06:10 Sodium Level 145 mmol/L (136-145) Potassium Level 3.8 mmol/L (3.5-5.1) Chloride Level 113 mmol/L (98-107) Carbon Dioxide Level 24 mmol/L (21-32) Anion Gap 8 (6-14) Blood Urea Nitrogen 9 mg/dL (7-20) Creatinine 0.7 mg/dL (0.6-1.0) Estimated GFR (Cockcroft-Gault) 90.9 Glucose Level 72 mg/dL (70-99) Calcium Level 8.7 mg/dL (8.5-10.1) Micro Microbiology 07/01/19 Urine Culture - Final, Complete 07/01/19 Urine Culture Result 1 (JOHN) - Final, Complete 07/01/19 Antimicrobic Susceptibility - Final, Complete 07/01/19 Blood Culture - Final, Complete NO GROWTH AFTER 5 DAYS Objective Assessment Leukocytosis - better CAUTI - POA - E coli - 07/01, probable ESBL VENESSA - better Sulfa allergy Hypotension - better Constipation Left lung infiltrates/atelectasis Port a cath H/o C-diff/MRSA Plan Plan of Care d/c antibiotics, ok to d/c to SNF BENJAMÍN GORE MD Jul 08, 2019 10:31
[2019-07-08 11:00] VITALS: BP 143/90
[2019-07-08 15:00] VITALS: BP 128/69
[2019-07-08] MEDS: ONDANSETRON ODT 4 MG TAB.RAPDIS. PO PRN (17:55)
--- NOTE | 2019-07-08 18:00 | PDOC ---
PROGRESS NOTES Subjective Waiting on insurance approval for SNU, she has been accepted at [facility]. She apparently was smoking in her room last agus despite O2 in room Objective Afebrile General: NAD Heart: RRR Lungs: CTA Abd: soft, non distended Ext: minimal edema Vital Signs Vital Signs Date Time Temp Pulse Resp B/P (MAP) Pulse Ox O2 Delivery O2 Flow Rate FiO2 07/08/19 17:26 Room Air 07/08/19 15:43 94 07/08/19 15:00 98.2 91 18 128/69 (88) 2.0 98.2 I & O Intake and Output 07/08/19 06:59 Output Total 1300 ml Balance -1300 ml Output Urine Total 1300 ml Assessment and Plan Problems Medical Problems: (1) Acute on chronic renal failure Status: Acute (2) Addisonian crisis Status: Acute (3) VENESSA (acute kidney injury) Status: Acute (4) Anemia Status: Acute (5) CAP (community acquired pneumonia) Status: Acute (6) Constipated Status: Chronic (7) Constipation Status: Acute (8) Dehydration Status: Acute (9) Fever Status: Acute (10) Hypotension Status: Acute (11) Lower extremity edema Status: Acute (12) Opiate overdose Status: Acute (13) Pedal edema Status: Acute (14) Sepsis Status: Acute (15) UTI (urinary tract infection) due to urinary indwelling catheter Status: Acute fever, sepsis - DC antibiotics per ID, ESBL E.coli UTI, improved and transferred out of ICU 07/03 hypotension - resolved with fluid bolus, DC IVF - cardiology followed hypokalemia - replaced, monitor adrenal insufficiency - supplemented dehydration with VENESSA - hydrated IV boluses, resolved lumbar spinal stenosis with neurogenic bowel and bladder symptoms - continue therapy, SNU UTI - E.coli with multi resistance, suprapubic catheter changed 07/05 constipation - chronic right shoulder pain - Xray, therapy, MRI as OP Jett BRIGHT MD Jul 08, 2019 18:00
[2019-07-08 19:00] VITALS: BP 131/62
[2019-07-08] MEDS: FAMOTIDINE 20 MG TABLET. PO SCH (20:38)
[2019-07-08] MEDS: traZODone 100 MG TABLET. PO SCH (20:39)
[2019-07-08 23:00] VITALS: BP 122/73
[2019-07-09 03:00] VITALS: BP 128/66
[2019-07-09] MEDS: POTASSIUM CHLORIDE 20 MEQ TABLET.ER. PO SCH ×5 (04:58→21:49)
[2019-07-09] MEDS: ACETAMINOPHEN/CODEINE 300/30MG TABLET. PO PRN ×3 (04:58→21:52)
[2019-07-09 07:00] VITALS: BP 132/75
[2019-07-09] MEDS: IPRATRPIUM/ALBUTEROL 0.5/2.5MG 3 ML NEBU. NEB SCH ×4 (07:40→19:55)
[2019-07-09] MEDS: ASPIRIN 325 MG TABLET PO SCH ×2 (08:31→21:50)
[2019-07-09] MEDS: BISACODYL 5 MG TABLET.DR. PO SCH ×2 (08:31→21:51)
[2019-07-09] MEDS: FLUDROCORTISONE 0.1 MG TABLET PO SCH ×2 (08:31→21:51)
[2019-07-09] MEDS: PANTOPRAZOLE 40 MG TABLET.DR. PO SCH (08:31)
[2019-07-09] MEDS: DULoxetine HCL 30 MG CAPSULE.DR PO SCH ×2 (08:32→21:50)
[2019-07-09] MEDS: GABAPENTIN 100 MG CAPSULE. PO SCH ×3 (08:32→21:52)
[2019-07-09] MEDS: TOPIRAMATE 25 MG TABLET. PO SCH ×2 (08:32→21:50)
[2019-07-09] MEDS: CYCLOBENZAPRINE 10 MG TABLET. PO SCH ×3 (08:32→21:52)
[2019-07-09] MEDS: LACTOBACILLUS RHAMNOSUS GG 1 CAPSULE. PO SCH ×2 (08:32→21:49)
[2019-07-09] MEDS: ASCORBIC ACID 500 MG TABLET PO SCH ×3 (08:32→21:50)
[2019-07-09] MEDS: MULTIVITAMIN with MINERAL TABLET. PO SCH ×2 (08:32→21:51)
[2019-07-09] MEDS: HYDROCORTISONE 10 MG TABLET PO SCH ×2 (08:32→14:33)
[2019-07-09] MEDS: ENOXAPARIN 40 MG/0.4 ML SYRINGE. SQ SCH ×2 (08:33→21:53)
[2019-07-09] MEDS: traMADol 50 MG TABLET PO PRN ×2 (09:51→19:01)
[2019-07-09 11:00] VITALS: BP 142/90
[2019-07-09 15:00] VITALS: BP 140/80
--- NOTE | 2019-07-09 17:37 | PDOC ---
PROGRESS NOTES Subjective Still waiting on placement, insurance approval, she again denies smoking in room yesterday, still declines nicotine patch, had bleeding at Lovenox injection site which is being given for DVT prophylaxis, she is still having difficulty getting up and about due to needing waker and having right shoulder pain, no falls but still high risk for falling Objective General: anxious Heart: RRR Lungs: CTA Abd: soft, gastric tube in place, suprapubic catheter in place Ext: no significant edema Vital Signs Vital Signs Date Time Temp Pulse Resp B/P (MAP) Pulse Ox O2 Delivery O2 Flow Rate FiO2 07/09/19 15:48 94 Room Air 07/09/19 15:00 98.4 91 18 140/80 (100) 2.0 98.4 I & O Intake and Output 07/09/19 07:00 Output Total 1750 ml Balance -1750 ml Output Urine Total 1750 ml Assessment and Plan Problems Medical Problems: (1) Acute on chronic renal failure Status: Acute (2) Addisonian crisis Status: Acute (3) VENESSA (acute kidney injury) Status: Acute (4) Anemia Status: Acute (5) CAP (community acquired pneumonia) Status: Acute (6) Constipated Status: Chronic (7) Constipation Status: Acute (8) Dehydration Status: Acute (9) Fever Status: Acute (10) Hypotension Status: Acute (11) Lower extremity edema Status: Acute (12) Opiate overdose Status: Acute (13) Pedal edema Status: Acute (14) Sepsis Status: Acute (15) UTI (urinary tract infection) due to urinary indwelling catheter Status: Acute fever, sepsis - DC antibiotics per ID, ESBL E.coli UTI, improved and transferred out of ICU 07/03 hypotension - resolved with fluid bolus, DC IVF - cardiology followed hypokalemia - replaced, monitor adrenal insufficiency - supplemented dehydration with VENESSA - hydrated IV boluses, resolved lumbar spinal stenosis with neurogenic bowel and bladder symptoms - continue therapy, SNU UTI - E.coli with multi resistance, suprapubic catheter changed 07/05 constipation - chronic right shoulder pain - Xray, therapy, MRI as OP - significant debility requiring SNU, waiting on placement, she is not safe to be home Jett BRIGHT MD Jul 09, 2019 17:37
[2019-07-09 19:00] VITALS: BP 127/81
[2019-07-09] MEDS: traZODone 100 MG TABLET. PO SCH (21:00)
[2019-07-09] MEDS: FAMOTIDINE 20 MG TABLET. PO SCH (21:50)
[2019-07-09 23:00] VITALS: BP 129/56
[2019-07-10 03:00] VITALS: BP 147/86
[2019-07-10] MEDS: POTASSIUM CHLORIDE 20 MEQ TABLET.ER. PO SCH ×3 (06:08→14:00)
[2019-07-10] MEDS: ACETAMINOPHEN/CODEINE 300/30MG TABLET. PO PRN (06:09)
[2019-07-10 07:00] VITALS: BP 138/73
[2019-07-10] MEDS: IPRATRPIUM/ALBUTEROL 0.5/2.5MG 3 ML NEBU. NEB SCH ×2 (07:30→11:52)
[2019-07-10] MEDS: DULoxetine HCL 30 MG CAPSULE.DR PO SCH (08:49)
[2019-07-10] MEDS: ASCORBIC ACID 500 MG TABLET PO SCH ×2 (08:49→14:00)
[2019-07-10] MEDS: MULTIVITAMIN with MINERAL TABLET. PO SCH (08:49)
[2019-07-10] MEDS: PANTOPRAZOLE 40 MG TABLET.DR. PO SCH (08:49)
[2019-07-10] MEDS: LACTOBACILLUS RHAMNOSUS GG 1 CAPSULE. PO SCH (08:49)
[2019-07-10] MEDS: ASPIRIN 325 MG TABLET PO SCH (08:49)
[2019-07-10] MEDS: GABAPENTIN 100 MG CAPSULE. PO SCH ×2 (08:49→14:00)
[2019-07-10] MEDS: FLUDROCORTISONE 0.1 MG TABLET PO SCH (08:50)
[2019-07-10] MEDS: BISACODYL 5 MG TABLET.DR. PO SCH (08:50)
[2019-07-10] MEDS: TOPIRAMATE 25 MG TABLET. PO SCH (08:50)
[2019-07-10] MEDS: HYDROCORTISONE 10 MG TABLET PO SCH ×2 (08:50→14:00)
[2019-07-10] MEDS: CYCLOBENZAPRINE 10 MG TABLET. PO SCH ×2 (08:50→14:00)
[2019-07-10] MEDS: ENOXAPARIN 40 MG/0.4 ML SYRINGE. SQ SCH (08:51)
[2019-07-10] MEDS ORDERED: ALPR0.254 PO (09:59)
[2019-07-10] MEDS ORDERED: LACT1CAP19 PO (09:59)
[2019-07-10] MEDS ORDERED: LEVO500T59 PO (09:59)
--- NOTE | 2019-07-10 10:04 | SNU/HH DC ---
DISCHARGE ORDERS DISCHARGE INFORMATION: DISCHARGE DATE: Jul 10, 2019 FINAL DIAGNOSIS (1) Acute on chronic renal failure Status: Acute (2) Addisonian crisis Status: Acute (3) VENESSA (acute kidney injury) Status: Acute (4) Anemia Status: Acute (5) CAP (community acquired pneumonia) Status: Acute (6) Constipated Status: Chronic (7) Constipation Status: Acute (8) Dehydration Status: Acute (9) Fever Status: Acute (10) Hypotension Status: Acute (11) Lower extremity edema Status: Acute (12) Opiate overdose Status: Acute (13) Pedal edema Status: Acute (14) Sepsis Status: Acute (15) UTI (urinary tract infection) due to urinary indwelling catheter Status: Acute CONDITION ON DISCHARGE: Stable CODE STATUS: Code Status: Full ASSISTED: SNF STAY <30 DAYS: Yes POST DISCHARGE ORDERS: ACTIVITY ORDERS: Activity as tolerated WEIGHT BEARING STATUS: As tolerated BATHING ORDERS: Shower-keep dressing dry DIET AFTER DISCHARGE: ADA WOUND/INCISION CARE: No wound care needed OTHER ORDERS: elevate feet when not up due to lymphedema CHECKS AFTER DISCHARGE: CHECKS AFTER DISCHARGE: Weigh Yourself Daily FOLLOW-UP: PHYSICIAN FOLLOW-UP: 1-2 weeks after SNU discharge ADDITIONAL FOLLOW-UP: MRI of right shoulder being ordered as outpatient LAB ORDERS FOR FOLLOW-UP: weekly BMP to monitor sodium TREATMENT/EQUIPMENT ORDERS: ADAPTIVE EQUIPMENT NEEDED: Walker Physical Therapy For: Evalulation/Treatment Occupational Therapy For: Evaluation/Treatment DISCHARGE MEDICATIONS: Home Meds Active Scripts Lactobacillus Rhamnosus Gg (CULTURELLE) 1 Each Cap.sprink, 1 CAP PO BID for probiotic for 5 Days, #10 CAP Prov:Jett BRIGHT MD 07/10/19 Alprazolam (ALPRAZOLAM) 0.25 Mg Tablet, 0.25 MG PO PRN BID PRN for ANXIETY / AGITATION for 30 Days, #60 TAB Prov:Jett BRIGHT MD 07/10/19 Levofloxacin (LEVAQUIN) 500 Mg Tablet, 500 MG PO DAILY06 for infection for 5 Days, #5 TAB Prov:Jett BRIGHT MD 07/10/19 Gabapentin (GABAPENTIN ) 100 Mg Capsule, 100 MG PO TID, #90 CAP Prov:Jett BRIGHT MD 07/04/17 Spironolactone (ALDACTONE) 25 Mg Tablet, 25 MG PO BID for 30 Days, #60 TAB 5 Refills Prov:Jett BRIGHT MD 06/25/17 Pantoprazole Sodium (PANTOPRAZOLE SODIUM ) 40 Mg Tablet.dr, 40 MG PO DAILYAC for 30 Days, #30 TAB.SR 5 Refills Prov:Jett BRIGHT MD 06/25/17 Topiramate (TOPAMAX) 25 Mg Tablet, 50 MG PO BID for 30 Days, #120 TAB 5 Refills Prov:Jett BRIGHT MD 06/25/17 Reported Medications Acetaminophen With Codeine (TYLENOL WITH CODEINE #3 TABLET) 1 Each Tablet, 2 TAB PO PRN Q6HRS PRN for PAIN, TAB 07/01/19 Ascorbic Acid (ASCORBIC ACID) 500 Mg Tablet, 500 MG PO TID for supplement, TAB 07/01/19 Melatonin (MELATONIN) 3 Mg Tablet, 5-10 MG PO PRN QHS PRN for INSOMNIA, TAB 07/01/19 Potassium Chloride (POTASSIUM CHLORIDE) 20 Meq Tablet.er, 20 MEQ PO 5XDAY for supplement, TAB.SR 07/01/19 Trazodone Hcl (TRAZODONE HCL) 100 Mg Tablet, 100 MG PO HS for insomnia, TAB 07/01/19 Aspirin (ASPIRIN) 325 Mg Tablet, 325 MG PO BID for blood thinning, TAB 07/01/19 Cyanocobalamin (Vitamin B-12) (CYANOCOBALAMIN INJECTION) 1,000 Mcg/1 Ml Vial, 1000 MCG IJ Q2WKS, EACH 08/23/17 Baclofen (BACLOFEN) 20 Mg Tablet, 20 MG PO TID for MUSCLE RELAXER, #30 TAB 0 Refills 08/23/17 Fludrocortisone Acetate (FLUDROCORTISONE ACETATE) 0.1 Mg Tablet, 0.3 MG PO Q12HR 04/14/17 Hydrocortisone (CORTEF) 10 Mg Tablet, 20 MG PO BID92 for steroid replacment 04/14/17 Bisacodyl (DULCOLAX) 5 Mg Tablet.dr, 5 MG PO BID, #1 TAB 03/05/16 Multivitamin With Minerals (MULTIPLE VITAMIN) 1 Each Tablet, 1 EACH PO BID for supplement Last dose given: Next dose due: 11/05/13 Duloxetine Hcl (CYMBALTA) 20 Mg Capsule.dr, 60 MG PO BID for depression Last dose given: Next dose due: 11/01/13 Discontinued Reported Medications Phenazopyridine Hcl (PHENAZOPYRIDINE HCL) 200 Mg Tablet, 200 MG PO TID for bladder spasms, TAB 07/01/19 Guaifenesin (MUCUS RELIEF) 400 Mg Tablet, 400 MG PO BID for congestion, TAB 07/01/19 Nitrofurantoin Macrocrystal (NITROFURANTOIN) 50 Mg Capsule, 50 MG PO TID for urinary tract infections, CAP 07/01/19 Ranitidine Hcl (RANITIDINE HCL) 300 Mg Tablet, 1 TAB PO QHS for acid reflux, #30 TAB 11 Refills 07/01/19 Jett BRIGHT MD Jul 10, 2019 10:04
[2019-07-10] MEDS: traMADol 50 MG TABLET PO PRN (10:32)
[2019-07-10 11:00] VITALS: BP 142/84
[2019-07-10] MEDS ORDERED: HEPARIN PF 500 UNIT/5 ML DISP.SYRIN. IV ONE (13:15)
--- NOTE | 2019-07-10 13:56 | PDOC3 ---
Discharge Summary [facility] Date of Admission: Jul 01, 2019 Discharge Date: Jul 10, 2019 Admitting Diagnosis sepsis Final Diagnosis Problems Medical Problems: (1) Acute on chronic renal failure Status: Acute (2) Addisonian crisis Status: Acute (3) VENESSA (acute kidney injury) Status: Acute (4) Anemia Status: Acute (5) CAP (community acquired pneumonia) Status: Acute (6) Constipated Status: Chronic (7) Constipation Status: Acute (8) Dehydration Status: Acute (9) Fever Status: Acute (10) Hypotension Status: Acute (11) Lower extremity edema Status: Acute (12) Opiate overdose Status: Acute (13) Pedal edema Status: Acute (14) Sepsis Status: Acute (15) UTI (urinary tract infection) due to urinary indwelling catheter Status: Acute CONSULTS ID, cardiology Brief Hospital Course Ms. Carrasco is a 44 old who presented with: fever, sepsis - and found to have a urinary source, required IV antibiotics ESBL E.coli UTI requiring ICU care and transferred out of ICU 07/03 hypotension from sepsis, organ failure, VENESSA - resolved with fluid bolus, DC IVF - cardiology followed hypokalemia - replaced, monitor adrenal insufficiency - supplemented - required IV replacement, no back to po dehydration with VENESSA - hydrated IV boluses, resolved lumbar spinal stenosis with neurogenic bowel and bladder symptoms - continue therapy, SNU UTI - E.coli with multi resistance, suprapubic catheter changed 07/05 constipation - chronic right shoulder pain - Xray, therapy, MRI as OP - significant debility requiring SNU placement, she is not safe to be home Patient History: Family history: Cardiovascular disease (situation) G8 BROTHER 33 FATHER 32 MOTHER Family history: Diabetes mellitus (situation) G8 BROTHER 33 FATHER 32 MOTHER Family history: Hypertension (situation) Disposition home CONDITION AT DISCHARGE: Improved, Stable Diet as tolerated Scheduled Ascorbic Acid (Ascorbic Acid), 500 MG PO TID, (Reported) Aspirin (Aspirin), 325 MG PO BID, (Reported) Baclofen (Baclofen), 20 MG PO TID, (Reported) Bisacodyl (Dulcolax), 5 MG PO BID, (Reported) Cyanocobalamin (Vitamin B-12) (Cyanocobalamin Injection), 1,000 MCG IJ Q2WKS, (Reported) Duloxetine Hcl (Cymbalta), 60 MG PO BID, (Reported) Fludrocortisone Acetate (Fludrocortisone Acetate), 0.3 MG PO Q12HR, (Reported) Gabapentin (Gabapentin ), 100 MG PO TID Hydrocortisone (Cortef), 20 MG PO BID92, (Reported) Lactobacillus Rhamnosus Gg (Culturelle), 1 CAP PO BID Levofloxacin (Levaquin), 500 MG PO DAILY06 Multivitamin With Minerals (Multiple Vitamin), 1 EACH PO BID, (Reported) Pantoprazole Sodium (Pantoprazole Sodium ), 40 MG PO DAILYAC Potassium Chloride (Potassium Chloride), 20 MEQ PO 5XDAY, (Reported) Spironolactone (Aldactone), 25 MG PO BID Topiramate (Topamax), 50 MG PO BID Trazodone Hcl (Trazodone Hcl), 100 MG PO HS, (Reported) Scheduled PRN Acetaminophen With Codeine (Tylenol With Codeine #3 Tablet), 2 TAB PO PRN Q6HRS PRN for PAIN, (Reported) Alprazolam (Alprazolam), 0.25 MG PO PRN BID PRN for ANXIETY / AGITATION Melatonin (Melatonin), 5-10 MG PO PRN QHS PRN for INSOMNIA, (Reported) Discontinued Medications Guaifenesin (Mucus Relief), 400 MG PO BID, (Reported) Nitrofurantoin Macrocrystal (Nitrofurantoin), 50 MG PO TID, (Reported) Phenazopyridine Hcl (Phenazopyridine Hcl), 200 MG PO TID, (Reported) Ranitidine Hcl (Ranitidine Hcl), 1 TAB PO QHS, (Reported) Follow Up OP MRI of shoulder, 1-2 weeks in office after SNU discharge Jett BRIGHT MD Jul 10, 2019 13:56
== END 2019-07-10 14:30 | DRG 698 ==
LOC: ER 11:35 → 6 SOUTH 14:05 → 1 WEST ICU 07-02 05:58 → 6 SOUTH 07-03 19:45 → 5 SOUTH 07-06 20:13
PROVIDERS: ADMIT Family Medicine; ATTEND Family Medicine
DX: T83.518A Infection and inflammatory reaction due to other urinary catheter, initial encounter (principal); A41.9 Sepsis, unspecified organism; J18.9 Pneumonia, unspecified organism; R65.20 Severe sepsis without septic shock; N17.9 Acute kidney failure, unspecified; E27.1 Primary adrenocortical insufficiency; E27.2 Addisonian crisis; J44.0 Chronic obstructive pulmonary disease with (acute) lower respiratory infection; K59.2 Neurogenic bowel, not elsewhere classified; W19.XXXA Unspecified fall, initial encounter; N31.9 Neuromuscular dysfunction of bladder, unspecified; F17.210 Nicotine dependence, cigarettes, uncomplicated; F32.9 Major depressive disorder, single episode, unspecified; F41.9 Anxiety disorder, unspecified; G25.81 Restless legs syndrome; G89.29 Other chronic pain; N18.9 Chronic kidney disease, unspecified; I12.9 Hypertensive chronic kidney disease with stage 1 through stage 4 chronic kidney disease, or unspecified chronic kidney disease; K31.84 Gastroparesis; K59.00 Constipation, unspecified; M79.7 Fibromyalgia; R16.2 Hepatomegaly with splenomegaly, not elsewhere classified; M48.061 Spinal stenosis, lumbar region without neurogenic claudication; I89.0 Lymphedema, not elsewhere classified; K64.9 Unspecified hemorrhoids; M21.379 Foot drop, unspecified foot; Z16.12 Extended spectrum beta lactamase (ESBL) resistance; T40.601A Poisoning by unspecified narcotics, accidental (unintentional), initial encounter; B96.20 Unspecified Escherichia coli [E. coli] as the cause of diseases classified elsewhere; D53.9 Nutritional anemia, unspecified; Y84.6 Urinary catheterization as the cause of abnormal reaction of the patient, or of later complication, without mention of misadventure at the time of the procedure; E86.0 Dehydration; E87.6 Hypokalemia; Z90.710 Acquired absence of both cervix and uterus; Z88.2 Allergy status to sulfonamides; Z87.440 Personal history of urinary (tract) infections; Z87.442 Personal history of urinary calculi; Z86.73 Personal history of transient ischemic attack (TIA), and cerebral infarction without residual deficits; Z82.49 Family history of ischemic heart disease and other diseases of the circulatory system; Z83.3 Family history of diabetes mellitus; Z79.82 Long term (current) use of aspirin; Z86.14 Personal history of Methicillin resistant Staphylococcus aureus infection; Z79.52 Long term (current) use of systemic steroids; Y93.89 Activity, other specified; Y92.89 Other specified places as the place of occurrence of the external cause; Y99.8 Other external cause status; Z90.49 Acquired absence of other specified parts of digestive tract
CPT/HCPCS: 36415; 71045; 71046; 73030; 74176; 80048; 80053; 80307; 81001; 82140; 82550; 82607; 82962; 83605; 83690; 83735; 83880; 84145; 84443; 84484; 85007; 85025; 85610; 87040; 87086; 87186; 93005; 93306; 94640; 94760; 96361; 96374; J0456; J0696; J0878; J1650; J1720; J1940; J2185; J2212; J2248; J2405; J2930; J3480; J7030; J7040; J7620; Q0162; 97110; 97116; 97530; 97535; 99291-25; G0378

== ENCOUNTER → 2019-08-01 | Outpatient (CLI) | payer OTHER, MEDICAID ==
[2019-07-10 11:00] VITALS: BP 142/84
[~2019-08-01] MED LIST changes: +ACET-704 PO; +ALPR0.254 PO; +ASCO500T3 PO; +ASPI325T8 PO; +GUAI400T77 PO; +LACT1CAP19 PO; +PHEN-444 PO; +RANI300T PO
--- NOTE | 2019-08-01 12:02 | RAD ---
STUDY: MRI of the right shoulder without contrast INDICATION: Persistent right shoulder pain for the past month after a fall. COMPARISON: No prior MRI. TECHNIQUE: Multiplanar MR imaging of the right shoulder performed without the use of intravenous or intra-articular contrast. FINDINGS: AC joint: Mild/moderate AC joint arthrosis. The articular margins are irregular and there is surrounding marrow edema. Small volume fluid within the subacromial subdeltoid bursa. Rotator cuff: Focal full-thickness tear of the anterior supraspinatus at the footprint with the tear defect measuring 5 mm mediolateral and 1 cm AP. Extension of the tearing along the undersurface of the anterior supraspinatus medially by 1.3 cm as intermediate grade tearing involving approximately 50% of tendon cross-sectional thickness. Background mild supraspinatus tendinosis. The infraspinatus and teres minor are intact. Subscapularis tendinosis without high-grade tear. Normal rotator cuff musculature bulk. Labrum: Heterogeneous signal at the biceps-labral anchor however without discrete fluid signal tear defect. Long head biceps tendon: Mild intra-articular long head biceps tendinosis. Cartilage: Intact. Bones: Heterogeneous marrow signal with sparing of the epiphysis suggestive of red marrow reconversion. No acute fracture. Miscellaneous: Very small shoulder effusion. Impression: 1. Focal full-thickness tear at the anterior supraspinatus at the footprint with the tear defect measuring approximately 5 mm mediolateral and 1 cm AP. Propagation as undersurface tearing along the anterior supraspinatus extending medially by approximately 1.3 cm that is intermediate in severity with 50% tendon involvement (see heredia images). Background mild supraspinatus tendinosis. Subscapularis tendinosis noted is well. Maintained rotator cuff muscular bulk. 2. Signal heterogeneity at the biceps-labral anchor without discrete tear. Mild intra-articular long head biceps tendinosis. 3. Trace shoulder joint effusion. 4. Signal changes involving the visualized humeral shaft as can be seen with red marrow reconversion, such as from anemia, though can also be within normal limits in patients of this demographic. 5. Mild/moderate AC joint arthrosis. Mild subacromial subdeltoid bursitis. Electronically signed by: KHANG MONTOYA MD (08/01/2019 11:59 AM) [id number]
== END | disposition home or self-care (01) ==
LOC: MRI 10:08
PROVIDERS: ATTEND Family Medicine
DX: M75.101 Unspecified rotator cuff tear or rupture of right shoulder, not specified as traumatic (principal); M19.011 Primary osteoarthritis, right shoulder; M75.51 Bursitis of right shoulder; M25.411 Effusion, right shoulder
CPT/HCPCS: 73221

== ENCOUNTER 2019-08-06 08:41 | Outpatient (CLI) | payer MEDICAID, OTHER ==
[~2019-08-06] VITALS: Ht 152.4 cm; Wt 90.7 kg
[2019-08-06] VITALS (8 sets, daily range): BP systolic 90–119; BP diastolic 57–69
[2019-08-06 09:10] LABS: BASO # 0.1 x10^3/uL (0.0-0.2); BASO % 1 % (0-3); EOS # 0.2 x10^3/uL (0.0-0.7); EOS % 1 % (0-3); HEMATOCRIT 40.1 % (36.0-47.0); HEMOGLOBIN 12.8 g/dL (12.0-15.5); LYMPH # 2.1 x10^3/uL (1.0-4.8); LYMPH % 17 % (24-48); MEAN CORPUSCULAR HEMOGLOBIN 30 pg (25-35); MEAN CORPUSCULAR HGB CONC 32 g/dL (31-37); MEAN CORPUSCULAR VOLUME 95 fL (79-100); MONO # 0.7 x10^3/uL (0.0-1.1); MONO % 6 % (0-9); NEUT # 9.2 x10^3/uL (1.8-7.7); NEUT % 75 % (31-73); PLATELET COUNT 199 x10^3/uL (140-400); RED BLOOD COUNT 4.23 x10^6/uL (3.50-5.40); RED CELL DISTRIBUTION WIDTH 15.7 % (11.5-14.5); WHITE BLOOD COUNT 12.3 x10^3/uL (4.0-11.0)
[2019-08-06 09:21] LABS: PROTHROMBIN TIME PATIENT 12.8 SEC (11.7-14.0)
[2019-08-06] MEDS ORDERED: FERR325T14 PO (09:23)
[2019-08-06] MEDS ORDERED: MAGN400O7 PO (09:24)
[2019-08-06] MEDS ORDERED: GUAI600T47 PO (09:25)
[2019-08-06] MEDS ORDERED: PHEN100T82 PO (09:26)
[2019-08-06] MEDS ORDERED: SENN-37 PO (09:28)
[2019-08-06] MEDS ORDERED: DICL100G18 TP (09:29)
[2019-08-06] MEDS ORDERED: AZIT1PAC PO (09:30)
[2019-08-06] MEDS ORDERED: ONDA4TAB7 PO (09:31)
[2019-08-06] MEDS ORDERED: MIRT30TA3 PO (09:32)
[2019-08-06] MEDS ORDERED: LIDOCAINE 1%/EPI 1:100,000 20 ML VIAL. ONE (09:34)
[2019-08-06] MEDS ORDERED: PHEN-444 PO (09:34)
[2019-08-06] MEDS ORDERED: RANI300C PO (09:36)
[2019-08-06] MEDS ORDERED: MIDAZOLAM HCL/PF 5 MG/5 ML VIAL. ONE (10:12)
[2019-08-06] MEDS ORDERED: fentaNYL PF VIAL 250 MCG/5 ML VIAL ONE (10:12)
[2019-08-06] MEDS ORDERED: HEPARIN PF 500 UNIT/5 ML DISP.SYRIN. ONE (10:43)
[2019-08-06] MEDS ORDERED: HEPARIN PF 500 UNIT/5 ML DISP.SYRIN. IVP ONE (11:00)
[2019-08-06] MEDS ORDERED: LIDOCAINE 1%/EPI 1:100,000 20 ML VIAL. SQ ONE (11:00)
[2019-08-06] MEDS ORDERED: MIDAZOLAM HCL/PF 5 MG/5 ML VIAL. IV ONE (11:00)
[2019-08-06] MEDS ORDERED: fentaNYL PF VIAL 250 MCG/5 ML VIAL IV ONE (11:00)
--- NOTE | 2019-08-06 11:25 | RAD ---
Procedure: 1. Removal of right internal jugular PowerPort 2.Placement of a new right internal jugular PowerPort 08/06/2019 9:20 AM Clinical Indication: Failure of pre-existing right internal jugular port Sedation: Conscious sedation was administered for 30 minutes. The patient was monitored by a qualified independent observer throughout the time of sedation. Please refer to the medical record for exact doses of medications utilized to achieve moderate sedation. Fluoroscopy time: 1.6 minutes Dose area product: 3 Gycm2 Consent: The procedure was explained in its entirety to the patient or the patients designated medical claims representative by a member of the treatment team, including a discussion of the risks, benefits and commonly accepted alternatives to the procedure, as well as the expected consequences of no therapy whatsoever. Discussion of the risks included, but was not limited to, those that are most frequent and those that are rare but possibly severe or life-threatening, as well as the possibility of unforeseen complications. Technique and Findings: All elements of maximal sterile barrier technique including the use of a cap, mask, sterile gown, sterile gloves, large sterile sheet, appropriate hand hygiene, and 2% chlorhexidine for cutaneous antisepsis (or acceptable alternative antiseptic per current guidelines) were followed for this procedure. Following informed consent, and a timeout procedure, the patient was prepped and draped in the usual sterile fashion. 1% lidocaine was administered overlying the pre-existing port reservoir. A small incision was made overlying the reservoir. The reservoir and catheter removed intact under fluoroscopy. Ultrasound interrogation of the right neck revealed patency and compressibility of the right internal jugular vein. A 21-gauge micropuncture was then used to gain access to this vein under ultrasound guidance. A hard copy ultrasound image was recorded. The needle was exchanged over a wire for a sheath. A 1 inch incision was made several centimeters inferior to the venotomy site. A catheter was tunneled from this site dermatotomy site in the neck. Catheter was advanced through peel-away sheath such that its tip was in the proximal right atrium with the patient supine. The catheter was trimmed to length and connected to the port reservoir. The port was found to flush and aspirate normally. The wound was closed in layers using 4-0 Vicryl suture. Sterile dressings were applied. Impression: 1. Removal pre-existing right internal jugular PowerPort 2. Placement of a new right internal jugular PowerPort with ultrasound and fluoroscopic guided
--- NOTE | 2019-08-06 12:52 | NUR ---
pt A&O x3. denies pain,nausea or dizziness. VSS. tolerating po well. ambulated w/o problem. dressing on rt IJ/chest area are clean and dry. d/c instructions given,questions answered . out to vehicle per vehicle, family to drive her home.
== END 2019-08-06 12:52 | disposition home or self-care (01) ==
LOC: INTRAD 08:41
PROVIDERS: ATTEND Surgery
DX: T82.594A Other mechanical complication of infusion catheter, initial encounter (principal); Z79.899 Other long term (current) drug therapy; Z79.01 Long term (current) use of anticoagulants; Y83.8 Other surgical procedures as the cause of abnormal reaction of the patient, or of later complication, without mention of misadventure at the time of the procedure; Y92.89 Other specified places as the place of occurrence of the external cause
CPT/HCPCS: 36415; 36561; 76937; 77001; 85025; 85610; 99152; 99153; C1751; C1892; J0696; J2250; J3010; J3490; 36589

== ENCOUNTER 2019-09-03 07:36 | Day surgery (SDC) | payer OTHER, MEDICAID ==
[~2019-09-03] VITALS: Ht 157.5 cm; Wt 90.7 kg
[~2019-09-03 07:36] MED LIST changes: +AZIT1PAC PO; +DICL100G18 TP; +FERR325T14 PO; +GUAI600T47 PO; +HYDROmorphone 2 MG/ML VIAL IV PRN; +IV RINGERS,LACTATED 1000ML 1,000 ML IV SCH; +MAGN400O7 PO; +METO5TAB4 PO; +MIRT30TA3 PO; +MORPHINE SULFATE 2 MG/ML VIAL. IV PRN; +ONDA4TAB7 PO; +PHEN100T82 PO; -POTA20TA82 PO; +PROCHLORPERAZINE 10 MG/2 ML VIAL. IV PRN; +RANI300C PO; +SENN-37 PO; +TORS20TA2 PO; +fentaNYL PF VIAL 100 MCG/2 ML VIAL IV PRN
[2019-09-03] MEDS ORDERED: BUPIVACAINE MPF 0.5% 30 ML VIAL. ONE (08:08)
[2019-09-03] MEDS ORDERED: EPINEPHrine 1 MG/ML VIAL ONE (08:09)
[2019-09-03] MEDS ORDERED: PROPOFOL 20 ML IV ONE (08:22)
[2019-09-03] MEDS ORDERED: DEXAMETHASONE SOD PHOS 4 MG/ML VIAL ONE (08:22)
[2019-09-03] MEDS ORDERED: LIDOCAINE 2% PF 5 ML VIAL. ONE (08:22)
[2019-09-03] MEDS ORDERED: ONDANSETRON PF 4 MG/2 ML VIAL. ONE (08:22)
[2019-09-03] MEDS ORDERED: ROCURONIUM 50 MG/5 ML VIAL. ONE (08:24)
[2019-09-03] MEDS ORDERED: MIDAZOLAM HCL/PF 2 MG/2 ML VIAL. ONE (08:37)
[2019-09-03] MEDS ORDERED: EPINEPHrine VIAL 30 MG/30 ML VIAL ONE (09:58)
[2019-09-03] MEDS ORDERED: ceFAZolin 2GM PREMIX 2 GM/50 ML BAG IV ONE (10:00)
[2019-09-03] MEDS ORDERED: VANCOMYCIN 1GM IVPB FOR OMNI 250 ML ONE (10:26)
[2019-09-03] MEDS ORDERED: ePHEDrine PF IN SALINE 50 MG/10 ML SYRINGE. IV ONE (11:03)
[2019-09-03] MEDS ORDERED: PHENYLEPHRINE in 0.9% NACL PF 1 MG/10 ML SYRINGE. IV ONE (11:03)
[2019-09-03] MEDS ORDERED: NEOSTIGMINE METHYLSULFATE 5 MG/5 ML SYRINGE. ONE (11:07)
[2019-09-03] MEDS ORDERED: SEVOFLURANE > 120 MINUTES. IH ONE (11:41)
[2019-09-03] MEDS ORDERED: PHENYLEPHRINE 10 MG/ML VIAL. ONE (13:25)
[2019-09-03] MEDS ORDERED: OXYC1TAB22 PO (15:14)
[2019-09-03] MEDS ORDERED: oxyCODONE/APAP 10/325 1 TAB TABLET PO ONE (15:45)
--- NOTE | 2019-09-03 15:48 | DISCH ---
DISCHARGE INSTRUCTIONS Condition on Discharge Condition on Discharge: Stable Activity After Discharge Activity Instructions for Disc: Other, see below (pendulum motion only of right arm, no lifting arm away from side may eat and other fine motor tasks with elbow at side only immobilizer on at all other times) Weight Bearing Status after Di: Non weight bearing Diet after Discharge Diet after Discharge: Regular Wound Incision Care Wound/Incision Care: Change dressing (May remove dressing in 2 days may then shower no soaking) Community/Resources/Services Services at Discharge: PT EVALUATE & TREAT (no formal physical therapy until follow-up visit) Contacting the after DC Call your doctor for: Concerns you may have Follow-Up Follow up with: Dr. Gonzalez 1 week CHARLIE GONZALEZ MD Sep 03, 2019 15:48
[2019-09-03 15:56] VITALS: BP 132/52
[2019-09-03] MEDS ORDERED: HEPARIN PF 500 UNIT/5 ML DISP.SYRIN. IVP ONE (16:00)
--- NOTE | 2019-09-03 18:04 | PDOC4 ---
Operative Note Operative Note Date of surgery: 09/03/2019 Preoperative diagnosis: Full-thickness supraspinatus tear and impingement with a chromic likely joint pain Postoperative diagnosis: Same with full-thickness supraspinatus tear acromioclavicular joint degenerative change and a large anterior acromial spur Operative procedure: Right shoulder arthroscopy with arthroscopic rotator cuff repair debridement of subscapularis partial tear subacromial decompression distal clavicle excision Surgeon: Carlos Assist: Vanna Anesthesia: Gen. Estimated blood loss: 10 mL Complications: None Operative indications: Patient is a 44-year-old female with right dominant shoulder pain and weakness documented MRI showing a full-thickness rotator cuff tear. I gone over with her operative and nonoperative treatment options the long recovery process typically associated with rotator cuff repair the possibility of nonhealing infection nerve or blood vessel damage continued pain medical or o ther anesthetic competitions among others all her questions were answered she wishes to proceed with surgical evaluation and treatment. Operative text: Patient was identified procedure verified patient placed in the supine position on the operating table. Adequate amounts of general anesthesia were administered and the right shoulder was examined under anesthesia found a full range of motion no instability. The right shoulder was then prepped and draped in standard sterile fashion placed in the arthroscopic arm lopez with a total of 10 pounds of traction timeout was performed patient procedure identified and verified and a posterior portal was established an anterior portal established using spinal needle localization and the shoulder joint was systematically examined. She was found to have a partial-thickness tear of the subscapularis which was debrided back to stable tissue no biceps subluxation or biceps labral anchor pathology was noted although initially insertion along the rotator cuff footprint from the joint side appeared intact the fibers were split revealing an at least 90% full-thickness tear which was verified on the bursal side. Normal capsule ligament structures and bare area of the humerus was noted. The subacromial space was then entered and significant amounts of irritated bursa were debrided to allow full visualization of the rotator cuff tear she was noted to have a large anterior acromial spur which was exposed and trimmed back to a type I acromion using cutting block technique distal clavicle was excised 1 cm due to the degenerative loss of joint space at the acromioclavicular joint. Acromial clavicular joint capsule was spared to preserve stability bony fragments were evacuated with arthroscopic shaver and a total of 2 double loaded composite TCP anchors were placed along the medial row and were placed in a simple fashion with arthroscopic suture passing device and first anchored anterolaterally with a 5.5 mm Ventex Link knotless peek anchor which achieved excellent fixation. More distal bone was noted to be very soft and unfortunately did not adequately achieve stability with either a 4.75 or 5.5 peek anchor and d ue to the bone quality a 9 x 16 mm peek bolt Tenodesis screw was used for additional lateral fixation and was supplemented with one of the 4.75 mm peek anchors to aid in fixation in the poor lateral bone. Watertight repair was noted in all degrees of internal and external rotation. Joint was drained of arthroscopic fluid portals were closed with subcutaneous Vicryl and skin with ny colby suture sterile dressings were applied she was placed in an immobilizer extubated transferred to postop holding in stable condition having tolerated procedure well CHARLIE ONEAL MD Sep 03, 2019 18:04
== END 2019-09-03 17:22 | disposition home or self-care (01) ==
LOC: SURG 07:36
PROVIDERS: ATTEND Orthopaedic Surgery
DX: M75.111 Incomplete rotator cuff tear or rupture of right shoulder, not specified as traumatic (principal); M19.011 Primary osteoarthritis, right shoulder; M75.41 Impingement syndrome of right shoulder; K21.9 Gastro-esophageal reflux disease without esophagitis; I11.0 Hypertensive heart disease with heart failure; I50.9 Heart failure, unspecified; Z86.14 Personal history of Methicillin resistant Staphylococcus aureus infection; Z90.710 Acquired absence of both cervix and uterus; Z90.49 Acquired absence of other specified parts of digestive tract; Z90.3 Acquired absence of stomach [part of]; Z87.891 Personal history of nicotine dependence
CPT/HCPCS: 29824; 29826; 29827; A7015; C1713; J0171; J0696; J1100; J2001; J2250; J2370; J2405; J2704; J2710; J3010; J3370; J3490; J7120

== ENCOUNTER → 2019-10-18 | Outpatient (CLI) | payer OTHER, MEDICAID ==
[~2019-10-18] MED LIST changes: -HYDROmorphone 2 MG/ML VIAL IV PRN; -IV RINGERS,LACTATED 1000ML 1,000 ML IV SCH; -MORPHINE SULFATE 2 MG/ML VIAL. IV PRN; +OXYC1TAB22 PO; -PROCHLORPERAZINE 10 MG/2 ML VIAL. IV PRN; +TRAZ-123 PO; -TRAZ-86 PO; -fentaNYL PF VIAL 100 MCG/2 ML VIAL IV PRN
== END | disposition home or self-care (01) ==
LOC: SPEC 16:41
PROVIDERS: ATTEND Physician Assistant
DX: L02.619 Cutaneous abscess of unspecified foot (principal)
CPT/HCPCS: 87071; 87075

== ENCOUNTER 2020-09-22 07:33 | Outpatient (CLI) | payer OTHER, MEDICAID ==
[~2020-09-22] VITALS: Ht 152.4 cm; Wt 95.3 kg
[~2020-09-22 07:33] MED LIST changes: +AMLO-186 PO; +AMLO-187 PO; -AMLO10TA8 PO; -AMLO5TAB10 PO; +AMOX1TAB61 PO; +CIPR500S2 PO; -DICL100G18 TP; +DICL100G54 TP; +HYDR-3107 PO; -HYDR10TA66 PO; +LINE600T12 PO; +MAGN400C PO; +MELA3TAB4 PO; -MELA3TAB56 PO; -OXYC15TA PO; +OXYC15TA3 PO; +TRAZ150T49 PO
[2020-09-22 08:32] VITALS: BP 124/58
--- NOTE | 2020-09-22 09:09 | NUR ---
Dr. Alvarez talked with patient regarding AARO- it was decided to do a CTA today and if that shows something she will be rescheduled with anesthesia.
[2020-09-22] MEDS ORDERED: IOHEXOL 350 MG/ML 100 ML VIAL. IV ONE ×2 (09:30)
[2020-09-22] MEDS ORDERED: CONTRAST GIVEN. MC PRN (09:30)
[2020-09-22 09:45] VITALS: BP 111/52
--- NOTE | 2020-09-22 10:43 | RAD ---
CT of the abdomen and pelvis with bilateral lower extremity runoffs, without comparison, for bilateral leg wounds. TECHNIQUE: Contiguous axial CT images are obtained from the apex of diaphragm to the feet following administration of IV contrast in the arterial phase. Sagittal and coronal MIPS are evaluated. Nonvascular findings: There are dependent reticular opacities with pleural thickening in the lung bases, perhaps atelectasis or developing infiltrate. No pleural effusions. Heart size mildly enlarged. No suspicious osteoblastic or osteolytic bone lesions. Evaluation of the solid upper abdominal organs is somewhat limited by phase of contrast administration, however no significant gross morphologic abnormalities are identified involving the liver, spleen, pancreas, bilateral adrenal glands, or bilateral kidneys. No free or loculated fluid collections are seen within the abdomen or pelvis. No suspicious mesenteric or retroperitoneal adenopathy. No free or loculated fluid collections. The appendix is normal. There is a single dilated loop of small bowel in the left upper quadrant, which is nonspecific and may be physiologic. No other abnormal findings involving the large or small bowel, though evaluation is limited by lack of enteric contrast. Vascular findings: The aorta is nonaneurysmal. The superior mesenteric, celiac, and inferior mesenteric arteries are widely patent. There are single bilateral renal arteries which are patent. Bilateral common iliac, external iliac, and internal iliac arteries are widely patent with minimal atherosclerosis. Bilateral common femoral arteries are patent. Profunda femoral arteries are patent. Bilateral superficial femoral, popliteal, tibial peroneal, anterior tibial, posterior tibial, and peroneal arteries are all patent with minimal atherosclerosis. No peripheral aneurysms are seen. IMPRESSION: 1. Bibasilar atelectasis, or perhaps early developing interstitial infiltrates. 2. Single nonspecific dilated loop of small bowel in the left hemiabdomen. This may simply be physiologic. If there is clinical concern for small bowel pathology however, consider short-term follow-up CT scan with enteric contrast. 3. Minimal atherosclerosis with no hemodynamic significant stenoses or aneurysms involving the abdominal, pelvic, or lower extremity arterial tree. PQRS Compliance Statement: One or more of the following individualized dose reduction techniques were utilized for this examination: 1. Automated exposure control 2. Adjustment of the mA and/or kV according to patient size 3. Use of iterative reconstruction technique Electronically signed by: Junior Tatum MD (09/22/2020 10:40 AM) [id number]
--- NOTE | 2020-09-22 10:53 | NUR ---
Deaccessed rafael cath in patient's right chest. Bandaid placed=clean,dry,intact. Dressings to bilateral lower extremities still clean,dry,and intact. Assisted patient with draining suprapubic catheter and provided new brief. Patient dressed self and was taken by wheelchair out to her 's vehicle to go home. Patient instructed that Dr. Alvarez will review CTA and call her with results later.
== END 2020-09-22 10:50 | disposition home or self-care (01) ==
LOC: INTRAD 07:33
PROVIDERS: ATTEND Preventive Medicine Undersea and Hyperbaric Medicine
DX: I73.9 Peripheral vascular disease, unspecified (principal); L97.223 Non-pressure chronic ulcer of left calf with necrosis of muscle; L97.213 Non-pressure chronic ulcer of right calf with necrosis of muscle; I11.0 Hypertensive heart disease with heart failure; I50.9 Heart failure, unspecified; J44.9 Chronic obstructive pulmonary disease, unspecified; E66.9 Obesity, unspecified; M19.90 Unspecified osteoarthritis, unspecified site; F41.9 Anxiety disorder, unspecified; F32.9 Major depressive disorder, single episode, unspecified; F17.210 Nicotine dependence, cigarettes, uncomplicated; Z90.710 Acquired absence of both cervix and uterus; Z98.890 Other specified postprocedural states; Z79.82 Long term (current) use of aspirin; Z79.899 Other long term (current) drug therapy; Z88.0 Allergy status to penicillin; Z88.2 Allergy status to sulfonamides; Z91.013 Allergy to seafood; Z88.8 Allergy status to other drugs, medicaments and biological substances; Z82.49 Family history of ischemic heart disease and other diseases of the circulatory system; Z83.3 Family history of diabetes mellitus
CPT/HCPCS: 75635; Q9967

== ENCOUNTER → 2020-12-21 | Outpatient (CLI) | payer OTHER, MEDICAID ==
[~2020-12-21] MED LIST changes: -CIPR500T PO; +CIPR500T2 PO; +GADOTERATE 7.5 MMOL/15ML VIAL. IVP ONE; -SIME40DR3 PO; +[UNRECOGNIZED DRUG - CODE] PO
--- NOTE | 2020-12-22 10:05 | [facility] ---
EXAMINATION: MRI LEFT ELBOW with and without IV CONTRAST CLINICAL HISTORY: Nonhealing wound posterior left elbow x6 months TECHNIQUE: Multiplanar multisequential images obtained through the elbow without intravenous contrast . COMPARISON: Left elbow radiographs 10/15/2020 FINDINGS: Evaluation for contrast enhancement significantly limited by lack of adequate fat saturation on postc ontrast images due to technical limitations. Soft tissue ulcer overlying the posterior olecranon measuring up to 1.1 x 2.7 cm with underlying inte rmediate T1 signal and contrast enhancement abutting the bone distal to the triceps tendon insertion. Questionable additional tiny ulcer approximately 2 cm lateral to this with underlying mild focal arnulfo ma. There is otherwise minimal surrounding subcutaneous edema. No evidence of abscess or suspicious s oft tissue contrast enhancement. No joint effusion. Skin thickening along the posterior elbow. No evidence of osteomyelitis or reactive marrow edema. No acute fracture. Small area of subchondral r eactive/cystic changes in the medial posterior trochlea, compatible with overlying full-thickness cho ndral fissuring/loss. No full-thickness chondral defect visualized in the radiocapitellar and proxima l radioulnar joints. Ulnar and radial collateral ligaments intact. Mild tendinosis common extensor tendon origin. Common f lexor tendon within normal limits. Biceps, brachialis, and triceps tendons within normal limits. Musc le bulk and signal intensity within normal limits. Ulnar nerve within normal limits. IMPRESSION: Soft tissue ulcer overlying the posterior olecranon with underlying signal abnormality compatible wit h phlegmon. Questionable additional tiny ulcer laterally as described. No evidence of abscess or osteomyelitis. Mild tendinosis common extensor tendon origin. Electronically signed by: Gregory Mcgovern DO (12/22/2020 10:03 AM) [id number]
== END ==
LOC: KCIC MRI 14:01
PROVIDERS: ATTEND Preventive Medicine Undersea and Hyperbaric Medicine
DX: L89.00 Pressure ulcer of unspecified elbow (principal); M77.8 Other enthesopathies, not elsewhere classified
CPT/HCPCS: 73223; 82565; A9575

== ENCOUNTER 2021-08-27 11:25 | Emergency (ER) | payer OTHER, MEDICAID ==
[~2021-08-27] VITALS: Ht 152.4 cm; Wt 94.5 kg
[~2021-08-27 11:25] MED LIST changes: +ACET325T9 PO; +COLL30OI TP; +DULO60CA45 PO; +GABA100C6 PO; -GADOTERATE 7.5 MMOL/15ML VIAL. IVP ONE; -GUAI400T77 PO; +HYOS0.1278 SL; +METH1TAB58 PO; +METR-34 PO; +MIRT-8 PO; -MIRT30TA3 PO; +MUPI22OI2 TP; +OMEP20CA16 PO; +OXYC1TAB17 PO; +PANT40TA6 PO; +POTA-121 PO; +[UNRECOGNIZED DRUG - CODE] PO; +[UNRECOGNIZED DRUG - OTHER] PO; +[UNRECOGNIZED DRUG - OTHER] PO; +vitamin D PO
[2021-08-27] MEDS ORDERED: FUROSEMIDE 20 MG/2 ML VIAL. IVP ONE (12:30)
--- NOTE | 2021-08-27 12:46 | RAD ---
Single view of the chest. 08/27/2021 12:15 PM Indication: Shortness of breath Comparison: Chest radiograph June 30, 2021 Findings: Aeration of the lungs is improved in the interim. Right jugular port with tip the cavoatria l junction. There is no focal consolidation. There is no pleural effusion or pneumothorax. Heart size is normal. No acute osseous abnormalities are seen. Chronic appearing left-sided rib fractures noted . Impression: No evidence of acute cardiopulmonary process. Electronically signed by: Ranjeet Alvarez MD (08/27/2021 12:43 PM) [id number]
[2021-08-27 13:11] LABS: BILIRUBIN,URINE NEGATIVE (NEG); CLARITY,URINE CLEAR; COLOR,URINE YELLOW; NITRITE,URINE NEGATIVE (NEG); PH,URINE 5.5 (<5.0-8.0); PROTEIN,URINE NEGATIVE (NEG-TRACE); UROBILINOGEN,URINE 0.2 mg/dL (0.2 mg/dL)
[2021-08-27 13:15] LABS: BASO % 0 % (0-3); EOS # 0.2 x10^3/uL (0.0-0.7); EOS % 1 % (0-3); HEMATOCRIT 28.7 % (36.0-47.0); HEMOGLOBIN 8.7 g/dL (12.0-15.5); LYMPH # 1.6 x10^3/uL (1.0-4.8); LYMPH % 15 % (24-48); MEAN CORPUSCULAR HEMOGLOBIN 34 pg (25-35); MEAN CORPUSCULAR HGB CONC 30 g/dL (31-37); MEAN CORPUSCULAR VOLUME 111 fL (79-100); MONO # 0.5 x10^3/uL (0.0-1.1); MONO % 5 % (0-9); NEUT # 8.6 x10^3/uL (1.8-7.7); NEUT % 78 % (31-73); PLATELET COUNT 133 x10^3/uL (140-400); RED BLOOD COUNT 2.58 x10^6/uL (3.50-5.40); RED CELL DISTRIBUTION WIDTH 17.9 % (11.5-14.5)
[2021-08-27 13:17] LABS: CALCIUM 8.4 mg/dL (8.5-10.1); CREATININE 1.3 mg/dL (0.6-1.0); GFR 44.1; POTASSIUM 3.7 mmol/L (3.5-5.1)
[2021-08-27 13:20] LABS: BACTERIA,URINE 0 /HPF (0-FEW); RBC,URINE 0 /HPF (0-2)
[2021-08-27 13:21] LABS: YEAST,URINE PRESENT /HPF
[2021-08-27 13:22] LABS: ALBUMIN 3.2 g/dL (3.4-5.0); ALBUMIN/GLOBULIN RATIO 1.1 (1.0-1.7); MAGNESIUM 2.5 mg/dL (1.8-2.4); TOTAL BILIRUBIN 0.5 mg/dL (0.2-1.0); TOTAL PROTEIN 6.1 g/dL (6.4-8.2)
--- NOTE | 2021-08-27 13:50 | PHYS DOC ---
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 Patient reports her symptoms started 4 days ago and have been worse since onset. She states she feels "swollen all over." She has no other complaints at this time. Review of Systems: Review of Systems: 12 systems reviewed. ROS negative except as mentioned in HPI. Heart Score: C/O Chest Pain: No Current Medications: Current Medications Medications (Trade) Dose Ordered Sig/Judith Start Time Stop Time Status Last Admin Dose Admin Furosemide (Lasix) 20 mg 1X ONCE 08/27/21 12:30 08/27/21 12:31 DC 08/27/21 12:54 20 MG Allergies: Allergies: Allergies Coded Allergies Type Severity Reaction Last Updated Verified Sulfa (Sulfonamide Antibiotics) Allergy Severe Anaphylaxis 09/03/19 Yes citric acid Allergy Intermediate HAS TOLERATED BARIUM 09/03/19 Yes shellfish derived Allergy Intermediate Patient does fine with iodine contrast 09/03/19 Yes I S O L A T I O N *CONTACT* Allergy Unknown 09/03/19 Yes Physical Exam: PE: Constitutional: Patient appears older than stated age and fatigued, obese, no acute distress, non-toxic appearance. HENT: Normocephalic, atraumatic, bilateral external ears normal, oropharynx moist, no oral exudates, nose normal. No significant facial swelling appreciated. Eyes: PERRLA, EOMI, conjunctiva normal, no discharge. Neck: Normal range of motion, no tenderness, supple, no stridor, no JVD. Cardiovascular: Heart rate regular rhythm. Lungs & Thorax: Breath sounds diminished diffusely. Abdomen: Protuberant abdomen, bowel sounds normal, soft, no tenderness, no masses, no pulsatile masses. Skin: Warm, dry, no erythema, no rash. Back: No step-offs, no midline tenderness, no CVA tenderness. Extremities: Patient has fresh wound dressings from outpatient wound care, edema appreciated bilateral lower legs. Neurologic: Alert and oriented x4, no focal deficits noted. Current Patient Data: Labs: Laboratory Tests Test 08/27/21 12:50 White Blood Count 11.0 x10^3/uL (4.0-11.0) Red Blood Count 2.58 x10^6/uL (3.50-5.40) L Hemoglobin 8.7 g/dL (12.0-15.5) L Hematocrit 28.7 % (36.0-47.0) L Mean Corpuscular Volume 111 fL (79-100) H Mean Corpuscular Hemoglobin 34 pg (25-35) Mean Corpuscular Hemoglobin Concent 30 g/dL (31-37) L Red Cell Distribution Width 17.9 % (11.5-14.5) H Platelet Count 133 x10^3/uL (140-400) L Neutrophils (%) (Auto) 78 % (31-73) H Lymphocytes (%) (Auto) 15 % (24-48) L Monocytes (%) (Auto) 5 % (0-9) Eosinophils (%) (Auto) 1 % (0-3) Basophils (%) (Auto) 0 % (0-3) Neutrophils # (Auto) 8.6 x10^3/uL (1.8-7.7) H Lymphocytes # (Auto) 1.6 x10^3/uL (1.0-4.8) Monocytes # (Auto) 0.5 x10^3/uL (0.0-1.1) Eosinophils # (Auto) 0.2 x10^3/uL (0.0-0.7) Basophils # (Auto) 0.0 x10^3/uL (0.0-0.2) Platelet Estimate Pending Urine Collection Type Unknown Urine Color Yellow Urine Clarity Clear Urine pH 5.5 (<5.0-8.0) Urine Specific [place] <=1.005 (1.000-1.030) Urine Protein Negative mg/dL (NEG-TRACE) Urine Glucose (UA) Negative mg/dL (NEG) Urine Ketones (Stick) Negative mg/dL (NEG) Urine Blood Negative (NEG) Urine Nitrite Negative (NEG) Urine Bilirubin Negative (NEG) Urine Urobilinogen Dipstick 0.2 mg/dL (0.2 mg/dL) Urine Leukocyte Esterase Small (NEG) Urine RBC 0 /HPF (0-2) Urine WBC 1-4 /HPF (0-4) Urine Squamous Epithelial Cells Few /LPF Urine Bacteria 0 /HPF (0-FEW) Urine Yeast Present /HPF Sodium Level 140 mmol/L (136-145) Potassium Level 3.7 mmol/L (3.5-5.1) Chloride Level 109 mmol/L (98-107) H Carbon Dioxide Level 26 mmol/L (21-32) Anion Gap 5 (6-14) L Blood Urea Nitrogen 11 mg/dL (7-20) Creatinine 1.3 mg/dL (0.6-1.0) H Estimated GFR (Cockcroft-Gault) 44.1 BUN/Creatinine Ratio 8 (6-20) Glucose Level 83 mg/dL (70-99) Calcium Level 8.4 mg/dL (8.5-10.1) L Magnesium Level 2.5 mg/dL (1.8-2.4) H Total Bilirubin 0.5 mg/dL (0.2-1.0) Aspartate Amino Transferase (AST) 23 U/L (15-37) Alanine Aminotransferase (ALT) 25 U/L (14-59) Alkaline Phosphatase 81 U/L (46-116) Troponin I High Sensitivity < 4 ng/L (4-50) L FE-Uqh-D-Type Natriuretic Peptide 81 pg/mL (0-124) Total Protein 6.1 g/dL (6.4-8.2) L Albumin 3.2 g/dL (3.4-5.0) L Albumin/Globulin Ratio 1.1 (1.0-1.7) Laboratory Tests 08/27/21 12:50 Laboratory Tests 08/27/21 12:50 Vital Signs: Vital Signs Date Time Temp Pulse Resp B/P (MAP) Pulse Ox O2 Delivery O2 Flow Rate FiO2 08/27/21 12:58 90 21 99/61 (74) 95 Nasal Cannula 2.0 08/27/21 11:52 97.9 97.9 EKG: EKG: EKG Interpreted by Dr. Alvarez at 1246: Regular rate and rhythm [address]-T wave changes. Regular QR interval. Radiology/Procedures: Radiology/Procedures: PROCEDURE: PORTABLE CHEST 1V Single view of the chest. 08/27/2021 12:15 PM Indication: Shortness of breath Comparison: Chest radiograph June 30, 2021 Findings: Aeration of the lungs is improved in the interim. Right jugular port with tip the cavoatrial junction. There is no focal consolidation. There is no pleural effusion or pneumothorax. Heart size is normal. No acute osseous abnormalities are seen. Chronic appearing left-sided rib fractures noted. Impression: No evidence of acute cardiopulmonary process. Electronically signed by: Ranjeet Alvarez MD (08/27/2021 12:43 PM) [id number] Course & Med Decision Making: Course & Med Decision Making Pertinent Labs and Imaging studies reviewed. (See chart for details) Patient is well-known to the facility have extensive medical history. Patient will be evaluated for acute exacerbation of congestive heart failure versus kidney injury. Lab work-up is largely unremarkable today, and hemoglobin is actually improved from last admission. Does appear that patient has UTI. Discussed work-up findings with the patient. She states she is already being treated with antibiotics for her UTI. Patient does request pain medication. She reports that her pain management doctor advised her to speak to her PCP, which she has not done yet. Discussed with the patient that it is best for her PCP and pain management doctor to continue managing her chronic pain. Patient understands and is agreeable to discharge plan. Yeni Disclaimer: Yeni Disclaimer: This electronic medical record was generated, in whole or in part, using a voice recognition dictation system. Departure Departure Impression: Primary Impression: CELLULITIS OF RIGHT LOWER LIMB Additional Impressions: CELLULITIS OF LEFT LOWER LIMB Recurrent UTI Disposition: HOME / SELF CARE / HOMELESS Condition: STABLE Referrals: Jett BRIGHT MD (PCP) Patient Instructions: Catheter-Associated Urinary Tract Infection FAQs - LOVE, Wound Care, [id number] ABIGAIL REAL Aug 27, 2021 13:50
--- NOTE | 2021-08-27 14:38 | EKG ---
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
[2021-08-27] MEDS ORDERED: HEPARIN PF 500 UNIT/5 ML DISP.SYRIN. IVP ONE (15:15)
[2021-08-27 15:21] VITALS: BP 102/73
[2021-08-27 15:52] LABS: PLT ESTIMATE ADEQUATE (ADEQUATE)
[2021-08-27 15:53] LABS: ANISOCYTOSIS SLIGHT; POLYCHROMASIA SLIGHT
== END 2021-08-27 15:30 | disposition home or self-care (01) ==
LOC: ER 11:37
DX: L03.115 Cellulitis of right lower limb (principal); L03.116 Cellulitis of left lower limb; N39.0 Urinary tract infection, site not specified; I10 Essential (primary) hypertension; J44.9 Chronic obstructive pulmonary disease, unspecified; Z86.73 Personal history of transient ischemic attack (TIA), and cerebral infarction without residual deficits; F17.200 Nicotine dependence, unspecified, uncomplicated; Z86.14 Personal history of Methicillin resistant Staphylococcus aureus infection; Z88.2 Allergy status to sulfonamides; Z91.041 Radiographic dye allergy status; Z91.013 Allergy to seafood; Z88.8 Allergy status to other drugs, medicaments and biological substances
CPT/HCPCS: 36415; 71045; 80053; 81001; 82550; 83735; 83880; 84484; 85025; 87086; 93005; 96374; 96375; 99285; J1642; J1940; 96361